=== PATIENT | male | born 1950 | race Caucasian/White ===

== ENCOUNTER 2019-08-02 01:08 | Inpatient (IN) | payer MEDICARE, OTHER ==
[~2019-08-02] VITALS: Ht 177.8 cm; Wt 90.5 kg
[2019-08-02] MEDS ORDERED: LACTATED RINGERS 1,000 ML IV STA (01:26)
[2019-08-02] MEDS ORDERED: ONDANSETRON 4 MG/2 ML (SDV) Z0FRAN IVP ONE (01:30)
--- NOTE | 2019-08-02 01:43 | ED General ---
General Chief Complaint: Respiratory Problems Stated Complaint: SOB Nursing Triage Note: intermittant soa, cough since tuesday, vomitting tonight. Nursing Sepsis Screen: No Definite Risk Source of Information: Patient Exam Limitations: No Limitations History of Present Illness Date Seen by Provider: Aug 02, 2019 Time Seen by Provider: 01:33 Initial Comments Here with 3-4 days of increasing shortness of breath, cough and overall not feeling well. Vomited tonight a few times. Has had intermittent fevers through this time. Did have tooth extraction last week. Does have significant long history with asthma and COPD. Denies specific pain but does report weakness. Timing/Duration: 3-4 Days Severity: Moderate Modifying Factors: improves with Rest Associated Systoms: No Chest Pain; Cough, Fever/Chills, Nausea/Vomiting; No Rash; Shortness of Air, Weakness Allergies and Home Medications Allergies Coded Allergies: Sulfa (Sulfonamide Antibiotics) (Verified Allergy, Unknown, 08/02/19) Patient Home Medication List Home Medication List Reviewed: Yes Review of Systems Review of Systems Constitutional: see HPI EENTM: see HPI Respiratory: cough, short of breath Cardiovascular: No chest pain, No edema Gastrointestinal: No abdominal pain; diarrhea, nausea, vomiting Genitourinary: no symptoms reported Musculoskeletal: see HPI; No back pain Skin: no symptoms reported Psychiatric/Neurological: No Symptoms Reported All Other Systems Reviewed Negative Unless Noted: Yes Past Hixtatn-Teyhbc-Bwlchw Hx Past Med/Social Hx: Reviewed Nursing Past Med/Soc Hx Patient Social History Alcohol Use: Denies Use Recreational Drug Use: No Smoking Status: Current Everyday Smoker Type Used: Cigarettes 2nd Hand Smoke Exposure: Yes Recent Foreign Travel: No Contact w/Someone Who Travel: No Recent Infectious Disease Expo: No Recent Hopitalizations: No Physical Abuse: No Sexual Abuse: No Mistreated: No Fear: No Immunizations Up To Date Tetanus Booster (TDap): Unknown Seasonal Allergies Seasonal Allergies: No Past Medical History Surgeries: Yes Transurethral Resection Respiratory: Yes Asthma, Pneumonia, COPD, Emphysema Cardiac: Yes High Cholesterol, Hypertension Neurological: No Genitourinary: Yes Benign Prostatic Hyperpl Gastrointestinal: No Musculoskeletal: Yes Arthritis Endocrine: No HEENT: No Cancer: No Psychosocial: No Integumentary: No Blood Disorders: No Family Medical History Reviewed Nursing Family Hx No Pertinent Family Hx Physical Exam-Suspected Sepsis Physical Exam Vital Signs Vital Signs - First Documented 08/02/19 01:16 Temp 37.1 Pulse 86 Resp 16 B/P (MAP) 178/104 (128) Pulse Ox 95 O2 Delivery Room Air Capillary Refill : Less Than 3 Seconds Blood Pressure Mean: 128 Height, Weight, BMI Height: '" Weight: lbs. oz. kg; 28.00 BMI Method: General Appearance: No Apparent Distress, WD/WN HEENT: PERRL/EOMI, TMs Normal, Pharynx Normal Neck: Non Tender, Supple Respiratory: No Accessory Muscle Use, Crackles (right lower long), Decreased Breath Sounds, Wheezing (right-sided especially lower) Cardiovascular: Regular Rate, Rhythm, No Murmur Gastrointestinal: Non Tender, Soft Back: Normal Inspection, No CVA Tenderness, No Vertebral Tenderness Extremity: Normal Range of Motion, Non Tender Neurologic/Psychiatric: Alert, Oriented x3 Skin: normal color, warm/dry Focused Exam Lactate Level 08/02/19 01:39: Lactic Acid Level 2.00 Lactic Acid Level Laboratory Tests Test 08/02/19 01:39 Lactic Acid Level 2.00 MMOL/L (0.50-2.00) Progress/Results/Core Measures Suspected Sepsis Recent Fever Within 48 Hours: No Infection Criteria Present: None New/Unexplained Altered Menta: No Sepsis Screen: No Definite Risk SIRS Temperature: Pulse: 86 Respiratory Rate: 16 Laboratory Tests 08/02/19 01:39: White Blood Count 26.0H Blood Pressure 178 /104 Mean: 128 08/02/19 01:39: Lactic Acid Level 2.00 Laboratory Tests 08/02/19 01:35: INR Comment 1.2 08/02/19 01:39: Creatinine 0.87, Platelet Count 271, Total Bilirubin 1.1H Results/Orders Lab Results Laboratory Tests Test 08/02/19 01:35 08/02/19 01:39 Range/Units Prothrombin Time 16.0 H 12.2-14.7 SEC INR Comment 1.2 0.8-1.4 Activated Partial Thromboplast Time 31 24-35 SEC White Blood Count 26.0 H 4.3-11.0 10^3/uL Red Blood Count 4.73 4.35-5.85 10^6/uL Hemoglobin 13.3 13.3-17.7 G/DL Hematocrit 39 L 40-54 % Mean Corpuscular Volume 83 80-99 FL Mean Corpuscular Hemoglobin 28 25-34 PG Mean Corpuscular Hemoglobin Concent 34 32-36 G/DL Red Cell Distribution Width 14.8 H 10.0-14.5 % Platelet Count 271 130-400 10^3/uL Mean Platelet Volume 11.7 H 7.4-10.4 FL Neutrophils (%) (Auto) 91 H 42-75 % Lymphocytes (%) (Auto) 3 L 12-44 % Monocytes (%) (Auto) 6 0-12 % Eosinophils (%) (Auto) 0 0-10 % Basophils (%) (Auto) 0 0-10 % Neutrophils # (Auto) 23.8 H 1.8-7.8 X 10^3 Lymphocytes # (Auto) 0.8 L 1.0-4.0 X 10^3 Monocytes # (Auto) 1.5 H 0.0-1.0 X 10^3 Eosinophils # (Auto) 0.0 0.0-0.3 10^3/uL Basophils # (Auto) 0.1 0.0-0.1 10^3/uL Neutrophils % (Manual) 80 % Lymphocytes % (Manual) 4 % Monocytes % (Manual) 6 % Eosinophils % (Manual) 1 % Basophils % (Manual) 0 % Band Neutrophils 9 % Reactive Lymphocytes 1 % Toxic Granulation 1+ Poikilocytosis SLIGHT Anisocytosis SLIGHT Sodium Level 136 135-145 MMOL/L Potassium Level 3.8 3.6-5.0 MMOL/L Chloride Level 103 98-107 MMOL/L Carbon Dioxide Level 22 21-32 MMOL/L Anion Gap 11 5-14 MMOL/L Blood Urea Nitrogen 21 H 7-18 MG/DL Creatinine 0.87 0.60-1.30 MG/DL Estimat Glomerular Filtration Rate > 60 BUN/Creatinine Ratio 24 Glucose Level 151 H 70-105 MG/DL Lactic Acid Level 2.00 0.50-2.00 MMOL/L Calcium Level 9.6 8.5-10.1 MG/DL Corrected Calcium 10.1 8.5-10.1 MG/DL Total Bilirubin 1.1 H 0.1-1.0 MG/DL Aspartate Amino Transf (AST/SGOT) 24 5-34 U/L Alanine Aminotransferase (ALT/SGPT) 28 0-55 U/L Alkaline Phosphatase 170 H 40-136 U/L C-Reactive Protein High Sensitivity 39.90 H 0.00-0.50 MG/DL Total Protein 7.6 6.4-8.2 GM/DL Albumin 3.4 3.2-4.5 GM/DL Micro Results Microbiology 08/02/19 Influenza Types A,B Antigen (DARIEN) - Final, Complete My Orders Orders - STARR LARKIN MD Cbc With Automated Diff (08/02/19 01:26) Comprehensive Metabolic Panel (08/02/19:26) Hs C Reactive Protein (08/02/19:26) Influenza A And B Antigens (08/02/19:26) Ondansetron Injection (Zofran Injectio (08/02/19 01:30) Lactated Ringers (Lr 1000 Ml Iv Solution (08/02/19:26) Ed Iv/Invasive Line Start (08/02/19:26) Chest 1 View, Ap/Pa Only (08/02/19 01:28) Blood Culture (08/02/19 01:34) Sputum Culture (08/02/19 01:34) Urinalysis (08/02/19 01:34) Urine Culture (08/02/19 01:34) Protime With Inr (08/02/19 01:34) Partial Thromboplastin Time (08/02/19 01:34) Ed Iv/Invasive Line Start (08/02/19 01:34) Vital Signs Adult Sepsis Patie Q15M (08/02/19 01:34) O2 (08/02/19 01:34) Remove Rings In Anticipation O (08/02/19 01:34) Lactic Acid Analyzer (08/02/19 01:34) Albuterol/Ipra Inhalation Soln (Duoneb I (08/02/19 01:45) Svn Small Volume Nebulizer (08/02/19 01:42) Manual Differential (08/02/19 01:39) Ct Chest W (08/02/19 02:35) Piperacillin Sodium/Tazobactam (Zosyn Vi (08/02/19 02:45) Iohexol Injection (Omnipaque 350 Mg/Ml 1 (08/02/19 03:15) Received Contrast (Hold Metformin- Contr (08/02/19 03:15) Vancomycin Injection (Vancomycin Injecti (08/02/19 04:00) Hydralazine Injection (Apresoline Inject (08/02/19 04:00) Medications Given in ED Current Medications Medications Dose Ordered Sig/Emmie Route Start Time Stop Time Status Last Admin Dose Admin Albuterol/ Ipratropium 3 ml ONCE ONCE INH 08/02/19 01:45 08/02/19 01:46 DC 08/02/19 02:01 3 ML Hydralazine HCl 10 mg ONCE ONCE IV 08/02/19 04:00 08/02/19 04:02 DC 08/02/19 04:10 10 MG Iohexol 100 ml ONCE ONCE IV 08/02/19 03:15 08/02/19 03:16 UNV 08/02/19 03:41 74 ML Ondansetron HCl 4 mg ONCE ONCE IVP 08/02/19 01:30 08/02/19 01:31 DC 08/02/19 01:42 4 MG Piperacillin Sod/ Tazobactam Sod 4.5 gm/Sodium Chloride 100 ml @ 200 mls/hr ONCE ONCE IV 08/02/19 02:45 08/02/19 03:14 DC 08/02/19 02:56 200 MLS/HR Vital Signs/I&O 08/02/19 08/02/19 01:16 02:01 Temp 37.1 Pulse 86 Resp 16 B/P (MAP) 178/104 (128) Pulse Ox 95 94 O2 Delivery Room Air Room Air Capillary Refill : Less Than 3 Seconds Blood Pressure Mean: 128 Progress Note : Progress Note Seen and evaluated. Sepsis order set initiated. LR 1 L bolus and Zofran 4 mg IV ordered. Chest x-ray concerning for significant right lower lobe pneumonia/mass. Anticipate CT of the chest. Nicoo roberto ordered. Monitor patient. 0245: Zosyn 4.5 g IV ordered for right lower lobe pneumonia. CT chest ordered with contrast. 0430: CT complete. Vancomycin 1 g IV ordered. Hydralazine 10 mg IV for hypertension ordered. CT complete and shows large consolidated pneumonia in the right lower lobe. Patient will require admission. Patient at [facility]. Patient stable for admission to medical for. Admit, inpatient status to Dr. Lee, on- call for [facility]. Consult Dr. Collado in the morning. Patient agrees to plan. Departure Communication (Admissions) Time/Spoke to Admitting Phy: 04:37 Impression Primary Impression: Right lower lobe pneumonia Qualified Codes: J18.1 - Lobar pneumonia, unspecified organism Disposition: ADMITTED INPATIENT Condition: Stable Admissions Decision to Admit Reason: Admit from ER (General) Decision to Admit/Date: Aug 02, 2019 Time/Decision to Admit Time: 04:34 Departure-Patient Inst. Referrals: NO,LOCAL PHYSICIAN (PCP/Family) Primary Care Physician STARR LARKIN MD Aug 02, 2019 01:43
[2019-08-02] MEDS ORDERED: RT-ALBUTEROL/IPRATROPIUM 3 ML (DUONEB) VIAL INH ONE (01:45)
[2019-08-02 01:57] LABS: BASOPHILS # (AUTO) 0.1 10^3/uL (0.0-0.1); BASOPHILS % (AUTO) 0 % (0-10); EOSINOPHILS % (AUTO) 0 % (0-10); HEMATOCRIT 39 % (40-54); HEMOGLOBIN 13.3 G/DL (13.3-17.7); LYMPHOCYTES # (AUTO) 0.8 X 10^3 (1.0-4.0); LYMPHOCYTES % (AUTO) 3 % (12-44); MEAN CORPUSCULAR HEMOGLOBIN 28 PG (25-34); MEAN CORPUSCULAR HGB CONC 34 G/DL (32-36); MEAN CORPUSCULAR VOLUME 83 FL (80-99); MEAN PLATELET VOLUME 11.7 FL (7.4-10.4); MONOCYTES # (AUTO) 1.5 X 10^3 (0.0-1.0); MONOCYTES % (AUTO) 6 % (0-12); NEUTROPHILS # (AUTO) 23.8 X 10^3 (1.8-7.8); NEUTROPHILS % (AUTO) 91 % (42-75); PLATELET COUNT 271 10^3/uL (130-400); RED CELL DISTRIBUTION WIDTH 14.8 % (10.0-14.5)
[2019-08-02 02:10] LABS: INR 1.2 (0.8-1.4)
[2019-08-02 02:24] LABS: ANISOCYTOSIS SLIGHT; BAND NEUTROPHILS 9 %; BASOPHILS % (MANUAL) 0 %; EOSINOPHILS % (MANUAL) 1 %; LYMPHOCYTES % (MANUAL) 4 %; MONOCYTES % (MANUAL) 6 %; NEUTROPHILS % (MANUAL) 80 %; POIKILOCYTOSIS SLIGHT; REACTIVE LYMPHOCYTES 1 %; TOXIC GRANULATION/VACUOLAZATIO 1+
[2019-08-02 02:32] LABS: BILIRUBIN,TOTAL 1.1 MG/DL (0.1-1.0); BUN/CREATININE RATIO 24; CALCIUM 9.6 MG/DL (8.5-10.1); CARBON DIOXIDE 22 MMOL/L (21-32); CHLORIDE 103 MMOL/L (98-107); CREATININE SERUM 0.87 MG/DL (0.60-1.30); GFR ESTIMATED > 60; GLUCOSE 151 MG/DL (70-105); POTASSIUM 3.8 MMOL/L (3.6-5.0); SODIUM 136 MMOL/L (135-145)
[2019-08-02 02:33] LABS: ALANINE AMINOTRANSFERASE 28 U/L (0-55); ALBUMIN 3.4 GM/DL (3.2-4.5); ALKALINE PHOSPHATASE 170 U/L (40-136); TOTAL PROTEIN 7.6 GM/DL (6.4-8.2)
[2019-08-02] MEDS ORDERED: PIPERACILLIN SODIUM/TAZOBACTAM 4.5 GM in NS (IVPB) 100 ML IV ONE (02:45)
[2019-08-02] MEDS ORDERED: HOLD METFORMIN - RECEIVED CONTRAST 20 ML VIAL IV SCH (03:15)
[2019-08-02] MEDS ORDERED: IOHEXOL 350 MG/ML 100 ML (OMNIPAQUE 350) VIAL IV ONE (03:15)
[2019-08-02] MEDS ORDERED: hydrALAZINE (APESOLINE) 20 MG/ML VIAL IV ONE (04:00)
[2019-08-02] MEDS ORDERED: VANCOMYCIN INJECTION 2,000 MG in NS IV 500 ML 500 ML IV SCH (04:00)
--- NOTE | 2019-08-02 05:12 | NUR ---
NALLELY KELLY admitted to room 407-1, with an admitting diagnosis of RLL PNA, on 08/02/19 from ED via , accompanied by STAFF.NALLELY KELLY introduced to surroundings, call light, bed controls, phone, TV, temperature control, lights, meal times, smoking policy, visitor policy, side rail policy, bathrooms and showers. Patient Rights given to patient in the handbook. NALLELY KELLY verbalizes understanding that [facility] is not responsible for the loss or damage to any personal effects or valuables that are kept in the patients possession during their hospitalization. THE PATIENT'S PLAN OF CARE WAS DISCUSSED WITH THE PT, HE AGREES TO THE PLAN & DENIES ANY QUESTIONS OR CONCERNS AT THIS TIME. NALLELY KELLY verbalizes understanding of Interdisciplinary Patient Education.
[2019-08-02 05:20] VITALS: BP 180/87
[2019-08-02] MEDS ORDERED: LACTATED RINGERS 1,000 ML IV ONE (06:44)
[2019-08-02] MEDS ORDERED: ONDANSETRON 4 MG/2 ML (SDV) Z0FRAN ONE (06:44)
--- NOTE | 2019-08-02 06:59 | Diagnostic Imaging Report ---
INDICATION: Intermittent shortness of air with cough for 3 days, vomiting tonight. COMPARISON STUDY: None FINDINGS: A portable upright view of the chest demonstrates a dense infiltrate in the lower half of the right lung. An underlying mass cannot be excluded. Cardiomegaly is present with normal vascularity. There are no definite pleural effusions. IMPRESSION: There is a dense infiltrate in the right lower lung. Underlying mass cannot be excluded. A CT scan will be obtained. There is mild cardiomegaly. Dictated by: Dictated on workstation # [id number]
[2019-08-02] MEDS ORDERED: FLU QUADRIvalent (5+ YOA) 2019-2020 (AFLURIA) 0.5 ML IM ONE ×2 (07:00→10:02)
[2019-08-02] MEDS ORDERED: PIPERACILLIN/TAZO 4.5 GM/NS 100 ML IV NR ×2 (07:10)
--- NOTE | 2019-08-02 07:21 | NUR ---
VANCOMYCIN DOSING: IBW 73 KG, SCr 1, EST CrCl 71 VANCOMYCIN 2,000 MG GIVEN IN ED @ 04:10 MAIN DOSE: 1,500 MG IV Q 12 HRS VANCOMYCIN TROUGH DUE 08/03/19 @ 16:00 IF TROUGH IS > 20 HOLD 08/03/19 17:00 DOSE
--- NOTE | 2019-08-02 07:28 | Diagnostic Imaging Report ---
PROCEDURE: CT chest with contrast only. TECHNIQUE: Multiple contiguous axial images were obtained through the chest after administration of intravenous contrast. Auto Exposure Controls were utilized during the CT exam to meet ALARA standards for radiation dose reduction. INDICATION: Abnormal chest radiograph. Patient has had worsening shortness of breath for 3 days. FINDINGS: Postcontrast CT scan of the chest demonstrates a dense infiltrate throughout most of the right lower lobe. There is a minimal associated right pleural effusion. No endobronchial lesions are identified. Left lung is clear. A few small mediastinal and right hilar lymph nodes are present which are probably reactive. Centrilobular emphysematous changes present. These are fairly mild. Heart size is normal. No pericardial effusion is present. There are some calcifications of the coronary arteries. Contrast within the pulmonary vessels are suboptimal. No large central pulmonary emboli are present. Takeoff of the great vessels demonstrate minimal arterial sclerosis. Visualized portions of the abdomen demonstrate mildly distended gallbladder. There is some thickening of the left adrenal gland. IMPRESSION: There is a dense consolidation of the right lower lobe. No endobronchial lesions are present. There is a trace of right pleural effusion. Dictated by: Dictated on workstation # [id number]
[2019-08-02] MEDS ORDERED: CATHETER FLUSH 10 ML SYR IV PRN (07:30)
[2019-08-02 08:00] VITALS: BP 178/86
[2019-08-02 08:45] VITALS: BP 178/104
[2019-08-02] MEDS: LACTATED RINGERS 1,000 ML IV SCH ×3 (08:50→20:42)
--- NOTE | 2019-08-02 09:34 | Pulmonary Consultation ---
History of Present Illness History of Present Illness Date Seen by Provider: Aug 02, 2019 Time Seen by Provider: 09:29 Date of Admission History of Present Illness 68yo s/p recent tooth extraction last week and hx of COPD/asthma presented to ED secondary to worsening SOB, cough, fevers, and n/v. While in the ED he was found to have acute RLL pneumonia per CT scan. Allergies and Home Medications Allergies Coded Allergies: Sulfa (Sulfonamide Antibiotics) (Verified Allergy, Unknown, 08/02/19) Home Medications Albuterol Sulfate 2.5 Mg/3 Ml Vial.neb, 2.5 MG NEB Q6H PRN for SHORTNESS OF BREATH, (Reported) Albuterol Sulfate 1 Puff Puff, 2 PUFF INH Q6H PRN for SHORTNESS OF BREATH, (Reported) 1 PUFF = 90 MCG Budesonide/Formoterol Fumarate 10.2 Gm Hfa.aer.ad, 2 PUFF IH BID, (Reported) Bupropion HCl 100 Mg Tablet, 200 MG PO 0800,1400, (Reported) Citalopram Hydrobromide 20 Mg Tablet, 20 MG PO DAILY, (Reported) Diltiazem HCl 120 Mg Cap.er.24h, 240 MG PO DAILY@0900 Prescribed by: BALTAZAR FARR on 08/07/19 1350 Famotidine 20 Mg Tablet, 40 MG PO HS Prescribed by: BALTAZAR FARR on 08/07/19 1350 Furosemide 20 Mg Tablet, 20 MG PO DAILY, (Reported) Lisinopril 10 Mg Tablet, 20 MG PO DAILY@0900 Prescribed by: BALTAZAR FARR on 08/07/19 1350 Metoprolol Tartrate 50 Mg Tablet, 50 MG PO DAILY, (Reported) Pravastatin Sodium 40 Mg Tablet, 20 MG PO HS, (Reported) TAKES 1/2 (40MG) TABLET Prednisone 20 Mg Tab, 20 MG PO DAILY@1600 1 tab daily x 5 days then 1/2 tab daily x 6 days then stop Prescribed by: BALTAZAR FARR on 08/07/19 1350 Tamsulosin HCl 0.4 Mg Cap, 0.4 MG PO HS, (Reported) Tiotropium [place] 4 Gm Mist.inhal, 2 PUFF IH DAILY, (Reported) Past Dmwlxzn-Nfcoih-Woljag Hx Past Med/Social Hx: Reviewed Nursing Past Med/Soc Hx Patient Social History Alcohol Use: Denies Use Recreational Drug Use: No Smoking Status: Current Everyday Smoker Type Used: Cigarettes 2nd Hand Smoke Exposure: Yes Recent Foreign Travel: No Contact w/Someone Who Travel: No Recent Infectious Disease Expo: Yes (Sister had influenza A but tested negative for influenza upon admission) Recent Hopitalizations: No Physical Abuse: No Sexual Abuse: No Mistreated: No Fear: No Immunizations Up To Date Tetanus Booster (TDap): Unknown Date of Pneumonia Vaccine: Jun 21, 2017 Seasonal Allergies Seasonal Allergies: No Past Medical History Surgeries: Yes Transurethral Resection Respiratory: Yes Asthma, Pneumonia, COPD, Emphysema Cardiac: Yes High Cholesterol, Hypertension Neurological: No Genitourinary: Yes Benign Prostatic Hyperpl Gastrointestinal: No Musculoskeletal: Yes Arthritis Endocrine: No HEENT: No Cancer: No Psychosocial: No Integumentary: No Blood Disorders: No Family Medical History Reviewed Nursing Family Hx "oat cell cancer" 19 MOTHER Bleeding disorder 19 MOTHER FH: CAD (coronary artery disease) 19 FATHER FH: breast cancer 19 MOTHER G8 SISTER FHx: lung disease 19 FATHER Hypertension G8 BROTHER Myocardial infarction 19 FATHER No Pertinent Family Hx Review of Systems Time Seen by Provider: 09:32 Constitutional: Fever, Chills, Sweats, Weakness, Malaise, Other Eyes: No: Pain, Vision change, Conjunctivae inflammation, Eyelid inflammation, Other, Redness ENT: No: Ear pain, Ear discharge, Nose pain, Nose discharge, Nose congestion, Mouth pain, Mouth swelling, Throat pain, Throat swelling, Other Respiratory: Cough, Shortness of breath, SOB with excertion, Wheezing, Sputum; No: Hemoptysis Cardiovascular: No: Chest Pain, Palpitations, Orthopnea, Paroxysmal Noc. Dyspnea, Edema, Lt Headedness, Other Gastrointestinal: No: Nausea, Vomiting, Abdominal Pain, Diarrhea, Constipation, Melena, Hematochezia, Other Sepsis Event Evaluation Height, Weight, BMI Height: '" Weight: lbs. oz. kg; 28.62 BMI Method: Exam Exam Vital Signs Date Time Temp Pulse Resp B/P (MAP) Pulse Ox O2 Delivery O2 Flow Rate FiO2 08/02/19 08:45 37.1 86 95 21 08/02/19 08:00 37.2 88 22 178/86 (116) 94 Room Air 08/02/19 05:20 Room Air 08/02/19 05:20 36.6 90 28 180/87 96 Room Air 08/02/19 05:02 37.3 88 24 164/83 97 Room Air 08/02/19 02:01 94 Room Air 08/02/19 01:16 37.1 86 16 178/104 (128) 95 Room Air I & O 08/02/19 07:00 Intake Total 1100 ml Output Total 0 ml Balance 1100 ml Height & Weight Height: '" Weight: lbs. oz. kg; 28.62 BMI Method: General Appearance: No Apparent Distress, WD/WN HEENT: PERRL/EOMI, TMs Normal, Pharynx Normal Neck: Non Tender, Supple Respiratory: No Accessory Muscle Use, Crackles (right lower long), Decreased Breath Sounds, Wheezing (right-sided especially lower) Cardiovascular: Regular Rate, Rhythm, No Murmur Capillary Refill: Less Than 3 Seconds Extremity: Normal Range of Motion, Non Tender Neurologic/Psychiatric: Alert, Oriented x3 Results Lab Laboratory Tests 08/02/19 01:39 Assessment/Plan Assessment/Plan Acute pneumonia s/p recent tooth extraction -Continue Davion Kumar for now -Check meyers cultures and MRSA nasal swab COPD/asthma -Continue Duonebs Q 4 -Start IS -Prednisone ANTOINE TOBAR DO Aug 02, 2019 09:34
[2019-08-02] MEDS ORDERED: DILT-8 PO (10:01)
[2019-08-02] MEDS ORDERED: RANI150T90 PO (10:01)
[2019-08-02] MEDS ORDERED: TIOT4MIS2 IH (10:01)
[2019-08-02] MEDS ORDERED: BUDE10.2 IH (10:01)
[2019-08-02] MEDS ORDERED: RT-ALBUINH INH (10:01)
[2019-08-02] MEDS ORDERED: CITA20TA9 PO (10:01)
[2019-08-02] MEDS ORDERED: METO50TA15 PO (10:01)
[2019-08-02] MEDS ORDERED: ALBU2.5V4 NEB (10:01)
[2019-08-02] MEDS ORDERED: BUPR100T15 PO (10:01)
[2019-08-02] MEDS ORDERED: TMSL.4C PO (10:01)
[2019-08-02] MEDS ORDERED: PRAV40TA2 PO (10:01)
[2019-08-02] MEDS ORDERED: FURO20TA4 PO (10:04)
--- NOTE | 2019-08-02 10:05 | NUR ---
PATIENT LISTED HIS MEDICATIONS TO ME. I CALLED AND HAD A LIST FAXED OVER FROM THE [facility]. [facility] F[place]: 07-19-19 BUPROPION HCL 100MG 2 TABS BID #360 07-19-19 CITALOPRAM 20MG DAILY #90 06-28-19 SPIRIVA RESPIMAT 2.5MCG 2 PUFFS DAILY #3 06-27-19 METOPROLOL TARTRATE 50MG 1/2 BID #90 (HE TAKES 1 WHOLE TABLET) 06-27-19 PRAVASTATIN 40MG 1/2 HS #45 06-27-19 DILTIAZEM 120MG 24HR DAILY #90 06-27-19 SYMBICORT 160 2 PUFFS BID #3 06-27-19 TAMSULOSIN 0.4MG HS #90 06-04-19 RANITIDINE 150MG BID #180 (TAKES 2 HS) 04-07-19 FUROSEMIDE 20MG DAILY #90 03-28-19 ALBUTEROL NEBULIZER 0.083% Q6H PRN #360 HE ALSO REPORTS HE HAS AN ALBUTEROL INHALER NEEDED WELL.
[2019-08-02] MEDS: PIPERACILLIN/TAZO 4.5 GM/NS 100 ML IV SCH ×4 (10:12→18:16)
[2019-08-02] MEDS: guaiFENesin (MUCINEX) 600 MG TAB PO SCH ×2 (10:29→20:43)
[2019-08-02] MEDS: RT-ALBUTEROL/IPRATROPIUM 3 ML (DUONEB) VIAL INH SCH ×4 (10:33→21:51)
--- NOTE | 2019-08-02 11:03 | History & Physical-Hospitalist ---
History of Present Illness HPI/Chief Complaint CC: Cough with fever HPI: This is a 68yoWM clinic pt of [facility] who has a hx of a pneumonia and on a ventilator three years ago who continues to smoke who presented to the ER found to have a right lower lobe pneumonia with leukocytosis. Dr. Collado has been consulted and I did start Mucinex at his request and initiated Lovenox along with IV steroids and breathing treatments. Source: patient Exam Limitations: no limitations Date Seen 08/02/19 Time Seen by a Provider: 09:30 Attending Physician Dolores King DO PCP Mikael Bautista MD Referring Physician Date of Admission Aug 02, 2019 at 04:38 Home Medications & Allergies Home Medications Reviewed patient Home Medication Reconciliation performed by pharmacy medication reconciliations food science technician and/or nursing. Patients Allergies have been reviewed. Allergies Allergies Coded Allergies Sulfa (Sulfonamide Antibiotics) (Verified Allergy, Unknown, 08/02/19) Past Igmrtei-Avgyzt-Hsuahj Hx Past Med/Social Hx: Reviewed Nursing Past Med/Soc Hx, Reviewed and Corrections made Patient Social History Marrital Status: single Employed/Student: retired Alcohol Use: Denies Use Recreational Drug Use: No Smoking Status: Current Everyday Smoker Type Used: Cigarettes 2nd Hand Smoke Exposure: Yes Recent Foreign Travel: No Contact w/other who traveled: No Recent Hopitalizations: No Recent Infectious Disease Expo: Yes (Sister had influenza A but tested negative for influenza upon admission) Immunizations Up To Date Tetanus Booster (TDap): Unknown Date of Pneumonia Vaccine: Jun 21, 2017 Seasonal Allergies Seasonal Allergies: No Past Medical History Surgeries: Transurethral Resection Respiratory: Chronic Bronchitis, COPD, Emphysema, Pneumonia Cardiac: High Cholesterol, Hypertension Genitourinary: Benign Prostatic Hyperpl Musculoskeletal: Arthritis History of Blood Disorders: No Family History Reviewed Nursing Family Hx "oat cell cancer" 19 MOTHER Bleeding disorder 19 MOTHER FH: CAD (coronary artery disease) 19 FATHER FH: breast cancer 19 MOTHER G8 SISTER FHx: lung disease 19 FATHER Hypertension G8 BROTHER Myocardial infarction 19 FATHER No Pertinent Family Hx Review of Systems Constitutional: see HPI, weakness Respiratory: cough, dyspnea on exertion, wheezing Physical Exam Physical Exam Vital Signs Vital Signs - First Documented 08/02/19 08/02/19 08/02/19 01:16 08:45 18:10 Temp 37.1 Pulse 86 Resp 16 B/P (MAP) 178/104 (128) Pulse Ox 95 O2 Delivery Room Air O2 Flow Rate 4.00 FiO2 21 Capillary Refill : Less Than 3 Seconds Height, Weight, BMI Height: '" Weight: lbs. oz. kg; 28.62 BMI Method: General Appearance: No Apparent Distress, WD/WN, Chronically ill, Obese Eyes: Right Eye Normal Inspection, Right Eye PERRL HEENT: PERRL/EOMI, Normal ENT Inspection, Pharynx Normal, Moist Mucous Membranes Neck: Full Range of Motion, Normal Inspection, Non Tender Respiratory: Chest Non Tender, No Accessory Muscle Use, No Respiratory Distress, Crackles, Decreased Breath Sounds, Rales, Wheezing Cardiovascular: Regular Rate, Rhythm, No Edema, No Gallop, No JVD, No Murmur, Normal Peripheral Pulses Gastrointestinal: Normal Bowel Sounds, No Organomegaly, No Pulsatile Mass, Non Tender, Soft Back: Normal Inspection, No CVA Tenderness, No Vertebral Tenderness Extremity: Normal Capillary Refill, Normal Inspection, Normal Range of Motion, Non Tender, No Calf Tenderness, No Pedal Edema Neurologic/Psychiatric: Alert, Oriented x3, No Motor/Sensory Deficits, Normal Mood/Affect, personal lines underwriter II-XII Norm as Tested Skin: Normal Color, Warm/Dry Lymphatic: No Adenopathy Results Results/Procedures Labs Laboratory Tests 08/02/19 01:39 Patient resulted labs reviewed. Assessment/Plan Admission Diagnosis Assessment: RLL PNA COPD severe previous resp failure [facility] in [place] 3 yrs ago Current smoker Recent dental work HTN HLP Plan: ABx Nebs O2 Dr Collado consult Lovenox Home meds Admission Status: Inpatient Order (span 2 midnights) Reason for Inpatient Admission: PNA in severe COPD was on vent for 1 week in [place] 3 yrs ago and cont to smoke Diagnosis/Problems Diagnosis/Problems (1) Right lower lobe pneumonia Status: Acute Qualifiers: Pneumonia type: due to unspecified organism Qualified Codes: J18.1 - Lobar pneumonia, unspecified organism (2) COPD exacerbation (3) Pain, dental (4) Smoker (5) Leukocytosis (6) Hypertension Clinical Quality Measures DVT/VTE Risk/Contraindication: Risk Factor Score Per Nursin RFS Level Per Nursing on Admit: 4+=Very High DOLORES KING DO Aug 02, 2019 11:03
[2019-08-02 12:00] VITALS: BP 137/66
[2019-08-02] MEDS ORDERED: RT-ALBUTEROL/IPRATROPIUM 3 ML (DUONEB) VIAL INH PRN (12:00)
[2019-08-02] MEDS: ENOXAPARIN 40 MG/0.4 ML (LOVENOX) SYR SC SCH (12:36)
[2019-08-02] MEDS: methylPREDNISolone 40 MG/ML (Solu-MEDROL) VIAL IV SCH ×2 (12:36→18:16)
[2019-08-02] MEDS ORDERED: PIPERACILLIN/TAZO 4.5 GM/NS 100 ML IV SCH ×2 (14:00)
--- NOTE | 2019-08-02 15:00 | NUR ---
Pastoral care visit.
[2019-08-02] MEDS: CATHETER FLUSH 10 ML SYR IV SCH ×2 (15:01→20:43)
[2019-08-02 16:00] VITALS: BP 166/79
[2019-08-02] MEDS: VANCOMYCIN 1500 MG/NS 500 ML IVPB IV SCH ×2 (17:14)
[2019-08-02 20:00] VITALS: BP 189/90
--- NOTE | 2019-08-02 20:00 | NUR ---
PATIENT BP AT THIS TIME 189/90 WITH P[address]SE [address] KING OF THIS ELEVATED BP. NEW ORDER FOR CLONIDINE 0.1 MG PO Q4 HOURS FOR SBP >170.
[2019-08-02] MEDS: cloNIDine 0.1 MG (CATAPRES) TAB PO PRN (20:43)
[2019-08-02] MEDS ORDERED: NON-FORMULARY MEDICATION 1 EA EA (Pravastatin Sodium 20 MG) PO SCH (21:00)
[2019-08-02] MEDS ORDERED: raNItidine (ZANTAC) 150 MG TAB NON-FORMULARY PO SCH (21:00)
[2019-08-02] MEDS ORDERED: NON-FORMULARY MEDICATION 1 EA EA (Budesonide/Formoterol Fumarate (Symbicort 160-4.5 Mcg In IH SCH (21:00)
[2019-08-02] MEDS: TAMSULOSIN 0.4 MG (FLOMAX) CAP PO SCH (21:23)
--- NOTE | 2019-08-02 22:29 | NUR ---
2220- PATIENT'S FAMILY UNABLE TO BRING BIPAP MACHINE FROM HOME. RT NOTIFIED AND WILL BRING ONE TO FLOOR. 7- RT ARRIVES TO PATIENT'S ROOM TO SET UP BIPAP.
[2019-08-03] VITALS (9 sets, daily range): BP systolic 135–196; BP diastolic 63–94
[2019-08-03] MEDS: CATHETER FLUSH 10 ML SYR IV SCH ×3 (00:05→20:48)
[2019-08-03] MEDS: methylPREDNISolone 40 MG/ML (Solu-MEDROL) VIAL IV SCH ×5 (00:17→23:47)
[2019-08-03] MEDS: cloNIDine 0.1 MG (CATAPRES) TAB PO PRN ×2 (00:17→08:27)
--- NOTE | 2019-08-03 01:13 | NUR ---
NOTIFIED DR. SALMERON OF PATIENT BP'S REMAINING ELEVATED, EVEN AFTER GIVING PRN BP MEDICATION TWICE. ORDER FOR METOPROLOL 50 MG PO X1 NOW AND DILTIAZEM 120 MG PO X1 NOW.
[2019-08-03] MEDS: RT-ALBUTEROL/IPRATROPIUM 3 ML (DUONEB) VIAL INH SCH ×6 (02:15→22:28)
[2019-08-03] MEDS: PIPERACILLIN/TAZO 4.5 GM/NS 100 ML IV SCH ×6 (02:22→18:24)
[2019-08-03] MEDS: VANCOMYCIN 1500 MG/NS 500 ML IVPB IV SCH ×2 (04:44)
[2019-08-03] MEDS: LACTATED RINGERS 1,000 ML IV SCH ×2 (04:44→15:02)
[2019-08-03] MEDS ORDERED: meTOprolol TARTRATE 50 MG (LOPRESSOR) TAB ONE (04:47)
[2019-08-03] MEDS ORDERED: dilTIAZem120 MG (CARDIZEM CD) CAP PO ONE (04:47)
[2019-08-03] MEDS: dilTIAZem120 MG (CARDIZEM CD) CAP PO SCH ×2 (04:52→08:27)
[2019-08-03] MEDS ORDERED: meTOprolol TARTRATE 50 MG (LOPRESSOR) TAB PO ONE (05:00)
[2019-08-03 06:35] LABS: BASOPHILS % (AUTO) 0 % (0-10); EOSINOPHILS % (AUTO) 0 % (0-10); HEMATOCRIT 36 % (40-54); HEMOGLOBIN 11.9 G/DL (13.3-17.7); LYMPHOCYTES % (AUTO) 10 % (12-44); MEAN CORPUSCULAR HEMOGLOBIN 27 PG (25-34); MEAN CORPUSCULAR HGB CONC 33 G/DL (32-36); MEAN CORPUSCULAR VOLUME 83 FL (80-99); MEAN PLATELET VOLUME 11.1 FL (7.4-10.4); MONOCYTES # (AUTO) 0.5 X 10^3 (0.0-1.0); MONOCYTES % (AUTO) 6 % (0-12); NEUTROPHILS # (AUTO) 7.8 X 10^3 (1.8-7.8); NEUTROPHILS % (AUTO) 84 % (42-75); PLATELET COUNT 301 10^3/uL (130-400); WHITE BLOOD COUNT 9.3 10^3/uL (4.3-11.0)
[2019-08-03 06:55] LABS: ALANINE AMINOTRANSFERASE 48 U/L (0-55); ALBUMIN 2.9 GM/DL (3.2-4.5); ALKALINE PHOSPHATASE 117 U/L (40-136); BILIRUBIN,TOTAL 0.6 MG/DL (0.1-1.0); BUN/CREATININE RATIO 23; CALCIUM 8.7 MG/DL (8.5-10.1); CARBON DIOXIDE 24 MMOL/L (21-32); CHLORIDE 106 MMOL/L (98-107); CREATININE SERUM 0.83 MG/DL (0.60-1.30); GFR ESTIMATED > 60; GLUCOSE 148 MG/DL (70-105); POTASSIUM 3.6 MMOL/L (3.6-5.0); SODIUM 139 MMOL/L (135-145); TOTAL PROTEIN 6.5 GM/DL (6.4-8.2)
[2019-08-03] MEDS: RT-ADVAIR HFA 115/21 MCG PER PUFF IH SCH ×2 (07:05→22:28)
[2019-08-03] MEDS: FUROSEMIDE 20 MG (LASIX) TAB PO SCH (08:27)
[2019-08-03] MEDS: meTOprolol TARTRATE 50 MG (LOPRESSOR) TAB PO SCH (08:27)
[2019-08-03] MEDS: guaiFENesin (MUCINEX) 600 MG TAB PO SCH ×2 (08:27→20:47)
[2019-08-03] MEDS: buPROPion 100 MG (WELLBUTRIN) TAB PO SCH ×2 (08:31→15:02)
[2019-08-03] MEDS ORDERED: DILTIAZEM HCL 120 MG PO SCH (09:00)
[2019-08-03] MEDS ORDERED: NON-FORMULARY MEDICATION 1 EA EA (Tiotropium Bromide (Spiriva Respimat 2.5MCG/ACTUATION) 2 IH SCH (09:00)
--- NOTE | 2019-08-03 09:55 | Pulmonary Progress Note ---
Subjective Time Seen by a Provider: 07:00 Subjective/Events-last exam No complications noted. Sepsis Event Evaluation Height, Weight, BMI Height: '" Weight: lbs. oz. kg; 28.62 BMI Method: Focused Exam Lactate Level 08/02/19 01:39: Lactic Acid Level 2.00 Exam Exam Vital Signs Date Time Temp Pulse Resp B/P (MAP) Pulse Ox O2 Delivery O2 Flow Rate FiO2 08/03/19 07:51 36.0 69 25 196/90 (125) 96 NIV Bilevel 14.00 30.00 08/03/19 07:03 63 29 97 30.00 08/03/19 06:56 68 173/78 (109) 08/03/19 06:18 71 186/82 (116) 08/03/19 04:00 36.0 75 23 193/91 (125) 96 NIV Bilevel 14.00 30.00 08/03/19 02:15 65 99 30.00 08/03/19 00:26 36.5 77 17 189/94 (125) 99 NIV Bilevel 14.00 30.00 08/02/19 22:31 82 97 30.00 08/02/19 21:51 99 High Flow N/C 4.00 08/02/19 20:00 High Flow N/C 4.00 08/02/19 20:00 37.7 88 28 189/90 (123) 97 High Flow N/C 4.00 08/02/19 18:10 98 High Flow N/C 4.00 08/02/19 16:00 37.0 82 28 166/79 (108) 90 Room Air 08/02/19 14:45 91 Room Air 08/02/19 12:00 37.6 95 20 137/66 (89) 90 Room Air 08/02/19 10:33 88 Room Air I & O 08/03/19 07:00 Intake Total 5180 ml Output Total 0 ml Balance 5180 ml Height & Weight Height: '" Weight: lbs. oz. kg; 28.62 BMI Method: General Appearance: No Apparent Distress, WD/WN, Chronically ill, Obese HEENT: PERRL/EOMI, Normal ENT Inspection, Pharynx Normal, Moist Mucous Membranes Neck: Full Range of Motion, Normal Inspection, Non Tender Respiratory: Chest Non Tender, No Accessory Muscle Use, No Respiratory Dis tress, Crackles, Decreased Breath Sounds, Rales, Wheezing Cardiovascular: Regular Rate, Rhythm, No Edema, No Gallop, No JVD, No Murmur, Normal Peripheral Pulses Capillary Refill: Less Than 3 Seconds Extremity: Normal Capillary Refill, Normal Inspection, Normal Range of Motion, Non Tender, No Calf Tenderness, No Pedal Edema Neurologic/Psychiatric: Alert, Oriented x3, No Motor/Sensory Deficits, Normal Mood/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
[2019-08-03] MEDS: ENOXAPARIN 40 MG/0.4 ML (LOVENOX) SYR SC SCH (10:11)
[2019-08-03] MEDS: UMECLIDINIUM BROMIDE (INCRUSE ELLIPTA) 7'S IH SCH (11:10)
--- NOTE | 2019-08-03 13:45 | Progress Note - Hospitalist ---
Subjective HPI/CC On Admission Date Seen by Provider: Aug 03, 2019 Time Seen by Provider: 12:30 CC: Cough with fever HPI: This is a 68yoWM clinic pt of [facility] who has a hx of a pneumonia and on a ventilator three years ago who continues to smoke who presented to the ER found to have a right lower lobe pneumonia with leukocytosis. Dr. Collado has been consulted and I did start Mucinex at his request and initiated Lovenox along with IV steroids and breathing treatments. Subjective/Events-last exam patient says that he's feeling a lot better than he had been. He has no new complaints. Because of his teeth he is on a soft diet. His dentition is poor. Review of Systems Pulmonary: Cough Focused Exam Lactate Level 08/02/19 01:39: Lactic Acid Level 2.00 Objective Exam Vital Signs Vital Signs Date Time Temp Pulse Resp B/P (MAP) Pulse Ox O2 Delivery O2 Flow Rate FiO2 08/03/19 16:00 36.8 63 18 135/63 (87) 98 Nasal Cannula 4.00 08/02/19 08:45 21 Capillary Refill : Less Than 3 Seconds General Appearance: Chronically ill HEENT: Other (poor dentition) Neck: Limited Range of Motion Respiratory: Crackles, Decreased Breath Sounds, Expiration Cardiovascular: Regular Rate, Rhythm, No Gallop, Systolic Murmur Gastrointestinal: Normal Bowel Sounds, Non Tender, Soft, Distended Rectal: Deferred Back: Normal Inspection Extremity: No Calf Tenderness, Pedal Edema Neurologic/Psychiatric: Alert, Oriented x3, No Motor/Sensory Deficits, Normal 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 Imaging: Reviewed Imaging Report Assessment/Plan Assessment and Plan Assess & Plan/Chief Complaint RLL PNA-day number 2-Zosyn,steroids COPD Current smoker-currently curtailed Recent dental work HTN HLP leukocytosis resolved hyperglycemia- possibly related to steroids Clinical Quality Measures DVT/VTE Risk/Contraindication: Risk Factor Score Per Nursin RFS Level Per Nursing on Admit: 4+=Very High MARITO NUNEZ MD Aug 03, 2019 13:45
[2019-08-03] MEDS ORDERED: TROUGH ORDER-PHARMACY XX NR (16:00)
[2019-08-03] MEDS ORDERED: FAMOTIDINE 20 MG (PEPCID) TABLET ONE (20:41)
[2019-08-03] MEDS: SIMvastatin 10 MG (ZOCOR) TAB PO SCH (20:47)
[2019-08-03] MEDS: TAMSULOSIN 0.4 MG (FLOMAX) CAP PO SCH (20:47)
--- NOTE | 2019-08-03 20:51 | NUR ---
UNABLE TO PULL FAMOTIDINE 40 MG TABLET D/T NOT CARRYING MEDICATION ON FLOOR, INSTEAD (2) FAMOTIDINE 20 MG TABLETS PULLED FROM STOCK MED BY THIS RN TO EQUAL CORRECT DOSAGE.
[2019-08-03] MEDS ORDERED: FAMOTIDINE 40 MG (PEPCID) TABLET PO SCH (21:00)
[2019-08-04] MEDS: PIPERACILLIN/TAZO 4.5 GM/NS 100 ML IV SCH ×6 (01:53→17:34)
[2019-08-04] MEDS: LACTATED RINGERS 1,000 ML IV SCH (01:53)
[2019-08-04] MEDS: RT-ALBUTEROL/IPRATROPIUM 3 ML (DUONEB) VIAL INH SCH ×6 (02:32→21:06)
[2019-08-04 03:25] VITALS: BP 163/62
[2019-08-04] MEDS: methylPREDNISolone 40 MG/ML (Solu-MEDROL) VIAL IV SCH (06:28)
[2019-08-04] MEDS: CATHETER FLUSH 10 ML SYR IV SCH ×3 (06:28→22:08)
[2019-08-04] MEDS: RT-ADVAIR HFA 115/21 MCG PER PUFF IH SCH ×2 (06:32→18:09)
[2019-08-04] MEDS: UMECLIDINIUM BROMIDE (INCRUSE ELLIPTA) 7'S IH SCH (06:35)
[2019-08-04] MEDS: guaiFENesin (MUCINEX) 600 MG TAB PO SCH ×2 (07:54→20:01)
[2019-08-04] MEDS: meTOprolol TARTRATE 50 MG (LOPRESSOR) TAB PO SCH (07:54)
[2019-08-04] MEDS: dilTIAZem120 MG (CARDIZEM CD) CAP PO SCH (07:55)
[2019-08-04] MEDS: buPROPion 100 MG (WELLBUTRIN) TAB PO SCH ×2 (07:55→15:08)
[2019-08-04 08:00] VITALS: BP 184/90
[2019-08-04] MEDS: FUROSEMIDE 20 MG (LASIX) TAB PO SCH (08:00)
[2019-08-04] MEDS: cloNIDine 0.1 MG (CATAPRES) TAB PO PRN (09:18)
--- NOTE | 2019-08-04 10:33 | NUR ---
PATIENT HAD ELEVATED SYSTOLIC BLOOD PRESSURE OF 184 THIS AM. HE HAD NOT HAD HIS MORNING HEART MEDICATIONS. AT RECHECK HIS SBP WAS 173. THIS RN GAVE HIM CATAPRES ORDERED. AT RECHECK HIS SBP WAS 190. PATIENT WAS AGAIN RECHECKED 15 MIN LATER AND SBP WAS 196. DR. NUNEZ WAS NOTIFIED, MANUAL WAS TAKEN AND SBP WAS 198. DR. BOURGEOIS REVIEW AND PUT IN ORDERS.
[2019-08-04] MEDS ORDERED: dilTIAZem120 MG (CARDIZEM CD) CAP PO NR (11:15)
--- NOTE | 2019-08-04 11:15 | NUR ---
ORDERED DILTIAZEM 120 MG TO BE GIVEN. WILL RECHECK PT'S BLOOD PRESSURE IN 30 MINUTES
--- NOTE | 2019-08-04 11:20 | NUR ---
REPORT GIVEN BY KAITLIN PENA
[2019-08-04] MEDS: ENOXAPARIN 40 MG/0.4 ML (LOVENOX) SYR SC SCH (11:45)
[2019-08-04 12:00] VITALS: BP 186/80
--- NOTE | 2019-08-04 13:46 | Progress Note - Hospitalist ---
Subjective HPI/CC On Admission Date Seen by Provider: Aug 04, 2019 Time Seen by Provider: 13:00 CC: Cough with fever HPI: This is a 68yoWM clinic pt of [facility] who has a hx of a pneumonia and on a ventilator three years ago who continues to smoke who presented to the ER found to have a right lower lobe pneumonia with leukocytosis. Dr. Collado has been consulted and I did start Mucinex at his request and initiated Lovenox along with IV steroids and breathing treatments. Subjective/Events-last exam Patient is feeling better than when he came in but his blood pressures been very labile and elevated. He is asymptomatic with the elevated blood pressure. We are adjusting his medications accordingly. He has no specific complaint at this time Review of Systems Neurological: Weakness Focused Exam Lactate Level 08/02/19 01:39: Lactic Acid Level 2.00 Objective Exam Vital Signs Vital Signs Date Time Temp Pulse Resp B/P (MAP) Pulse Ox O2 Delivery O2 Flow Rate FiO2 08/04/19 09:48 96 Nasal Cannula 3.00 08/04/19 08:00 37.0 71 18 184/90 (121) 08/02/19 08:45 21 Capillary Refill : Less Than 3 SecondsLess Than 3 Seconds General Appearance: No Apparent Distress, WD/WN HEENT: Normal ENT Inspection Respiratory: Crackles, Rales, Wheezing Cardiovascular: Regular Rate, Rhythm, No Gallop, Normal Peripheral Pulses Gastrointestinal: Normal Bowel Sounds, Non Tender, Soft Rectal: Deferred Back: Normal Inspection, No CVA Tenderness Extremity: No Pedal Edema Neurologic/Psychiatric: Alert, Oriented x3, No Motor/Sensory Deficits, Normal 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 Imaging: Reviewed Imaging Report Assessment/Plan Assessment and Plan Assess & Plan/Chief Complaint RLL PNA-day number 3-Zosyn,steroids COPD Current smoker-currently curtailed Recent dental work HTN-poor control will increase his Cardizem to 240 a day HLP leukocytosis resolved hyperglycemia- possibly related to steroids-improving since changing to prednisone Clinical Quality Measures DVT/VTE Risk/Contraindication: Risk Factor Score Per Nursin RFS Level Per Nursing on Admit: 4+=Very High MARITO NUNEZ MD Aug 04, 2019 13:46
[2019-08-04 16:00] VITALS: BP 167/81
[2019-08-04] MEDS: predniSONE 20 MG TAB PO SCH (16:50)
[2019-08-04 19:43] VITALS: BP 169/82
[2019-08-04] MEDS: SIMvastatin 10 MG (ZOCOR) TAB PO SCH (20:00)
[2019-08-04] MEDS: FAMOTIDINE 20 MG (PEPCID) TABLET PO SCH (20:00)
[2019-08-04] MEDS: TAMSULOSIN 0.4 MG (FLOMAX) CAP PO SCH (20:00)
[2019-08-05] VITALS (8 sets, daily range): BP systolic 133–194; BP diastolic 65–100
[2019-08-05] MEDS: cloNIDine 0.1 MG (CATAPRES) TAB PO PRN (00:33)
[2019-08-05] MEDS: PIPERACILLIN/TAZO 4.5 GM/NS 100 ML IV SCH ×6 (01:15→17:36)
[2019-08-05] MEDS: RT-ALBUTEROL/IPRATROPIUM 3 ML (DUONEB) VIAL INH SCH ×6 (02:14→21:24)
[2019-08-05] MEDS: CATHETER FLUSH 10 ML SYR IV SCH ×3 (06:06→21:58)
[2019-08-05] MEDS: buPROPion 100 MG (WELLBUTRIN) TAB PO SCH ×2 (08:34→14:48)
[2019-08-05] MEDS: guaiFENesin (MUCINEX) 600 MG TAB PO SCH ×2 (08:35→20:39)
[2019-08-05] MEDS: FUROSEMIDE 20 MG (LASIX) TAB PO SCH (08:35)
[2019-08-05] MEDS: meTOprolol TARTRATE 50 MG (LOPRESSOR) TAB PO SCH (08:35)
[2019-08-05] MEDS: dilTIAZem120 MG (CARDIZEM CD) CAP PO SCH (08:35)
[2019-08-05] MEDS: UMECLIDINIUM BROMIDE (INCRUSE ELLIPTA) 7'S IH SCH (10:08)
[2019-08-05] MEDS: RT-ADVAIR HFA 115/21 MCG PER PUFF IH SCH ×2 (10:08→17:55)
[2019-08-05 10:20] LABS: BASOPHILS % (AUTO) 0 % (0-10); EOSINOPHILS % (AUTO) 0 % (0-10); HEMATOCRIT 37 % (40-54); HEMOGLOBIN 12.3 G/DL (13.3-17.7); LYMPHOCYTES # (AUTO) 1.3 X 10^3 (1.0-4.0); LYMPHOCYTES % (AUTO) 9 % (12-44); MEAN CORPUSCULAR HEMOGLOBIN 28 PG (25-34); MEAN CORPUSCULAR HGB CONC 33 G/DL (32-36); MEAN CORPUSCULAR VOLUME 85 FL (80-99); MONOCYTES # (AUTO) 1.2 X 10^3 (0.0-1.0); MONOCYTES % (AUTO) 9 % (0-12); NEUTROPHILS # (AUTO) 11.5 X 10^3 (1.8-7.8); NEUTROPHILS % (AUTO) 82 % (42-75); PLATELET COUNT 311 10^3/uL (130-400)
[2019-08-05 10:40] LABS: ALANINE AMINOTRANSFERASE 353 U/L (0-55); ALKALINE PHOSPHATASE 135 U/L (40-136); BILIRUBIN,TOTAL 0.5 MG/DL (0.1-1.0); BUN/CREATININE RATIO 22; CALCIUM 8.3 MG/DL (8.5-10.1); CARBON DIOXIDE 23 MMOL/L (21-32); CHLORIDE 102 MMOL/L (98-107); CREATININE SERUM 0.86 MG/DL (0.60-1.30); GFR ESTIMATED > 60; GLUCOSE 163 MG/DL (70-105); POTASSIUM 3.9 MMOL/L (3.6-5.0); SODIUM 138 MMOL/L (135-145); TOTAL PROTEIN 6.4 GM/DL (6.4-8.2)
[2019-08-05 10:49] LABS: BAND NEUTROPHILS 0 %; BASOPHILS % (MANUAL) 0 %; EOSINOPHILS % (MANUAL) 0 %; LYMPHOCYTES % (MANUAL) 10 %; METAMYELOCYTES % 3 %; MONOCYTES % (MANUAL) 8 %; NEUTROPHILS % (MANUAL) 79 %; RBC MORPH NORMAL
--- NOTE | 2019-08-05 10:56 | Progress Note - Hospitalist ---
Subjective HPI/CC On Admission Date Seen by Provider: Aug 05, 2019 Time Seen by Provider: 10:00 CC: Cough with fever HPI: This is a 68yoWM clinic pt of [facility] who has a hx of a pneumonia and on a ventilator three years ago who continues to smoke who presented to the ER found to have a right lower lobe pneumonia with leukocytosis. Dr. Collado has been consulted and I did start Mucinex at his request and initiated Lovenox along with IV steroids and breathing treatments. Subjective/Events-last exam Patient continues to have very labile blood pressure. He says he feels better. Blood work reflects increasing liver function tests. Of note there was some thickening around 1 adrenal gland on the CT chest. Objective Exam Vital Signs Vital Signs Date Time Temp Pulse Resp B/P (MAP) Pulse Ox O2 Delivery O2 Flow Rate FiO2 08/06/19 11:56 36.9 58 20 177/83 (114) 95 Nasal Cannula 3.00 08/02/19 08:45 21 Capillary Refill : Less Than 3 SecondsLess Than 3 Seconds General Appearance: Chronically ill HEENT: Normal ENT Inspection, Pale Conjunctivae (L) Neck: Normal Inspection, Non Tender, Supple Respiratory: Crackles, Rales, Rhonci, Wheezing Cardiovascular: Regular Rate, Rhythm, Other Gastrointestinal: Normal Bowel Sounds, No Organomegaly, Non Tender, Soft Extremity: Normal Capillary Refill, Normal Range of Motion, No Pedal Edema Results/Procedures Lab Laboratory Tests 08/06/19 05:52 Patient resulted labs reviewed. Imaging: Reviewed Imaging Report Assessment/Plan Assessment and Plan Assess & Plan/Chief Complaint RLL PNA-day number 4-Zosyn,steroids COPD /emphysema Current smoker-currently curtailed Recent dental work HTN-poor control -on Cardizem 240 a day, Toprol, will add lisinopril, is on Catapres when necessary-will need to be cautious of heart block with Cardizem and Toprol HLP leukocytosis resolved hyperglycemia- possibly related to steroids-improving since changing to prednisone Reactive airway disease Elevated liver function tests of uncertain etiology- Will follow liver functions and blood count and recheck a chest x-ray in a.m. further evaluation of the adrenal gland may be in order if he continues to have labile blood pressures Clinical Quality Measures DVT/VTE Risk/Contraindication: Risk Factor Score Per Nursin RFS Level Per Nursing on Admit: 4+=Very High SANDNESS,MARITO Morrow MD Aug 05, 2019 10:56
[2019-08-05] MEDS: lisINopril 5 MG (PRINIVIL) TABLET PO SCH (11:00)
[2019-08-05] MEDS: ENOXAPARIN 40 MG/0.4 ML (LOVENOX) SYR SC SCH (11:00)
[2019-08-05] MEDS: predniSONE 20 MG TAB PO SCH (17:36)
[2019-08-05] MEDS: FAMOTIDINE 20 MG (PEPCID) TABLET PO SCH (20:39)
[2019-08-05] MEDS: TAMSULOSIN 0.4 MG (FLOMAX) CAP PO SCH (20:39)
[2019-08-05] MEDS: SIMvastatin 10 MG (ZOCOR) TAB PO SCH (20:39)
[2019-08-06 00:28] VITALS: BP 150/80
[2019-08-06] MEDS: RT-ALBUTEROL/IPRATROPIUM 3 ML (DUONEB) VIAL INH SCH ×6 (02:12→20:55)
[2019-08-06] MEDS: PIPERACILLIN/TAZO 4.5 GM/NS 100 ML IV SCH ×6 (02:37→17:56)
[2019-08-06 04:00] VITALS: BP 192/93
[2019-08-06] MEDS: cloNIDine 0.1 MG (CATAPRES) TAB PO PRN ×2 (04:40→16:31)
[2019-08-06] MEDS: CATHETER FLUSH 10 ML SYR IV SCH ×3 (05:42→19:45)
[2019-08-06 06:33] LABS: BASOPHILS # (AUTO) 0.1 10^3/uL (0.0-0.1); BASOPHILS % (AUTO) 1 % (0-10); EOSINOPHILS % (AUTO) 0 % (0-10); HEMATOCRIT 39 % (40-54); HEMOGLOBIN 12.7 G/DL (13.3-17.7); LYMPHOCYTES # (AUTO) 1.1 X 10^3 (1.0-4.0); LYMPHOCYTES % (AUTO) 8 % (12-44); MEAN CORPUSCULAR HEMOGLOBIN 28 PG (25-34); MEAN CORPUSCULAR HGB CONC 33 G/DL (32-36); MEAN CORPUSCULAR VOLUME 85 FL (80-99); MONOCYTES # (AUTO) 1.1 X 10^3 (0.0-1.0); MONOCYTES % (AUTO) 8 % (0-12); NEUTROPHILS # (AUTO) 11.2 X 10^3 (1.8-7.8); NEUTROPHILS % (AUTO) 84 % (42-75); PLATELET COUNT 325 10^3/uL (130-400); WHITE BLOOD COUNT 13.4 10^3/uL (4.3-11.0)
[2019-08-06 06:52] LABS: ALANINE AMINOTRANSFERASE 335 U/L (0-55); ALBUMIN 3.1 GM/DL (3.2-4.5); ALKALINE PHOSPHATASE 133 U/L (40-136); BILIRUBIN,TOTAL 0.6 MG/DL (0.1-1.0); BUN/CREATININE RATIO 22; CALCIUM 8.2 MG/DL (8.5-10.1); CARBON DIOXIDE 27 MMOL/L (21-32); CHLORIDE 102 MMOL/L (98-107); CREATININE SERUM 0.79 MG/DL (0.60-1.30); GFR ESTIMATED > 60; GLUCOSE 124 MG/DL (70-105); SODIUM 139 MMOL/L (135-145); TOTAL PROTEIN 6.4 GM/DL (6.4-8.2)
[2019-08-06] MEDS: buPROPion 100 MG (WELLBUTRIN) TAB PO SCH ×2 (07:50→15:04)
[2019-08-06] MEDS: FUROSEMIDE 20 MG (LASIX) TAB PO SCH (08:00)
[2019-08-06] MEDS: dilTIAZem120 MG (CARDIZEM CD) CAP PO SCH (08:00)
[2019-08-06] MEDS: guaiFENesin (MUCINEX) 600 MG TAB PO SCH ×2 (08:00→19:44)
[2019-08-06] MEDS: meTOprolol TARTRATE 50 MG (LOPRESSOR) TAB PO SCH (08:00)
[2019-08-06] MEDS: lisINopril 5 MG (PRINIVIL) TABLET PO SCH (08:00)
[2019-08-06 08:17] VITALS: BP 186/91
[2019-08-06] MEDS: RT-ADVAIR HFA 115/21 MCG PER PUFF IH SCH ×2 (09:11→18:30)
[2019-08-06] MEDS: UMECLIDINIUM BROMIDE (INCRUSE ELLIPTA) 7'S IH SCH (09:13)
--- NOTE | 2019-08-06 10:26 | Physical Therapy Evaluation ---
PT Evaluation-General Medical Diagnosis Admission Date Aug 02, 2019 at 04:38 Medical Diagnosis: pneumonia Onset Date: Aug 02, 2019 Therapy Diagnosis Therapy Diagnosis: debility/weakness Precautions Precautions/Isolations: Fall Prevention Weight Bear Status Right Lower Extremity: Right Weight Bearing/Tolerated Left Lower Extremity: Left Weight Bearing/Tolerated Referral Physician: Home Reason for Referral: Evaluation/Treatment Medical History Pertinent Medical History: COPD, HTN, Smoking Current History ER with SOA and vomiting Reviewed History: Yes Social History Home: Single Level Current Living Status: Friend Entry Into Home: Ramp Prior Prior Level of Function SCALE: Activities may be completed with or without assistive devices. 6-Ndnfmibdcl-jakvqvj completes the activity by him/herself with no assistance from a helper. 5-Set-up or Clean-up Assistance-helper sets up or cleans up; patient completes activity. Luck assists only prior to or following the activity. 4-Supervision or Touching Assistance-helper provides verbal cues and/or touchi ng/steadying and/or contact guard assistance as patient completes activity. Assistance may be provided throughout the activity or intermittently. 3-Partial/Moderate Assistance-helper does LESS THAN HALF the effort. Luck lifts, holds or supports trunk or limbs, but provides less than half the effort. 2-Substantial/Maximal Assistance-helper does MORE THAN HALF the effort. Luck lifts or holds trunk or limbs and provides more than half the effort. 9-Tsvdwuwxh-ugpwln does ALL the effort. Patient does none of the effort to complete the activity. Or, the assistance of 2 or more helpers is required for the patient to complete the activity. If activity was not attempted, code reason: 7-Patient Refused. 9-Not Applicable-not attempted and the patient did not perform the activity before the current illness, exacerbation or injury. 10-Not Attempted due to Environmental Limitations-(lack of equipment, weather restraints, etc.). 88-Not Attempted due to Medical Conditions or Safety Concerns. Bed Mobility: 6 Transfers (B,C,W/C): 6 Gait: 6 Stairs: 6 Indoor Mobility (Ambulation): Independent Prior Devices Use: Other-see list below cane PT Evaluation-Current Subjective Patient is very agreeable to participate with PT. Objective Patient Orientation: Normal For Age Attachments: Oxygen (3L HF NC) ROM/Strength ROM Lower Extremities bilateral LE WFL Strength Lower Extremities 4+/5 grossly bilateral LE Integumentary/Posture Integumentary refer to nursing notes Bowel Incontinence: No Bladder Incontinence: No Posture WFL Neuromuscular (Tone, Coordination, Reflexes) grossly intact Sensory Vision: Wears Glasses Hearing: Impaired Sensation Right Lower Extremit: Intact Sensation Left Lower Extremity: Intact Transfers Roll Left to Right (QC): 6 Sit to Lying (QC): 6 Lying to Sitting/Side of Bed(Q: 6 Sit to Stand (QC): 6 Chair/Iio-bg-Iljju Xfer(QC): 6 Gait Does the Patient Walk?: Yes Mode of Locomotion: Walk Anticipated Mode of Locomotion: Walk Walk 10 feet (QC): 6 Walk 50 ft with 2 Turns(QC): 6 Walk 150 ft (QC): 6 Distance: 550' Gait Assistive Device: FWW Comments/Gait Description safe and functional with FWW Wheelchair Training Does the Pt Use a Wheelchair?: No Balance Sitting Static: Normal Sitting Dynamic: Normal Standing Static: Normal Standing Dynamic: Normal Assessment/Needs 68 y.o. male, will be seen short term by skilled PT to address functional strength and mobility to ensure safe return to home at maximum LOF. 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 Time Frame: Aug 11, 2019 Roll Left & Right (QC): 6 Sit to Lying (QC): 6 Lying-Sitting on Side/Bed(QC): 6 Sit to Stand (QC): 6 Chair/Dij-sf-Wqdfc Xfer(QC): 6 Toilet Transfer (QC): 6 Car Transfer (QC): 6 Does the Patient Walk: Yes Walk 10 feet (QC): 6 Walk 50ft with 2 Turns (QC): 6 Walk 150 ft (QC): 6 Walking 10ft on Uneven Surface: 6 PT Plan Problem List Problem List: Activity Tolerance Treatment/Plan Treatment Plan: Continue Plan of Care Treatment Plan: Education, Functional Activity Merle, Functional Strength, Gait, Safety, Therapeutic Exercise, Transfers Treatment Duration: Aug 11, 2019 Frequency: 5 times per week Estimated Hrs Per Day: .25 hour per day Patient and/or Family Agrees t: Yes Time/GCodes Time In: 925 Time Out: 941 Total Billed Treatment Time: 16 Total Billed Treatment 1 visit EVMod 16 min PATRICIO LINDQUIST PT Aug 06, 2019 10:26
[2019-08-06 11:56] VITALS: BP 177/83
[2019-08-06] MEDS: ENOXAPARIN 40 MG/0.4 ML (LOVENOX) SYR SC SCH (12:32)
--- NOTE | 2019-08-06 13:41 | Pulmonary Progress Note ---
Subjective Date Seen by a Provider: Aug 06, 2019 Time Seen by a Provider: 13:39 Subjective/Events-last exam PT feels improved. Sepsis Event Evaluation Height, Weight, BMI Height: '" Weight: lbs. oz. kg; 28.62 BMI Method: Exam Exam Vital Signs Date Time Temp Pulse Resp B/P (MAP) Pulse Ox O2 Delivery O2 Flow Rate FiO2 08/06/19 11:56 36.9 58 20 177/83 (114) 95 Nasal Cannula 3.00 08/06/19 10:49 96 Nasal Cannula 3.00 08/06/19 08:17 37.0 71 20 186/91 (122) 95 Nasal Cannula 3.00 08/06/19 08:00 95 NIV Bilevel 30.00 08/06/19 04:00 36.7 64 20 192/93 (126) 91 NIV Bilevel 08/06/19 02:12 97 Room Air 3.00 08/06/19 00:28 36.3 75 22 150/80 (103) NIV Bilevel 08/05/19 21:24 92 Nasal Cannula 3.00 08/05/19 20:00 High Flow N/C 3.00 08/05/19 19:50 37.0 60 18 159/72 (101) 94 High Flow N/C 3.00 08/05/19 17:56 87 Nasal Cannula 3.00 08/05/19 15:59 36.8 60 18 133/65 (87) 94 High Flow N/C 3.00 08/05/19 14:17 87 Nasal Cannula 2.00 I & O 08/06/19 07:00 Intake Total 2050 ml Output Total 300 ml Balance 1750 ml Height & Weight Height: '" Weight: lbs. oz. kg; 28.62 BMI Method: General Appearance: Chronically ill HEENT: Normal ENT Inspection, Pale Conjunctivae (L) Neck: Normal Inspection, Non Tender, Supple Respiratory: Crackles, Rales, Rhonci, Wheezing Cardiovascular: Regular Rate, Rhythm, Other Capillary Refill: Less Than 3 Seconds Extremity: Normal Capillary Refill, Normal Range of Motion, No Pedal Edema Neurologic/Psychiatric: Alert, Oriented x3, No Motor/Sensory Deficits, Normal Mood/Affect, vp cardiovascular II-XII Norm as Tested Skin: Normal Color, Warm/Dry Lymphatic: No Adenopathy Results Lab Laboratory Tests 08/05/19 10:04 08/06/19 05:52 Assessment/Plan Assessment/Plan Acute pneumonia s/p recent tooth extraction -Continue Davion Kumar for now -Check meyers cultures and MRSA nasal swab COPD/asthma -Continue Wilma Q 4 -Start IS ANTOINE TOBAR DO Aug 06, 2019 13:41
--- NOTE | 2019-08-06 15:30 | Progress Note ---
Subjective Subjective/Events-last exam Patient states that he is feeling better. Just got back from walking with PT and did well. Tolerating PO diet. Still having some shortness of breath with ambulation. Review of Systems Pulmonary: Dyspnea, Cough Cardiovascular: No: Chest Pain, Palpitations Neurological: Weakness; No: Numbness, Incoordination Objective Exam Last Set of Vital Signs Vital Signs Date Time Temp Pulse Resp B/P (MAP) Pulse Ox O2 Delivery O2 Flow Rate FiO2 08/06/19 14:25 92 Nasal Cannula 3.00 08/06/19 11:56 36.9 58 20 177/83 (114) 08/02/19 08:45 21 Capillary Refill : Less Than 3 SecondsLess Than 3 Seconds I&O Intake and Output 08/06/19 00:00 Intake Total 1780 ml Balance 1780 ml Intake Oral 1660 ml IV Total 120 ml # Voids 6 # Bowel Movements 3 General: Alert, Oriented X3, Cooperative, No Acute Distress HEENT: Mucous Memb Moist/Happy Neck: Supple Lungs: Clear to Auscultation, Normal Air Movement, Other (Diminished breath sounds at the bases) Heart: Regular Rate, No Murmurs Abdomen: Normal Bowel Sounds, Soft, No Tenderness, No Masses Extremities: No Edema, No Tenderness/Swelling Skin: No Rashes, No Breakdown Neuro: Sensation Intact, Cranial Nerves 3-12 NL Psych/Mental Status: Mental Status NL, Mood NL Results/Procedures Lab Laboratory Tests 08/06/19 05:52: White Blood Count 13.4H, Red Blood Count 4.58, Hemoglobin 12.7L, Hematocrit 39L, Mean Corpuscular Volume 85, Mean Corpuscular Hemoglobin 28, Mean Corpuscular Hemoglobin Concent 33, Red Cell Distribution Width 15.0H, Platelet Count 325, Mean Platelet Volume 11.0H, Neutrophils (%) (Auto) 84H, Lymphocytes (%) (Auto) 8L, Monocytes (%) (Auto) 8, Eosinophils (%) (Auto) 0, Basophils (%) (Auto) 1, Neutrophils # (Auto) 11.2H, Lymphocytes # (Auto) 1.1, Monocytes # (Auto) 1.1H, Eosinophils # (Auto) 0.0, Basophils # (Auto) 0.1, Sodium Level 139, Potassium Level 4.0, Chloride Level 102, Carbon Dioxide Level 27, Anion Gap 10, Blood Urea Nitrogen 17, Creatinine 0.79, Estimat Glomerular Filtration Rate > 60, BUN/Creatinine Ratio 22, Glucose Level 124H, Calcium Level 8.2L, Corrected Calcium 8.9, Total Bilirubin 0.6, Aspartate Amino Transf (AST/SGOT) 71H, Alanine Aminotransferase (ALT/SGPT) 335H, Alkaline Phosphatase 133, B-Type Natriuretic Peptide 429.8H, Total Protein 6.4, Albumin 3.1L Microbiology 08/02/19 MRSA Screen - Final, Complete MRSA not isolated 08/02/19 Blood Culture - Preliminary, Resulted No growth Assessment/Plan Assessment/Plan (1) Right lower lobe pneumonia Status: Acute Assessment & Plan: 08/06: Continue antibiotics, improving, continue to focus on OOB and IS, continue to titrate oxygen as tolerated Qualifiers: Qualified Codes: J18.1 - Lobar pneumonia, unspecified organism (2) COPD exacerbation Status: Chronic (3) Hypertension Status: Chronic Assessment & Plan: 08/06: Labile blood pressures, continue home meds Qualifiers: Qualified Codes: I10 - Essential (primary) hypertension (4) Elevated LFTs Status: Acute Assessment & Plan: 08/06: No sure if acute or chronic, repeat CMP, add acute hepatitis panel (5) Tobacco abuse Status: Chronic Assessment & Plan: - Discussed the importance of cessation Clinical Quality Measures DVT/VTE Risk/Contraindication: Risk Factor Score Per Nursin RFS Level Per Nursing on Admit: 4+=Very High BALTAZAR FARR MD Aug 06, 2019 15:30
[2019-08-06 16:13] VITALS: BP 169/82
[2019-08-06] MEDS: predniSONE 20 MG TAB PO SCH (16:31)
[2019-08-06] MEDS: SIMvastatin 10 MG (ZOCOR) TAB PO SCH (19:44)
[2019-08-06] MEDS: TAMSULOSIN 0.4 MG (FLOMAX) CAP PO SCH (19:44)
[2019-08-06] MEDS: FAMOTIDINE 20 MG (PEPCID) TABLET PO SCH (19:45)
[2019-08-06 20:09] VITALS: BP 145/71
[2019-08-07] VITALS: BP_SYST 130; BP_SYST 178; BP_DIAS 87; BP_DIAS 92
[2019-08-07] MEDS: cloNIDine 0.1 MG (CATAPRES) TAB PO PRN ×2 (01:08→11:36)
[2019-08-07] MEDS: RT-ALBUTEROL/IPRATROPIUM 3 ML (DUONEB) VIAL INH SCH ×4 (01:33→14:54)
[2019-08-07 04:00] VITALS: BP 180/78
[2019-08-07] MEDS: CATHETER FLUSH 10 ML SYR IV SCH ×2 (04:37→13:15)
[2019-08-07 05:32] LABS: BASOPHILS # (AUTO) 0.1 10^3/uL (0.0-0.1); BASOPHILS % (AUTO) 1 % (0-10); EOSINOPHILS # (AUTO) 0.1 10^3/uL (0.0-0.3); EOSINOPHILS % (AUTO) 0 % (0-10); HEMATOCRIT 40 % (40-54); HEMOGLOBIN 12.9 G/DL (13.3-17.7); LYMPHOCYTES # (AUTO) 1.5 X 10^3 (1.0-4.0); LYMPHOCYTES % (AUTO) 11 % (12-44); MEAN CORPUSCULAR HEMOGLOBIN 28 PG (25-34); MEAN CORPUSCULAR HGB CONC 33 G/DL (32-36); MEAN CORPUSCULAR VOLUME 86 FL (80-99); MEAN PLATELET VOLUME 10.9 FL (7.4-10.4); MONOCYTES # (AUTO) 0.9 X 10^3 (0.0-1.0); MONOCYTES % (AUTO) 7 % (0-12); NEUTROPHILS # (AUTO) 11.6 X 10^3 (1.8-7.8); NEUTROPHILS % (AUTO) 82 % (42-75); PLATELET COUNT 304 10^3/uL (130-400); RED CELL DISTRIBUTION WIDTH 15.2 % (10.0-14.5); WHITE BLOOD COUNT 14.2 10^3/uL (4.3-11.0)
[2019-08-07 05:55] LABS: ALANINE AMINOTRANSFERASE 236 U/L (0-55); ALBUMIN 3.1 GM/DL (3.2-4.5); ALKALINE PHOSPHATASE 138 U/L (40-136); BILIRUBIN,TOTAL 0.5 MG/DL (0.1-1.0); BUN/CREATININE RATIO 19; CALCIUM 8.3 MG/DL (8.5-10.1); CARBON DIOXIDE 24 MMOL/L (21-32); CHLORIDE 102 MMOL/L (98-107); CREATININE SERUM 0.81 MG/DL (0.60-1.30); GFR ESTIMATED > 60; GLUCOSE 124 MG/DL (70-105); POTASSIUM 4.2 MMOL/L (3.6-5.0); SODIUM 136 MMOL/L (135-145); TOTAL PROTEIN 6.2 GM/DL (6.4-8.2)
[2019-08-07] MEDS: RT-ADVAIR HFA 115/21 MCG PER PUFF IH SCH (06:26)
[2019-08-07] MEDS: UMECLIDINIUM BROMIDE (INCRUSE ELLIPTA) 7'S IH SCH (06:26)
[2019-08-07 08:00] VITALS: BP 128/59
[2019-08-07] MEDS: lisINopril 5 MG (PRINIVIL) TABLET PO SCH (08:25)
[2019-08-07] MEDS: buPROPion 100 MG (WELLBUTRIN) TAB PO SCH ×2 (08:25→13:15)
[2019-08-07] MEDS: guaiFENesin (MUCINEX) 600 MG TAB PO SCH (08:25)
[2019-08-07] MEDS: meTOprolol TARTRATE 50 MG (LOPRESSOR) TAB PO SCH (08:25)
[2019-08-07] MEDS: dilTIAZem120 MG (CARDIZEM CD) CAP PO SCH (08:25)
[2019-08-07] MEDS: FUROSEMIDE 20 MG (LASIX) TAB PO SCH (08:25)
[2019-08-07 09:47] VITALS: BP 128/59
--- NOTE | 2019-08-07 11:17 | Physical Therapy Daily Note ---
PT Daily Note-Current Subjective Patient agreeable to therapy and reports no pain at this time. Pain Numeric Pain Scale: 0-No Pain Appearance Patient in bed wtih call light and bedside table within reach. Mental Status Patient Orientation: Person, Place, Time, Situation Attachments: Oxygen (3L) Transfers SCALE: Activities may be completed with or without assistive devices. 5-Tlaiuszblb-midpivh completes the activity by him/herself with no assistance from a helper. 5-Set-up or Clean-up Assistance-helper sets up or cleans up; patient completes activity. Bath assists only prior to or following the activity. 4-Supervision or Touching Assistance-helper provides verbal cues and/or touching/steadying and/or contact guard assistance as patient completes activity. Assistance may be provided throughout the activity or intermittently. 3-Partial/Moderate Assistance-helper does LESS THAN HALF the effort. Bath lifts, holds or supports trunk or limbs, but provides less than half the effort. 2-Substantial/Maximal Assistance-helper does MORE THAN HALF the effort. Bath lifts or holds trunk or limbs and provides more than half the effort. 0-Wzffuskpj-wwcrzr does ALL the effort. Patient does none of the effort to complete the activity. Or, the assistance of 2 or more helpers is required for the patient to complete the activity. If activity was not attempted, code reason: 7-Patient Refused. 9-Not Applicable-not attempted and the patient did not perform the activity before the current illness, exacerbation or injury. 10-Not Attempted due to Environmental Limitations-(lack of equipment, weather restraints, etc.). 88-Not Attempted due to Medical Conditions or Safety Concerns. Roll Left & Right (QC): 6 Sit to Lying (QC): 6 Sit to Stand (QC): 6 Chair/Dcz-ew-Dovqh Xfer(QC): 6 Weight Bearing Right Lower Extremity: Right Weight Bearing/Tolerated Left Lower Extremity: Left Weight Bearing/Tolerated Gait Training Does the Patient Walk?: Yes Distance: 500' Walk 10 feet (QC): 4 Walk 50 ft with 2 Turns(QC): 4 Walk 150 ft (QC): 4 Gait Persons Needed: 1 Gait Assistive Device: FWW SBA for safety and transporting oxygen. Wheelchair Training Does the Pt Use a Wheelchair?: No Treatments Ambulation, transfers, bed mobility. Assessment Current Status: Good Progress Patient was steady during ambulation. With turns patient was slightly unsteady. PT Results Engineer Goals Results Engineer Goals PT Results Engineer Goals Time Frame: Aug 11, 2019 Roll Left & Right (QC): 6 Sit to Lying (QC): 6 Lying-Sitting on Side/Bed(QC): 6 Sit to Stand (QC): 6 Chair/Gax-sy-Xkebe Xfer(QC): 6 Toilet Transfer (QC): 6 Car Transfer (QC): 6 Does the Patient Walk: Yes Walk 10 feet (QC): 6 Walk 50ft with 2 Turns (QC): 6 Walk 150 ft (QC): 6 Walking 10ft on Uneven Surface: 6 PT Plan Problem List Problem List: Activity Tolerance, Safety, Balance, Gait, Transfer Treatment/Plan Treatment Plan: Continue Plan of Care Treatment Plan: Education, Functional Activity Merle, Functional Strength, Gait, Safety, Therapeutic Exercise, Transfers Treatment Duration: Aug 11, 2019 Frequency: 5 times per week Estimated Hrs Per Day: .25 hour per day Patient and/or Family Agrees t: Yes Safety Risks/Education Patient Education: Gait Training, Transfer Techniques Teaching Recipient: Patient Teaching Methods: Discussion Response to Teaching: Reinforcement Needed Time/GCodes Time In: 1045 Time Out: 1100 Total Billed Treatment Time: 15 Total Billed Treatment 1 visit FA 15 PATRICIO LINDQUIST PT Aug 07, 2019 11:17
[2019-08-07] MEDS: ENOXAPARIN 40 MG/0.4 ML (LOVENOX) SYR SC SCH (11:31)
[2019-08-07 12:04] VITALS: BP 184/88
--- NOTE | 2019-08-07 13:44 | Discharge Summary ---
Diagnosis/Chief Complaint Date of Admission Aug 02, 2019 at 04:38 Date of Discharge 08/07/2019 Admission Diagnosis Admission Diagnosis See problem list Discharge Diagnosis See below Problems/Diagnosis: (1) Right lower lobe pneumonia Assessment & Plan: 08/06: Continue antibiotics, improving, continue to focus on OOB and IS, continue to titrate oxygen as tolerated 08/07: Patient was transitioned to PO antibiotics, d/c on home oxygen requirement Qualifiers: Qualified Codes: J18.1 - Lobar pneumonia, unspecified organism Status: Acute (2) COPD exacerbation Status: Chronic (3) Hypertension Assessment & Plan: 08/06: Labile blood pressures, continue home meds Qualifiers: Qualified Codes: I10 - Essential (primary) hypertension Status: Chronic (4) Elevated LFTs Assessment & Plan: 08/06: No sure if acute or chronic, repeat CMP, add acute hepatitis panel Status: Acute (5) Tobacco abuse Assessment & Plan: - Discussed the importance of cessation Status: Chronic Discharge Summary-Simple/Stand Consultations Dr Collado: Pulmonary and Critical Care Discharge Physical Examination Allergies: Coded Allergies: Sulfa (Sulfonamide Antibiotics) (Verified Allergy, Unknown, 08/02/19) Vitals & I&Os Vital Sign - Last 12Hours Date Time Temp Pulse Resp B/P (MAP) Pulse Ox O2 Delivery O2 Flow Rate FiO2 08/07/19 12:04 37.1 58 18 184/88 (120) 97 High Flow N/C 3.00 08/07/19 09:47 32 Intake and Output 08/07/19 00:00 Intake Total 1170 ml Balance 1170 ml General Appearance: Alert, Oriented X3, Cooperative, No Acute Distress HEENT: Mucous Memb Moist/[place] Respiratory: Normal Air Movement, Other (diminished breath sounds with basilar wheezing, normal work of breathing) Cardiovascular: Regular Rate, No Murmurs Abdominal: Normal Bowel Sounds, Soft, No Tenderness, No Masses Extremities: No Edema, No Tenderness/Swelling Skin: No Rashes, No Breakdown Neuro: Normal Speech, Strength at 5/5 X4 Ext, Sensation Intact, Cranial Nerves 3-12 NL Psych/Mental Status: Mental Status NL, Mood NL Hospital Course Was the Problem List Reviewed?: Yes See final discharge diagnosis. Other pending tests ACUTE HEPATITIS PANEL NR, results were not shared with patient as they came after patient was D/c Discussion & Recommendations 68 yo M that was admitted with increased oxygen requirement and treated for CAP. Patient was able to be titrated down to his baseline oxygen requirement. He was continued on PO antibiotics to complete course. He was found to have elevated LFTs and acute hepatitis panel was negative. Discharge Condition at discharge stable Instructions to patient/family Please see electronic discharge instructions given to patient. Discharge Medications Reviewed and agree with Discharge Medication list on patient's Discharge Instruction sheet Clinical Quality Measures DVT/VTE Risk/Contraindication: Risk Factor Score Per Nursin RFS Level Per Nursing on Admit: 4+=Very High Copy Copies To 1: ANDERS GRAYSON MD, HOLLY R MD Aug 07, 2019 13:44
[2019-08-07] MEDS ORDERED: LISI10TA2 PO (13:50)
[2019-08-07] MEDS ORDERED: DILT-27 PO (13:50)
[2019-08-07] MEDS ORDERED: FAMO20TA5 PO (13:50)
[2019-08-07] MEDS ORDERED: PRD20T PO (13:50)
--- NOTE | 2019-08-07 13:50 | Discharge Summary ---
Discharge [facility] Reconcile Patient Problems Problems Reviewed?: Yes Discharge Medications New, Converted or Re-Newed RX: Transmitted to Pharmacy New Medications: Diltiazem HCl (Diltiazem 24Hr ER) 120 Mg Cap.er.24h 240 MG PO DAILY@0900, #30 CAP Famotidine (Famotidine) 20 Mg Tablet 40 MG PO HS, #30 TAB Lisinopril (Lisinopril) 10 Mg Tablet 20 MG PO DAILY@0900, #30 TAB Prednisone (Prednisone) 20 Mg Tab 20 MG PO DAILY@1600, #8 TAB 1 tab daily x 5 days then 1/2 tab daily x 6 days then stop Continued Medications: Albuterol Sulfate (Albuterol Sulfate) 2.5 Mg/3 Ml Vial.neb 2.5 MG NEB Q6H PRN for SHORTNESS OF BREATH, EA Albuterol Sulfate (Ventolin Hfa) 1 Puff Puff 2 PUFF INH Q6H PRN for SHORTNESS OF BREATH, INHALER 1 PUFF = 90 MCG Budesonide/Formoterol Fumarate (Symbicort 160-4.5 Mcg Inhaler) 10.2 Gm Hfa.aer.ad 2 PUFF IH BID, INHALER Bupropion HCl (Bupropion HCl) 100 Mg Tablet 200 MG PO 0800,1400, TAB Citalopram Hydrobromide (Citalopram HBr) 20 Mg Tablet 20 MG PO DAILY, TAB Furosemide (Furosemide) 20 Mg Tablet 20 MG PO DAILY, TAB Metoprolol Tartrate (Metoprolol Tartrate) 50 Mg Tablet 50 MG PO DAILY, TAB Pravastatin Sodium (Pravastatin Sodium) 40 Mg Tablet 20 MG PO HS, TAB TAKES 1/2 (40MG) TABLET Tamsulosin HCl (Flomax) 0.4 Mg Cap 0.4 MG PO HS, CAP Tiotropium [place] (Spiriva Respimat 2.5MCG/ACTUATION) 4 Gm Mist.inhal 2 PUFF IH DAILY, INHALER Discontinued Medications: Diltiazem HCl (Tiazac) 120 Mg Capsule.er 120 MG PO DAILY, CAP Ranitidine HCl (Acid Bi Analyst (RANITIDINE)) 150 Mg Tablet 300 MG PO HS, TAB TAKES 2 (150MG) TABLETS Patient Instructions Goal/Follow Up Appt: You have a f.u with Dr Bass on Tuesday at 1140 Activity & Diet Discharge Diet: Cardiac Diet Activity as Tolerated: Yes Copy Copies To 1: ANDERS GRAYSON MD, HOLLY R MD Aug 07, 2019 13:50
--- NOTE | 2019-08-07 14:15 | Pulmonary Progress Note ---
Subjective Time Seen by a Provider: 14:07 Subjective/Events-last exam PT feels improved. Sepsis Event Evaluation Height, Weight, BMI Height: '" Weight: lbs. oz. kg; 28.62 BMI Method: Exam Exam Vital Signs Date Time Temp Pulse Resp B/P (MAP) Pulse Ox O2 Delivery O2 Flow Rate FiO2 08/07/19 12:04 37.1 58 18 184/88 (120) 97 High Flow N/C 3.00 08/07/19 09:47 36.2 55 93 32 08/07/19 09:22 93 Nasal Cannula 3.00 08/07/19 09:00 95 Nasal Cannula 3.00 08/07/19 08:00 36.2 68 18 128/59 (82) 95 High Flow N/C 3.00 08/07/19 06:35 95 Nasal Cannula 3.00 08/07/19 06:32 95 Nasal Cannula 3.00 08/07/19 06:27 95 Nasal Cannula 3.00 08/07/19 04:00 36.7 56 20 180/78 (112) 97 NIV CPAP 4.00 08/07/19 01:33 97 Nasal Cannula 4.00 08/07/19 00:00 36.9 61 20 178/92 (120) 96 NIV CPAP 08/06/19 20:56 91 Nasal Cannula 3.00 08/06/19 20:09 36.6 62 18 145/71 (95) 91 High Flow N/C 3.00 08/06/19 20:00 High Flow N/C 3.00 08/06/19 18:34 92 Nasal Cannula 3.00 08/06/19 18:30 90 Nasal Cannula 3.00 08/06/19 16:13 36.6 52 18 169/82 (111) 94 Nasal Cannula 3.00 08/06/19 14:25 92 Nasal Cannula 3.00 I & O 08/07/19 07:00 Intake Total 1470 ml Balance 1470 ml Height & Weight Height: '" Weight: lbs. oz. kg; 28.62 BMI Method: General Appearance: No Apparent Distress, WD/WN, Chronically ill, Obese HEENT: PERRL/EOMI, Normal ENT Inspection, Pharynx Normal, Moist Mucous Membranes Neck: Full Range of Motion, Normal Inspection, Non Tender Respiratory: Chest Non Tender, No Accessory Muscle Use, No Respiratory Distress, Crackles, Decreased Breath Sounds, Rales, Wheezing Cardiovascular: Regular Rate, Rhythm, No Edema, No Gallop, No JVD, No Murmur, Normal Peripheral Pulses Capillary Refill: Less Than 3 Seconds Extremity: Normal Capillary Refill, Normal Inspection, Normal Range of Motion, Non Tender, No Calf Tenderness, No Pedal Edema Neurologic/Psychiatric: Alert, Oriented x3, No Motor/Sensory Deficits, Normal Mood/Affect, planner II-XII Norm as Tested Skin: Normal Color, Warm/Dry Lymphatic: No Adenopathy Results Lab Laboratory Tests 08/06/19 05:52 08/07/19 05:04 Assessment/Plan Assessment/Plan Acute pneumonia s/p recent tooth extraction - Zosyn Auto D/C'd after 5days of tx. CXR is improving however pt needs at least 7-10 days of abx therapy. I am going to start Augmentin. -Close f/u will be needed to ensure pt's pneumonia does not transition into empyema. -Check meyers cultures and MRSA nasal swab COPD/asthma -Continue Duonebs Q 4 -Start IS ANTONIE TOBAR DO Aug 07, 2019 14:15
--- NOTE | 2019-08-07 15:00 | NUR ---
PT WAS PLACED ON ROOM AIR AND WHEN CHECKED 35 MINUTES LATER PT SAT WAS 83% PT REQUIRES 3L AT ALL TIMES
--- NOTE | 2019-08-07 15:53 | NUR ---
New orders from Dr. Collado put in after discharge was finalized. Prescription for Augmentin 875mg PO BID with meals, 5 day supply called in to [facility].
[2019-08-07 16:00] VITALS: BP 144/70
[2019-08-07] MEDS: predniSONE 20 MG TAB PO SCH (16:00)
[2019-08-07] MEDS ORDERED: AUGMENTIN 875 MG TAB (AMOXICILLIN/CLAVULANATE) PO SCH (17:00)
--- NOTE | 2019-08-07 17:44 | Diagnostic Imaging Report ---
EXAMINATION: PA and lateral chest at 8:37 a.m. on 08/06/2019. INDICATION: Pneumonia. FINDINGS: The appearance of the chest has improved since the prior exam of 08/02/2019 as the right lung base does seem better aerated. However, there is still considerable residual pneumonia/atelectasis present as well as a small right pleural effusion. The right upper lung and left lung remain generally clear. The heart is stable. The mediastinum is not widened. The osseous structures are intact. The long-standing fracture of the left clavicle seen previously is again evident. IMPRESSION: The appearance of the chest has improved as the right lung base does seem better aerated. However, there is still considerable residual pneumonia/atelectasis present. A follow-up study would be recommended for continued evaluation. Dictated by: Dictated on workstation # [id number]
--- NOTE | 2019-08-07 18:46 | NUR ---
Medical equipment company here with portable oxygen, will follow patient home to set up home 02.
[2019-08-07 22:00] LABS: HEPATITIS C ANTIBODY C Non-Reactive (Non-Reactive)
[2019-08-08] MEDS ORDERED: lisINopril 10 MG (PRINIVIL) TABLET PO SCH (09:00)
[2019-08-08] MEDS ORDERED: lisINopril 20 MG (PRINIVIL) TABLET PO SCH (09:00)
== END 2019-08-07 18:52 | disposition home or self-care (01) | DRG 195 ==
LOC: EDUNIT# 01:08 → ER 01:10 → 4TH 04:38
PROVIDERS: ADMIT Internal Medicine; ATTEND Internal Medicine
DX: J18.9 Pneumonia, unspecified organism (principal); J43.9 Emphysema, unspecified; I10 Essential (primary) hypertension; F17.210 Nicotine dependence, cigarettes, uncomplicated; E78.5 Hyperlipidemia, unspecified; N40.0 Benign prostatic hyperplasia without lower urinary tract symptoms; M19.91 Primary osteoarthritis, unspecified site; R73.9 Hyperglycemia, unspecified; T38.0X5A Adverse effect of glucocorticoids and synthetic analogues, initial encounter; R74.8 Abnormal levels of other serum enzymes; Z23 Encounter for immunization
CPT/HCPCS: 36415; 71045; 71046; 71260; 80053; 80074; 83605; 83735; 83880; 84443; 85007; 85025; 85027; 85610; 85730; 86141; 87040; 87070; 87081; 87205; 87804; 94640; 94660; 94664; 94760; 96361; 96365; 96375

== ENCOUNTER 2020-04-28 05:45 | Outpatient (RCR) | payer MEDICARE ==
[~2020-04-28] VITALS: Ht 177 cm; Wt 166.8 kg
[~2020-04-28 05:45] MED LIST: ALBU2.5V4 NEB; ASPI-808 PO; BUDE10.2 IH; BUPR100T15 PO; CITA20TA9 PO; DILT-27 PO; DILT-8 PO; FAMO20TA5 PO; FURO20TA4 PO; LISI10TA2 PO; METO50TA15 PO; PRAV40TA2 PO; PRD20T PO; RANI150T90 PO; RT-ALBUINH INH; TIOT4MIS2 IH; TMSL.4C PO; UMEC62.5 IH
== END 2020-04-29 10:57 | disposition home or self-care (01) ==
LOC: PREOP 05:45
PROVIDERS: ATTEND Surgery
DX: Z01.812 Encounter for preprocedural laboratory examination (principal); Z86.010 Personal history of colon polyps; U07.1 COVID-19
CPT/HCPCS: 87635

== ENCOUNTER 2020-08-08 05:41 | Outpatient (RCR) | payer MEDICARE ==
[~2020-08-08] VITALS: Ht 177.8 cm; Wt 95.3 kg
[~2020-08-08 05:41] MED LIST changes: -LISI10TA2 PO; +LISI10TA25 PO
== END 2020-11-03 | disposition home or self-care (01) ==
LOC: PREOP 05:41
PROVIDERS: ATTEND Surgery
DX: Z01.818 Encounter for other preprocedural examination (principal)

== ENCOUNTER → 2020-09-04 | Outpatient (CLI) | payer MEDICARE ==
--- NOTE | 2020-09-04 14:23 | Diagnostic Imaging Report ---
CT Lung Screening INDICATION: Current smoker with a 30 pack year history. 2 days post fall with right rib pain. TECHNIQUE: Noncontrast, low-dose CT imaging performed according to lung cancer screening protocol. Auto Exposure Controls were utilized during the CT exam to meet ALARA standards for radiation dose reduction. COMPARISON: CT chest 08/02/2019 FINDINGS: HEART/MEDIASTINUM: Heart size is enlarged with scattered moderate coronary calcification. No pericardial effusion. Thoracic aortic contour unremarkable. 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 A few small shotty subcentimeter central retroperitoneal lymph nodes. Visualized portion of thyroid gland and gastroesophageal junction generally unremarkable. LUNGS/MEASURED PULMONARY NODULES: Advanced emphysematous change about the lung parenchyma. There is presence of small bilateral pleural effusions. Slight pleural thickening along the right lateral chest wall likely associated with the rib fractures. Some crowding at the lower lung base with atelectasis. Prominent peribronchial thickening present centrally both lung da silva. No consolidating infiltrate. There are a few micronodules of the lung apices. No concerning measurable pulmonary mass. Pleural-based density posterior left lung appears unchanged from previous. May be scarring. OTHER: There is presence of right lateral 5th, 6th, 7th and 8th rib fracture deformities. The 6th rib fracture deformity slightly displaced half the width of the bone. IMPRESSION: 1. A few small micronodules lung apices. No concerning pulmonary mass at baseline screening assessment. 2. Multiple right lateral rib fracture deformities. Likely associated small hemothorax. 3. Scattered peribronchial thickening may reflect nonspecific, bronchitis. No lobar consolidating infiltrate. LUNG-RADS CATEGORY: 2 LUNG SCREENING MANAGEMENT/RECOMMENDATIONS: Continued annual screening with low dose CT in 12 months. Dictated by: Dictated on workstation # [id number]
== END ==
LOC: RAD 11:42
PROVIDERS: ATTEND Family Medicine
DX: Z12.2 Encounter for screening for malignant neoplasm of respiratory organs (principal); R91.8 Other nonspecific abnormal finding of lung field; S22.41XA Multiple fractures of ribs, right side, initial encounter for closed fracture; F17.210 Nicotine dependence, cigarettes, uncomplicated
CPT/HCPCS: 71271

== ENCOUNTER → 2021-01-19 | Outpatient (CLI) | payer MEDICARE | END | disposition home or self-care (01) | LOC: PREOP 06:33 | PROVIDERS: ATTEND Specialist | DX: Z01.818 Encounter for other preprocedural examination (principal) ==

== ENCOUNTER 2021-01-23 09:28 | Day surgery (SDC) | payer MEDICARE ==
[~2021-01-23] VITALS: Ht 177.8 cm; Wt 95.5 kg
[2021-01-23] MEDS ORDERED: LIDOCAINE PF 1% 2 ML VIAL IR PRN (09:45)
[2021-01-23] MEDS ORDERED: MOXIFLOXACIN OPHTH SOLN 5 MG/ML 0.3 ML SYRINGE OP ONE (09:45)
[2021-01-23] MEDS ORDERED: POVIDONE (BETADINE) OPHTH SOLN 5% 30 ML OP ONE (09:45)
[2021-01-23] MEDS ORDERED: TIMOLOL MALEATE 0.5% 5 ML (TIMOPTIC) BTL OU PRN (09:45)
[2021-01-23] MEDS: TETRACAINE 0.5% OPHTH SOLN 4 ML BTL (SINGLE DOSE ONLY) OU PRN ×4 (09:58→10:19)
[2021-01-23] MEDS: TROPICAMIDE 1% OPH SOLN (MYDRIACYL) 15 ML BTL OP SCH ×3 (10:07→10:19)
[2021-01-23] MEDS: PHENYLEPHRINE 10% OPHTH (NEO-SYN) 5 ML BTL OU SCH ×3 (10:07→10:19)
[2021-01-23 10:16] VITALS: BP 148/77
--- NOTE | 2021-01-23 11:40 | Ophthalmologist Pre-Op Note ---
Pre-Operative Progress Note H&P Reviewed The H&P was reviewed, patient examined and no changes noted. Date H&P Reviewed: Jan 23, 2021 Time H&P Reviewed: 11:40 Pre-Op Dx Cataract, Right Eye GABBY ANDREWS MD Jan 23, 2021 11:40
[2021-01-23] MEDS ORDERED: MIDAZOLAM 2 MG/2 ML (VERSED) VIAL ONE (11:42)
--- NOTE | 2021-01-23 12:03 | Ophthalmology Operative Report ---
Cataract removal/placement IOL PREOPERATIVE DIAGNOSIS: Cataract Right Eye POSTOPERATIVE DIAGNOSIS: Cataract Right Eye PROCEDURE: Cataract removal and placement of posterior chamber implant, right eye SURGEON: Juan Andrews ANESTHESIA: Topical with sedation COMPLICATIONS: None ESTIMATED BLOOD LOSS: Minimal DESCRIPTION OF PROCEDURE: After proper informed consent was obtained, the patient, a 70 male, was taken to the Operating Room and the right eye was anesthetized with tetracaine. The right eye was then prepped and draped in the usual manner. A wire lid speculum was placed. A paracentesis was made at the left hand position. Preservative free lidocaine was injected into the anterior chamber followed by viscoelastic. A clear corneal incision was made in the temporal position. A capsulorrhexis was preformed and the central nuclear and cortical material were removed. The posterior capsule was polished and Lavell 17.5 AU00T0 IOL was placed into the capsular bag. The residual viscoelastic was aspirated and balanced saline solution was injected into the anterior chamber. Moxifloxacin was injected into the anterior chamber. The wound was checked and found to be water tight. The patient tolerated the procedure well without complications. JUAN ANDREWS MD Jan 23, 2021 12:03
[2021-01-23 12:10] VITALS: BP 170/94
--- NOTE | 2021-01-23 12:48 | Anesthesia-General Post-Op ---
MAC Patient Condition Mental Status/LOC: Same as Preop Cardiovascular: Satisfactory Nausea/Vomiting: Absent Respiratory: Satisfactory Pain: Controlled Complications: Absent Post Op Complications Complications None Follow Up Care/Instructions Patient Instructions None needed. Anesthesiology Discharge Order Discharge Order Patient is doing well, no complaints, stable vital signs, no apparent adverse anesthesia problems. No complications reported per nursing. BASIA RAHMAN CRNA Jan 23, 2021 12:48
== END 2021-01-23 12:10 ==
LOC: SDC 09:28
PROVIDERS: ATTEND Specialist
DX: H25.11 Age-related nuclear cataract, right eye (principal); I10 Essential (primary) hypertension; G47.33 Obstructive sleep apnea (adult) (pediatric); J44.9 Chronic obstructive pulmonary disease, unspecified; F32.9 Major depressive disorder, single episode, unspecified; F17.200 Nicotine dependence, unspecified, uncomplicated; E78.00 Pure hypercholesterolemia, unspecified; Z79.899 Other long term (current) drug therapy; Z99.81 Dependence on supplemental oxygen
CPT/HCPCS: 66984; V2632

== ENCOUNTER 2021-01-30 07:13 | Outpatient (CLI) | payer MEDICARE | END 2021-01-30 14:44 | disposition home or self-care (01) | LOC: PREOP 07:13 | PROVIDERS: ATTEND Specialist | DX: Z01.818 Encounter for other preprocedural examination (principal) ==

== ENCOUNTER 2021-02-06 10:00 | Day surgery (SDC) | payer MEDICARE ==
[~2021-02-06] VITALS: Ht 177.8 cm; Wt 95.5 kg
[2021-02-06] MEDS ORDERED: TIMOLOL MALEATE 0.5% 5 ML (TIMOPTIC) BTL OU PRN (10:15)
[2021-02-06] MEDS ORDERED: MOXIFLOXACIN OPHTH SOLN 5 MG/ML 0.3 ML SYRINGE OP ONE (10:15)
[2021-02-06] MEDS ORDERED: LIDOCAINE PF 1% 2 ML VIAL IR PRN (10:15)
[2021-02-06] MEDS ORDERED: POVIDONE (BETADINE) OPHTH SOLN 5% 30 ML OP ONE (10:15)
[2021-02-06] MEDS: TETRACAINE 0.5% OPHTH SOLN 4 ML BTL (SINGLE DOSE ONLY) OU PRN ×4 (10:16→10:35)
[2021-02-06] MEDS ORDERED: MIDAZOLAM 2 MG/2 ML (VERSED) VIAL ONE (10:18)
[2021-02-06 10:22] VITALS: BP 140/98
[2021-02-06] MEDS: TROPICAMIDE 1% OPH SOLN (MYDRIACYL) 15 ML BTL OP SCH ×3 (10:24→10:35)
[2021-02-06] MEDS: PHENYLEPHRINE 10% OPHTH (NEO-SYN) 5 ML BTL OU SCH ×3 (10:24→10:35)
--- NOTE | 2021-02-06 10:58 | Ophthalmologist Pre-Op Note ---
Pre-Operative Progress Note H&P Reviewed The H&P was reviewed, patient examined and no changes noted. Date H&P Reviewed: Feb 06, 2021 Time H&P Reviewed: 10:58 Pre-Op Dx Cataract, Left Eye GABBY ANDREWS MD Feb 06, 2021 10:58
--- NOTE | 2021-02-06 11:23 | Ophthalmology Operative Report ---
Cataract removal/placement IOL PREOPERATIVE DIAGNOSIS: Cataract Left Eye POSTOPERATIVE DIAGNOSIS: Cataract Left Eye PROCEDURE: Cataract removal and placement of posterior chamber implant, left eye SURGEON: Juan Andrews ANESTHESIA: Topical with sedation COMPLICATIONS: None ESTIMATED BLOOD LOSS: Minimal DESCRIPTION OF PROCEDURE: After proper informed consent was obtained, the patient, a 70 male, was taken to the Operating Room and the left eye was anesthetized with tetracaine. The left eye was then prepped and draped in the usual manner. A wire lid speculum was placed. A paracentesis was made at the left hand position. Preservative free lidocaine was injected into the anterior chamber followed by viscoelastic. A clear corneal incision was made in the temporal position. A capsulorrhexis was preformed and the central nuclear and cortical material were removed. The posterior capsule was polished and an Lavell 16.0 AU00T0 was placed into the capsular bag. The residual viscoelastic was aspirated and balanced saline solution was injected into the anterior chamber. Moxifloxacin was injected into the anterior chamber. The wound was checked and found to be water tight. The patient tolerated the procedure well without complications. JUAN ANDREWS MD Feb 06, 2021 11:23
[2021-02-06 11:40] VITALS: BP 148/80
--- NOTE | 2021-02-06 13:31 | Anesthesia-General Post-Op ---
MAC Patient Condition Mental Status/LOC: Same as Preop Cardiovascular: Satisfactory Nausea/Vomiting: Absent Respiratory: Satisfactory Pain: Controlled Complications: Absent Post Op Complications Complications None Follow Up Care/Instructions Patient Instructions None needed. Anesthesiology Discharge Order Discharge Order Patient is doing well, no complaints, stable vital signs, no apparent adverse anesthesia problems. No complications reported per nursing. YUDY ALCARAZ CRNA Feb 06, 2021 13:31
== END 2021-02-06 11:40 | disposition home or self-care (01) ==
LOC: SDC 10:00
PROVIDERS: ATTEND Specialist
DX: H25.12 Age-related nuclear cataract, left eye (principal); I10 Essential (primary) hypertension; J44.9 Chronic obstructive pulmonary disease, unspecified; G47.33 Obstructive sleep apnea (adult) (pediatric); F32.9 Major depressive disorder, single episode, unspecified; F17.210 Nicotine dependence, cigarettes, uncomplicated; E78.00 Pure hypercholesterolemia, unspecified; N52.9 Male erectile dysfunction, unspecified; Z79.899 Other long term (current) drug therapy
CPT/HCPCS: 66984; V2632

== ENCOUNTER 2022-11-13 20:13 | Observation (INO) | payer MEDICARE, OTHER ==
[~2022-11-13] VITALS: Ht 177.8 cm; Wt 76.4 kg
[2022-11-13] MEDS ORDERED: NITROGLYCERIN 0.4 MG SL TABS BTL 25'S SL PRN (20:30)
[2022-11-13] MEDS ORDERED: ASPIRIN 81 MG CHEW (CHILDREN'S ASA) PO ONE (20:30)
[2022-11-13] MEDS ORDERED: CEFEPIME INJECTION 1,000 MG in NS (IVPB) 50 ML IV ONE (20:30)
--- NOTE | 2022-11-13 20:33 | ED General ---
General Chief Complaint: Respiratory Problems Stated Complaint: SOA/CHEST PAIN Source of Information: Patient History of Present Illness Date Seen by Provider: November 13, 2022 Time Seen by Provider: 18:20 Initial Comments PT ARRIVES VIA POV FROM HOME STATES HE HAS BEEN HAVING SHORTNESS OF BREATH SINCE TUESDAY HE BEGAN HAVING INTERMITTENT CHEST PAIN LAST NIGHT. HE IS NOT HAVING ANY CHEST PAIN NOW. HE HAS HAD A PRODUCTIVE COUGH WITH CLEAR SPUTUM HE HAS HAD A TEMPERATURE OF 101 SINCE TUESDAY. NO DIZZINESS OR SYNCOPE OR PALPITATIONS NO GI SYMPTOMS HE HAS HISTORY OF COPD, AND HAD BEEN ON HOME OXYGEN, BUT STATES HE HAS NOT HAD ANY FOR AT LEAST A YEAR HE TAKES INCRUSE AND SYMBICORT--HAD BOTH THIS MORNING. HE HAD AN IPRATROPRIUM NEB TREATMENT AT 1500 TODAY. NO OTHER NEBULIZER TREATMENTS TODAY. HE CONTINUES TO SMOKE AT LEAST 2 PACKS OF CIGARETTES A DAY, PLUS SMOKES A PIPE DAILY, PLUS CHEWS TOBACCO DAILY HE ALSO HAS A HISTORY OF HTN AND CHF, WITH CHRONIC LEG EDEMA--SWELLING IS NOT ANY WORSE TODAY HE DENIES HISTORY OF IRREGULAR HEART BEAT OR CORONARY ARTERY DISEASE, AND HAS NOT HAD A CARDIAC CATH HE IS NOT ON ASPIRIN OR BLOOD THINNERS. HE TAKES METOPROLOL, LISINOPRIL, DILTIAZEM, PRAVASTATIN, WELL CITALOPRAM, TAMSULOSIN AND FAMOTIDINE. HE DOES NOT SEE A HEAD SAMPLER OR GASOLINE TESTER. HE ONLY SEES DR. FARR AT [facility] PCP: DR. FARR AT [facility] Allergies and Home Medications Allergies Coded Allergies: nicotine (Verified Allergy, Mild, RASH, 04/24/20) Sulfa (Sulfonamide Antibiotics) (Verified Allergy, Unknown, 08/02/19) Patient Home Medication List Home Medication List Reviewed: Yes Albuterol Sulfate (Albuterol Sulfate) 2.5 Mg/3 Ml Vial.neb, 2.5 MG NEB Q6H PRN for SHORTNESS OF BREATH, (Reported) Entered as Reported by: BRUCE WU on 08/02/19 1001 Albuterol Sulfate (Ventolin Hfa) 1 Puff Puff, 2 PUFF INH Q6H PRN for SHORTNESS OF BREATH, (Reported) Entered as Reported by: BRUCE WU on 08/02/19 1001 Budesonide/Formoterol Fumarate (Symbicort 160-4.5 Mcg Inhaler) 10.2 Gm Hfa.aer.ad, 2 PUFF IH BID, (Reported) Entered as Reported by: BRUCE WU on 08/02/19 100 Bupropion HCl (Bupropion HCl) 100 Mg Tablet, 200 MG PO 0800,1400, (Reported) Entered as Reported by: BRUCE WU on 08/02/19 100 Citalopram Hydrobromide (Citalopram HBr) 20 Mg Tablet, 20 MG PO DAILY, (Reported) Entered as Reported by: BRUCE WU on 08/02/19 100 Diltiazem HCl (Diltiazem 24Hr ER) 120 Mg Cap.er.24h, 240 MG PO DAILY@0900 Prescribed by: BALTAZAR FARR on 08/07/19 1350 Lisinopril (Lisinopril) 10 Mg Tablet, 20 MG PO DAILY@0900 Prescribed by: BALTAZAR FARR on 08/07/19 1350 Metoprolol Tartrate (Metoprolol Tartrate) 50 Mg Tablet, 25 MG PO BID, (Reported) Entered as Reported by: BRUCE WU on 08/02/19 100 Pravastatin Sodium (Pravastatin Sodium) 40 Mg Tablet, 20 MG PO HS, (Reported) Entered as Reported by: BRUCE WU on 08/02/19 100 Tamsulosin HCl (Flomax) 0.4 Mg Cap, 0.4 MG PO HS, (Reported) Entered as Reported by: BRUCE WU on 08/02/19 100 Umeclidinium [place] (Incruse Ellipta) 62.5 Mcg Blst.w.dev, 62.5 MCG IH DAILY, (Reported) Entered as Reported by: MEG WARNER on 04/24/20 1451 Review of Systems Review of Systems Constitutional: see HPI, fever EENTM: see HPI, nose congestion Respiratory: see HPI, cough, short of breath, wheezing Cardiovascular: see HPI, chest pain; No edema, No palpitations, No syncope, No vascular heart diseas Gastrointestinal: no symptoms reported Genitourinary: no symptoms reported Musculoskeletal: no symptoms reported Skin: no symptoms reported Psychiatric/Neurological: No Symptoms Reported Hematologic/Lymphatic: No Symptoms Reported Immunological/Allergic: no symptoms reported Past Wjhluam-Mijyeo-Pmxawo Hx Patient Social History Tobacco Use?: Yes Tobacco type used: Cigarettes, Pipe Smoking Status: Current Everyday Smoker Smokeless Tobacco Frequency: Current Everyday User Substance use?: No Alcohol Use?: No Immunizations Up To Date Tetanus Booster (TDap): Unknown Seasonal Allergies Seasonal Allergies: Yes (MILD) Past Medical History Surgeries: Yes (TURP, ULNAR NERVE) Eye Surgery, Orthopedic, Transurethral Resection Respiratory: Yes Asthma, Pneumonia, Sleep Apnea, COPD, Emphysema Currently Using CPAP: Yes (NOT USING RIGHT NOW ) Cardiac: Yes Chronic Edema/Swelling, High Cholesterol, Hypertension Neurological: No Sexually Transmitted Disease: No HIV/AIDS: No Genitourinary: Yes Benign Prostatic Hyperpl Gastrointestinal: Yes Polyps Musculoskeletal: Yes Arthritis Endocrine: No HEENT: Yes (GLASSES) Loss of Vision: Denies Hearing Impairment: Hard of Hearing Cancer: No Psychosocial: Yes Anxiety, Depression Integumentary: No Blood Disorders: No Adverse Reaction/Blood Tranf: No (N/A) Family Medical History "oat cell cancer" 19 MOTHER Bleeding disorder 19 MOTHER FH: CAD (coronary artery disease) 19 FATHER FH: breast cancer 19 MOTHER G8 SISTER FHx: lung disease 19 FATHER Hypertension G8 BROTHER Myocardial infarction 19 FATHER No Pertinent Family Hx SOCIAL HISTORY: -SMOKES AT LEAST 2 PPD, PLUS SMOKES A PIPE DAILY, PLUS CHEWS TOBACCO DAILY -ETOH--DENIES USE -DRUGS--DENIES USE PAST SURGICAL HISTORY: -BILATERAL CATARACTS 01/2021 -COLONOSCOPY / POLYPECTOMY -TURP -ULNAR NERVE SURGERY Physical Exam Vital Signs Vital Signs - First Documented Capillary Refill : Height, Weight, BMI Height: '" Weight: lbs. oz. kg; 30.14 BMI Method: General Appearance: WD/WN, Other (MILDLY DYSPNEIC ON ARRIVAL. UNKEMPT. REEKS OF CIGARETTES) HEENT: PERRL/EOMI, Other (EDENTULOUS) Neck: Full Range of Motion, Normal Inspection, Non Tender, Supple Respiratory: Accessory Muscle Use, Respiratory Distress, Wheezing, Other (MODERATE DYSPNEA, BUT IS ABLE TO TALK IN FULL SENTENCES, EXPIRATORY WHEEZING BILATERALLY AND DECREASED AERATION IN ALL LUNG MCCOLLUM. ) Cardiovascular: Regular Rate, Rhythm, No JVD, No Murmur, Normal Peripheral Pulses, Other (FREQUENT ECTOPY) Gastrointestinal: No Pulsatile Mass, Non Tender, Soft Back: No CVA Tenderness Extremity: Normal Capillary Refill, Normal Range of Motion, Non Tender, No Calf Tenderness, Pedal Edema (TRACE TO 1+ EDEMA BILATERALLY) Neurologic/Psychiatric: Alert, Oriented x3, No Motor/Sensory Deficits, Normal Mood/Affect, mountain or glacier guide II-XII Norm as Tested Skin: Normal Color, Warm/Dry Focused Exam Sepsis Stage: Sepsis Possible Source: Pulmonary Lactate Level 11/13/22 20:24: Lactic Acid Level 1.32 Time of Focused Exam: 21:00 Respiratory: No Accessory Muscle Use, No Respiratory Distress, Other (INCREASED AERATION, MILD RESIDUAL EXPIRATORY WHEEZING BILATERALLY. NO RALES) Cardiovascular: Regular Rate, Rhythm, No JVD, No Murmur Capillary Refill: Less Than 3 Seconds Skin: normal color, warm/dry Lactic Acid Level Laboratory Tests Test 11/13/22 20:24 Lactic Acid Level 1.32 MMOL/L (0.50-2.00) Within 3hrs of presentation: Admin fluids, Admin ABX, Blood cultures prior to ABX's, Focus exam, Lactate level Progress/Results/Core Measures Suspected Sepsis SIRS Temperature: Pulse: Respiratory Rate: Laboratory Tests 11/13/22 20:24: White Blood Count 13.7H Blood Pressure / Mean: 11/13/22 20:24: Lactic Acid Level 1.32 Laboratory Tests 11/13/22 20:24: Creatinine 1.76H, INR Comment 1.1, Platelet Count 234, Total Bilirubin 0.8 Results/Orders Lab Results Laboratory Tests Test 11/13/22 20:24 11/13/22 20:39 11/13/22 20:56 Range/Units White Blood Count 13.7 H 4.3-11.0 10^3/uL Red Blood Count 4.60 4.30-5.52 10^6/uL Hemoglobin 13.0 L 13.3-17.7 g/dL Hematocrit 39 L 40-54 % Mean Corpuscular Volume 84 80-99 fL Mean Corpuscular Hemoglobin 28 25-34 pg Mean Corpuscular Hemoglobin Concent 34 32-36 g/dL Red Cell Distribution Width 14.9 H 10.0-14.5 % Platelet Count 234 130-400 10^3/uL Mean Platelet Volume 11.3 9.0-12.2 fL Immature Granulocyte % (Auto) 1 % Neutrophils (%) (Auto) 80 H 42-75 % Lymphocytes (%) (Auto) 7 L 12-44 % Monocytes (%) (Auto) 10 0-12 % Eosinophils (%) (Auto) 1 0-10 % Basophils (%) (Auto) 1 0-10 % Neutrophils # (Auto) 11.0 H 1.8-7.8 10^3/uL Lymphocytes # (Auto) 1.0 1.0-4.0 10^3/uL Monocytes # (Auto) 1.4 H 0.0-1.0 10^3/uL Eosinophils # (Auto) 0.1 0.0-0.3 10^3/uL Basophils # (Auto) 0.1 0.0-0.1 10^3/uL Immature Granulocyte # (Auto) 0.1 0.0-0.1 10^3/uL Neutrophils % (Manual) 70 % Lymphocytes % (Manual) 6 % Monocytes % (Manual) 13 % Eosinophils % (Manual) 2 % Band Neutrophils 9 % Platelet Estimate NORMAL Blood Morphology Comment NORMAL Prothrombin Time 14.3 12.2-14.7 SEC INR Comment 1.1 0.8-1.4 Activated Partial Thromboplast Time 31 24-35 SEC D-Dimer 1.97 H 0.00-0.49 UG/ML Sodium Level 137 135-145 MMOL/L Potassium Level 3.9 3.6-5.0 MMOL/L Chloride Level 104 98-107 MMOL/L Carbon Dioxide Level 20 L 21-32 MMOL/L Anion Gap 13 5-14 MMOL/L Blood Urea Nitrogen 23 H 7-18 MG/DL Creatinine 1.76 H 0.60-1.30 MG/DL Estimat Glomerular Filtration Rate 40 BUN/Creatinine Ratio 13 Glucose Level 134 H 70-105 MG/DL Lactic Acid Level 1.32 0.50-2.00 MMOL/L Calcium Level 9.4 8.5-10.1 MG/DL Corrected Calcium 9.5 8.5-10.1 MG/DL Magnesium Level 1.7 1.6-2.4 MG/DL Total Bilirubin 0.8 0.1-1.0 MG/DL Aspartate Amino Transf (AST/SGOT) 21 5-34 U/L Alanine Aminotransferase (ALT/SGPT) 25 0-55 U/L Alkaline Phosphatase 129 40-136 U/L Total Creatine Kinase 104 30-200 U/L Creatine Kinase MB 1.6 <6.6 NG/ML Myoglobin 86.2 10.0-92.0 NG/ML Troponin I < 0.028 <0.028 NG/ML C-Reactive Protein High Sensitivity 15.62 H 0.00-0.50 MG/DL B-Type Natriuretic Peptide 127.6 H <100.0 PG/ML Total Protein 7.5 6.4-8.2 GM/DL Albumin 3.9 3.2-4.5 GM/DL Amylase Level 43 25-125 U/L Lipase 26 8-78 U/L Serum Alcohol < 10 <10 MG/DL Influenza Type A (RT-PCR) Not Detected Not Detecte Influenza Type B (RT-PCR) Not Detected Not Detecte SARS-CoV-2 RNA (RT-PCR) Not Detected Not Detecte Blood Gas Puncture Site R RAD Blood Gas Patient Temperature 36.7 Arterial Blood pH 7.43 7.37-7.43 Arterial Blood Partial Pressure CO2 35 35-45 MMHG Arterial Blood Partial Pressure O2 67 L 79-93 MMHG Arterial Blood HCO3 22 L 23-27 MMOL/L Arterial Blood Total CO2 23.5 21.0-31.0 MMOL/L Arterial Blood Oxygen Saturation 95 94-100 % Arterial Blood Base Excess -1.4 -2.5-2.5 MMOL/L Sony Test YES-POS Blood Gas Ventilator Setting NO Blood Gas Inspired Oxygen 3L My Orders Orders - WEST MURGUIA DO Ed Iv/Invasive Line Start (11/13/22 20:19) Ekg Tracing (11/13/22 20:19) O2 (11/13/22 20:19) Monitor-Rhythm Ecg Trace Only (11/13/22 20:19) Amylase (11/13/22 20:19) Bnp Cuming (11/13/22 20:19) Cbc With Automated Diff (11/13/22 20:19) Comprehensive Metabolic Panel (11/13/22 20:19) Creatine Kinase (11/13/22 20:19) Creatine Kinase Mb (11/13/22 20:19) Fibrin Degradation Products (11/13/22 20:19) Lipase (11/13/22 20:19) Magnesium (11/13/22 20:19) Protime With Inr (11/13/22 20:19) Partial Thromboplastin Time (11/13/22 20:19) Myoglobin Serum (11/13/22 20:19) Troponin I Wu (11/13/22 20:19) Chest 1 View, Ap/Pa Only (11/13/22 20:19) Nitroglycerin 0.4 Mg Btl 25's (Nitrostat (11/13/22 20:30) Aspirin Chewable Tablet (Baby Aspirin Ch (11/13/22 20:30) Covid 19 Inhouse Test (11/13/22 20:28) Blood Culture (11/13/22 20:28) Sputum Culture (11/13/22 20:28) Urinalysis (11/13/22 20:28) Ed Iv/Invasive Line Start (11/13/22 20:28) Vital Signs Adult Sepsis Patie Q15M (11/13/22 20:28) Remove Rings In Anticipation O (11/13/22 20:28) Lactic Acid Analyzer (11/13/22 20:28) Cefepime Injection (Maxipime Injection) (11/13/22 20:30) Influenza A And B By Pcr (11/13/22 20:28) Isolation Central Supply Req (11/13/22 20:28) Albuterol/Ipra Inhalation Soln (Duoneb I (11/13/22 20:45) Dexamethasone Injection (Decadron Injec (11/13/22 20:45) Rt Request For Service (11/13/22 20:31) Svn Small Volume Nebulizer (11/13/22 20:31) Drug Screen Stat (Urine) (11/13/22 20:36) Budesonide Inhalation Solution (Pulmicor (11/13/22 20:45) Dexamethasone Injection (Decadron Inje (11/13/22 20:45) Ed Iv/Invasive Line Start (11/13/22 20:36) Svn Small Volume Nebulizer (11/13/22 20:36) Manual Differential (11/13/22 20:24) Alcohol (11/13/22 20:24) Hs C Reactive Protein (11/13/22 20:24) Arterial Blood Gas (11/13/22 20:56) Albuterol Pre-Mix Nebs (Rt) (Proventil (11/13/22 20:59) Svn Small Volume Nebulizer (11/13/22 20:59) Ed Admission (Communication) (11/13/22 21:20) Medications Given in ED Current Medications Medications Dose Ordered Sig/Emmie Route Start Time Stop Time Status Last Admin Dose Admin Albuterol/ Ipratropium 3 ml ONCE ONCE INH 11/13/22 20:45 11/13/22 20:46 DC 11/13/22 20:47 3 ML Aspirin 324 mg ONCE ONCE PO 11/13/22 20:30 11/13/22 20:31 DC 11/13/22 20:29 324 MG Budesonide 0.5 mg ONCE ONCE INH 11/13/22 20:45 11/13/22 20:46 DC 11/13/22 20:47 0.5 MG Cefepime HCl 1000 mg/Sodium Chloride 50 ml @ 100 mls/hr ONCE ONCE IV 11/13/22 20:30 11/13/22 20:59 DC 11/13/22 20:39 100 MLS/HR Dexamethasone Sodium Phosphate 10 mg ONCE ONCE IV 11/13/22 20:45 11/13/22 20:46 DC 11/13/22 20:42 10 MG Vital Signs/I&O 11/13/22 11/13/22 11/13/22 11/13/22 20:19 20:19 20:19 20:48 Temp 37.2 Pulse 74 Resp 20 B/P (MAP) 126/59 (81) Pulse Ox 91 94 95 O2 Delivery Nasal Cannula Nasal Cannula Nasal Cannula Nasal Cannula O2 Flow Rate 3.00 3.00 3.00 3.00 11/13/22 11/13/22 21:06 21:30 Temp 36.0 Pulse 64 Resp 17 B/P (MAP) 129/64 Pulse Ox 94 95 O2 Delivery Nasal Cannula Nasal Cannula O2 Flow Rate 3.00 3.00 11/14/22 00:00 Intake Total 50 ml Balance 50 ml Capillary Refill : Progress Note : Progress Note PPE WORN COVID AND FLU TESTING DONE SEPSIS PROTOCOL, WELL CHEST PAIN PROTOCOL INITIATED INITIAL O2 WAS 80-81% ON ROOM AIR ON ARRIVAL PLACED ON O2 AT 3 L/NC AND O2 SATS UP TO 90'S. HR IN 70'S, RR 20'S, BP 120'S/60'S, TEMP 37.2 = 99.0 ON ARRIVAL. LABS INCLUDING CBC, CMP, TROPONIN, BNP, PT/PTT/INR, LACTIC ACID, CRP, ABG'S, BLOOD CULTURES, UA ORDERED, IN ADDITION TO EKG AND CXR. PERTINENT LABS INCLUDE: -CBC WITH WBC 13.7 -BUN /CR / GFR 23 / 1.76 / 40 -CRP 15.62 -D-DIMER 1.97 -UA--TNTC WBC'S, LARGE BACTERIA TROPONIN AND BNP ARE NEGATIVE/NORMAL ABG'S WITH NORMAL PH, NORMAL PCO2, LOW PO2 CXR WITH INFILTRATES. NO OVERT CHF EKG IS UNREMARKABLE. NO STEMI GIVEN: -IV FLUIDS -ASPIRIN -CEFEPIME -DECADRON IV -HOUR LONG NEB TREATMENT NO DETERIORATION IN PT'S CONDITION DURING ER STAY PT STATES HE FEELS MUCH BETTER. LUNG SOUNDS IMPROVED, AND O2 SATS REMAIN 95-96% ON 3L/NC NO CHEST PAIN AT ANY TIME DURING ER STAY VITALS STABLE. DISCUSSED TEST RESULTS, NEED FOR ADMIT AND PT IS AGREEABLE TO PLAN. REVIEWED PRIOR RECORDS, ONE PRIOR ADMIT, AND A FEW OUTPATIENT PROCEDURES ECG Initial ECG Impression Date: November 13, 2022 Initial ECG Impression Time: 20:27 Initial ECG Rate: 68 Initial ECG Rhythm: Normal Sinus Initial ECG Intervals W[place] 157 QRS 96 QT/QTC 316/332 Initial ECG Impression: Nonspecific Changes Initial ECG Comparisson: Unchanged Comment INTERPRETED BY ME Diagnostic Imaging Comments CXR--PER RADIOLOGIST REPORT AT 2057 FINDINGS: Since 08/02/2019, there is improvement in aeration of the lungs however coarse mixed interstitial and alveolar infiltrates are again seen within the right perihilar and left basilar regions. There is mild cardiomegaly. Background air trapping is also noted. There is no evidence of pneumothorax. Old left clavicle fracture deformity with old left rib fractures are again noted. IMPRESSION: Coarse infiltrates in right perihilar and left basilar regions may represent chronic inflammation or pneumonia with background emphysema. Clinical correlation would be useful. Reviewed: Reviewed by Me Departure Communication (Admissions) 2114--SPOKE WITH DR. KING, ACCEPTS PT FOR ADMIT. SHE WILL DO ADMIT ORDERS. Impression Primary Impression: Sepsis Additional Impressions: Pneumonia Acute on chronic respiratory failure with hypoxia Very heavy cigarette smoker (40 or more per day) UTI (urinary tract infection) COPD exacerbation HTN (hypertension) Disposition: ADMITTED INPATIENT Condition: Improved Admissions Decision to Admit Reason: Admit from ER (General) Decision to Admit/Date: November 13, 2022 Time/Decision to Admit Time: 21:15 Departure-Patient Inst. Referrals: BALTAZAR FARR MD (PCP/Family) Primary Care Physician WEST MURGUIA DO November 13, 2022 20:33
[2022-11-13 20:39] LABS: BASOPHILS # (AUTO) 0.1 10^3/uL (0.0-0.1); BASOPHILS % (AUTO) 1 % (0-10); EOSINOPHILS # (AUTO) 0.1 10^3/uL (0.0-0.3); EOSINOPHILS % (AUTO) 1 % (0-10); HEMATOCRIT 39 % (40-54); LYMPHOCYTES % (AUTO) 7 % (12-44); MEAN CORPUSCULAR HEMOGLOBIN 28 pg (25-34); MEAN CORPUSCULAR HGB CONC 34 g/dL (32-36); MEAN CORPUSCULAR VOLUME 84 fL (80-99); MEAN PLATELET VOLUME 11.3 fL (9.0-12.2); MONOCYTES # (AUTO) 1.4 10^3/uL (0.0-1.0); MONOCYTES % (AUTO) 10 % (0-12); NEUTROPHILS % (AUTO) 80 % (42-75); PLATELET COUNT 234 10^3/uL (130-400); WHITE BLOOD COUNT 13.7 10^3/uL (4.3-11.0)
[2022-11-13] MEDS ORDERED: RT-BUDESONIDE NEBS 0.5 MG/2ML (PULMICORT) AMP INH ONE (20:45)
[2022-11-13] MEDS ORDERED: RT-ALBUTEROL/IPRATROPIUM 3 ML (DUONEB) VIAL INH ONE (20:45)
--- NOTE | 2022-11-13 20:46 | Diagnostic Imaging Report ---
INDICATION: Chest pain. EXAMINATION: Portable AP upright view of the chest was obtained. FINDINGS: Since 08/02/2019, there is improvement in aeration of the lungs however coarse mixed interstitial and alveolar infiltrates are again seen within the right perihilar and left basilar regions. There is mild cardiomegaly. Background air trapping is also noted. There is no evidence of pneumothorax. Old left clavicle fracture deformity with old left rib fractures are again noted. IMPRESSION: Coarse infiltrates in right perihilar and left basilar regions may represent chronic inflammation or pneumonia with background emphysema. Clinical correlation would be useful. Dictated by: Dictated on workstation # [id number]
[2022-11-13 20:50] LABS: INR 1.1 (0.8-1.4); PROTHROMBIN TIME PATIENT 14.3 SEC (12.2-14.7)
[2022-11-13 20:53] LABS: FIBRIN DEGRADATION PRODUCTS 1.97 UG/ML (0.00-0.49)
[2022-11-13] MEDS ORDERED: RT-ALBUTEROL SULF 2.5 MG/3 ML PRE-MIX VIAL INH STA (20:59)
[2022-11-13 21:01] LABS: ALANINE AMINOTRANSFERASE 25 U/L (0-55); ALBUMIN 3.9 GM/DL (3.2-4.5); ALKALINE PHOSPHATASE 129 U/L (40-136); AMYLASE 43 U/L (25-125); BILIRUBIN,TOTAL 0.8 MG/DL (0.1-1.0); BUN/CREATININE RATIO 13; CALCIUM 9.4 MG/DL (8.5-10.1); CARBON DIOXIDE 20 MMOL/L (21-32); CHLORIDE 104 MMOL/L (98-107); CREATINE KINASE 104 U/L (30-200); CREATININE SERUM 1.76 MG/DL (0.60-1.30); GFR ESTIMATED 40; GLUCOSE 134 MG/DL (70-105); LIPASE 26 U/L (8-78); MAGNESIUM 1.7 MG/DL (1.6-2.4); POTASSIUM 3.9 MMOL/L (3.6-5.0); SODIUM 137 MMOL/L (135-145); TOTAL PROTEIN 7.5 GM/DL (6.4-8.2)
[2022-11-13 21:02] LABS: ABG BASE EXCESS -1.4 MMOL/L (-2.5-2.5); ABG OXYGEN SATURATION 95 % (94-100); ABG PCO2 35 MMHG (35-45); ABG PH 7.43 (7.37-7.43); ABG PO2 67 MMHG (79-93); ABG TCO2 23.5 MMOL/L (21.0-31.0)
[2022-11-13 21:03] LABS: BAND NEUTROPHILS 9 %; EOSINOPHILS % (MANUAL) 2 %; LYMPHOCYTES % (MANUAL) 6 %; MONOCYTES % (MANUAL) 13 %; NEUTROPHILS % (MANUAL) 70 %; PLATELET ESTIMATE NORMAL; RBC MORPH NORMAL
[2022-11-13 21:04] LABS: ALLENS TEST YES-POS; INSPIRED O2 3L; PATIENT TEMP 36.7; VENTILATOR NO
[2022-11-13 21:08] LABS: CREATINE KINASE MB 1.6 NG/ML (<6.6)
[2022-11-13 21:45] VITALS: BP 147/66
[2022-11-13] MEDS ORDERED: ONDANSETRON 4 MG (ZOFRAN) ORAL DISSOLVE TAB PO PRN (21:45)
[2022-11-13] MEDS ORDERED: ANTACID SUSP 30 ML UDC (MYLANTA) PO PRN (21:45)
[2022-11-13] MEDS ORDERED: MILK OF MAGNESIA 400 MG/5 ML 30 ML UDC PO PRN (21:45)
[2022-11-13] MEDS ORDERED: CALCIUM CARBONATE 500 MG (TUMS) TAB.CHEW PO PRN (21:45)
[2022-11-13] MEDS ORDERED: polyethylene glycoL POWDER 17 GM (MIRALAX) PACK PO PRN (21:45)
[2022-11-13] MEDS ORDERED: ALPRAZolam 1 MG (XANAX) TAB PO PRN (21:45)
[2022-11-13] MEDS ORDERED: LACTULOSE SYRUP 10GM/15ML (ENULOSE) 30ML UDC PO PRN (21:45)
[2022-11-13] MEDS ORDERED: MELATONIN 3 MG TABLET PO PRN (21:45)
[2022-11-13] MEDS ORDERED: BISACODYL 10 MG SUPP (DULCOLAX) PR PRN (21:45)
[2022-11-13] MEDS ORDERED: ACETAMINOPHEN 325 MG TABLET PO PRN (21:45)
[2022-11-13] MEDS ORDERED: ONDANSETRON 4 MG/2 ML (SDV) Z0FRAN IV PRN (21:45)
[2022-11-13] MEDS ORDERED: diphenhydrAMINE 50 MG/ML INJ (BENADRYL) IVP PRN (21:45)
[2022-11-13] MEDS ORDERED: diphenhydrAMINE 25 MG TAB (BENADRYL) PO PRN (21:45)
[2022-11-13] MEDS ORDERED: HYDROmorphone 2 MG/ML VIAL (DILAUDID) IV PRN (21:45)
[2022-11-13 22:00] VITALS: BP 147/66
[2022-11-13] MEDS ORDERED: NS IV 1000 ML 1,000 ML ONE (22:01)
[2022-11-13] MEDS: NS IV 1000 ML 1,000 ML IV SCH (22:05)
[2022-11-13 22:09] VITALS: BP 129/64
[2022-11-13 22:30] VITALS: BP 148/61
[2022-11-13] MEDS ORDERED: RT-ALBUTEROL SULF 2.5 MG/3 ML PRE-MIX VIAL INH PRN (22:30)
[2022-11-13 23:00] VITALS: BP 142/62
[2022-11-13] MEDS: ENOXAPARIN 80 MG/0.8 ML (LOVENOX) SYR SC SCH (23:01)
[2022-11-13] MEDS: AZITHROMYCIN INJECTION 500 MG in NS (IVPB) 250 ML IV SCH (23:08)
[2022-11-13 23:41] VITALS: BP 155/71
[2022-11-14] LABS: BILIRUBIN,URINE NEGATIVE (NEGATIVE); CLARITY,URINE CLOUDY; COLOR,URINE YELLOW; GLUCOSE, URINE (UA) NEGATIVE (NEGATIVE); KETONES,URINE NEGATIVE (NEGATIVE); LEUKOCYTE ESTERASE ,URINE 3+ (NEGATIVE); NITRITE,URINE NEGATIVE (NEGATIVE); PROTEIN,URINE 1+ (NEGATIVE)
[2022-11-14 00:15] LABS: AMPHETAMINE SCREEN, URINE NEGATIVE (NEGATIVE); BACTERIA,URINE LARGE /HPF; BARBITURATE SCREEN URINE NEGATIVE (NEGATIVE); BENZODIAZEPINES SCREEN URINE NEGATIVE (NEGATIVE); CANNABINOID SCREEN, URINE NEGATIVE (NEGATIVE); COCAINE SCREEN URINE NEGATIVE (NEGATIVE); METHADONE STAT NEGATIVE (NEGATIVE); OPIATE SCREEN URINE NEGATIVE (NEGATIVE); OXYCODONE STAT NEGATIVE (NEGATIVE); PROPOXYPHENE STAT NEGATIVE (NEGATIVE); TRICYCLIC ANTIDEPRESSANTS SCRE NEGATIVE (NEGATIVE); WBC,URINE TNTC /HPF
[2022-11-14] MEDS: RT-ALBUTEROL SULF 2.5 MG/3 ML PRE-MIX VIAL INH SCH ×6 (01:38→21:13)
[2022-11-14 03:17] VITALS: BP 130/64
[2022-11-14] MEDS: CEFEPIME 1,000 MG/NS 50 ML IVPB IV SCH ×6 (05:15→20:41)
[2022-11-14 05:35] LABS: BASOPHILS % (AUTO) 0 % (0-10); EOSINOPHILS # (AUTO) 0.2 10^3/uL (0.0-0.3); EOSINOPHILS % (AUTO) 2 % (0-10); HEMATOCRIT 38 % (40-54); HEMOGLOBIN 12.8 g/dL (13.3-17.7); LYMPHOCYTES # (AUTO) 0.6 10^3/uL (1.0-4.0); LYMPHOCYTES % (AUTO) 5 % (12-44); MEAN CORPUSCULAR HEMOGLOBIN 29 pg (25-34); MEAN CORPUSCULAR HGB CONC 34 g/dL (32-36); MEAN CORPUSCULAR VOLUME 85 fL (80-99); MEAN PLATELET VOLUME 11.5 fL (9.0-12.2); MONOCYTES # (AUTO) 0.3 10^3/uL (0.0-1.0); MONOCYTES % (AUTO) 2 % (0-12); NEUTROPHILS # (AUTO) 12.3 10^3/uL (1.8-7.8); NEUTROPHILS % (AUTO) 90 % (42-75); PLATELET COUNT 233 10^3/uL (130-400); WHITE BLOOD COUNT 13.6 10^3/uL (4.3-11.0)
[2022-11-14 06:00] LABS: ALBUMIN 3.6 GM/DL (3.2-4.5); BILIRUBIN,TOTAL 0.5 MG/DL (0.1-1.0); CALCIUM 9.2 MG/DL (8.5-10.1); CREATININE SERUM 1.38 MG/DL (0.60-1.30); POTASSIUM 4.1 MMOL/L (3.6-5.0); TOTAL PROTEIN 7.2 GM/DL (6.4-8.2)
[2022-11-14] MEDS: inSUlin ASPART (NovoLOG) 1 UNIT/0.01 ML (CHARGE PER UNIT) SC SCH ×4 (06:26→20:48)
[2022-11-14] MEDS: RT-BUDESONIDE NEBS 0.5 MG/2ML (PULMICORT) AMP INH SCH ×2 (06:40→21:13)
--- NOTE | 2022-11-14 07:12 | History & Physical-Hospitalist ---
History of Present Illness HPI/Chief Complaint Chief complaint: Acute hypoxic respiratory failure HPI: This is a 72-year-old male current smoker with history of COPD recently discontinued oxygen supplementation who presented to the ER with shortness of breath found to have hypoxia of 81% on room air placed on oxygen and nebulizer treatments and the decision was made to admit for IV antibiotics for pneumonia and UTI and close monitoring. Currently he feels much better does not require any Vapotherm or BiPAP and he will be moved down to fourth floor. Antibiotics will be maintained. Source: patient, RN/MD, old records Exam Limitations: no limitations Date Seen 11/14/22 Time Seen by a Provider: 11:00 Attending Physician Anahy Reyes MD PCP Admitting Physician: Dolores Lee DO Attending Physician: Dolores Lee DO Referring Physician Date of Admission November 13, 2022 at 21:30 Home Medications & Allergies Home Medications Reviewed patient Home Medication Reconciliation performed by pharmacy medication reconciliations qc lab technician and/or nursing. Patients Allergies have been reviewed. Allergies Allergies Coded Allergies nicotine (Verified Allergy, Mild, RASH, 04/24/20) Sulfa (Sulfonamide Antibiotics) (Verified Allergy, Unknown, 08/02/19) Past Wryllva-Judjnn-Fqfqph Hx Patient Social History Marrital Status: single Employed/Student: retired Tobacco Use?: Yes Tobacco type used: Cigarettes, Pipe Smoking Status: Current Everyday Smoker Smokeless type used: Chew Smokeless Tobacco Frequency: Current Everyday User Substance use?: No Alcohol Use?: No Pt feels they are or have been: No Immunizations Up To Date Date of Influenza Vaccine: Mar 24, 2020 First/Initial COVID19 Vaccinat: x2 Tetanus Booster (TDap): Unknown Date of Pneumonia Vaccine: Mar 24, 2020 Seasonal Allergies Seasonal Allergies: Yes (MILD) Current Status Advance Directives: No Communicates: Verbally Primary Language: [place]ill[place] Preferred Spoken Language: [place]ill[place] Is interpretation needed?: No Implanted or Applied Medical D: None Past Medical History Surgeries: Eye Surgery, Orthopedic, Transurethral Resection Asthma, Pneumonia, Sleep Apnea, COPD, Emphysema Currently Using CPAP: Yes (NOT USING RIGHT NOW ) Chronic Edema/Swelling, High Cholesterol, Hypertension Sexually Transmitted Disease: No HIV/AIDS: No Benign Prostatic Hyperpl Polyps Arthritis Loss of Vision: Denies Hearing Impairment: Hard of Hearing Anxiety, Depression Blood Disorders: No Adverse Reaction/Blood Tranf: No (N/A) Family Medical History "oat cell cancer" 19 MOTHER Bleeding disorder 19 MOTHER FH: CAD (coronary artery disease) 19 FATHER FH: breast cancer 19 MOTHER G8 SISTER FHx: lung disease 19 FATHER Hypertension G8 BROTHER Myocardial infarction 19 FATHER No Pertinent Family Hx SOCIAL HISTORY: -SMOKES AT LEAST 2 PPD, PLUS SMOKES A PIPE DAILY, PLUS CHEWS TOBACCO DAILY -ETOH--DENIES USE -DRUGS--DENIES USE PAST SURGICAL HISTORY: -BILATERAL CATARACTS 01/2021 -COLONOSCOPY / POLYPECTOMY -TURP -ULNAR NERVE SURGERY Review of Systems Constitutional: see HPI, dizziness, malaise, weakness EENTM: no symptoms reported Respiratory: dyspnea on exertion, short of breath, wheezing Cardiovascular: no symptoms reported Gastrointestinal: no symptoms reported Genitourinary: no symptoms reported Musculoskeletal: back pain Psychiatric/Neurological: Anxiety, Depressed All Other Systems Reviewed Negative Unless Noted: Yes Physical Exam Physical Exam Vital Signs Vital Signs - First Documented Capillary Refill : Less Than 3 Seconds Height, Weight, BMI Height: '" Weight: lbs. oz. kg; 24.26 BMI Method: General Appearance: No Apparent Distress, Chronically ill Eyes: Right Eye Normal Inspection, Right Eye PERRL HEENT: PERRL/EOMI, Normal ENT Inspection, Pharynx Normal, Moist Mucous Membranes Neck: Full Range of Motion, Normal Inspection, Non Tender Respiratory: Chest Non Tender, No Respiratory Distress, Accessory Muscle Use, Crackles, Decreased Breath Sounds, Rales, Wheezing Cardiovascular: Regular Rate, Rhythm, No Edema, No Gallop, No JVD, No Murmur, Normal Peripheral Pulses Gastrointestinal: Normal Bowel Sounds, No Organomegaly, No Pulsatile Mass, Non Tender, Soft Back: Normal Inspection, No CVA Tenderness, No Vertebral Tenderness Extremity: Normal Capillary Refill, Normal Inspection, Normal Range of Motion, Non Tender, No Calf Tenderness, No Pedal Edema Neurologic/Psychiatric: Alert, Oriented x3, No Motor/Sensory Deficits, Normal Mood/Affect Skin: Normal Color, Warm/Dry Lymphatic: No Adenopathy Results Results/Procedures Labs Laboratory Tests 11/13/22 20:24 11/14/22 05:10 Patient resulted labs reviewed. Assessment/Plan Admission Diagnosis Assessment: Acute hypoxic respiratory failure Sepsis Pneumonia Exacerbation of COPD Acute UTI Hypertension Hyperlipidemia Current smoker DVT prophylaxis with Lovenox Anxiety Depression Plan: IV antibiotics and IV steroids O2 Nebulizers Move to fourth floor Admission Status: Observation Diagnosis/Problems Diagnosis/Problems (1) Acute on chronic respiratory failure with hypoxia (2) COPD exacerbation (3) Pneumonia (4) Very heavy cigarette smoker (40 or more per day) Status: Acute (5) HTN (hypertension) Status: Acute (6) UTI (urinary tract infection) Status: Acute (7) Sepsis Status: Acute DOLORES LEE DO November 14, 2022 07:12
[2022-11-14 07:32] VITALS: BP 156/76
[2022-11-14] MEDS: ENOXAPARIN 80 MG/0.8 ML (LOVENOX) SYR SC SCH ×2 (08:57→20:42)
[2022-11-14] MEDS: DOCUSATE SODIUM 100 MG (COLACE) CAP PO SCH ×2 (08:57→20:48)
[2022-11-14] MEDS: SENNOSIDES 8.6 MG (SENOKOT) TAB PO SCH ×2 (08:57→20:48)
[2022-11-14] MEDS ORDERED: RT-BUDESONIDE NEBS 0.5 MG/2ML (PULMICORT) AMP INH SCH (09:00)
[2022-11-14] MEDS ORDERED: CEFEPIME INJECTION 2,000 MG in NS (IVPB) 50 ML IV SCH (09:00)
[2022-11-14 11:57] VITALS: BP 150/61
[2022-11-14] MEDS: NS IV 1000 ML 1,000 ML IV SCH (12:10)
[2022-11-14 16:00] VITALS: BP 163/71
[2022-11-14] MEDS: cloNIDine 0.1 MG (CATAPRES) TAB PO PRN ×2 (16:09→23:10)
[2022-11-14 19:53] VITALS: BP 174/89
[2022-11-14] MEDS: AZITHROMYCIN INJECTION 500 MG in NS (IVPB) 250 ML IV SCH (21:16)
[2022-11-14 23:00] VITALS: BP 179/91
[2022-11-15] VITALS (11 sets, daily range): BP systolic 151–183; BP diastolic 77–98
[2022-11-15] MEDS: RT-ALBUTEROL SULF 2.5 MG/3 ML PRE-MIX VIAL INH SCH ×6 (02:05→22:46)
[2022-11-15] MEDS: cloNIDine 0.1 MG (CATAPRES) TAB PO PRN ×2 (03:29→14:35)
[2022-11-15 05:15] LABS: BASOPHILS % (AUTO) 0 % (0-10); EOSINOPHILS # (AUTO) 0.2 10^3/uL (0.0-0.3); EOSINOPHILS % (AUTO) 1 % (0-10); HEMATOCRIT 37 % (40-54); HEMOGLOBIN 12.2 g/dL (13.3-17.7); LYMPHOCYTES # (AUTO) 1.2 10^3/uL (1.0-4.0); LYMPHOCYTES % (AUTO) 8 % (12-44); MEAN CORPUSCULAR HEMOGLOBIN 28 pg (25-34); MEAN CORPUSCULAR HGB CONC 33 g/dL (32-36); MEAN CORPUSCULAR VOLUME 85 fL (80-99); MEAN PLATELET VOLUME 11.8 fL (9.0-12.2); MONOCYTES # (AUTO) 0.5 10^3/uL (0.0-1.0); MONOCYTES % (AUTO) 4 % (0-12); NEUTROPHILS # (AUTO) 13.1 10^3/uL (1.8-7.8); NEUTROPHILS % (AUTO) 86 % (42-75); PLATELET COUNT 241 10^3/uL (130-400); WHITE BLOOD COUNT 15.1 10^3/uL (4.3-11.0)
[2022-11-15 05:25] LABS: ALBUMIN 3.2 GM/DL (3.2-4.5); POTASSIUM 4.3 MMOL/L (3.6-5.0)
[2022-11-15 05:27] LABS: CALCIUM 8.9 MG/DL (8.5-10.1)
[2022-11-15 05:28] LABS: TOTAL PROTEIN 6.5 GM/DL (6.4-8.2)
[2022-11-15 05:29] LABS: BILIRUBIN,TOTAL 0.3 MG/DL (0.1-1.0)
[2022-11-15 05:31] LABS: CREATININE SERUM 1.14 MG/DL (0.60-1.30)
--- NOTE | 2022-11-15 05:47 | Progress Note ---
Subjective Date Seen by a Provider: November 15, 2022 Time Seen by a Provider: 11:00 Subjective/Events-last exam Patient doing a lot better Cough is improved Reviewed labs Blood pressure still very elevated so we will adjust meds We will ambulate Home meds will be restarted Review of Systems General: Fatigue, Malaise Pulmonary: Dyspnea, Cough Focused Exam Lactate Level 11/13/22 20:24: Lactic Acid Level 1.32 Time of Focused Exam: 21:00 Objective Exam Last Set of Vital Signs Vital Signs Date Time Temp Pulse Resp B/P (MAP) Pulse Ox O2 Delivery O2 Flow Rate FiO2 11/15/22 05:00 56 25 176/88 (125) 99 Nasal Cannula 2.00 11/14/22 19:53 36.8 Capillary Refill : Less Than 3 Seconds I&O Intake and Output 11/15/22 00:00 Intake Total 2268 ml Output Total 975 ml Balance 1293 ml Intake Oral 2268 ml Output Urine Total 975 ml # Voids 2 # Bowel Movements 3 General: Alert, Oriented X3, Cooperative, No Acute Distress Lungs: Other (Coarse breath sounds) Heart: Regular Rate Psych/Mental Status: Mental Status NL Results Lab Laboratory Tests 11/14/22 10:57: Glucometer 219H 11/14/22 15:41: Glucometer 141H 11/14/22 20:38: Glucometer 142H 11/15/22 04:16: White Blood Count 15.1H, Red Blood Count 4.38, Hemoglobin 12.2L, Hematocrit 37L, Mean Corpuscular Volume 85, Mean Corpuscular Hemoglobin 28, Mean Corpuscular Hemoglobin Concent 33, Red Cell Distribution Width 14.8H, Platelet Count 241, Mean Platelet Volume 11.8, Immature Granulocyte % (Auto) 1, Neutrophils (%) (Auto) 86H, Lymphocytes (%) (Auto) 8L, Monocytes (%) (Auto) 4, Eosinophils (%) (Auto) 1, Basophils (%) (Auto) 0, Neutrophils # (Auto) 13.1H, Lymphocytes # (Auto) 1.2, Monocytes # (Auto) 0.5, Eosinophils # (Auto) 0.2, Basophils # (Auto) 0.0, Immature Granulocyte # (Auto) 0.2H, Sodium Level 139, Potassium Level 4.3, Chloride Level 107, Carbon Dioxide Level 19L, Anion Gap 13, Blood Urea Nitrogen 21H, Creatinine 1.14, Estimat Glomerular Filtration Rate 67, BUN/Creatinine Ratio 18, Glucose Level 146H, Calcium Level 8.9, Corrected Calcium 9.5, Total Bilirubin 0.3, Aspartate Amino Transf (AST/SGOT) 35H, Alanine Aminotransferase (ALT/SGPT) 43, Alkaline Phosphatase 129, Total Protein 6.5, Albumin 3.2 Microbiology 11/13/22 Blood Culture - Preliminary, Resulted No growth Assessment/Plan Assessment/Plan Assess & Plan/Chief Complaint Assessment: Acute hypoxic respiratory failure Sepsis Pneumonia Exacerbation of COPD Acute UTI Hypertension Hyperlipidemia Current smoker DVT prophylaxis with Lovenox Anxiety Depression Elevated D-dimer Plan: IV antibiotics and IV steroids O2 Nebulizers CT angiogram since creatinine is 1.1 Diagnosis/Problems Diagnosis/Problems (1) Acute on chronic respiratory failure with hypoxia (2) COPD exacerbation (3) Pneumonia (4) Very heavy cigarette smoker (40 or more per day) Status: Acute (5) HTN (hypertension) Status: Acute (6) UTI (urinary tract infection) Status: Acute (7) Sepsis Status: Acute YONATHAN KING DO November 15, 2022 05:47
[2022-11-15] MEDS: CEFEPIME 1,000 MG/NS 50 ML IVPB IV SCH ×6 (05:53→20:29)
[2022-11-15] MEDS: inSUlin ASPART (NovoLOG) 1 UNIT/0.01 ML (CHARGE PER UNIT) SC SCH ×4 (06:00→20:14)
[2022-11-15] MEDS: RT-BUDESONIDE NEBS 0.5 MG/2ML (PULMICORT) AMP INH SCH ×2 (06:48→18:34)
[2022-11-15] MEDS ORDERED: amLODIPine 5 MG (NORVASC) TAB PO ONE (07:15)
[2022-11-15] MEDS ORDERED: hydrALAZINE (APESOLINE) 20 MG/ML VIAL IV PRN (07:15)
[2022-11-15] MEDS: ENOXAPARIN 80 MG/0.8 ML (LOVENOX) SYR SC SCH ×2 (08:16→20:29)
[2022-11-15] MEDS: DOCUSATE SODIUM 100 MG (COLACE) CAP PO SCH ×2 (08:20→20:29)
[2022-11-15] MEDS: SENNOSIDES 8.6 MG (SENOKOT) TAB PO SCH ×2 (08:20→20:29)
[2022-11-15] MEDS ORDERED: IOHEXOL 350 MG/ML 100 ML (OMNIPAQUE 350) VIAL IV ONE (16:45)
[2022-11-15] MEDS ORDERED: NS 100 ML (IVPB) BAG IV ONE (16:45)
[2022-11-15] MEDS ORDERED: HOLD METFORMIN - RECEIVED CONTRAST 20 ML VIAL IV SCH (16:45)
--- NOTE | 2022-11-15 17:11 | Diagnostic Imaging Report ---
INDICATION: Chronic respiratory distress with elevated D-dimer. CTA of the thorax is performed after bolus intravenous administration of iodinated contrast. Three-D reformatted images are produced. Automatic exposure controls were utilized to keep dose as low as reasonably achievable. COMPARISON: 08/02/2019 There is good opacification of pulmonary arteries without intraluminal filling defect identified. Thoracic aorta is within normal limits for caliber with mild atherosclerotic disease. There is a small amount of bilateral pleural fluid and/or thickening with dependent atelectasis and/or pneumonitis in both lungs. Area of consolidation in the right lung which was previously seen, is no longer identified. 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 There is also mild diffuse mural thickening of the esophagus. IMPRESSION: No acute pulmonary embolism is identified. There is background COPD with dependent atelectasis and/or pneumonitis and a small amount of bilateral pleural fluid or thickening. In addition, there is diffuse esophageal mural thickening which may reflect esophagitis and clinical correlation would be of use. Dictated by: Dictated on workstation # [id number]
[2022-11-15] MEDS: AZITHROMYCIN INJECTION 500 MG in NS (IVPB) 250 ML IV SCH (20:29)
[2022-11-15] MEDS: amLODIPine 5 MG (NORVASC) TAB PO SCH (20:29)
[2022-11-16] MEDS: RT-ALBUTEROL SULF 2.5 MG/3 ML PRE-MIX VIAL INH SCH ×2 (02:42→07:19)
[2022-11-16 03:17] VITALS: BP 184/87
[2022-11-16] MEDS: inSUlin ASPART (NovoLOG) 1 UNIT/0.01 ML (CHARGE PER UNIT) SC SCH ×3 (05:20→17:08)
[2022-11-16] MEDS: CEFEPIME 1,000 MG/NS 50 ML IVPB IV SCH ×4 (05:35→14:00)
[2022-11-16] MEDS: cloNIDine 0.1 MG (CATAPRES) TAB PO PRN (05:35)
[2022-11-16 05:45] LABS: BASOPHILS # (AUTO) 0.1 10^3/uL (0.0-0.1); BASOPHILS % (AUTO) 0 % (0-10); HEMATOCRIT 40 % (40-54); MEAN PLATELET VOLUME 11.2 fL (9.0-12.2)
[2022-11-16 05:47] LABS: EOSINOPHILS % (AUTO) 0 % (0-10); HEMOGLOBIN 13.2 g/dL (13.3-17.7); LYMPHOCYTES # (AUTO) 1.4 10^3/uL (1.0-4.0); LYMPHOCYTES % (AUTO) 9 % (12-44); MEAN CORPUSCULAR HEMOGLOBIN 28 pg (25-34); MEAN CORPUSCULAR HGB CONC 33 g/dL (32-36); MEAN CORPUSCULAR VOLUME 85 fL (80-99); MONOCYTES # (AUTO) 0.6 10^3/uL (0.0-1.0); MONOCYTES % (AUTO) 4 % (0-12); NEUTROPHILS # (AUTO) 12.7 10^3/uL (1.8-7.8); NEUTROPHILS % (AUTO) 84 % (42-75); PLATELET COUNT 249 10^3/uL (130-400); WHITE BLOOD COUNT 15.2 10^3/uL (4.3-11.0)
--- NOTE | 2022-11-16 06:12 | Progress Note - Hospitalist ---
Subjective HPI/CC On Admission Date Seen by Provider: November 16, 2022 Time Seen by Provider: 09:00 Chief complaint: Acute hypoxic respiratory failure HPI: This is a 72-year-old male current smoker with history of COPD recently discontinued oxygen supplementation who presented to the ER with shortness of breath found to have hypoxia of 81% on room air placed on oxygen and nebulizer treatments and the decision was made to admit for IV antibiotics for pneumonia and UTI and close monitoring. Currently he feels much better does not require any Vapotherm or BiPAP and he will be moved down to fourth floor. Antibiotics will be maintained. Focused Exam Lactate Level Time of Focused Exam: 21:00 Objective Exam Vital Signs Vital Signs Date Time Temp Pulse Resp B/P (MAP) Pulse Ox O2 Delivery O2 Flow Rate FiO2 11/16/22 16:55 37.3 80 19 178/88 (118) 94 Simple Mask 11/16/22 08:00 2.00 Capillary Refill : Less Than 3 Seconds Results/Procedures Lab Laboratory Tests 11/16/22 05:10 Patient resulted labs reviewed. Diagnosis/Problems Diagnosis/Problems (1) Acute on chronic respiratory failure with hypoxia (2) COPD exacerbation (3) Pneumonia (4) Very heavy cigarette smoker (40 or more per day) Status: Acute (5) HTN (hypertension) Status: Acute (6) UTI (urinary tract infection) Status: Acute (7) Sepsis Status: Acute YONATHAN KING DO November 16, 2022 06:12
[2022-11-16 06:17] LABS: ALBUMIN 3.5 GM/DL (3.2-4.5); BILIRUBIN,TOTAL 0.3 MG/DL (0.1-1.0); CALCIUM 9.2 MG/DL (8.5-10.1); CREATININE SERUM 0.96 MG/DL (0.60-1.30); POTASSIUM 4.1 MMOL/L (3.6-5.0); TOTAL PROTEIN 6.9 GM/DL (6.4-8.2)
[2022-11-16] MEDS: RT-BUDESONIDE NEBS 0.5 MG/2ML (PULMICORT) AMP INH SCH (07:19)
[2022-11-16 07:24] VITALS: BP 184/87
[2022-11-16 07:41] VITALS: BP 166/80
[2022-11-16] MEDS: DOCUSATE SODIUM 100 MG (COLACE) CAP PO SCH (08:27)
[2022-11-16] MEDS: amLODIPine 5 MG (NORVASC) TAB PO SCH (08:27)
[2022-11-16] MEDS: SENNOSIDES 8.6 MG (SENOKOT) TAB PO SCH (08:28)
[2022-11-16] MEDS: ENOXAPARIN 80 MG/0.8 ML (LOVENOX) SYR SC SCH (08:31)
[2022-11-16 12:00] VITALS: BP 152/78
[2022-11-16] MEDS ORDERED: LISI20TA26 PO (13:24)
[2022-11-16] MEDS ORDERED: DILT120C85 PO (13:24)
[2022-11-16] MEDS ORDERED: MULT-1136 PO (13:24)
[2022-11-16] MEDS ORDERED: CITA40TA13 PO (13:24)
[2022-11-16] MEDS ORDERED: FAMO20TA5 PO (13:24)
--- NOTE | 2022-11-16 13:39 | Physical Therapy Evaluation ---
PT Evaluation-General Medical Diagnosis Admission Date November 13, 2022 at 21:30 Medical Diagnosis: respiratory failure with hypoxia Onset Date: November 13, 2022 Therapy Diagnosis Therapy Diagnosis: debility Precautions Precautions/Isolations: Fall Prevention, Standard Precautions Referral Physician: Rosa Reason for Referral: Evaluation/Treatment Medical History Pertinent Medical History: COPD, Heart Failure, HTN, Smoking Current History ER secondary to SOA Reviewed History: Yes Social History Home: Single Level Current Living Status: Significant Other Prior Prior Level of Function SCALE: Activities may be completed with or without assistive devices. 9-Bkatdnuprr-dnifjri completes the activity by him/herself with no assistance from a helper. 5-Set-up or Clean-up Assistance-helper sets up or cleans up; patient completes activity. [place] assists only prior to or following the activity. 4-Supervision or Touching Assistance-helper provides verbal cues and/or touching/steadying and/or contact guard assistance as patient completes activity. Assistance may be provided throughout the activity or intermittently. 3-Partial/Moderate Assistance-helper does LESS THAN HALF the effort. [place] lifts, holds or supports trunk or limbs, but provides less than half the effort. 2-Substantial/Maximal Assistance-helper does MORE THAN HALF the effort. [place] lifts or holds trunk or limbs and provides more than half the effort. 4-Gaqdeqcxa-nacjdr does ALL the effort. Patient does none of the effort to complete the activity. Or, the assistance of 2 or more helpers is required for the patient to complete the activity. If activity was not attempted, code reason: 7-Patient Refused. 9-Not Applicable-not attempted and the patient did not perform the activity before the current illness, exacerbation or injury. 10-Not Attempted due to Environmental Limitations-(lack of equipment, weather restraints, etc.). 88-Not Attempted due to Medical Conditions or Safety Concerns. Bed Mobility: 6 Transfers (B,C,W/C): 6 Gait: 6 Stairs: 6 Indoor Mobility (Ambulation): Independent Stairs: Independent Prior Devices Use: Other-see list below Prior Device Use: cane PT Evaluation-Current Subjective Patient agrees to therapy. 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 Objective Patient Orientation: Normal For Age ROM/Strength ROM Lower Extremities bilateral LE WFL Strength Lower Extremities 4/5 grossly bilateral LE all planes Sensory Vision: Wears Glasses Hearing: Functional Transfers Lying to Sitting/Side of Bed(Q: 6 Sit to Stand (QC): 6 Chair/Tcs-ur-Sfvjp Xfer(QC): 6 Gait Mode of Locomotion: Walk Anticipated Mode of Locomotion: Walk Walk 10 feet (QC): 6 Walk 50 ft with 2 Turns(QC): 6 Walk 150 ft (QC): 6 Distance: >500' Gait Assistive Device: FWW Comments/Gait Description safe and functional with no deviation Balance Sitting Static: Normal Sitting Dynamic: Normal Standing Static: Normal Standing Dynamic: Normal Assessment/Needs Patient is currently at [facility] with all gross motor skills safely and does not require skilled PT intervention at this time. Rehab Potential: Fair PT Plan Treatment/Plan Treatment Plan: Discontinue PT Treatment Duration: November 16, 2022 Frequency: 1 time per week Estimated Hrs Per Day: .25 hour per day Patient and/or Family Agrees t: Yes Time Time In: 1305 Time Out: 1321 DATE: November 16, 2022 Total Billed Treatment Time: 16 Total Billed Treatment 1 visit [facility] 16 min PATRICIO LINDQUIST PT November 16, 2022 13:39
--- NOTE | 2022-11-16 14:10 | Occupational Ther Daily Note ---
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 8-Nsuvhoqmzw-jaqnbnw completes the activity by him/herself with no assistance from a helper. 5-Set-up or Clean-up Assistance-helper sets up or cleans up; patient completes activity. [place] assists only prior to or following the activity. 4-Supervision or Touching Assistance-helper provides verbal cues and/or touching/steadying and/or contact guard assistance as patient completes activity. Assistance may be provided throughout the activity or intermittently. 3-Partial/Moderate Assistance-helper does LESS THAN HALF the effort. [place] lifts, holds or supports trunk or limbs, but provides less than half the effort. 2-Substantial/Maximal Assistance-helper does MORE THAN HALF the effort. [place] lifts or holds trunk or limbs and provides more than half the effort. 8-Ostwacvsv-jhkcvo does ALL the effort. Patient does none of the effort to complete the activity. Or, the assistance of 2 or more helpers is required for the patient to complete the activity. If activity was not attempted, code reason: 7-Patient Refused. 9-Not Applicable-not attempted and the patient did not perform the activity before the current illness, exacerbation or injury. 10-Not Attempted due to Environmental Limitations-(lack of equipment, weather restraints, etc.). 88-Not Attempted due to Medical Conditions or Safety Concerns. Eating (QC): 6 Oral Hygiene (QC): 6 Shower/Bathe Self (QC): 7 (sponge) Upper Body Dressing (QC): 6 Lower Body Dressing (QC): 6 On/Off Footwear: 6 Toileting Hygiene (QC): 6 Toilet Transfer (QC): 6 NO ADs needed for ADLS Education OT Patient Education: Correct positioning, Exercise program, Modified ADL mundo hniques, Progress toward Goal/Update tx plan, Purpose of tx/functional activities, Reviewed precautions, Rehab process, Safety issues, Transfer techniques Teaching Recipient: Patient Teaching Methods: Demonstration, Discussion Response to Teaching: Return Demonstration OT Mcc Goals Patient Transporter Goals 1=Demonstrate adherence to instructed precautions during ADL tasks. 2=Patient will verbalize/demonstrate understanding of assistive devices/modifications for ADL. 3=Patient will improve strength/tolerance for activity to enable patient to perform ADL's. OT Education/Plan Problem List/Assessment Assessment: No Skilled OT Needs ID'd Discharge Recommendations Plan/Recommendations: Discontinue OT Treatment Plan/Plan of Care Patient would benefit from OT for education, treatment and training to promote independence in ADL's, mobility, safety and/or upper extremity function for ADL's. Plan of Care: OTHER (EVAL ONLY) Treatment Duration: November 16, 2022 Frequency: 1 time per week Estimated Hrs Per Day: .25 hour per day Rehab Potential: Good EVAL ONLY Time Start Time: 13:00 Stop Time: 13:15 DATE: November 16, 2022 Total Time Billed (hr/min): 15 Billed Treatment Time EVL 15 min MIRYAM CHAVIRA OT November 16, 2022 14:10
[2022-11-16] MEDS ORDERED: RT-ALBUTEROL SULF 2.5 MG/3 ML PRE-MIX VIAL INH SCH (15:00)
[2022-11-16] MEDS ORDERED: CEFD300C3 PO (15:11)
[2022-11-16] MEDS ORDERED: AZIT250T12 PO (15:11)
[2022-11-16] MEDS ORDERED: AMLO-250 PO (15:11)
[2022-11-16] MEDS ORDERED: DEXA6TAB PO (15:11)
--- NOTE | 2022-11-16 15:12 | Discharge Summary ---
Diagnosis/Chief Complaint Date of Admission November 13, 2022 at 21:30 Date of Discharge Discharge Date: November 16, 2022 Discharge Diagnosis Assessment: Acute hypoxic respiratory failure Sepsis Pneumonia Exacerbation of COPD Acute UTI Hypertension Hyperlipidemia Current smoker DVT prophylaxis with Lovenox Anxiety Depression Elevated D-dimer Plan: IV antibiotics and IV steroids O2 Nebulizers CT angiogram since creatinine is 1.1 Discharge Summary Discharge Physical Examination Allergies: Coded Allergies: nicotine (Verified Allergy, Mild, RASH, 04/24/20) Sulfa (Sulfonamide Antibiotics) (Verified Allergy, Unknown, 08/02/19) Vitals & I&Os Vital Signs Date Time Temp Pulse Resp B/P (MAP) Pulse Ox O2 Delivery O2 Flow Rate FiO2 11/16/22 16:55 37.3 80 19 178/88 (118) 94 Simple Mask 11/16/22 08:00 2.00 General Appearance: Alert, Oriented X3, Cooperative Respiratory: Clear to Auscultation Cardiovascular: Regular Rate Psych/Mental Status: Mental Status NL Hospital Course Was the Problem List Reviewed?: Yes Hospital course: Patient had an uneventful hospital course after he was admitted to cardiac stepdown unit due to acute hypoxic respiratory failure. Antibiotics were initiated for pneumonia. IV steroids for exacerbation of COPD. UTI diagnosed. Patient improved rapidly did not require home oxygen at time of discharge and he was sent home in improved condition. Labs (last 24 hrs) Laboratory Tests 11/13/22 20:24: White Blood Count 13.7H, Red Blood Count 4.60, Hemoglobin 13.0L, Hematocrit 39L, Mean Corpuscular Volume 84, Mean Corpuscular Hemoglobin 28, Mean Corpuscular Hemoglobin Concent 34, Red Cell Distribution Width 14.9H, Platelet Count 234, Mean Platelet Volume 11.3, Immature Granulocyte % (Auto) 1, Neutrophils (%) (Auto) 80H, Lymphocytes (%) (Auto) 7L, Monocytes (%) (Auto) 10, Eosinophils (%) (Auto) 1, Basophils (%) (Auto) 1, Neutrophils # (Auto) 11.0H, Lymphocytes # (Auto) 1.0, Monocytes # (Auto) 1.4H, Eosinophils # (Auto) 0.1, Basophils # (Auto) 0.1, Immature Granulocyte # (Auto) 0.1, Neutrophils % (Manual) 70, Lymphocytes % (Manual) 6, Monocytes % (Manual) 13, Eosinophils % (Manual) 2, Band Neutrophils 9, Platelet Estimate NORMAL, Blood Morphology Comment NORMAL, Prothrombin Time 14.3, INR Comment 1.1, Activated Partial Thromboplast Time 31, D-Dimer 1.97H, Sodium Level 137, Potassium Level 3.9, Chloride Level 104, Carbon Dioxide Level 20L, Anion Gap 13, Blood Urea Nitrogen 23H, Creatinine 1.76H, Estimat Glomerular Filtration Rate 40, BUN/Creatinine Ratio 13, Glucose Level 134H, Lactic Acid Level 1.32, Calcium Level 9.4, Corrected Calcium 9.5, Magnesium Level 1.7, Total Bilirubin 0.8, Aspartate Amino Transf (AST/SGOT) 21, Alanine Aminotransferase (ALT/SGPT) 25, Alkaline Phosphatase 129, Total Creatine Kinase 104, Creatine Kinase MB 1.6, Myoglobin 86.2, Troponin I < 0.028, C- Reactive Protein High Sensitivity 15.62H, B-Type Natriuretic Peptide 127.6H, Total Protein 7.5, Albumin 3.9, Amylase Level 43, Lipase 26, Serum Alcohol < 10 11/13/22 20:39: Influenza Type A (RT-PCR) Not Detected, Influenza Type B (RT-PCR) Not Detected, SARS-CoV-2 RNA (RT-PCR) Not Detected 11/13/22 20:56: Blood Gas Puncture Site R RAD, Blood Gas Patient Temperature 36.7, Arterial Blood pH 7.43, Arterial Blood Partial Pressure CO2 35, Arterial Blood Partial Pressure O2 67L, Arterial Blood HCO3 22L, Arterial Blood Total CO2 23.5, Arterial Blood Oxygen Saturation 95, Arterial Blood Base Excess -1.4, [employer] Test YES-POS, Blood Gas Ventilator Setting NO, Blood Gas Inspired Oxygen 3L 11/13/22 23:52: Urine Color YELLOW, Urine Clarity CLOUDY, Urine pH 6.0, Urine Specific [place] >=1.030, Urine Protein 1+H, Urine Glucose (UA) NEGATIVE, Urine Ketones NEGATIVE, Urine Nitrite NEGATIVE, Urine Bilirubin NEGATIVE, Urine Urobilinogen 1.0, Urine Leukocyte Esterase 3+H, Urine RBC (Auto) TRACE-IH, Urine RBC NONE, Urine WBC TNTCH, Urine Crystals NONE, Urine Bacteria LARGEH, Urine Casts NONE, Urine Mucus NEGATIVE, Urine Culture Indicated YES, Urine Opiates Screen NEGATIVE, Urine Oxycodone Screen NEGATIVE, Urine Methadone Screen NEGATIVE, Urine Propoxyphene Screen NEGATIVE, Urine Barbiturates Screen NEGATIVE, Ur Tricyclic Anti depressants Screen NEGATIVE, Urine Phencyclidine Screen NEGATIVE, Urine Amphetamines Screen NEGATIVE, Urine Methamphetamines Screen NEGATIVE, Urine Benzodiazepines Screen NEGATIVE, Urine Cocaine Screen NEGATIVE, Urine Cannabinoids Screen NEGATIVE 11/14/22 05:10: White Blood Count 13.6H, Red Blood Count 4.49, Hemoglobin 12.8L, Hematocrit 38L, Mean Corpuscular Volume 85, Mean Corpuscular Hemoglobin 29, Mean Corpuscular Hemoglobin Concent 34, Red Cell Distribution Width 14.8H, Platelet Count 233, Mean Platelet Volume 11.5, Immature Granulocyte % (Auto) 1, Neutrophils (%) (Auto) 90H, Lymphocytes (%) (Auto) 5L, Monocytes (%) (Auto) 2, Eosinophils (%) (Auto) 2, Basophils (%) (Auto) 0, Neutrophils # (Auto) 12.3H, Lymphocytes # (Auto) 0.6L, Monocytes # (Auto) 0.3, Eosinophils # (Auto) 0.2, Basophils # (Auto) 0.0, Immature Granulocyte # (Auto) 0.1, Sodium Level 139, Potassium Level 4.1, Chloride Level 108H, Carbon Dioxide Level 21, Anion Gap 10, Blood Urea Nitrogen 21H, Creatinine 1.38H, Estimat Glomerular Filtration Rate 54, BUN/Creatinine Ratio 15, Glucose Level 175H, Calcium Level 9.2, Corrected Calcium 9.5, Total Bilirubin 0.5, Aspartate Amino Transf (AST/SGOT) 27, Alanine Aminotransferase (ALT/SGPT) 33, Alkaline Phosphatase 136, Total Protein 7.2, Albumin 3.6 11/14/22 10:57: Glucometer 219H 11/14/22 15:41: Glucometer 141H 11/14/22 20:38: Glucometer 142H 11/15/22 04:16: White Blood Count 15.1H, Red Blood Count 4.38, Hemoglobin 12.2L, Hematocrit 37L, Mean Corpuscular Volume 85, Mean Corpuscular Hemoglobin 28, Mean Corpuscular Hemoglobin Concent 33, Red Cell Distribution Width 14.8H, Platelet Count 241, Mean Platelet Volume 11.8, Immature Granulocyte % (Auto) 1, Neutrophils (%) (Aut o) 86H, Lymphocytes (%) (Auto) 8L, Monocytes (%) (Auto) 4, Eosinophils (%) (Auto) 1, Basophils (%) (Auto) 0, Neutrophils # (Auto) 13.1H, Lymphocytes # (Auto) 1.2, Monocytes # (Auto) 0.5, Eosinophils # (Auto) 0.2, Basophils # (Auto) 0.0, Immature Granulocyte # (Auto) 0.2H, Sodium Level 139, Potassium Level 4.3, Chloride Level 107, Carbon Dioxide Level 19L, Anion Gap 13, Blood Urea Nitrogen 21H, Creatinine 1.14, Estimat Glomerular Filtration Rate 67, BUN/Creatinine Ratio 18, Glucose Level 146H, Calcium Level 8.9, Corrected Calcium 9.5, Total Bilirubin 0.3, Aspartate Amino Transf (AST/SGOT) 35H, Alanine Aminotransferase (ALT/SGPT) 43, Alkaline Phosphatase 129, Total Protein 6.5, Albumin 3.2 11/15/22 10:25: Glucometer 165H 11/15/22 16:15: Glucometer 129H 11/15/22 20:06: Glucometer 138H 11/16/22 05:10: White Blood Count 15.2H, Red Blood Count 4.69, Hemoglobin 13.2L, Hematocrit 40, Mean Corpuscular Volume 85, Mean Corpuscular Hemoglobin 28, Mean Corpuscular Hemoglobin Concent 33, Red Cell Distribution Width 14.7H, Platelet Count 249, Mean Platelet Volume 11.2, Immature Granulocyte % (Auto) 3, Neutrophils (%) (Auto) 84H, Lymphocytes (%) (Auto) 9L, Monocytes (%) (Auto) 4, Eosinophils (%) (Auto) 0, Basophils (%) (Auto) 0, Neutrophils # (Auto) 12.7H, Lymphocytes # (Auto) 1.4, Monocytes # (Auto) 0.6, Eosinophils # (Auto) 0.0, Basophils # (Auto) 0.1, Immature Granulocyte # (Auto) 0.4H, Sodium Level 137, Potassium Level 4.1, Chloride Level 104, Carbon Dioxide Level 24, Anion Gap 9, Blood Urea Nitrogen 23H, Creatinine 0.96, Estimat Glomerular Filtration Rate 83, BUN/Creatinine Ratio 24, Glucose Level 122H, Calcium Level 9.2, Corrected Calcium 9.6, Total Bilirubin 0.3, Aspartate Amino Transf (AST/SGOT) 63H, Alanine Aminotransferase (ALT/SGPT) 96H, Alkaline Phosphatase 148H, Total Protein 6.9, Albumin 3.5 11/16/22 05:17: Glucometer 129H 11/16/22 10:55: Glucometer 165H 11/16/22 17:01: Glucometer 102 Microbiology 11/13/22 Urine Culture - Final, Complete Mixed Bacterial Gavi 11/13/22 Blood Culture - Preliminary, Resulted No growth Pending Labs Microbiology Date/Time Source Procedure Growth Status 11/13/22 23:52 Urine Clean Catch Urine Culture - Final Mixed Bacterial Gavi Complete 11/13/22 20:39 Peripheral Lt Ac Blood Culture - Preliminary No growth Resulted 11/13/22 20:24 Peripheral Not Otherwise Specified Blood Culture - Preliminary No growth Resulted Laboratory Tests 11/13/22 20:24: White Blood Count 13.7, Red Blood Count 4.60, Hemoglobin 13.0, Hematocrit 39, Mean Corpuscular Volume 84, Mean Corpuscular Hemoglobin 28, Mean Corpuscular Hemoglobin Concent 34, Red Cell Distribution Width 14.9, Platelet Count 234, Mean Platelet Volume 11.3, Immature Granulocyte % (Auto) 1, Neutrophils (%) (Auto) 80, Lymphocytes (%) (Auto) 7, Monocytes (%) (Auto) 10, Eosinophils (%) (Auto) 1, Basophils (%) (Auto) 1, Neutrophils # (Auto) 11.0, Lymphocytes # (Auto) 1.0, Monocytes # (Auto) 1.4, Eosinophils # (Auto) 0.1, Basophils # (Auto) 0.1, Immature Granulocyte # (Auto) 0.1, Neutrophils % (Manual) 70, Lymphocytes % (Manual) 6, Monocytes % (Manual) 13, Eosinophils % (Manual) 2, Band Neutrophils 9, Platelet Estimate NORMAL, Blood Morphology Comment NORMAL, Prothrombin Time 14.3, INR Comment 1.1, Activated Partial Thromboplast Time 31, D-Dimer 1.97, Sodium Level 137, Potassium Level 3.9, Chloride Level 104, Carbon Dioxide Level 20, Anion Gap 13, Blood Urea Nitrogen 23, Creatinine 1.76, Estimat Glomerular Filtration Rate 40, BUN/Creatinine Ratio 13, Glucose Level 134, Lactic Acid Level 1.32, Calcium Level 9.4, Corrected Calcium 9.5, Magnesium Level 1.7, Total Bilirubin 0.8, Aspartate Amino Transf (AST/SGOT) 21, Alanine Aminotransferase (ALT/SGPT) 25, Alkaline Phosphatase 129, Total Creatine Kinase 104, Creatine Kinase MB 1.6, Myoglobin 86.2, Troponin I < 0.028, C-Reactive Protein High Sensitivity 15.62, B-Type Natriuretic Peptide 127.6, Total Protein 7.5, Albumin 3.9, Amylase Level 43, Lipase 26, Serum Alcohol < 10 11/13/22 20:39: Influenza Type A (RT-PCR) Not Detected, Influenza Type B (RT-PCR) Not Detected, SARS-CoV-2 RNA (RT-PCR) Not Detected 11/13/22 20:56: Blood Gas Puncture Site R RAD, Blood Gas Patient Temperature 36.7, Arterial Blood pH 7.43, Arterial Blood Partial Pressure CO2 35, Arterial Blood Partial Pressure O2 67, Arterial Blood HCO3 22, Arterial Blood Total CO2 23.5, Arterial Blood Oxygen Saturation 95, Arterial Blood Base Excess -1.4, [employer] Test YES-POS, Blood Gas Ventilator Setting NO, Blood Gas Inspired Oxygen 3L 11/13/22 23:52: Urine Color YELLOW, Urine Clarity CLOUDY, Urine pH 6.0, Urine Specific [place] >=1.030, Urine Protein 1+, Urine Glucose (UA) NEGATIVE, Urine Ketones NEGATIVE, Urine Nitrite NEGATIVE, Urine Bilirubin NEGATIVE, Urine Urobilinogen 1.0, Urine Leukocyte Esterase 3+, Urine RBC (Auto) TRACE-I, Urine RBC NONE, Urine WBC TNTC, Urine Crystals NONE, Urine Bacteria LARGE, Urine Casts NONE, Urine Mucus NEGATIVE, Urine Culture Indicated YES, Urine Opiates Screen NEGATIVE, Urine Oxycodone Screen NEGATIVE, Urine Methadone Screen NEGATIVE, Urine Propoxyphene Screen NEGATIVE, Urine Barbiturates Screen NEGATIVE, Ur Tricyclic Antidepressants Screen NEGATIVE, Urine Phencyclidine Screen NEGATIVE, Urine Amphetamines Screen NEGATIVE, Urine Methamphetamines Screen NEGATIVE, Urine Benzodiazepines Screen NEGATIVE, Urine Cocaine Screen NEGATIVE, Urine Cannabinoids Screen NEGATIVE 11/14/22 05:10: White Blood Count 13.6, Red Blood Count 4.49, Hemoglobin 12.8, Hematocrit 38, Mean Corpuscular Volume 85, Mean Corpuscular Hemoglobin 29, Mean Corpuscular Hemoglobin Concent 34, Red Cell Distribution Width 14.8, Platelet Count 233, Mean Platelet Volume 11.5, Immature Granulocyte % (Auto) 1, Neutrophils (%) (Auto) 90, Lymphocytes (%) (Auto) 5, Monocytes (%) (Auto) 2, Eosinophils (%) (Auto) 2, Basophils (%) (Auto) 0, Neutrophils # (Auto) 12.3, Lymphocytes # (Auto) 0.6, Monocytes # (Auto) 0.3, Eosinophils # (Auto) 0.2, Basophils # (Auto) 0.0, Immature Granulocyte # (Auto) 0.1, Sodium Level 139, Potassium Level 4.1, Chloride Level 108, Carbon Dioxide Level 21, Anion Gap 10, Blood Urea Nitrogen 21, Creatinine 1.38, Estimat Glomerular Filtration Rate 54, BUN/Creatinine Ratio 15, Glucose Level 175, Calcium Level 9.2, Corrected Calcium 9.5, Total Bilirubin 0.5, Aspartate Amino Transf (AST/SGOT) 27, Alanine Aminotransferase (ALT/SGPT) 33, Alkaline Phosphatase 136, Total Protein 7.2, Albumin 3.6 11/14/22 10:57: Glucometer 219 11/14/22 15:41: Glucometer 141 11/14/22 20:38: Glucometer 142 11/15/22 04:16: White Blood Count 15.1, Red Blood Count 4.38, Hemoglobin 12.2, Hematocrit 37, Mean Corpuscular Volume 85, Mean Corpuscular Hemoglobin 28, Mean Corpuscular Hemoglobin Concent 33, Red Cell Distribution Width 14.8, Platelet Count 241, Mean Platelet Volume 11.8, Immature Granulocyte % (Auto) 1, Neutrophils (%) (Auto) 86, Lymphocytes (%) (Auto) 8, Monocytes (%) (Auto) 4, Eosinophils (%) (Auto) 1, Basophils (%) (Auto) 0, Neutrophils # (Auto) 13.1, Lymphocytes # (Auto) 1.2, Monocytes # (Auto) 0.5, Eosinophils # (Auto) 0.2, Basophils # (Auto) 0.0, Immature Granulocyte # (Auto) 0.2, Sodium Level 139, Potassium Level 4.3, Chloride Level 107, Carbon Dioxide Level 19, Anion Gap 13, Blood Urea Nitrogen 21, Creatinine 1.14, Estimat Glomerular Filtration Rate 67, BUN/Creatinine Ratio 18, Glucose Level 146, Calcium Level 8.9, Corrected Calcium 9.5, Total Bilirubin 0.3, Aspartate Amino Transf (AST/SGOT) 35, Alanine Aminotransferase (ALT/SGPT) 43, Alkaline Phosphatase 129, Total Protein 6.5, Albumin 3.2 11/15/22 10:25: Glucometer 165 11/15/22 16:15: Glucometer 129 11/15/22 20:06: Glucometer 138 11/16/22 05:10: White Blood Count 15.2, Red Blood Count 4.69, Hemoglobin 13.2, Hematocrit 40, Mean Corpuscular Volume 85, Mean Corpuscular Hemoglobin 28, Mean Corpuscular Hemoglobin Concent 33, Red Cell Distribution Width 14.7, Platelet Count 249, Mean Platelet Volume 11.2, Immature Granulocyte % (Auto) 3, Neutrophils (%) (Auto) 84, Lymphocytes (%) (Auto) 9, Monocytes (%) (Auto) 4, Eosinophils (%) (Auto) 0, Basophils (%) (Auto) 0, Neutrophils # (Auto) 12.7, Lymphocytes # (Auto) 1.4, Monocytes # (Auto) 0.6, Eosinophils # (Auto) 0.0, Basophils # (Auto) 0.1, Immature Granulocyte # (Auto) 0.4, Sodium Level 137, Potassium Level 4.1, Chloride Level 104, Carbon Dioxide Level 24, Anion Gap 9, Blood Urea Nitrogen 23, Creatinine 0.96, Estimat Glomerular Filtration Rate 83, BUN/Creatinine Ratio 24, Glucose Level 122, Calcium Level 9.2, Corrected Calcium 9.6, Total Bilirubin 0.3, Aspartate Amino Transf (AST/SGOT) 63, Alanine Aminotransferase (ALT/SGPT) 96, Alkaline Phosphatase 148, Total Protein 6.9, Albumin 3.5 11/16/22 05:17: Glucometer 129 11/16/22 10:55: Glucometer 165 11/16/22 17:01: Glucometer 102 Discharge Home Medications: Active Scripts Active Cefdinir 300 Mg Capsule 300 Mg PO BID Dexamethasone 6 Mg Tablet 6 Mg PO DAILY@0700 Amlodipine Besylate 5 Mg Tablet 5 Mg PO BID Azithromycin 250 Mg Tablet 250 Mg PO HS Reported Lisinopril 20 Mg Tablet 20 Mg PO DAILY Multivitamin 1 Each Tablet 1 Each PO DAILY Citalopram HBr (Citalopram Hydrobromide) 40 Mg Tablet 20 Mg PO DAILY TAKES OF A 40MG TAB Diltiazem ER (Diltiazem HCl) 120 Mg Capsule.er 240 Mg PO DAILY TAKES 2 (120MG) CAPS Famotidine 20 Mg Tablet 20 Mg PO BID Incruse Ellipta (Umeclidinium [place]) 62.5 Mcg/Actuation Blst.w.dev 1 Puff IH DAILY Ventolin Hfa (Albuterol Sulfate) 1 Puff Puff 2 Puff INH Q6H PRN Flomax (Tamsulosin HCl) 0.4 Mg Cap 0.4 Mg PO HS Pravastatin Sodium 40 Mg Tablet 20 Mg PO HS TAKES 1/2 (40MG) TABLET LAST FILLED 05-27-2022 #45/90 DAY SUPPLY Metoprolol Tartrate 50 Mg Tablet 25 Mg PO BID TAKES OF A 50MG TAB Bupropion HCl 100 Mg Tablet 200 Mg PO BID TAKES 2 (100MG) TABS Symbicort 160-4.5 Mcg Inhaler (Budesonide/Formoterol Fumarate) 10.2 Gm Hfa.aer.ad 2 Puff IH BID Instructions to patient/family Please see electronic discharge instructions given to patient. Diagnosis/Problems Diagnosis/Problems (1) Acute on chronic respiratory failure with hypoxia (2) COPD exacerbation (3) Pneumonia (4) Very heavy cigarette smoker (40 or more per day) Status: Acute (5) HTN (hypertension) Status: Acute (6) UTI (urinary tract infection) Status: Acute (7) Sepsis Status: Acute YONATHAN KING DO November 16, 2022 15:12
[2022-11-16 16:30] VITALS: BP 152/78
[2022-11-16 16:55] VITALS: BP 178/88
[2022-11-16] MEDS ORDERED: AZITHROMYCIN 250 MG TAB (ZITHROMAX) PO SCH (21:00)
[2022-11-17] MEDS ORDERED: dexAMETHasone 6 MG TAB (DECADRON) PO SCH (07:00)
[2022-11-17] MEDS ORDERED: ENOXAPARIN 40 MG/0.4 ML (LOVENOX) SYR SC SCH (09:00)
== END 2022-11-16 17:37 | disposition home or self-care (01) ==
LOC: EDUNIT# 20:13 → ER 20:17 → UNDOADMOB 21:30 → CSD 21:30 → 4TH 11-15 13:34 → CSD 11-15 13:34 → UNDODISOB 11-16 17:37
PROVIDERS: ADMIT Internal Medicine; ATTEND Internal Medicine
DX: J96.01 Acute respiratory failure with hypoxia (principal); A41.9 Sepsis, unspecified organism; J18.9 Pneumonia, unspecified organism; J44.1 Chronic obstructive pulmonary disease with (acute) exacerbation; N39.0 Urinary tract infection, site not specified; I10 Essential (primary) hypertension; E78.5 Hyperlipidemia, unspecified; R79.1 Abnormal coagulation profile; F17.210 Nicotine dependence, cigarettes, uncomplicated; F41.9 Anxiety disorder, unspecified; F32.A Depression, unspecified
CPT/HCPCS: 36600; 71045; 71275; 80053 ×4; 80306; 81000; 82150; 82550; 82553; 82805; 82947 ×3; 83605; 83690; 83735; 83874; 83880; 84484; 85007; 85025 ×3; 85027; 85379; 85610; 85730; 86141; 87040; 87088; 87636; 93041; 94640 ×7; 94760; 94761; 97162; 99284; C8929; G0480; 36415; 80320; 93306; 96366; 96372; 96374; 96375; 96376; G0378

== ENCOUNTER 2023-04-07 02:08 | Emergency (ER) | payer MEDICARE ==
[~2023-04-07] VITALS: Ht 177.8 cm; Wt 73.5 kg
[~2023-04-07 02:08] MED LIST changes: +AMLO-250 PO; +AZIT250T12 PO; +CEFD300C3 PO; +CITA40TA13 PO; +DEXA6TAB PO; +DILT120C71 PO; +LISI20TA26 PO; +MULT-1136 PO
--- NOTE | 2023-04-07 02:25 | ED Respiratory ---
General Chief Complaint: Respiratory Problems Stated Complaint: SOA Nursing Triage Note: PT TO RM 7 VIA [facility] W C/O SOA SX YESTERDAY. PT REPORTS HE'S OUT OF SOLUTION FOR HIS NEBULIZER. PT A&OX4. EMS ADMIN DUONEB EN ROUTE. Source: patient, EMS Exam Limitations: no limitations History of Present Illness Date Seen by Provider: Apr 07, 2023 Time Seen by Provider: 02:09 Initial Comments This is 72-year-old gentleman presents to the emergency room via [facility] for reasons of shortness of breath for the past 2 days. He has been out of his nebulizer solution for about a week. He reports he is supposed to take his nebulizer treatments at least twice a day. He also has some lower extremity edema that is worse than usual. EMS noted oxygen saturation of 90% on room air prior to DuoNeb treatment. DuoNeb treatment in route promptly resuscitated his oxygen saturations into the mid 90s. He reports feeling a little chilled r ecently. He coughed up or regurgitated a small amount of material twice in the past couple of days. He generally does not feel sick at this time. He believes this is more of a condition triggered by running out of his nebulizer solution and then by acute illness. He reports feeling significantly improved on arrival after receiving the DuoNeb treatment. His primary care provider is Dr. Farr. His preferred pharmacy is [facility] in [place]. Allergies and Home Medications Allergies Coded Allergies: Sulfa (Sulfonamide Antibiotics) (Verified Allergy, Unknown, 08/02/19) Patient Home Medication List Home Medication List Reviewed: Yes Albuterol Sulfate (Ventolin Hfa) 1 Puff Puff, 2 PUFF INH Q6H PRN for SHORTNESS OF BREATH, (Reported) Entered as Reported by: BRUCE WU on 08/02/19 1001 Albuterol Sulfate (Albuterol Sulfate) 2.5 Mg/3 Ml (0.083 %) Vial.neb, 2.5 MG INH Q4H PRN for WHEEZING Prescribed by: JULIA GUZMAN on 04/07/23 0326 Amlodipine Besylate (Amlodipine Besylate) 5 Mg Tablet, 5 MG PO BID Prescribed by: YONATHAN KING on 11/16/22 1511 Azithromycin (Azithromycin) 250 Mg Tablet, 250 MG PO HS Prescribed by: YONATHAN KING on 11/16/22 151 Budesonide/Formoterol Fumarate (Symbicort 160-4.5 Mcg Inhaler) 10.2 Gm Hfa.aer.ad, 2 PUFF IH BID, (Reported) Entered as Reported by: BRUCE WU on 08/02/19 100 Bupropion HCl (Bupropion HCl) 100 Mg Tablet, 200 MG PO BID, (Reported) Entered as Reported by: BRUCE WU on 08/02/19 100 Cefdinir (Cefdinir) 300 Mg Capsule, 300 MG PO BID Prescribed by: YONATHAN KING on 11/16/22 151 Citalopram Hydrobromide (Citalopram HBr) 40 Mg Tablet, 20 MG PO DAILY, (Reported) Entered as Reported by: ANDREIA NINO on 11/16/22 132 Dexamethasone (Dexamethasone) 6 Mg Tablet, 6 MG PO DAILY@0700 Prescribed by: YONATHAN KING on 11/16/22 151 Diltiazem HCl (Diltiazem ER) 120 Mg Capsule.er, 240 MG PO DAILY, (Reported) Entered as Reported by: ANDREIA NINO on 11/16/22 132 Famotidine (Famotidine) 20 Mg Tablet, 20 MG PO BID, (Reported) Entered as Reported by: ANDREIA NINO on 11/16/22 132 Lisinopril (Lisinopril) 20 Mg Tablet, 20 MG PO DAILY, (Reported) Entered as Reported by: ANDREIA NINO on 11/16/22 132 Metoprolol Tartrate (Metoprolol Tartrate) 50 Mg Tablet, 25 MG PO BID, (Reported) Entered as Reported by: BRUCE WU on 08/02/19 100 Multivitamin (Multivitamin) 1 Each Tablet, 1 EACH PO DAILY, (Reported) Entered as Reported by: ANDREIA NINO on 11/16/22 132 Pravastatin Sodium (Pravastatin Sodium) 40 Mg Tablet, 20 MG PO HS, (Reported) Entered as Reported by: BRUCE WU on 08/02/19 100 Tamsulosin HCl (Flomax) 0.4 Mg Cap, 0.4 MG PO HS, (Reported) Entered as Reported by: BRUCE WU on 08/02/19 1001 Umeclidinium Sharon (Incruse Ellipta) 62.5 Mcg/Actuation Blst.w.dev, 1 PUFF IH DAILY, (Reported) Entered as Reported by: MEG WARNER on 04/24/20 1451 Review of Systems Review of Systems Constitutional: no symptoms reported EENTM: no symptoms reported Respiratory: see HPI Cardiovascular: no symptoms reported Gastrointestinal: see HPI Genitourinary: no symptoms reported Musculoskeletal: no symptoms reported Skin: no symptoms reported Psychiatric/Neurological: No Symptoms Reported Hematologic/Lymphatic: No Symptoms Reported Immunological/Allergic: no symptoms reported Past Zgbtsqs-Gaaztg-Flglro Hx Patient Social History Tobacco Use?: Yes Tobacco type used: Cigarettes Smoking Status: Current Everyday Smoker Use of E-Cig and/or Vaping dev: No Substance use?: No Alcohol Use?: No Immunizations Up To Date Tetanus Booster (TDap): Unknown First/Initial COVID19 Vaccinat: x2 Seasonal Allergies Seasonal Allergies: Yes (MILD) Past Medical History Surgery/Hospitalization HX: copd, chf, bilateral cataracts, htn, gerd, hld, afib, Surgeries: Yes (TURP, ULNAR NERVE) Eye Surgery, Orthopedic, Transurethral Resection Respiratory: Yes Asthma, Pneumonia, Sleep Apnea, COPD, Emphysema Currently Using CPAP: Yes (NOT USING RIGHT NOW ) Cardiac: Yes Chronic Edema/Swelling, High Cholesterol, Hypertension Neurological: No Sexually Transmitted Disease: No HIV/AIDS: No Genitourinary: Yes Benign Prostatic Hyperpl Gastrointestinal: Yes Polyps Musculoskeletal: Yes Arthritis Endocrine: No HEENT: Yes (GLASSES) Loss of Vision: Denies Hearing Impairment: Hard of Hearing Cancer: No Psychosocial: Yes Anxiety, Depression Integumentary: No Blood Disorders: No Adverse Reaction/Blood Tranf: No (N/A) Family Medical History "oat cell cancer" 19 MOTHER Bleeding disorder 19 MOTHER FH: CAD (coronary artery disease) 19 FATHER FH: breast cancer 19 MOTHER G8 SISTER FHx: lung disease 19 FATHER Hypertension G8 BROTHER Myocardial infarction 19 FATHER No Pertinent Family Hx SOCIAL HISTORY: -SMOKES AT LEAST 2 PPD, PLUS SMOKES A PIPE DAILY, PLUS CHEWS TOBACCO DAILY -ETOH--DENIES USE -DRUGS--DENIES USE PAST SURGICAL HISTORY: -BILATERAL CATARACTS 01/2021 -COLONOSCOPY / POLYPECTOMY -TURP -ULNAR NERVE SURGERY Physical Exam Vital Signs - First Documented Capillary Refill : Less Than 3 Seconds Height: '" Weight: lbs. oz. kg; 23.00 BMI Method: General Appearance: WD/WN, no apparent distress HEENT: PERRL/EOMI, normal ENT inspection Neck: normal inspection Respiratory: lungs clear, normal breath sounds, no respiratory distress Cardiovascular: regular rate, rhythm, no murmur, other (Mild to moderate LE edema) Gastrointestinal: non tender, soft Extremities: non-tender, swelling Neurologic/Psychiatric: no motor/sensory deficits, alert, normal mood/affect, oriented x 3 Skin: normal color, warm/dry Progress/Results/Core Measures Suspected Sepsis SIRS Temperature: Pulse: 63 Respiratory Rate: 18 Laboratory Tests 04/07/23 02:13: White Blood Count 6.2 Blood Pressure 118 /69 Mean: 85 Laboratory Tests 04/07/23 02:13: Creatinine 1.48H, Platelet Count 209 Results/Orders Lab Results Laboratory Tests Test 04/07/23 02:13 Range/Units White Blood Count 6.2 4.3-11.0 10^3/uL Red Blood Count 4.12 L 4.30-5.52 10^6/uL Hemoglobin 11.9 L 13.3-17.7 g/dL Hematocrit 36 L 40-54 % Mean Corpuscular Volume 86 80-99 fL Mean Corpuscular Hemoglobin 29 25-34 pg Mean Corpuscular Hemoglobin Concent 33 32-36 g/dL Red Cell Distribution Width 13.3 10.0-14.5 % Platelet Count 209 130-400 10^3/uL Mean Platelet Volume 11.9 9.0-12.2 fL Immature Granulocyte % (Auto) 1 % Neutrophils (%) (Auto) 55 42-75 % Lymphocytes (%) (Auto) 32 12-44 % Monocytes (%) (Auto) 8 0-12 % Eosinophils (%) (Auto) 3 0-10 % Basophils (%) (Auto) 1 0-10 % Neutrophils # (Auto) 3.4 1.8-7.8 10^3/uL Lymphocytes # (Auto) 2.0 1.0-4.0 10^3/uL Monocytes # (Auto) 0.5 0.0-1.0 10^3/uL Eosinophils # (Auto) 0.2 0.0-0.3 10^3/uL Basophils # (Auto) 0.1 0.0-0.1 10^3/uL Immature Granulocyte # (Auto) 0.0 0.0-0.1 10^3/uL Sodium Level 137 135-145 MMOL/L Potassium Level 3.8 3.6-5.0 MMOL/L Chloride Level 106 98-107 MMOL/L Carbon Dioxide Level 20 L 21-32 MMOL/L Anion Gap 11 5-14 MMOL/L Blood Urea Nitrogen 24 H 7-18 MG/DL Creatinine 1.48 H 0.60-1.30 MG/DL Estimat Glomerular Filtration Rate 49 BUN/Creatinine Ratio 16 Glucose Level 129 H 70-105 MG/DL Calcium Level 9.4 8.5-10.1 MG/DL C-Reactive Protein High Sensitivity 2.37 H 0.00-0.50 MG/DL B-Type Natriuretic Peptide 228.6 H <100.0 PG/ML Influenza Type A (RT-PCR) Not Detected Not Detecte Influenza Type B (RT-PCR) Not Detected Not Detecte SARS-CoV-2 RNA (RT-PCR) Not Detected Not Detecte My Orders Orders - JULIA VALDIVIA MD Basic Metabolic Panel (04/07/23 02:23) Bnp Wu (04/07/23 02:23) Cbc And Automated Diff (04/07/23 02:23) Hs C Reactive Protein (04/07/23 02:23) Ed Iv/Invasive Line Start (04/07/23 02:23) Chest 1 View, Ap/Pa Only (04/07/23 02:23) Covid 19 Inhouse Test (04/07/23 02:23) Influenza A And B By Pcr (04/07/23 02:23) Vital Signs/I&O 04/07/23 04/07/23 04/07/23 02:09 02:09 03:42 Temp 37.1 Pulse 63 71 Resp 18 18 B/P (MAP) 118/69 (85) 113/59 Pulse Ox 95 95 O2 Delivery Room Air Room Air Room Air Capillary Refill : Less Than 3 Seconds Blood Pressure Mean: 85 Progress Note : Progress Note Patient was interviewed and examined upon arrival. Report was received from EMS. Labs were obtained, reviewed, and interpreted by me. CBC was relatively unremarkable. There was minimal anemia with hemoglobin of 11.9. Chemistry was notable for elevated BUN at 24 and creatinine of 1.48. Patient does have chronic kidney disease and these values are near the lower end of his historical renal function. Glucose was slightly elevated at 128. CRP was minimally elevated at 2.37. BNP was minimally elevated at 228.6. Chest x-ray was viewed by me. Radiologist report was not available at the time of the ER visit. There was an area of density in the right lower lung that could be a nodular structure versus prominent vasculature. There was definite improvement in right lower lung infiltrate from prior x-ray. Radiologist report was later reviewed as noted below. Patient was not felt to have acute pneumonia or other acute pathology requiring immediate treatment based on his work-up. Patient feels like he would be fine if he just had a refill on his albuterol nebulizer solution. Prescription was provided and he was discharged home. Swabs for influenza and COVID-19 were negative. Diagnostic Imaging Diagonstic Imaging: Xray Plain Films/CT/US/NM/MRI: chest Comments NAME: NALLELY KELLY [facility] REC#: [id number] PT STATUS: DEP ER : [id number] PHYSICIAN: JULIA VALDIVIA MD ADMIT DATE: 04/07/23/ER Signed Date of Exam:04/07/23 CHEST 1 VIEW, AP/PA ONLY Indication: Shortness of breath Portable chest 2:55 AM Heart size and pulmonary vascularity are within normal limits. Lungs are clear. There are no effusions or pneumothoraces. IMPRESSION: No acute abnormalities in the chest Dictated by: Dictated on workstation # [id number] Dict: 04/07/23450 Trans: 04/07/23451 TC [id number] Interpreted by: STARR FARRAR MD Electronically signed by: STARR FARRAR MD 04/07/23451 Departure Impression Primary Impression: COPD exacerbation Additional Impression: Has run out of medications Disposition: HOME, SELF-CARE Condition: Improved Departure-Patient Inst. Decision time for Depature: 03:25 Referrals: BALTAZAR FARR MD (PCP/Family) Primary Care Physician Patient Instructions: Chronic obstructive pulmonary disease (COPD) Add. Discharge Instructions: Continue your medications as previously directed. You may use the albuterol in your nebulizer machine up to every 4 hours as needed for wheezing and shortness of breath. There is a fullness in your right lower lung on chest x-ray that should be followed by your primary care provider. Please discuss the most appropriate way to follow your imaging with your primary care provider. Please call for a follow-up appointment. It does not appear that you have any new pneumonia that requires treatment today. Work toward quitting smoking. Seek assistance from your primary care provider if needed. You have continued evidence of chronic kidney disease with renal function slightly worse than previous. Drink plenty of clear liquids to stay well- hydrated and support your kidney health. Return to care if you have worsening symptoms despite following these instructions. All discharge instructions reviewed with patient and/or family. Voiced understanding. Scripts Albuterol Sulfate (Albuterol Sulfate) 2.5 Mg/3 Ml (0.083 %) Vial.neb 2.5 MG INH Q4H PRN for WHEEZING, #50 EA 1 Refill Prov: JULIA VALDIVIA MD 04/07/23 Copy Copies To 1: BALTAZAR FARR MD, JOSHUA T MD Apr 07, 2023 02:25
[2023-04-07 02:29] LABS: BASOPHILS # (AUTO) 0.1 10^3/uL (0.0-0.1); BASOPHILS % (AUTO) 1 % (0-10); EOSINOPHILS # (AUTO) 0.2 10^3/uL (0.0-0.3); EOSINOPHILS % (AUTO) 3 % (0-10); HEMATOCRIT 36 % (40-54); HEMOGLOBIN 11.9 g/dL (13.3-17.7); LYMPHOCYTES % (AUTO) 32 % (12-44); MEAN CORPUSCULAR HEMOGLOBIN 29 pg (25-34); MEAN CORPUSCULAR HGB CONC 33 g/dL (32-36); MEAN CORPUSCULAR VOLUME 86 fL (80-99); MEAN PLATELET VOLUME 11.9 fL (9.0-12.2); MONOCYTES # (AUTO) 0.5 10^3/uL (0.0-1.0); MONOCYTES % (AUTO) 8 % (0-12); NEUTROPHILS # (AUTO) 3.4 10^3/uL (1.8-7.8); NEUTROPHILS % (AUTO) 55 % (42-75); PLATELET COUNT 209 10^3/uL (130-400); WHITE BLOOD COUNT 6.2 10^3/uL (4.3-11.0)
[2023-04-07 02:34] LABS: POTASSIUM 3.8 MMOL/L (3.6-5.0)
[2023-04-07 02:35] LABS: CALCIUM 9.4 MG/DL (8.5-10.1)
[2023-04-07 02:40] LABS: CREATININE SERUM 1.48 MG/DL (0.60-1.30)
[2023-04-07] MEDS ORDERED: ALBU2.5V4 INH (03:26)
[2023-04-07 03:42] VITALS: BP 113/59
--- NOTE | 2023-04-07 04:53 | Diagnostic Imaging Report ---
Indication: Shortness of breath Portable chest 2:55 AM Heart size and pulmonary vascularity are within normal limits. Lungs are clear. There are no effusions or pneumothoraces. IMPRESSION: No acute abnormalities in the chest Dictated by: Dictated on workstation # [id number]
== END 2023-04-07 03:42 | disposition home or self-care (01) ==
LOC: EDUNIT# 02:08 → ER 02:09
DX: J44.1 Chronic obstructive pulmonary disease with (acute) exacerbation (principal); D64.9 Anemia, unspecified; R79.89 Other specified abnormal findings of blood chemistry; F17.210 Nicotine dependence, cigarettes, uncomplicated; F17.220 Nicotine dependence, chewing tobacco, uncomplicated; Z91.148 Patient's other noncompliance with medication regimen for other reason
CPT/HCPCS: 36415; 71045; 80048; 83880; 85025; 86141; 87636

== ENCOUNTER 2023-04-17 13:54 | Observation (INO) | payer MEDICARE ==
[~2023-04-17] VITALS: Ht 178 cm; Wt 72.3 kg
[~2023-04-17 13:54] MED LIST changes: +ALBU2.5V4 INH
--- NOTE | 2023-04-17 14:49 | ED General ---
General Chief Complaint: Lower Extremity Stated Complaint: POSSIBLE BLOOD CLOT Nursing Triage Note: PT AMB TO RM 6 PT CO OF L L SWELLING STARTED APPROX 2 WEEKS AGO, PT HAS SCABBED AREA ON OUTER ANKLE AREA. LEG SWOLLEN, REDDEND SL PAINFUL 3/10 Source of Information: Patient (SUNI NEWMAN) History of Present Illness Date Seen by Provider: Apr 17, 2023 Time Seen by Provider: 14:20 Initial Comments This is a 72 yo male with pmh of COPD, 40+ pack years, HTN that presents with concern of "blood clot" in his left LE. Pt had a previous DVT of the left leg 3 years ago. Pt has had left knee pain x2 weeks and left ankle pain x1 week with a circumferential ulcer of the left lateral ankle region. Pt states pain of the knee is 3/10 while resting, but worsens when walking, with movement, and applied pressure. Pt has tried tylenol which has helped. Pt has tried to keep pressure off knee, but it was feeling better so he started walking again which brought back the pain. No radiation of the pain. Pt denies recent trauma of the knee and/or long car trips, flight, or prolonged immobilization other than resting more due to knee pain. Denies SOA, chest pain, fever, sore throat, nausea, vomiting, diarrhea. Severity: Mild (SUNI NEWMAN) Allergies and Home Medications Allergies Coded Allergies: Sulfa (Sulfonamide Antibiotics) (Verified Allergy, Unknown, 08/02/19) Patient Home Medication List Home Medication List Reviewed: Yes (KIRK PEREZ MD) Albuterol Sulfate (Ventolin Hfa) 1 Puff Puff, 2 PUFF INH Q6H PRN for SHORTNESS OF BREATH, (Reported) Entered as Reported by: BRUCE WU on 08/02/19 1001 Albuterol Sulfate (Albuterol Sulfate) 2.5 Mg/3 Ml (0.083 %) Vial.neb, 2.5 MG INH Q4H PRN for WHEEZING Prescribed by: JULIA GUZMAN on 04/07/23 0326 Amlodipine Besylate (Amlodipine Besylate) 5 Mg Tablet, 5 MG PO BID Prescribed by: YONATHAN KING on 11/16/22 1511 Azithromycin (Azithromycin) 250 Mg Tablet, 250 MG PO HS Prescribed by: YONATHAN KING on 11/16/221510 Budesonide/Formoterol Fumarate (Symbicort 160-4.5 Mcg Inhaler) 10.2 Gm Hfa.aer.ad, 2 PUFF IH BID, (Reported) Entered as Reported by: BRUCE WU on 08/02/19 100 Bupropion HCl (Bupropion HCl) 100 Mg Tablet, 200 MG PO BID, (Reported) Entered as Reported by: BRUCE WU on 08/02/191000 Cefdinir (Cefdinir) 300 Mg Capsule, 300 MG PO BID Prescribed by: YOANTHAN KING on 11/16/221510 Citalopram Hydrobromide (Citalopram HBr) 40 Mg Tablet, 20 MG PO DAILY, (Reported) Entered as Reported by: ANDREIA NINO on 11/16/22 132 Dexamethasone (Dexamethasone) 6 Mg Tablet, 6 MG PO DAILY@0700 Prescribed by: YONATHAN KING on 11/16/221510 Diltiazem HCl (Diltiazem ER) 120 Mg Capsule.er, 240 MG PO DAILY, (Reported) Entered as Reported by: ANDREIA NINO on 11/16/22 132 Famotidine (Famotidine) 20 Mg Tablet, 20 MG PO BID, (Reported) Entered as Reported by: ANDREIA NINO on 11/16/22 132 Lisinopril (Lisinopril) 20 Mg Tablet, 20 MG PO DAILY, (Reported) Entered as Reported by: ANDREIA NINO on 11/16/22 132 Metoprolol Tartrate (Metoprolol Tartrate) 50 Mg Tablet, 25 MG PO BID, (Reported) Entered as Reported by: BRUCE WU on 08/02/191000 Multivitamin (Multivitamin) 1 Each Tablet, 1 EACH PO DAILY, (Reported) Entered as Reported by: ANDREIA NINO on 11/16/22 132 Pravastatin Sodium (Pravastatin Sodium) 40 Mg Tablet, 20 MG PO HS, (Reported) Entered as Reported by: BRUCE WU on 08/02/19 100 Tamsulosin HCl (Flomax) 0.4 Mg Cap, 0.4 MG PO HS, (Reported) Entered as Reported by: BRUCE WU on 08/02/191000 Umeclidinium [place] (Incruse Ellipta) 62.5 Mcg/Actuation Blst.w.dev, 1 PUFF IH DAILY, (Reported) Entered as Reported by: MEG WARNER on 04/24/20 5402 Review of Systems Review of Systems Constitutional: see HPI EENTM: see HPI Respiratory: see HPI Cardiovascular: see HPI Gastrointestinal: see HPI Genitourinary: no symptoms reported Musculoskeletal: joint pain (left knee), joint swelling (left knee) Skin: lesions (left lateral ankle region) Psychiatric/Neurological: No Symptoms Reported (SUNI NEWMAN) Past Ocibace-Qtrfvj-Dfbwts Hx Patient Social History Tobacco Use?: Yes Tobacco type used: Cigarettes Smoking Status: Current Everyday Smoker Substance use?: No Alcohol Use?: No Pt feels they are or have been: No (SUNI NEWMAN) Immunizations Up To Date Tetanus Booster (TDap): Unknown First/Initial COVID19 Vaccinat: x2 Second COVID19 Vaccination Rm: x2 Third COVID19 Vaccination Date: x2 (SUNI NEWMAN) Seasonal Allergies Seasonal Allergies: Yes (MILD) (SUNI NEWMAN) Past Medical History Surgery/Hospitalization HX: copd, chf, bilateral cataracts, htn, gerd, hld, afib, HX BLOOD CLOT LOWER EXT Surgeries: Yes (TURP, ULNAR NERVE) Eye Surgery, Orthopedic, Transurethral Resection Respiratory: Yes Asthma, Pneumonia, Sleep Apnea, COPD, Emphysema Currently Using CPAP: Yes (NOT USING RIGHT NOW ) Cardiac: Yes Chronic Edema/Swelling, High Cholesterol, Hypertension Neurological: No Sexually Transmitted Disease: No HIV/AIDS: No Genitourinary: Yes Benign Prostatic Hyperpl Gastrointestinal: Yes Polyps Musculoskeletal: Yes Arthritis Endocrine: No HEENT: Yes (GLASSES) Loss of Vision: Denies Hearing Impairment: Hard of Hearing Cancer: No Psychosocial: Yes Anxiety, Depression Integumentary: No Blood Disorders: No Adverse Reaction/Blood Tranf: No (N/A) (SUNI NEWMAN) Family Medical History "oat cell cancer" 19 MOTHER Bleeding disorder 19 MOTHER FH: CAD (coronary artery disease) 19 FATHER FH: breast cancer 19 MOTHER G8 SISTER FHx: lung disease 19 FATHER Hypertension G8 BROTHER Myocardial infarction 19 FATHER No Pertinent Family Hx SOCIAL HISTORY: -SMOKES AT LEAST 2 PPD, PLUS SMOKES A PIPE DAILY, PLUS CHEWS TOBACCO DAILY -ETOH--DENIES USE -DRUGS--DENIES USE PAST SURGICAL HISTORY: -BILATERAL CATARACTS 01/2021 -COLONOSCOPY / POLYPECTOMY -TURP -ULNAR NERVE SURGERY (SUNI NEWMAN) Physical Exam Vital Signs Capillary Refill : (SUNI NEWMAN) Height, Weight, BMI Height: '" Weight: lbs. oz. kg; 23.00 BMI Method: General Appearance: No Apparent Distress, WD/WN Neck: Full Range of Motion, Normal Inspection, Non Tender, Supple Respiratory: Chest Non Tender, No Accessory Muscle Use, No Respiratory Distress, Wheezing (mild end expiratory wheezing) Cardiovascular: Regular Rate, Rhythm, No Murmur, Normal Peripheral Pulses Gastrointestinal: No Organomegaly, No Pulsatile Mass, Non Tender, Soft Extremity: Normal Range of Motion, No Calf Tenderness, Pedal Edema (1+ b/l), Other (Tenderness, swelling, erythema, and warmth of the left anterior knee. Warmth and Erythema of the anterion sanz from knee distally to ankle. Tenderness of left posterior knee. AROM intact b/l. Pain with flexion of left knee. Radi sonia, Dorsalis pedis, Posterior tibialis, and popliteal pulses 2+ b/l. Light sensation intact L4-S1 b/l) Neurologic/Psychiatric: Alert, Oriented x3, No Motor/Sensory Deficits, Normal Mood/Affect Skin: Other (2-3cm ulcer of the left lateral ankle. Skin findings of knee documented elsewhere.) (SUNI NEWMAN) Extremity: Other (Tenderness, swelling, erythema, and warmth of the left anterior knee. Warmth and Erythema of the anterion sanz from knee distally to ankle. Tenderness of left posterior knee. AROM intact b/l. Pain with flexion of left knee. Radialis, Dorsalis pedis, Posterior tibialis, and popliteal pulses 2+ b/l. Light sensation intact L4-S1 b/l) Skin: Other (LLE with mild diffuse swelling, increased warmth and erythema from knee to foot. normal ROM left knee. No significant effusion) (KIRK PEREZ MD) Focused Exam Lactate Level 04/17/23 15:25: Lactic Acid Level 1.81 (KIRK PEREZ MD) Lactic Acid Level Laboratory Tests Test 04/17/23 15:25 Lactic Acid Level 1.81 MMOL/L (0.50-2.00) (KIRK PEREZ MD) Progress/Results/Core Measures Suspected Sepsis SIRS Temperature: Pulse: Respiratory Rate: Blood Pressure / Mean: (SUNI NEWMAN) Results/Orders Lab Results Laboratory Tests Test 04/17/23 15:25 Range/Units White Blood Count 12.0 H 4.3-11.0 10^3/uL Red Blood Count 4.25 L 4.30-5.52 10^6/uL Hemoglobin 12.2 L 13.3-17.7 g/dL Hematocrit 37 L 40-54 % Mean Corpuscular Volume 86 80-99 fL Mean Corpuscular Hemoglobin 29 25-34 pg Mean Corpuscular Hemoglobin Concent 33 32-36 g/dL Red Cell Distribution Width 13.3 10.0-14.5 % Platelet Count 279 130-400 10^3/uL Mean Platelet Volume 11.0 9.0-12.2 fL Immature Granulocyte % (Auto) 3 % Neutrophils (%) (Auto) 62 42-75 % Lymphocytes (%) (Auto) 19 12-44 % Monocytes (%) (Auto) 13 H 0-12 % Eosinophils (%) (Auto) 2 0-10 % Basophils (%) (Auto) 1 0-10 % Neutrophils # (Auto) 7.5 1.8-7.8 10^3/uL Lymphocytes # (Auto) 2.3 1.0-4.0 10^3/uL Monocytes # (Auto) 1.5 H 0.0-1.0 10^3/uL Eosinophils # (Auto) 0.3 0.0-0.3 10^3/uL Basophils # (Auto) 0.1 0.0-0.1 10^3/uL Immature Granulocyte # (Auto) 0.3 H 0.0-0.1 10^3/uL Sodium Level 136 135-145 MMOL/L Potassium Level 4.5 3.6-5.0 MMOL/L Chloride Level 102 98-107 MMOL/L Carbon Dioxide Level 22 21-32 MMOL/L Anion Gap 12 5-14 MMOL/L Blood Urea Nitrogen 47 H 7-18 MG/DL Creatinine 2.24 H 0.60-1.30 MG/DL Estimat Glomerular Filtration Rate 30 BUN/Creatinine Ratio 21 Glucose Level 113 H 70-105 MG/DL Lactic Acid Level 1.81 0.50-2.00 MMOL/L Calcium Level 8.9 8.5-10.1 MG/DL (KIRK PEREZ MD) My Orders Orders - KIRK PEREZ MD Knee, Left, 3 Views (04/17/23 14:37) Cbc And Automated Diff (04/17/23 15:12) Basic Metabolic Panel (04/17/23 15:12) Blood Culture (04/17/23 15:12) Lactic Acid Analyzer (04/17/23 15:12) Cefazolin Injection (Cefazolin Injecti (04/17/23 15:15) Blood Culture (04/17/23 15:39) Ns Iv 1000 Ml (Ns Iv 1000 Ml) (04/17/23 16:53) Ua Culture If Indicated (04/17/23 17:06) (KIRK PEREZ MD) Medications Given in ED Current Medications Medications Dose Ordered Sig/Emmie Route Start Time Stop Time Status Last Admin Dose Admin Cefazolin Sodium 2000 mg/Sodium Chloride 50 ml @ 100 mls/hr ONCE ONCE IV 04/17/23 15:15 04/17/23 15:44 DC 04/17/23 16:57 100 MLS/HR (KIRK PEREZ MD) Vital Signs/I&O Capillary Refill : (SUNI NEWMAN) Progress Note : Time: 16:59 Progress Note Patient seen and evaluated by me. I have reviewed the medical student's documentation. My findings and plan of care as follows. Evaluation includes CBC, basic metabolic panel, blood culture with lactic acid, left knee xrays. Pertinent physical exam findings elderly appearing male, no acute distress, dry oral mucosa. Not tachycardic, normal blood pressure, afebrile. Heart is regular, diminished breath sounds throughout. Abdomen is soft. His left lower extremity is mildly edematous with diffuse erythema from the anterior knee through to the ankle. He has a 2 to 3 cm coin shaped ulcer, overlying eschar. No drainage, no fluctuance, just proximal to the lateral malleolus of the left ankle. Negative Homans, soft supple calf. Distal pulses are 2+ in the dorsalis pedis of the left foot, intact sensation. Differential diagnosis includes cellulitis left lower extremity, DVT, gout, septic knee. Labs independently interpreted by me. His CBC shows a mildly elevated white blood cell count at 12.0 with hemoglobin of 12.2, hematocrit of 37, normal platelets. Basic metabolic panel shows significantly elevated BUN of 47 and creatinine of 2.24 which is well above his normal baseline. His GFR is significantly low at 30. Serum glucose of 113. Lactic acid within normal range at 1.30. Left knee fims - per radiologist - no fracture or acute abnormality. Low clinical suspicion of acute DVT as calf is soft and supple with pain, cord, neg Ila's. He has good ROM to the left knee joint - I do not suspect septic joint at all - no real effusion - the edema is really all pre-patellar. With the accompanying leg erythema and the lesion at the ankle - cellilitis would be my primary thought - I do not suspect acute gout. He does have this increase in creatinine - which is concerning and I think all pre-renal - needs hydration to attempt correction. Patient is treated in the emergency department with a liter of IV fluids and 2 g of Ancef IV. I discussed the case with Dr. King on for hospitalist [facility]. She is agreeable to admission observation to the medical floor. She will place que'd orders. Patient is made aware of the plan of care and is agreeable. Patient states that he is quite certain his tetanus is up-to-date within the last 5 years (KIRK PEREZ MD) Diagnostic Imaging Diagonstic Imaging: Xray Comments [facility]. [place], [place] NAME: NALLELY KELLY [facility] REC#: [id number] PT STATUS: REG ER : 1950 PHYSICIAN: KIRK PEREZ MD ADMIT DATE: 04/17/23/ER Signed Date of Exam:04/17/23 KNEE, LEFT, 3 VIEWS CLINICAL HISTORY: Left knee pain and swelling. COMPARISON: None. TECHNIQUE: 3 views of the left knee. FINDINGS: There is no acute fracture or dislocation of the left knee. Alignment is anatomic. The imaged joint spaces are preserved. No joint effusion is seen in the left knee. No focal osseous lesions. IMPRESSION: 1. No acute fracture or dislocation in the left knee. Dictated by: Dictated on workstation # [id number] Dict: 04/17/23 1515 Trans: 04/17/23 1536 [facility] [id number] Interpreted by: GEE AVENDAÑO DO Electronically signed by: GEE AVENDAÑO DO 04/17/23 1536 (KIRK PEREZ MD) Departure Communication (Admissions) Time/Spoke to Admitting Phy: 17:[address] King - [facility] hospitalist; admit obs to medical (KIRK PEREZ MD) Impression Primary Impression: Cellulitis of leg, left Additional Impression: Acute kidney injury Disposition: ADMITTED INPATIENT Condition: Stable Admissions Decision to Admit Reason: Admit from ER (General) Decision to Admit/Date: Apr 17, 2023 Time/Decision to Admit Time: 17:10 (KIRK PEREZ MD) Departure-Patient Inst. Referrals: BALTAZAR FARR MD (PCP/Family) Primary Care Physician Verification and Attestation of Medical Student E/M Service A medical student performed and documented this service in my presence. I reviewed and verified all information documented by the medical student and made modifications to such information, when appropriate. I personally performed the physical exam and medical decision making. Kirk Perez, Apr 17, 2023,17:17 (KIRK PEREZ MD) Copy Copies To 1: BALTAZAR FARR MD, ETHAN Apr 17, 2023 14:49 KIRK PEREZ MD Apr 17, 2023 16:51
[2023-04-17] MEDS ORDERED: ceFAZolin INJECTION 2,000 MG in NS (IVPB) 50 ML 50 ML IV ONE (15:15)
--- NOTE | 2023-04-17 15:18 | Diagnostic Imaging Report ---
CLINICAL HISTORY: Left knee pain and swelling. COMPARISON: None. TECHNIQUE: 3 views of the left knee. FINDINGS: There is no acute fracture or dislocation of the left knee. Alignment is anatomic. The imaged joint spaces are preserved. No joint effusion is seen in the left knee. No focal osseous lesions. IMPRESSION: 1. No acute fracture or dislocation in the left knee. Dictated by: Dictated on workstation # [id number]
[2023-04-17 15:36] LABS: BASOPHILS # (AUTO) 0.1 10^3/uL (0.0-0.1); BASOPHILS % (AUTO) 1 % (0-10); EOSINOPHILS # (AUTO) 0.3 10^3/uL (0.0-0.3); EOSINOPHILS % (AUTO) 2 % (0-10); HEMATOCRIT 37 % (40-54); HEMOGLOBIN 12.2 g/dL (13.3-17.7); LYMPHOCYTES # (AUTO) 2.3 10^3/uL (1.0-4.0); LYMPHOCYTES % (AUTO) 19 % (12-44); MEAN CORPUSCULAR HEMOGLOBIN 29 pg (25-34); MEAN CORPUSCULAR HGB CONC 33 g/dL (32-36); MEAN CORPUSCULAR VOLUME 86 fL (80-99); MONOCYTES # (AUTO) 1.5 10^3/uL (0.0-1.0); MONOCYTES % (AUTO) 13 % (0-12); NEUTROPHILS # (AUTO) 7.5 10^3/uL (1.8-7.8); NEUTROPHILS % (AUTO) 62 % (42-75); PLATELET COUNT 279 10^3/uL (130-400)
[2023-04-17 15:57] LABS: POTASSIUM 4.5 MMOL/L (3.6-5.0)
[2023-04-17 15:58] LABS: CALCIUM 8.9 MG/DL (8.5-10.1)
[2023-04-17 16:02] LABS: CREATININE SERUM 2.24 MG/DL (0.60-1.30)
[2023-04-17] MEDS ORDERED: NS IV 1000 ML 1,000 ML IV STA (16:53)
[2023-04-17] MEDS: ceFAZolin INJECTION 2,000 MG in NS (IVPB) 50 ML 50 ML IV SCH (17:26)
[2023-04-17] MEDS ORDERED: diphenhydrAMINE 25 MG TABLET PO PRN (17:30)
[2023-04-17] MEDS ORDERED: MILK OF MAGNESIA 400 MG/5 ML 30 ML UDC PO PRN (17:30)
[2023-04-17] MEDS ORDERED: oxyCODONE IMMEDIATE RELEASE 5 MG TABLET PO PRN (17:30)
[2023-04-17] MEDS ORDERED: MELATONIN 3 MG TABLET PO PRN (17:30)
[2023-04-17] MEDS ORDERED: diphenhydrAMINE INJ 50 MG/ML VIAL IVP PRN (17:30)
[2023-04-17] MEDS ORDERED: ONDANSETRON 4 MG ORAL DISSOLVE TABLET PO PRN (17:30)
[2023-04-17] MEDS ORDERED: LACTULOSE SYRUP 10GM/15ML 30ML UDC PO PRN (17:30)
[2023-04-17] MEDS ORDERED: VANCOMYCIN INJECTION 0.1 MG in NS (IVPB) 250 ML 250 ML IV SCH (17:30)
[2023-04-17] MEDS ORDERED: CALCIUM CARBONATE 500 MG CHEW TABLET PO PRN (17:30)
[2023-04-17] MEDS ORDERED: cloNIDine 0.1 MG TABLET PO PRN (17:30)
[2023-04-17] MEDS ORDERED: HYDROmorphone INJECTION 2 MG/ML VIAL IV PRN (17:30)
[2023-04-17] MEDS ORDERED: ACETAMINOPHEN 325 MG TABLET PO PRN (17:30)
[2023-04-17] MEDS ORDERED: BISACODYL 10 MG SUPPOSITORY PR PRN (17:30)
[2023-04-17] MEDS ORDERED: ALPRAZolam 0.25 MG TABLET PO PRN (17:30)
[2023-04-17] MEDS ORDERED: NS IV 1000 ML 1,000 ML IV SCH (17:30)
[2023-04-17] MEDS ORDERED: ANTACID SUSPENSION 30 ML UDC PO PRN (17:30)
[2023-04-17] MEDS ORDERED: ONDANSETRON INJECTION 4 MG/2 ML (SDV) IV PRN (17:30)
[2023-04-17 17:48] VITALS: BP 156/70
[2023-04-17] MEDS ORDERED: VANCOMYCIN 1250MG/250ML PREMIX 250 ML IV SCH (18:45)
[2023-04-17 18:59] VITALS: BP 156/70
[2023-04-17] MEDS ORDERED: VANCOMYCIN 1500MG/300ML PREMIX IV SCH (19:00)
[2023-04-17 19:13] VITALS: BP 138/67
[2023-04-17] MEDS ORDERED: RT-ALBUTEROL SULF 2.5 MG/3 ML PRE-MIX VIAL INH PRN (19:15)
[2023-04-17] MEDS: DOCUSATE SODIUM 100 MG CAPSULE PO SCH (19:23)
[2023-04-17] MEDS: SENNOSIDES 8.6 MG TABLET PO SCH (19:23)
[2023-04-17] MEDS ORDERED: ENOXAPARIN 40 MG/0.4 ML SYRINGE SC SCH (21:00)
[2023-04-17 23:05] VITALS: BP 150/77
[2023-04-18] VITALS (7 sets, daily range): BP systolic 153–165; BP diastolic 70–77
[2023-04-18] MEDS ORDERED: TAMSULOSIN 0.4 MG (FLOMAX) CAP PO ONE (00:28)
[2023-04-18] MEDS ORDERED: LIDOCAINE UROJET 2% GEL 10 ML PKG TOP ONE (00:30)
[2023-04-18] MEDS: TAMSULOSIN 0.4 MG (FLOMAX) CAP PO SCH ×2 (00:30→17:27)
[2023-04-18 01:43] LABS: CLARITY,URINE SLIGHTLY CLOUDY; COLOR,URINE YELLOW
[2023-04-18 01:44] LABS: BACTERIA,URINE TRACE /HPF; BILIRUBIN,URINE NEGATIVE (NEGATIVE); GLUCOSE, URINE (UA) NEGATIVE (NEGATIVE); KETONES,URINE NEGATIVE (NEGATIVE); LEUKOCYTE ESTERASE ,URINE 1+ (NEGATIVE); NITRITE,URINE NEGATIVE (NEGATIVE); PROTEIN,URINE 2+ (NEGATIVE); RBC,URINE >100 /HPF; WBC,URINE 25-50 /HPF
[2023-04-18] MEDS: ceFAZolin INJECTION 2,000 MG in NS (IVPB) 50 ML 50 ML IV SCH ×3 (02:27→17:28)
[2023-04-18 05:48] LABS: BASOPHILS # (AUTO) 0.1 10^3/uL (0.0-0.1); BASOPHILS % (AUTO) 1 % (0-10); EOSINOPHILS # (AUTO) 0.2 10^3/uL (0.0-0.3); EOSINOPHILS % (AUTO) 2 % (0-10); HEMATOCRIT 34 % (40-54); HEMOGLOBIN 11.4 g/dL (13.3-17.7); LYMPHOCYTES # (AUTO) 2.2 10^3/uL (1.0-4.0); LYMPHOCYTES % (AUTO) 18 % (12-44); MEAN CORPUSCULAR HEMOGLOBIN 29 pg (25-34); MEAN CORPUSCULAR HGB CONC 33 g/dL (32-36); MEAN CORPUSCULAR VOLUME 86 fL (80-99); MEAN PLATELET VOLUME 11.3 fL (9.0-12.2); MONOCYTES # (AUTO) 1.5 10^3/uL (0.0-1.0); MONOCYTES % (AUTO) 12 % (0-12); NEUTROPHILS # (AUTO) 8.1 10^3/uL (1.8-7.8); NEUTROPHILS % (AUTO) 66 % (42-75); PLATELET COUNT 255 10^3/uL (130-400); WHITE BLOOD COUNT 12.3 10^3/uL (4.3-11.0)
[2023-04-18 06:01] LABS: ALBUMIN 2.9 GM/DL (3.2-4.5); BILIRUBIN,TOTAL 0.4 MG/DL (0.1-1.0); CALCIUM 8.4 MG/DL (8.5-10.1); CREATININE SERUM 1.82 MG/DL (0.60-1.30); POTASSIUM 4.4 MMOL/L (3.6-5.0); TOTAL PROTEIN 6.1 GM/DL (6.4-8.2)
[2023-04-18] MEDS ORDERED: RT-ALBUTEROL SULF 2.5 MG/3 ML PRE-MIX VIAL INH SCH ×2 (07:00→14:00)
[2023-04-18] MEDS ORDERED: FLU HIGH DOSE (65+ YOA) 240 MCG/0.7 ML 2023-24 (FLUZONE) IM ONE (07:30)
--- NOTE | 2023-04-18 07:32 | History & Physical-Hospitalist ---
MARIANO FRY MD, RESIDENT 04/18/23 0732: History of Present Illness HPI/Chief Complaint CC: Blood clot concerns Patient is a 72-year-old male with past medical history of COPD and hypertension who presents with concern for blood clots in the left lower extremity. He does have a history of DVT in his left leg 3 years ago. He also was noting knee pain on presentation. It was noted that he had a circumferential ulcer in the left lateral region of his ankle that has been ongoing for 2 weeks. He states that the ankle started with swelling and then it broke open resulting in this wound. Denies any fevers during this time. He also denies any drainage of the wound. He states it was painful initially but does appear to be improving. In the ED t here was concern for cellulitis and patient was also noted to have an UTI, thus was admitted for further management. This a.m., patient is doing well, states that the redness and pain in his left lower extremity has gone down significantly. He is still having some dysuria likely secondary to the UTI. He otherwise denies any fevers, nausea, vomiting, diarrhea, constipation, chest pain, shortness of breath. Source: patient Exam Limitations: no limitations Date Seen 04/18/23 Time Seen by a Provider: 07:15 Attending Physician Anahy Reyes MD PCP Admitting Physician: Dolores King DO Attending Physician: Dolores King DO Referring Physician Date of Admission Apr 17, 2023 at 17:26 Home Medications & Allergies Home Medications Reviewed patient Home Medication Reconciliation performed by pharmacy medication reconciliations voice intercept technician and/or nursing. Patients Allergies have been reviewed. Allergies Allergies Coded Allergies Sulfa (Sulfonamide Antibiotics) (Verified Allergy, Unknown, 08/02/19) Past Scbgkew-Wptgbj-Ebgkzs Hx Patient Social History Tobacco Use?: Yes Tobacco type used: Cigarettes Smoking Status: Current Everyday Smoker Use of E-Cig and/or Vaping dev: No Substance use?: No Alcohol Use?: No Pt feels they are or have been: No Immunizations Up To Date Date of Influenza Vaccine: Mar 24, 2020 First/Initial COVID19 Vaccinat: x2 Second COVID19 Vaccination Rm: x2 Tetanus Booster (TDap): Unknown Hepatitis A: No Hepatitis B: No Date of Pneumonia Vaccine: Mar 24, 2020 Seasonal Allergies Seasonal Allergies: Yes (MILD) Current Status Advance Directives: No Advance Directive Location: Home Communicates: Verbally Primary Language: [place]alander Preferred Spoken Language: [place]alander Is interpretation needed?: No Sensory deficits: Vision impairment, Hearing impairment Implanted or Applied Medical D: CPAP Past Medical History Surgeries: Eye Surgery, Orthopedic, Transurethral Resection Asthma, Pneumonia, Sleep Apnea, COPD, Emphysema Currently Using CPAP: Yes (NOT USING RIGHT NOW ) Chronic Edema/Swelling, High Cholesterol, Hypertension Sexually Transmitted Disease: No HIV/AIDS: No Benign Prostatic Hyperpl Polyps Arthritis Loss of Vision: Denies Hearing Impairment: Hard of Hearing Anxiety, Depression Blood Disorders: No Adverse Reaction/Blood Tranf: No (N/A) Family Medical History "oat cell cancer" 19 MOTHER Bleeding disorder 19 MOTHER FH: CAD (coronary artery disease) 19 FATHER FH: breast cancer 19 MOTHER G8 SISTER FHx: lung disease 19 FATHER Hypertension G8 BROTHER Myocardial infarction 19 FATHER No Pertinent Family Hx SOCIAL HISTORY: -SMOKES AT LEAST 2 PPD, PLUS SMOKES A PIPE DAILY, PLUS CHEWS TOBACCO DAILY -ETOH--DENIES USE -DRUGS--DENIES USE PAST SURGICAL HISTORY: -BILATERAL CATARACTS 01/2021 -COLONOSCOPY / POLYPECTOMY -TURP -ULNAR NERVE SURGERY Review of Systems Constitutional: No fever EENTM: No no symptoms reported Respiratory: No cough, No dyspnea on exertion, No short of breath Cardiovascular: No chest pain; edema (Left lower extremity); No palpitations Gastrointestinal: No abdominal pain, No constipation, No diarrhea, No nausea, No vomiting Genitourinary: dysuria Skin: other (Scabbed lesion on left lower extremity by the lateral malleolus) Physical Exam Physical Exam Vital Signs Vital Signs - First Documented 04/17/23 04/17/23 04/17/23 14:05 17:48 18:59 Temp 37.6 Pulse 72 Resp 18 B/P (MAP) 144/73 (96) Pulse Ox 97 O2 Delivery Room Air FiO2 21 Capillary Refill : Less Than 3 Seconds Height, Weight, BMI Height: '" Weight: lbs. oz. kg; 22.81 BMI Method: General Appearance: No Apparent Distress HEENT: PERRL/EOMI Neck: Normal Inspection Respiratory: Chest Non Tender, No Accessory Muscle Use, No Respiratory Distress, Wheezing Cardiovascular: Regular Rate, Rhythm, No Edema, No Murmur Gastrointestinal: Normal Bowel Sounds, Non Tender, Soft Back: Normal Inspection Neurologic/Psychiatric: Alert, Oriented x3 Skin: Other (Black eschar next to left lateral malleolus with slight surrounding erythema, left lower extremity appears slightly swollen) Results Results/Procedures Labs Laboratory Tests 04/17/23 15:25 04/18/23 05:34 Patient resulted labs reviewed. Imaging: Reviewed Imaging Films, Reviewed Imaging Report Imaging Knee x-ray (04/17/2023): IMPRESSION: 1. No acute fracture or dislocation in the left knee. Assessment/Plan Admission Diagnosis UTI, left lower extremity cellulitis Admission Status: Observation Diagnosis/Problems Diagnosis/Problems (1) Cellulitis of leg, left Status: Acute Assessment & Plan: Black eschar type wound on left lower extremity. Does a ppear to be secondary to venous stasis. Plan: Continue antibiotics vancomycin and cefazolin Consulting wound care for further management (2) UTI (urinary tract infection) Status: Acute Assessment & Plan: Urine analysis on admission was positive for UTI. In addition patient is having symptoms of dysuria. Leukocytosis does not appear to have resolved at this time. Plan: Continue antibiotics vancomycin and cefazolin Follow-up urine culture (3) Urinary retention Status: Acute Assessment & Plan: Patient having issues with urinary retention. Nurses were unsuccessful in placing Garcia catheter yesterday and patient has not been able to urinate spontaneously on his own. This is likely what has resulted in his UTI. Plan: We will consult general surgery for catheter placement (4) HTN (hypertension) Status: Chronic Assessment & Plan: Patient has a history of hypertension. Blood pressures are mildly elevated. Will restart BUS AIDE meds once med rec has been completed. (5) COPD (chronic obstructive pulmonary disease) Status: Chronic Assessment & Plan: Patient a bit wheezy on exam today. We will start BUS AIDE meds once med rec has been completed. Clinical Quality Measures DVT/VTE Risk/Contraindication: Contraindications-Mechi: Other *list below* Other: cellulitis of the legs DOLORES KING DO 04/19/23 0434: History of Present Illness HPI/Chief Complaint Chief complaint: Left leg cellulitis HPI: This is a 72-year-old male clinic patient of [facility] with a past medical history of COPD and HTN who presents with cellulitis in need of IV antibiotics. Urinary retention occurred overnight prompting general surgery consult. Source: patient Exam Limitations: no limitations Past Oontxwx-Kzyhjl-Plflky Hx Patient Social History Marrital Status: single Employed/Student: retired Smoking Status: Former Smoker Past Medical History COPD Benign Prostatic Hyperpl Depression Family Medical History "oat cell cancer" 19 MOTHER Bleeding disorder 19 MOTHER FH: CAD (coronary artery disease) 19 FATHER FH: breast cancer 19 MOTHER G8 SISTER FHx: lung disease 19 FATHER Hypertension G8 BROTHER Myocardial infarction 19 FATHER Review of Systems Constitutional: see HPI Physical Exam Physical Exam General Appearance: No Apparent Distress Respiratory: Lungs Clear, Normal Breath Sounds Cardiovascular: Regular Rate, Rhythm Neurologic/Psychiatric: Alert, Oriented x3 Skin: Other (Black eschar next to left lateral malleolus with slight surrounding erythema, left lower extremity appears slightly swollen) Assessment/Plan Admission Diagnosis Assessment: Left lower extremity cellulitis Venous stasis ulceration prompting wound care Urinary retention UTI COPD Plan: Catheter management appreciated IV antibiotics I personally performed the babb portions of the visit, discussed case with resident and concur with resident documentation of history, physical exam, assessment and treatment plan unless otherwise noted. Admission Status: Observation MARIANO FRY MD, RESIDENT Apr 18, 2023 07:32 DOLORES KING DO Apr 19, 2023 04:34
[2023-04-18] MEDS: DOCUSATE SODIUM 100 MG CAPSULE PO SCH ×2 (08:55→20:22)
[2023-04-18] MEDS: SENNOSIDES 8.6 MG TABLET PO SCH ×2 (08:55→20:22)
--- NOTE | 2023-04-18 12:11 | Consultation - Surgery ---
VISHNU SEWELL 04/18/23 1210: History of Present Illness History of Present Illness Patient Consulted On(keisha/time) 04/18/23 12:03 Date Seen by Provider: Apr 18, 2023 Time Seen by Provider: 11:45 History of Present Illness Fabio Rojas was seen today lying in his hospital bed. He has complaints of urinary retention and left lateral lower extremity wound. Urinary retention is an ongoing problem for him, he says it has been years, he usually voids about twice a day with some strain. He has not voided spontaneously since noon yesterday 04/17. He was catheterized and urine was passed but the balloon on the catheter could not be inflated so it was not left in. This is the first time he has had to be catheterized due to urinary retention. He underwent a TURP in 2014 that did not help his urinary retention problem. Four years ago when he was straining he developed a right inguinal hernia that has progressively enlarged. The hernia reduces sometimes when he is lying supine. The hernia does not cause pain and he has not associated it being out with his urinary symptoms in the past. The left lateral lower extremity wound began as swelling two weeks ago. The skin split on the lateral side just above the ankle due to the swelling. His daughter noticed some fluid draining from it at home. He noted that it was red, swollen and tender before he presented to the ED. He says the swelling, redness and tenderness have all decreased today. Allergies and Home Medications Allergies Coded Allergies: Sulfa (Sulfonamide Antibiotics) (Verified Allergy, Unknown, 08/02/19) Patient Home Medication List Albuterol Sulfate (Albuterol Sulfate) 2.5 Mg/3 Ml (0.083 %) Vial.neb, 2.5 MG INH Q4H PRN for SHORTNESS OF BREATH, (Reported) Entered as Reported by: ONELIA TEMPLE on 04/18/23 1311 Last Action: Reviewed Amlodipine Besylate (Amlodipine Besylate) 5 Mg Tablet, 5 MG PO BID, (Reported) Entered as Reported by: ONELIA TEMPLE on 04/18/23 1311 Last Action: Continued Bupropion HCl (Bupropion HCl) 100 Mg Tablet, 200 MG PO BID, (Reported) Entered as Reported by: BRUCE WU on 08/02/19 1001 Last Action: Continued Citalopram Hydrobromide (Citalopram HBr) 40 Mg Tablet, 20 MG PO DAILY, (Reported) Entered as Reported by: ANDREIA NINO on 11/16/221323 Last Action: Converted Cyanocobalamin (Vitamin B-12) (Vitamin B-12) 2,000 Mcg Tablet, 2,000 MCG PO DAILY, (Reported) Entered as Reported by: ONELIA TEMPLE on 04/18/231310 Last Action: Reviewed Diltiazem HCl (Diltiazem ER) 120 Mg Capsule.er, 240 MG PO DAILY, (Reported) Entered as Reported by: ANDREIA NNIO on 11/16/221323 Last Action: Converted Famotidine (Famotidine) 20 Mg Tablet, 20 MG PO BID, (Reported) Entered as Reported by: ANDREIA NINO on 11/16/221323 Last Action: Continued Fluticasone/Umeclidin/Vilanter (Trelegy Ellipta 100-62.5-25) 100-62.5 Blst.w.dev, 1 PUFF INH DAILY, (Reported) Entered as Reported by: ONELIA TEMPLE on 04/18/231310 Last Action: Converted Lisinopril (Lisinopril) 20 Mg Tablet, 20 MG PO DAILY, (Reported) Entered as Reported by: ANDREIA NINO on 11/16/221323 Last Action: Reviewed Metoprolol Tartrate (Metoprolol Tartrate) 50 Mg Tablet, 25 MG PO BID, (Reported) Entered as Reported by: BRUCE WU on 08/02/191000 Last Action: Continued Multivitamin (Multivitamin) 1 Each Tablet, 1 EACH PO DAILY, (Reported) Entered as Reported by: ANDREIA NINO on 11/16/221323 Last Action: Reviewed Tamsulosin HCl (Flomax) 0.4 Mg Cap, 0.4 MG PO HS, (Reported) Entered as Reported by: BRUCE WU on 08/02/191000 Last Action: Reviewed Discontinued Medications Albuterol Sulfate (Ventolin Hfa) 1 Puff Puff, 2 PUFF INH Q6H PRN for SHORTNESS OF BREATH, (Reported) Discontinued Reason: No Longer Taking Entered as Reported by: BRUCE WU on 08/02/191000 Last Action: Discontinued Albuterol Sulfate (Albuterol Sulfate) 2.5 Mg/3 Ml (0.083 %) Vial.neb, 2.5 MG INH Q4H PRN for WHEEZING Discontinued Reason: No Longer Taking Prescribed by: JULIA GUZMAN on 04/07/23 0326 Last Action: Discontinued Amlodipine Besylate (Amlodipine Besylate) 5 Mg Tablet, 5 MG PO BID Discontinued Reason: No Longer Taking Prescribed by: YONATHAN KING on 11/16/221510 Last Action: Discontinued Azithromycin (Azithromycin) 250 Mg Tablet, 250 MG PO HS Discontinued Reason: No Longer Taking Prescribed by: YONATHAN KING on 11/16/221510 Last Action: Discontinued Budesonide/Formoterol Fumarate (Symbicort 160-4.5 Mcg Inhaler) 10.2 Gm Hfa.ae r.ad, 2 PUFF IH BID, (Reported) Discontinued Reason: No Longer Taking Entered as Reported by: BRUCE WU on 08/02/191000 Last Action: Discontinued Cefdinir (Cefdinir) 300 Mg Capsule, 300 MG PO BID Discontinued Reason: No Longer Taking Prescribed by: YONATHAN KING on 11/16/221510 Last Action: Discontinued Dexamethasone (Dexamethasone) 6 Mg Tablet, 6 MG PO DAILY@0700 Discontinued Reason: No Longer Taking Prescribed by: YONATHAN KING on 11/16/221510 Last Action: Discontinued Pravastatin Sodium (Pravastatin Sodium) 40 Mg Tablet, 20 MG PO HS, (Reported) Discontinued Reason: No Longer Taking Entered as Reported by: BRUCE WU on 08/02/191000 Last Action: Discontinued Umeclidinium [place] (Incruse Ellipta) 62.5 Mcg/Actuation Blst.w.dev, 1 PUFF IH DAILY, (Reported) Discontinued Reason: No Longer Taking Entered as Reported by: MEG WARNER on 04/24/201450 Last Action: Discontinued Past Dfxzanj-Pketmn-[id number] Hx Patient Social History Smoking Status: Current Everyday Smoker Type Used: Cigarettes 2nd Hand Smoke Exposure: Yes Recent Hopitalizations: Yes Alcohol Use?: No Substance type: Nicotine Immunizations Up To Date Tetanus Booster (TDap): Unknown Date of Pneumonia Vaccine: Mar 24, 2020 Date of Influenza Vaccine: Mar 24, 2020 Seasonal Allergies Seasonal Allergies: Yes (MILD) Surgeries History of Surgeries: Yes (TURP, ULNAR NERVE) Surgeries: Eye Surgery, Orthopedic, Transurethral Resection Respiratory History of Respiratory Disorde: Yes Respiratory Disorders: Asthma, Pneumonia, Sleep Apnea, COPD, Emphysema Cardiovascular History of Cardiac Disorders: Yes Cardiac Disorders: Chronic Edema/Swelling, High Cholesterol, Hypertension Neurological History of Neurological Disord: No Reproductive System Sexually Transmitted Disease: No HIV/AIDS: No Genitourinary History of Genitourinary Disor: Yes Genitourinary Disorders: Benign Prostatic Hyperpl Gastrointestinal History of Gastrointestinal Di: Yes Gastrointestinal Disorders: Polyps Musculoskeletal History of Musculoskeletal Dis: Yes Musculoskeletal Disorders: Arthritis Endocrine History of Endocrine Disorders: No HEENT History of HEENT Disorders: Yes (GLASSES) Loss of Vision: Denies Hearing Impairment: Hard of Hearing Cancer History of Cancer: No Psychosocial History of Psychiatric Problem: Yes Behavioral Health Disorders: Anxiety, Depression Integumentary History of Skin or Integumenta: No Blood Transfusions History of Blood Disorders: No Adverse Reaction to a Blood Tr: No (N/A) Family Medical History Significant Family History: CAD Under 55 Years Old (father), Diabetes (mother- T2D), Hypertension (brother), Lung Disease (father- emphysema) Family Medial History: "oat cell cancer" 19 MOTHER Bleeding disorder 19 MOTHER FH: CAD (coronary artery disease) 19 FATHER FH: breast cancer 19 MOTHER G8 SISTER FHx: lung disease 19 FATHER Hypertension G8 BROTHER Myocardial infarction 19 FATHER Review of Systems-General Constitutional: No chills, No diaphoresis, No dizziness, No fever Respiratory: No cough, No hemoptysis; short of breath (baseline SOB d/t COPD); No stridor, No wheezing Cardiovascular: No chest pain, No edema, No palpitations Gastrointestinal: No abdominal pain, No constipation, No diarrhea, No heartburn, No nausea, No vomiting Genitourinary: decreased output (has not voided spontaneously in 24 hours), dysuria, hesitancy Physical Exam-General Problems Physical Exam Vital Signs Vital Signs - First Documented 04/17/23 04/17/23 04/17/23 14:05 17:48 18:59 Temp 37.6 Pulse 72 Resp 18 B/P (MAP) 144/73 (96) Pulse Ox 97 O2 Delivery Room Air FiO2 21 Capillary Refill : Less Than 3 Seconds General Appearance: WD/WN, no apparent distress HEENT: PERRL/EOMI Neck: non-tender, supple Respiratory: chest non-tender, no respiratory distress, no accessory muscle use, wheezing Cardiovascular: regular rate, rhythm, no edema Gastrointestinal: non tender, soft, no organomegaly Extremities: other (L lateral LE wound just proximal to the ankle with surrounding erythema, approximately 10cm x 7cm, tender to palpation; the center has a circular area that looks like a healing scab) Neurologic/Psychiatric: alert, oriented x 3 Data Review Labs Laboratory Tests 04/17/23 15:25: White Blood Count 12.0H, Red Blood Count 4.25L, Hemoglobin 12.2L, Hematocrit 37L , Mean Corpuscular Volume 86, Mean Corpuscular Hemoglobin 29, Mean Corpuscular Hemoglobin Concent 33, Red Cell Distribution Width 13.3, Platelet Count 279, Mean Platelet Volume 11.0, Immature Granulocyte % (Auto) 3, Neutrophils (%) (Auto) 62, Lymphocytes (%) (Auto) 19, Monocytes (%) (Auto) 13H, Eosinophils (%) (Auto) 2, Basophils (%) (Auto) 1, Neutrophils # (Auto) 7.5, Lymphocytes # (Auto) 2.3, Monocytes # (Auto) 1.5H, Eosinophils # (Auto) 0.3, Basophils # (Auto) 0.1, Immature Granulocyte # (Auto) 0.3H, Sodium Level 136, Potassium Level 4.5, Chloride Level 102, Carbon Dioxide Level 22, Anion Gap 12, Blood Urea Nitrogen 47H, Creatinine 2.24H, Estimat Glomerular Filtration Rate 30, BUN/Creatinine Ratio 21, Glucose Level 113H, Lactic Acid Level 1.81, Calcium Level 8.9 04/18/23 01:35: Urine Color YELLOW, Urine Clarity SLIGHTLY CLOUDY, Urine pH 6.0, Urine Specific [place] >=1.030, Urine Protein 2+H, Urine Glucose (UA) NEGATIVE, Urine Ketones NEGATIVE, Urine Nitrite NEGATIVE, Urine Bilirubin NEGATIVE, Urine Urobilinogen 0.2, Urine Leukocyte Esterase 1+H, Urine RBC (Auto) 3+H, Urine RBC >100H, Urine WBC 25-50H, Urine Crystals NONE, Urine Bacteria TRACE, Urine Casts NONE, Urine Mucus NEGATIVE, Urine Culture Indicated YES 04/18/23 05:34: White Blood Count 12.3H, Red Blood Count 3.95L, Hemoglobin 11.4L, Hematocrit 34L , Mean Corpuscular Volume 86, Mean Corpuscular Hemoglobin 29, Mean Corpuscular Hemoglobin Concent 33, Red Cell Distribution Width 13.3, Platelet Count 255, Mean Platelet Volume 11.3, Immature Granulocyte % (Auto) 2, Neutrophils (%) (Auto) 66, Lymphocytes (%) (Auto) 18, Monocytes (%) (Auto) 12, Eosinophils (%) (Auto) 2, Basophils (%) (Auto) 1, Neutrophils # (Auto) 8.1H, Lymphocytes # (Auto) 2.2, Monocytes # (Auto) 1.5H, Eosinophils # (Auto) 0.2, Basophils # (Auto) 0.1, Immature Granulocyte # (Auto) 0.2H, Sodium Level 137, Potassium Level 4.4, Chloride Level 109H, Carbon Dioxide Level 20L, Anion Gap 8, Blood Urea Nitrogen 41H, Creatinine 1.82H, Estimat Glomerular Filtration Rate 38, BUN/Creatinine Ratio 23, Glucose Level 95, Calcium Level 8.4L, Corrected Calcium 9.3, Total Bilirubin 0.4, Aspartate Amino Transf (AST/SGOT) 22, Alanine Am inotransferase (ALT/SGPT) 27, Alkaline Phosphatase 150H, Total Protein 6.1L, Albumin 2.9L Assessment/Plan Assessment/Plan Assessment/Plan urinary retention right inguinal hernia L lateral LE wound Mr. Rojas's urinary retention could be due to BPH or his right inguinal hernia. He is taking Flomax for BPH. Continue to straight cath, he says he could do this on his own at home if necessary. Schedule an appointment with urology, he has not seen a urologist since his TURP in 2014. Consider right inguinal hernia repair, it may or may not change the urinary retention problem. Options to send him home where he can straight cath until he gets into a urologist and an option to go forward with an inguinal hernia repair during this hospital stay were presented to the patient and he is going to think about it today. The left lateral lower extremity wound does not require surgical intervention at this time. Clinical Quality Measures DVT/VTE Risk/Contraindication: Contraindications-Mechi: Other *list below* Other: cellulitis of the legs PK LIM DO 04/18/23 1530: History of Present Illness History of Present Illness Time Seen by Provider: 11:50 History of Present Illness Surgery asked to consult regarding urinary retention. HPI per ED: This is a 72 yo male with pmh of COPD, 40+ pack years, HTN that presents with concern of "blood clot" in his left LE. Pt had a previous DVT of the left leg 3 years ago. Pt has had left knee pain x2 weeks and left ankle pain x1 week with a circumferential ulcer of the left lateral ankle region. Pt states pain of the knee is 3/10 while resting, but worsens when walking, with movement, and applied pressure. Pt has tried tylenol which has helped. Pt has tried to keep pressure off knee, but it was feeling better so he started walking again which brought back the pain. No radiation of the pain. Pt denies recent trauma of the knee and/or long car trips, flight, or prolonged immobilization other than resting more due to knee pain. Denies SOA, chest pain, fever, sore throat, nausea, vomiting, diarrhea. When I saw pt, he states his urinary retention has never been this bad. He has had problems "for years". He states he came in because of the infection on his left leg. Allergies and Home Medications Allergies Coded Allergies: Sulfa (Sulfonamide Antibiotics) (Verified Allergy, Unknown, 08/02/19) Patient Home Medication List Home Medication List Reviewed: Yes Albuterol Sulfate (Albuterol Sulfate) 2.5 Mg/3 Ml (0.083 %) Vial.neb, 2.5 MG INH Q4H PRN for SHORTNESS OF BREATH, (Reported) Entered as Reported by: ONELIA TEMPLE on 04/18/23 1311 Last Action: Reviewed Amlodipine Besylate (Amlodipine Besylate) 5 Mg Tablet, 5 MG PO BID, (Reported) Entered as Reported by: ONELIA TEMPLE on 04/18/23 1311 Last Action: Continued Bupropion HCl (Bupropion HCl) 100 Mg Tablet, 200 MG PO BID, (Reported) Entered as Reported by: BRUCE WU on 08/02/19 1001 Last Action: Continued Citalopram Hydrobromide (Citalopram HBr) 40 Mg Tablet, 20 MG PO DAILY, (Reported) Entered as Reported by: ANDREIA NINO on 11/16/22 1324 Last Action: Converted Cyanocobalamin (Vitamin B-12) (Vitamin B-12) 2,000 Mcg Tablet, 2,000 MCG PO DAILY, (Reported) Entered as Reported by: ONELIA TEMPLE on 04/18/231310 Last Action: Reviewed Diltiazem HCl (Diltiazem ER) 120 Mg Capsule.er, 240 MG PO DAILY, (Reported) Entered as Reported by: ANDREIA NINO on 11/16/221323 Last Action: Converted Famotidine (Famotidine) 20 Mg Tablet, 20 MG PO BID, (Reported) Entered as Reported by: ANDREIA NINO on 11/16/221323 Last Action: Continued Fluticasone/Umeclidin/Vilanter (Trelegy Ellipta 100-62.5-25) 100-62.5 Blst.w.dev, 1 PUFF INH DAILY, (Reported) Entered as Reported by: ONELIA TEMPLE on 04/18/231310 Last Action: Converted Lisinopril (Lisinopril) 20 Mg Tablet, 20 MG PO DAILY, (Reported) Entered as Reported by: ANDREIA NINO on 11/16/221323 Last Action: Reviewed Metoprolol Tartrate (Metoprolol Tartrate) 50 Mg Tablet, 25 MG PO BID, (Reported) Entered as Reported by: BRUCE WU on 08/02/191000 Last Action: Continued Multivitamin (Multivitamin) 1 Each Tablet, 1 EACH PO DAILY, (Reported) Entered as Reported by: ANDREIA NINO on 11/16/221323 Last Action: Reviewed Tamsulosin HCl (Flomax) 0.4 Mg Cap, 0.4 MG PO HS, (Reported) Entered as Reported by: BRUCE WU on 08/02/191000 Last Action: Reviewed Discontinued Medications Albuterol Sulfate (Ventolin Hfa) 1 Puff Puff, 2 PUFF INH Q6H PRN for SHORTNESS OF BREATH, (Reported) Discontinued Reason: No Longer Taking Entered as Reported by: BRUCE WU on 08/02/191000 Last Action: Discontinued Albuterol Sulfate (Albuterol Sulfate) 2.5 Mg/3 Ml (0.083 %) Vial.neb, 2.5 MG INH Q4H PRN for WHEEZING Discontinued Reason: No Longer Taking Prescribed by: JULIA GUZMAN on 04/07/23 0326 Last Action: Discontinued Amlodipine Besylate (Amlodipine Besylate) 5 Mg Tablet, 5 MG PO BID Discontinued Reason: No Longer Taking Prescribed by: YONATHAN KING on 11/16/221510 Last Action: Discontinued Azithromycin (Azithromycin) 250 Mg Tablet, 250 MG PO HS Discontinued Reason: No Longer Taking Prescribed by: YONATHAN KING on 11/16/221510 Last Action: Discontinued Budesonide/Formoterol Fumarate (Symbicort 160-4.5 Mcg Inhaler) 10.2 Gm Hfa.aer.ad, 2 PUFF IH BID, (Reported) Discontinued Reason: No Longer Taking Entered as Reported by: BRUCE WU on 08/02/19 100 Last Action: Discontinued Cefdinir (Cefdinir) 300 Mg Capsule, 300 MG PO BID Discontinued Reason: No Longer Taking Prescribed by: YONATHAN KING on 11/16/221510 Last Action: Discontinued Dexamethasone (Dexamethasone) 6 Mg Tablet, 6 MG PO DAILY@0700 Discontinued Reason: No Longer Taking Prescribed by: YONATHAN KING on 11/16/221510 Last Action: Discontinued Pravastatin Sodium (Pravastatin Sodium) 40 Mg Tablet, 20 MG PO HS, (Reported) Discontinued Reason: No Longer Taking Entered as Reported by: BRUCE WU on 08/02/191000 Last Action: Discontinued Umeclidinium [place] (Incruse Ellipta) 62.5 Mcg/Actuation Blst.w.dev, 1 PUFF IH DAILY, (Reported) Discontinued Reason: No Longer Taking Entered as Reported by: MEG WARNER on 04/24/20 1451 Last Action: Discontinued Past Obcxdyw-Dyhiuu-Djdbif Hx Patient Social History Smoking Status: Current Everyday Smoker Recent Hopitalizations: Yes Seasonal Allergies Seasonal Allergies: Yes Surgeries History of Surgeries: Yes Surgeries: Eye Surgery, Orthopedic, Transurethral Resection Respiratory History of Respiratory Disorde: Yes Respiratory Disorders: Asthma, Pneumonia, Sleep Apnea Cardiovascular History of Cardiac Disorders: Yes Cardiac Disorders: Chronic Edema/Swelling, High Cholesterol, Hypertension Neurological History of Neurological Disord: No Genitourinary History of Genitourinary Disor: Yes Genitourinary Disorders: Benign Prostatic Hyperpl Gastrointestinal History of Gastrointestinal Di: Yes Gastrointestinal Disorders: Polyps Musculoskeletal History of Musculoskeletal Dis: Yes Musculoskeletal Disorders: Arthritis Endocrine History of Endocrine Disorders: No HEENT History of HEENT Disorders: Yes Loss of Vision: Bilateral (wears glasses) Hearing Impairment: Hard of Hearing Cancer History of Cancer: No Psychosocial History of Psychiatric Problem: Yes Behavioral Health Disorders: Anxiety, Depression Integumentary History of Skin or Integumenta: Yes (cellulitis) Blood Transfusions History of Blood Disorders: No Family Medical History Significant Family History: CAD Under 55 Years Old (father), Diabetes (mother- T2D), Hypertension (brother), Lung Disease (father- emphysema) Family Medial History: "oat cell cancer" 19 MOTHER Bleeding disorder 19 MOTHER FH: CAD (coronary artery disease) 19 FATHER FH: breast cancer 19 MOTHER G8 SISTER FHx: lung disease 19 FATHER Hypertension G8 BROTHER Myocardial infarction 19 FATHER Review of Systems-General Constitutional: No chills, No diaphoresis, No dizziness, No fever; weakness EENTM: No blurred vision, No double vision, No epistaxis Respiratory: No cough, No hemoptysis; short of breath (baseline SOB d/t COPD); No stridor, No wheezing Cardiovascular: No chest pain, No edema, No palpitations Gastrointestinal: No abdominal pain, No constipation, No diarrhea, No heartburn, No nausea, No vomiting Genitourinary: decreased output (has not voided spontaneously in 24 hours), dysuria, hesitancy Musculoskeletal: joint pain, joint swelling, muscle stiffness Skin: change in color; No change in hair/nails; lesions Psychiatric/Neurological: Anxiety, Depressed; Denies Seizure, Denies Tremors Physical Exam-General Problems Physical Exam General Appearance: WD/WN, no apparent distress Eyes: Bilateral Eye PERRL, Bilateral Eye EOMI HEENT: pharynx normal; No scleral icterus (R), No scleral icterus (L) Neck: non-tender, supple Respiratory: chest non-tender, no respiratory distress, no accessory muscle use, wheezing Cardiovascular: regular rate, rhythm, no murmur Gastrointestinal: non tender, soft, no organomegaly, hernia (large right inguinal hernia, incarcerated) Rectal: deferred Genital/Rectal: other (scrotum is huge, in fact it completely covers his penis and can barely see tip of urethra) Extremities: no pedal edema, other (L lateral LE wound just proximal to the ankle with surrounding erythema, approximately 10cm x 7cm, tender to palpation; the center has a circular area that looks like a healing scab) Neurologic/Psychiatric: alert, oriented x 3 Skin: normal color, warm/dry Lymphatic: no adenopathy (neck, axilla or groin) Assessment/Plan Assessment/Plan Assessment/Plan Urinary retention Right inguinal hernia - incarcerated L lateral LE wound I am not sure if the urinary retention is due to BPH or his right inguinal hernia. He is taking Flomax for BPH; can trying increasing this to 0.8mg per day. Continue to straight cath, he says he could do this on his own at home if necessary. Schedule an appointment with urology, he has not seen a urologist since his TURP in 2014. Consider right inguinal hernia repair, it may or may not change the urinary retention problem. Options to send him home where he can straight cath until he gets into a urologist and an option to go forward with an inguinal hernia repair during this hospital stay were presented to the patient and he is going to think about it today. The left lateral lower extremity wound does not require surgical intervention at this time. Wound practice good wound care and switch to oral ABX when he goes h ome. Supervisory-Addendum Brief Verification & Attestation Participated in pt care: history, MDM, physical Personally performed: exam, history, MDM, supervision of care Care discussed with: Medical Student Procedures: n/a Verification and Attestation of Medical Student E/M Service A medical student performed and documented this service. I then reviewed and verified all information documented by the medical student and made modifications to such information, when appropriate. I personally performed a physical exam, medical decision making and then discussed any differences between the notes and made revisions as necessary to create one note. Pk Lim , 04/18/23 , 15:40 VISHNU SEWELL Apr 18, 2023 12:10 PK LIM DO Apr 18, 2023 15:30
[2023-04-18] MEDS ORDERED: CYAN200014 PO (13:11)
[2023-04-18] MEDS ORDERED: FLUT1BLS3 INH (13:11)
[2023-04-18] MEDS ORDERED: AMLO-250 PO (13:11)
[2023-04-18] MEDS ORDERED: ALBU2.5V4 INH (13:11)
[2023-04-18] MEDS ORDERED: RT-ALBUTEROL HFA 8.5 GM INHALER IH SCH (14:00)
[2023-04-18] MEDS: RT-Ipratropium/Albuterol NEB 3 ML VIAL INH SCH ×3 (15:02→21:43)
--- NOTE | 2023-04-18 15:28 | Wound Care Assessment ---
Wound Care Assessment Date Seen by Provider: Apr 18, 2023 Time Seen by Provider: 15:21 Chief Complaint Left ankle ulcer HPI This 72 year old gentleman presents with cellulitis to left lower leg with associated ulceration present for 2 weeks time. Fabio is a heavy smoker (smokes 2ppd and also uses pipe and chewing tobacco). He consequently has COPD and protein energy malnutrition (see albumin). Ensure has been ordered. On exam he has a nickel sized stable eschar with associated cellulitis. He has very poor hygiene which likely has contributed to his poor healing as well. Arterial evaluation would be reasonable as an outpatient as well should he not heal as expected with conventional wound care. Smoking Status: Heavy Tobacco Smoker (2ppd with pipe and chewing tobacco) Recreational Drug Use: No Alcohol Use: Denies Use Review of Systems General: Other (poor personal hygiene) Exam Vital Signs Date Time Temp Pulse Resp B/P (MAP) Pulse Ox O2 Delivery O2 Flow Rate FiO2 04/18/23 15:03 96 Room Air 04/18/23 11:00 37.0 79 20 158/76 (103) 04/17/23 18:59 21 Capillary Refill : Less Than 3 Seconds General Appearance: WD/WN, no apparent distress HEENT: other (normal hearing) Neck: full range of motion Cardiovascular: no edema Respiratory: no respiratory distress, no accessory muscle use Neurologic/Psychiatric: alert, normal mood/affect, oriented x 3 Wound assessment: 1x1.5x0.1cm. The epithelialization is none. There is no tunneling or undermining. Drainage is none. Granulation is none. Necrotic is large and eschar. Margins flat Results Laboratory Tests 04/17/23 15:25: White Blood Count 12.0H, Red Blood Count 4.25L, Hemoglobin 12.2L, Hematocrit 37L , Mean Corpuscular Volume 86, Mean Corpuscular Hemoglobin 29, Mean Corpuscular Hemoglobin Concent 33, Red Cell Distribution Width 13.3, Platelet Count 279, Mean Platelet Volume 11.0, Immature Granulocyte % (Auto) 3, Neutrophils (%) (Auto) 62, Lymphocytes (%) (Auto) 19, Monocytes (%) (Auto) 13H, Eosinophils (%) (Auto) 2, Basophils (%) (Auto) 1, Neutrophils # (Auto) 7.5, Lymphocytes # (Auto) 2.3, Monocytes # (Auto) 1.5H, Eosinophils # (Auto) 0.3, Basophils # (Auto) 0.1, Immature Granulocyte # (Auto) 0.3H, Sodium Level 136, Potassium Level 4.5, Chloride Level 102, Carbon Dioxide Level 22, Anion Gap 12, Blood Urea Nitrogen 47H, Creatinine 2.24H, Estimat Glomerular Filtration Rate 30, BUN/Creatinine Ratio 21, Glucose Level 113H, Lactic Acid Level 1.81, Calcium Level 8.9 04/18/23 01:35: Urine Color YELLOW, Urine Clarity SLIGHTLY CLOUDY, Urine pH 6.0, Urine Specific Enc[place] >=1.030, Urine Protein 2+H, Urine Glucose (UA) NEGATIVE, Urine Ketones NEGATIVE, Urine Nitrite NEGATIVE, Urine Bilirubin NEGATIVE, Urine Urobilinogen 0.2, Urine Leukocyte Esterase 1+H, Urine RBC (Auto) 3+H, Urine RBC >100H, Urine WBC 25-50H, Urine Crystals NONE, Urine Bacteria TRACE, Urine Casts NONE, Urine Mucus NEGATIVE, Urine Culture Indicated YES 04/18/23 05:34: White Blood Count 12.3H, Red Blood Count 3.95L, Hemoglobin 11.4L, Hematocrit 34L , Mean Corpuscular Volume 86, Mean Corpuscular Hemoglobin 29, Mean Corpuscular Hemoglobin Concent 33, Red Cell Distribution Width 13.3, Platelet Count 255, Mean Platelet Volume 11.3, Immature Granulocyte % (Auto) 2, Neutrophils (%) (Auto) 66, Lymphocytes (%) (Auto) 18, Monocytes (%) (Auto) 12, Eosinophils (%) (Auto) 2, Basophils (%) (Auto) 1, Neutrophils # (Auto) 8.1H, Lymphocytes # (A uto) 2.2, Monocytes # (Auto) 1.5H, Eosinophils # (Auto) 0.2, Basophils # (Auto) 0.1, Immature Granulocyte # (Auto) 0.2H, Sodium Level 137, Potassium Level 4.4, Chloride Level 109H, Carbon Dioxide Level 20L, Anion Gap 8, Blood Urea Nitrogen 41H, Creatinine 1.82H, Estimat Glomerular Filtration Rate 38, BUN/Creatinine Ratio 23, Glucose Level 95, Calcium Level 8.4L, Corrected Calcium 9.3, Total Bilirubin 0.4, Aspartate Amino Transf (AST/SGOT) 22, Alanine Aminotransferase (ALT/SGPT) 27, Alkaline Phosphatase 150H, Total Protein 6.1L, Albumin 2.9L Microbiology 04/17/23 Blood Culture - Preliminary, Resulted Microbiology 04/17/23 Blood Culture - Preliminary, Resulted 04/17/23 Blood Culture - Preliminary, Resulted Assessment/Plan/Dx Assessment: 1. Non-pressure ulcer left lateral ankle 2. Cellulitis left lateral ankle 3. Heavy tobaccoism 4. Moderate PEM 5. COPD 5. Chronic anemia Plan: 1. Wash legs thoroughly. [place] eschar with betadine bid and air dry. 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 Agree with current antibiotics 3. Smoking cessation advisable. If he fails to heal as outpatient, vascular assessment with segmental studies or arterial ultrasound would be reasonable 4. Agree with protein supplementation 5. Smoking cessation advised 6. Defer to primary team. GIOVANNI KELLEY MD Apr 18, 2023 15:28
[2023-04-18] MEDS: TIOTROPIUM INH 4 GM (SPIRIVA Respimat) IH SCH (15:30)
[2023-04-18] MEDS: FLUTICASONE/VILANTEROL 100/25 MCG (7 DOSES) IH SCH (15:31)
[2023-04-18] MEDS ORDERED: RT-ALBUTEROL HFA 8.5 GM INHALER IH PRN (15:45)
[2023-04-18] MEDS ORDERED: NS (IVPB) 50 ML 50 ML ONE (17:24)
[2023-04-18] MEDS ORDERED: VANCOMYCIN 1 GM/NS 250 ML IVPB IV SCH ×2 (19:00)
[2023-04-18] MEDS: buPROPion 100 MG TABLET PO SCH (20:21)
[2023-04-18] MEDS: meTOprolol TARTRATE (IR) 25 MG TABLET PO SCH (20:22)
[2023-04-18] MEDS: amLODIPine 5 MG TABLET PO SCH (20:22)
[2023-04-18] MEDS: POVIDONE IODINE 10% TOP SCH (20:23)
[2023-04-18] MEDS ORDERED: RT-ALBUTEROL SULF 2.5 MG/3 ML PRE-MIX VIAL INH PRN (20:30)
[2023-04-18] MEDS ORDERED: TAMSULOSIN 0.4 MG (FLOMAX) CAP PO SCH (21:00)
[2023-04-18] MEDS ORDERED: ENOXAPARIN 40 MG/0.4 ML SYRINGE SC SCH (21:00)
[2023-04-19] MEDS: ceFAZolin INJECTION 2,000 MG in NS (IVPB) 50 ML 50 ML IV SCH ×2 (00:57→08:55)
[2023-04-19 03:46] VITALS: BP 165/82
[2023-04-19] MEDS ORDERED: THERAPEUTIC MULTIVITAMIN W/MINERALS TABLET PO SCH (07:00)
[2023-04-19 07:39] VITALS: BP 162/72
[2023-04-19 07:51] LABS: BASOPHILS # (AUTO) 0.1 10^3/uL (0.0-0.1); BASOPHILS % (AUTO) 1 % (0-10); EOSINOPHILS # (AUTO) 0.2 10^3/uL (0.0-0.3); EOSINOPHILS % (AUTO) 2 % (0-10); HEMATOCRIT 33 % (40-54); HEMOGLOBIN 10.9 g/dL (13.3-17.7); LYMPHOCYTES # (AUTO) 1.8 10^3/uL (1.0-4.0); LYMPHOCYTES % (AUTO) 20 % (12-44); MEAN CORPUSCULAR HEMOGLOBIN 28 pg (25-34); MEAN CORPUSCULAR HGB CONC 33 g/dL (32-36); MEAN CORPUSCULAR VOLUME 86 fL (80-99); MONOCYTES # (AUTO) 1.2 10^3/uL (0.0-1.0); MONOCYTES % (AUTO) 14 % (0-12); NEUTROPHILS # (AUTO) 5.5 10^3/uL (1.8-7.8); NEUTROPHILS % (AUTO) 61 % (42-75); PLATELET COUNT 254 10^3/uL (130-400); WHITE BLOOD COUNT 9.1 10^3/uL (4.3-11.0)
[2023-04-19 08:12] LABS: ALBUMIN 2.8 GM/DL (3.2-4.5); BILIRUBIN,TOTAL 0.3 MG/DL (0.1-1.0); CALCIUM 8.4 MG/DL (8.5-10.1); CREATININE SERUM 1.42 MG/DL (0.60-1.30); POTASSIUM 4.6 MMOL/L (3.6-5.0)
--- NOTE | 2023-04-19 08:30 | Progress Note - Surgery ---
VISHNU SEWELL 04/19/23 0829: Subjective Date Seen by a Provider: Apr 19, 2023 Time Seen by a Provider: 08:10 Subjective/Events-last exam Mr. Rojas was seen this morning lying in his hospital bed. He was able to void this morning on his own without catheterization. He has been eating and ambulating to the bathroom. He feels generally well and reports that the wound on his left lateral lower extremity is getting better. He would like to go home and if given supplies could use a catheter if needed. He would also like to schedule an appointment with a urologist. At this time he does not want to undergo an inguinal hernia repair. Review of Systems General: No Chills, No Night Sweats HEENT: No Head Aches Pulmonary: No Dyspnea, No Cough Cardiovascular: No: Chest Pain, Palpitations Gastrointestinal: No: Nausea, Vomiting, Abdominal Pain, Diarrhea, Constipation Genitourinary: Other (was able to urinate spontaneously this morning) Integumentary: L lateral LE wound with central area of scabbing, tender to palpation Focused Exam Lactate Level 04/17/23 15:25: Lactic Acid Level 1.81 Objective Exam Vital Signs Date Time Temp Pulse Resp B/P (MAP) Pulse Ox O2 Delivery O2 Flow Rate FiO2 04/19/23 07:39 36.7 65 16 162/72 (102) 95 Room Air 04/19/23 03:46 37.0 69 18 165/82 (109) 96 Room Air 04/19/23 00:26 37.6 04/19/23 00:16 37.6 04/18/23 23:38 38.0 04/18/23 23:11 38.0 75 18 153/70 (97) 95 Room Air 04/18/23 21:43 96 Room Air 04/18/23 20:00 Room Air 04/18/23 19:56 37.7 96 18 165/77 (106) 93 Room Air 04/18/23 16:25 37.7 85 16 158/74 (102) 97 Room Air 04/18/23 15:03 96 Room Air 04/18/23 11:00 37.0 79 20 158/76 (103) 96 Room Air I & O 04/19/23 07:00 Intake Total 2134 ml Output Total 600 ml Balance 1534 ml Capillary Refill : Less Than 3 Seconds General Appearance: No Apparent Distress, WD/WN HEENT: PERRL/EOMI, Moist Mucous Membranes Respiratory: Chest Non Tender, No Accessory Muscle Use, No Respiratory Distress, Wheezing Cardiovascular: Regular Rate, Rhythm, No Murmur Gastrointestinal: non tender, soft, no organomegaly, hernia (large right inguinal hernia, incarcerated) Extremity: Other (L lateral LE wound just proximal to the ankle with surrounding erythema, slightly improved from yesterday, approximately 9cm x 7cm, tender to palpation. The center has a circular area that looks like a healing scab. Today there is more of a yellow coloration on the perimeter of the wound that looks like bruising. There is also scant purulent fluid draining from the medial aspect of the wound. ) Neurologic/Psychiatric: Alert, Oriented x3 Results Lab Laboratory Tests 04/19/23 05:29: White Blood Count 9.1, Red Blood Count 3.85L, Hemoglobin 10.9L, Hematocrit 33L, Mean Corpuscular Volume 86, Mean Corpuscular Hemoglobin 28, Mean Corpuscular Hemoglobin Concent 33, Red Cell Distribution Width 13.6, Platelet Count 254, Mean Platelet Volume 12.0, Immature Granulocyte % (Auto) 2, Neutrophils (%) (Auto) 61, Lymphocytes (%) (Auto) 20, Monocytes (%) (Auto) 14H, Eosinophils (%) (Auto) 2, Basophils (%) (Auto) 1, Neutrophils # (Auto) 5.5, Lymphocytes # (Auto) 1.8, Monocytes # (Auto) 1.2H, Eosinophils # (Auto) 0.2, Basophils # (Auto) 0.1, Immature Granulocyte # (Auto) 0.2H, Sodium Level 138, Potassium Level 4.6, Chloride Level 109H, Carbon Dioxide Level 20L, Anion Gap 9, Blood Urea Nitrogen 38H, Creatinine 1.42H, Estimat Glomerular Filtration Rate 52, BUN/Creatinine Ratio 27, Glucose Level 85, Calcium Level 8.4L, Corrected Calcium 9.4, Total Bilirubin 0.3, Aspartate Amino Transf (AST/SGOT) 23, Alanine Aminotransferase (ALT/SGPT) 19, Alkaline Phosphatase 157H, Total Protein 6.0L, Albumin 2.8L Microbiology 04/17/23 Blood Culture - Preliminary, Resulted Assessment/Plan Assessment/Plan Assessment/Plan Urinary retention, improved from yesterday, has voided once spontaneously Right inguinal hernia - incarcerated L lateral LE wound Continue Flomax, consider increasing the dose to 0.8mg per day. He urinated spontaneously once this morning, we can send him home with supplies to straight cath if necessary. He would like to schedule an appointment with urology. He does not want to schedule a surgery to fix his inguinal hernia at this time. On discharge he can switch to oral antibiotics for his L LE wound. No wound dressing suggested at this time, just practice good wound care keeping it clean and dry as possible. Clinical Quality Measures DVT/VTE Risk/Contraindication: Contraindications-Mechi: Other *list below* Other: cellulitis of the legs BOB SANDOVAL DO 04/19/23 1100: Subjective Time Seen by a Provider: 10:21 Subjective/Events-last exam Pt seen and examined, states he is doing better today. Still no pain from incarcerated hernia and he was able to void today on his own. He states he does not want surgery at this time. Review of Systems General: No Chills, No Night Sweats Pulmonary: No Dyspnea, No Cough Cardiovascular: No: Chest Pain, Palpitations Gastrointestinal: No: Nausea, Vomiting, Abdominal Pain, Diarrhea, Constipation Genitourinary: No Hematuria; Retention Objective Exam General Appearance: No Apparent Distress, Thin HEENT: PERRL/EOMI, Moist Mucous Membranes Respiratory: No Accessory Muscle Use, No Respiratory Distress, Wheezing Cardiovascular: Regular Rate, Rhythm, No Murmur Gastrointestinal: non tender, soft, no organomegaly, hernia (large right inguinal hernia, incarcerated) Extremity: Other (L lateral LE wound just proximal to the ankle with surrounding erythema, slightly improved from yesterday, approximately 9cm x 7cm, tender to palpation. The center has a circular area that looks like a healing scab. Today there is more of a yellow coloration on the perimeter of the wound that looks like bruising. There is also scant fluid draining from the medial aspect of the wound. ) Assessment/Plan Assessment/Plan Assessment/Plan Urinary retention, improved from yesterday, has voided once spontaneously Right inguinal hernia - incarcerated L lateral LE wound Continue Flomax, consider increasing the dose to 0.8mg per day. He urinated spontaneously once this morning, we can send him home with supplies to straight cath if necessary. He would like to schedule an appointment with urology. He does not want to schedule a surgery to fix his inguinal hernia at this time. I told him to come in if anything changes (pain, size, etc) or he has questions. On discharge he can switch to oral antibiotics for his L LE wound. Keep wound as clean and dry as possible; does not need any special dressing. Supervisory-Addendum Brief Verification & Attestation Participated in pt care: history, MDM, physical Personally performed: exam, history, MDM, supervision of care Care discussed with: Medical Student Procedures: n/a Verification and Attestation of Medical Student E/M Service A medical student performed and documented this service. I then reviewed and verified all information documented by the medical student and made modifications to such information, when appropriate. I personally performed a physical exam, medical decision making and then discussed any differences between the notes and made revisions as necessary to create one note. Bob Sandoval , 04/19/23 , 11:00 VISHNU SEWELL Apr 19, 2023 08:29 BOB SANDOVAL DO Apr 19, 2023 11:00
--- NOTE | 2023-04-19 08:46 | Discharge Summary ---
MARIANO FRY MD, RESIDENT 04/19/23 0845: Discharge Summary Hospital Course Was the Problem List Reviewed?: Yes Problems/Dx: (1) Cellulitis of leg, left Status: Acute Assessment & Plan: Black eschar type wound on left lower extremity. Does appear to be secondary to venous stasis. Patient receiving vancomycin and cefazolin while inpatient. Plan: Plan to switch to cefpodoxime in the outpatient. Wound care recommendations include washing legs thoroughly, apply Betadine twi ce daily and air dry on to eschar, continue antibiotics. Smoking cessation. (2) UTI (urinary tract infection) Status: Acute Assessment & Plan: Urine analysis on admission was positive for UTI. Leukocytosis and symptoms resolved. Plan: We will discharge on cefpodoxime Follow-up urine culture (3) Urinary retention Status: Acute Assessment & Plan: Patient having issues with urinary retention. Plan: Patient may have underlying BPH or urinary retention secondary to right inguinal hernia Per surgery, can increase Flomax to 0.8 mg daily Straight cath as needed We will refer to urology for further management (4) HTN (hypertension) Status: Chronic Assessment & Plan: Continue home meds. (5) COPD (chronic obstructive pulmonary disease) Status: Chronic Assessment & Plan: Continue home meds. Hospital Course Date of Admission: Apr 17, 2023 at 17:26 Admission Diagnosis : Family Physician/Provider: Baltazar Farr MD Date of Discharge: 04/19/23 Discharge Diagnosis: [Left lower extremity cellulitis, UTI] Hospital Course: [Patient is a 72-year-old male with a past medical history of COPD and hypertension who presented with left lower extremity cellulitis concerns. It was noted that he had a circumferential ulcer in the left lateral region of his ankle that is been ongoing for about 2 weeks with an overlying eschar. He denies any drainage of the wound. Patient was also noted to have a UTI on evaluation in the ED. Labs were notable for leukocytosis. He was ultimately admitted for further management. While inpatient, he was managed with vancomycin and cefazolin. We consulted wound care who is plan recommendations are above. No surgical intervention was necessary on patient's wound. We also consulted general surgery as patient was having urinary retention issues which likely led to his UTI. We will send patient home on an increased dose of tamsulosin to 0.8 mg daily. We will also send patient home with straight cath supplies. We will send patient with cefpodoxime to complete cellulitis and UTI treatment. Send referral to urology.] Labs and Pending Lab Test: Laboratory Tests 04/19/23 05:29: White Blood Count 9.1, Red Blood Count 3.85L, Hemoglobin 10.9L, Hematocrit 33L, Mean Corpuscular Volume 86, Mean Corpuscular Hemoglobin 28, Mean Corpuscular Hemoglobin Concent 33, Red Cell Distribution Width 13.6, Platelet Count 254, Mean Platelet Volume 12.0, Immature Granulocyte % (Auto) 2, Neutrophils (%) (Auto) 61, Lymphocytes (%) (Auto) 20, Monocytes (%) (Auto) 14H, Eosinophils (%) (Auto) 2, Basophils (%) (Auto) 1, Neutrophils # (Auto) 5.5, Lymphocytes # (Auto) 1.8, Monocytes # (Auto) 1.2H, Eosinophils # (Auto) 0.2, Basophils # (Auto) 0.1, Immature Granulocyte # (Auto) 0.2H, Sodium Level 138, Potassium Level 4.6, Chloride Level 109H, Carbon Dioxide Level 20L, Anion Gap 9, Blood Urea Nitrogen 38H, Creatinine 1.42H, Estimat Glomerular Filtration Rate 52, BUN/Creatinine Ratio 27, Glucose Level 85, Calcium Level 8.4L, Corrected Calcium 9.4, Total Bilirubin 0.3, Aspartate Amino Transf (AST/SGOT) 23, Alanine Aminotransferase (ALT/SGPT) 19, Alkaline Phosphatase 157H, Total Protein 6.0L, Albumin 2.8L Microbiology 04/17/23 Blood Culture - Preliminary, Resulted Home Meds Active Reported Vitamin B-12 (Cyanocobalamin (Vitamin B-12)) 2,000 Mcg Tablet 2,000 Mcg PO DAILY Amlodipine Besylate 5 Mg Tablet 5 Mg PO BID Trelegy Ellipta 100-62.5-25 (Fluticasone/Umeclidin/Vilanter) 100-62.5 Blst.w.dev 1 Puff INH DAILY Albuterol Sulfate 2.5 Mg/3 Ml (0.083 %) Vial.neb 2.5 Mg INH Q4H PRN Lisinopril 20 Mg Tablet 20 Mg PO DAILY Multivitamin 1 Each Tablet 1 Each PO DAILY Citalopram HBr (Citalopram Hydrobromide) 40 Mg Tablet 20 Mg PO DAILY TAKES OF A 40MG TAB Diltiazem ER (Diltiazem HCl) 120 Mg Capsule.er 240 Mg PO DAILY TAKES 2 (120MG) CAPS Famotidine 20 Mg Tablet 20 Mg PO BID Flomax (Tamsulosin HCl) 0.4 Mg Cap 0.4 Mg PO HS Metoprolol Tartrate 50 Mg Tablet 25 Mg PO BID TAKES OF A 50MG TAB Bupropion HCl 100 Mg Tablet 200 Mg PO BID TAKES 2 (100MG) TABS Assessment/Pt Instructions Please see electronic discharge instructions given to patient. Discharge Instructions Discharge Diet: No Restrictions Activity as Tolerated: Yes Discharge Physical Examination Vital Signs Vital Signs Date Time Temp Pulse Resp B/P (MAP) Pulse Ox O2 Delivery O2 Flow Rate FiO2 04/19/23 07:39 36.7 65 16 162/72 (102) 95 Room Air 04/17/23 18:59 21 General Appearance: No Apparent Distress HEENT: Normal ENT Inspection Respiratory: Chest Non Tender, Lungs Clear, Normal Breath Sounds, No Accessory Muscle Use, No Respiratory Distress Cardiovascular: Regular Rate, Rhythm, No Edema, No Murmur Gastrointestinal: Normal Bowel Sounds, Non Tender, Soft Extremity: Normal Inspection Skin: Normal Color, Warm/Dry, Other (Eschar on left lateral ankle with Betadine on it, no drainage noted, erythema appears to have improved, nontender to palpation) Neurologic/Psychiatric: Alert, Oriented x3 Allergies: Coded Allergies: Sulfa (Sulfonamide Antibiotics) (Verified Allergy, Unknown, 08/02/19) Copy Copies To 1: BALTAZAR FARR MD Discharge Summary Date of Admission Apr 17, 2023 at 17:26 Date of Discharge Admission Diagnosis Assessment: Left lower extremity cellulitis Venous stasis ulceration prompting wound care Urinary retention UTI COPD Plan: Catheter management appreciated IV antibiotics I personally performed the babb portions of the visit, discussed case with resident and concur with resident documentation of history, physical exam, assessment and treatment plan unless otherwise noted. Discharge Diagnosis (1) Cellulitis of leg, left Status: Acute Assessment & Plan: Black eschar type wound on left lower extremity. Does appear to be secondary to venous stasis. Plan: Continue antibiotics vancomycin and cefazolin Consulting wound care for further management (2) UTI (urinary tract infection) Status: Acute Assessment & Plan: Urine analysis on admission was positive for UTI. In addition patient is having symptoms of dysuria. Leukocytosis does not appear to have resolved at this time. Plan: Continue antibiotics vancomycin and cefazolin Follow-up urine culture (3) Urinary retention Status: Acute Assessment & Plan: Patient having issues with urinary retention. Nurses were unsuccessful in placing Garcia catheter yesterday and patient has not been able to urinate spontaneously on his own. This is likely what has resulted in his UTI. Plan: We will consult general surgery for catheter placement (4) HTN (hypertension) Status: Chronic Assessment & Plan: Patient has a history of hypertension. Blood pressures are mildly elevated. Will restart PROTOCOL MANAGER meds once med rec has been completed. (5) COPD (chronic obstructive pulmonary disease) Status: Chronic Assessment & Plan: Patient a bit wheezy on exam today. We will start PROTOCOL MANAGER meds once med rec has been completed. Clinical Quality Measures DVT/VTE Risk/Contraindication: Contraindications-Mechi: Other *list below* Other: cellulitis of the legs YONATHAN KING DO 04/19/23 6805: Discharge Summary Hospital Course Was the Problem List Reviewed?: Yes Hospital Course I personally performed the babb portions of the visit, discussed case with resident and concur with resident documentation of history, physical exam, assessment and treatment plan unless otherwise noted. Assessment/Pt Instructions PCP 1 week Discharge Planning: <30 minutes discharge planning Discharge Physical Examination General Appearance: No Apparent Distress, WD/WN Allergies: Coded Allergies: Sulfa (Sulfonamide Antibiotics) (Verified Allergy, Unknown, 08/02/19) Copy Copies To 1: BALTAZAR FARR MD, ISHA MD, RESIDENT Apr 19, 2023 08:45 YONATHAN KING DO Apr 19, 2023 18:55
[2023-04-19] MEDS: meTOprolol TARTRATE (IR) 25 MG TABLET PO SCH (08:52)
[2023-04-19] MEDS: amLODIPine 5 MG TABLET PO SCH (08:53)
[2023-04-19] MEDS: DOCUSATE SODIUM 100 MG CAPSULE PO SCH (08:53)
[2023-04-19] MEDS: buPROPion 100 MG TABLET PO SCH (08:53)
[2023-04-19] MEDS: TIOTROPIUM INH 4 GM (SPIRIVA Respimat) IH SCH ×2 (08:54→10:27)
[2023-04-19] MEDS: FLUTICASONE/VILANTEROL 100/25 MCG (7 DOSES) IH SCH ×2 (08:54→10:26)
[2023-04-19] MEDS: SENNOSIDES 8.6 MG TABLET PO SCH (08:54)
[2023-04-19] MEDS: POVIDONE IODINE 10% TOP SCH (08:55)
[2023-04-19] MEDS ORDERED: dilTIAZem ER 240 MG CAPSULE PO SCH (09:00)
[2023-04-19] MEDS ORDERED: CYANOCOBALAMIN 1,000 MCG TABLET PO SCH (09:00)
[2023-04-19] MEDS ORDERED: NON-FORMULARY MEDICATION 1 EA EA (Fluticasone/Umeclidin/Vilanter (Trelegy Ellipta 100-62.5 INH SCH (09:00)
[2023-04-19] MEDS ORDERED: FAMOTIDINE 20 MG TABLET PO SCH (09:00)
[2023-04-19] MEDS ORDERED: CITALOPRAM 20 MG TABLET PO SCH (09:00)
[2023-04-19] MEDS: RT-Ipratropium/Albuterol NEB 3 ML VIAL INH SCH (10:23)
[2023-04-19] MEDS ORDERED: CEFP100T2 PO (10:24)
[2023-04-19] MEDS ORDERED: POVI3780 TOP (10:24)
[2023-04-19] MEDS ORDERED: TMSL.4C PO (10:24)
[2023-04-19] MEDS ORDERED: AMLO-250 PO (10:24)
[2023-04-19] MEDS ORDERED: TROUGH ORDER-PHARMACY XX ONE (18:00)
== END 2023-04-19 11:31 | disposition home or self-care (01) ==
LOC: EDUNIT# 13:54 → ER 13:56 → 4TH 17:26 → UNDOADMOB 17:26 → 4TH 19:35 → UNDODISOB 04-19 11:30
PROVIDERS: ADMIT Internal Medicine; ATTEND Internal Medicine
DX: L03.116 Cellulitis of left lower limb (principal); N39.0 Urinary tract infection, site not specified; R33.9 Retention of urine, unspecified; I10 Essential (primary) hypertension; J44.9 Chronic obstructive pulmonary disease, unspecified; I83.009 Varicose veins of unspecified lower extremity with ulcer of unspecified site; N40.0 Benign prostatic hyperplasia without lower urinary tract symptoms; K40.30 Unilateral inguinal hernia, with obstruction, without gangrene, not specified as recurrent; S81.802A Unspecified open wound, left lower leg, initial encounter; D53.9 Nutritional anemia, unspecified; L89.529 Pressure ulcer of left ankle, unspecified stage; F17.210 Nicotine dependence, cigarettes, uncomplicated; F17.290 Nicotine dependence, other tobacco product, uncomplicated; Z79.899 Other long term (current) drug therapy
CPT/HCPCS: 73562; 80048; 80053 ×2; 81000; 83605; 85025 ×3; 87040; 87088; 94640 ×3; 94760; 96366 ×3; 96372 ×2; 96374; 96376 ×2; 99284; G0378; 36415

== ENCOUNTER 2023-05-15 17:16 | Inpatient (IN) | payer MEDICARE ==
[~2023-05-15] VITALS: Ht 177.8 cm; Wt 83.6 kg
[2023-05-15 11:00] VITALS: BP 166/145
[~2023-05-15 17:16] MED LIST changes: +CEFP100T2 PO; +CYAN200014 PO; +FLUT1BLS3 INH; +POVI3780 TOP
[2023-05-15 17:27] VITALS: BP 153/83
--- NOTE | 2023-05-15 17:29 | ED Respiratory ---
General Chief Complaint: Respiratory Problems Stated Complaint: SOA Source: patient Exam Limitations: no limitations History of Present Illness Date Seen by Provider: May 15, 2023 Time Seen by Provider: 17:27 Initial Comments Patient is a 72-year-old male who presents to the ED for shortness of breath. This occurred this evening. States he started walking to the bathroom started feeling short of breath. Uses inhaler at home and contacted EMS. EMS state patient was 86% on room air. Did give a breathing treatment in route improvement to 97%. On arrival patient oxygen was in the mid 70s. Patient does report a mild cough. He reports daily chest pain. States he has been having bilateral leg swelling for the past 3 to 4 weeks worse on the left. Not currently on anticoagulant. Denies history of cardiac stents. 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 States he started having chills feeling fevers today. Denies any nausea, vomiting, diarrhea. Associated shortness of breath. Denies of any recent travels, surgeries, abdominal pain, pain with urination, frequent urination, headache or dizziness. Patient does not wear oxygen at home. Difficulty talking in complete sentences. Allergies and Home Medications Allergies Coded Allergies: Sulfa (Sulfonamide Antibiotics) (Verified Allergy, Unknown, 08/02/19) Patient Home Medication List Home Medication List Reviewed: Yes Albuterol Sulfate (Albuterol Sulfate) 2.5 Mg/3 Ml (0.083 %) Vial.neb, 2.5 MG INH Q4H PRN for SHORTNESS OF BREATH, (Reported) Entered as Reported by: ONELIA TEMPLE on 04/18/23 1311 Last Action: Held Albuterol Sulfate (Ventolin Hfa) 1 Puff Puff, 2 PUFF INH Q4H PRN for SHORTNESS OF BREATH, (Reported) Entered as Reported by: ANDREIA NINO on 05/16/23 1142 Last Action: Held Amlodipine Besylate (Amlodipine Besylate) 5 Mg Tablet, 10 MG PO BID, (Reported) Entered as Reported by: ANDREIA NINO on 05/16/23 1142 Last Action: Continued Bupropion HCl (Bupropion HCl) 100 Mg Tablet, 200 MG PO BID, (Reported) Entered as Reported by: BRUCE WU on 08/02/19 1001 Last Action: Continued Citalopram Hydrobromide (Citalopram HBr) 40 Mg Tablet, 20 MG PO DAILY, (Reported) Entered as Reported by: ANDREIA NINO on 11/16/221323 Last Action: Converted Cyanocobalamin (Vitamin B-12) (Vitamin B-12) 2,000 Mcg Tablet, 2,000 MCG PO DAILY, (Reported) Entered as Reported by: ONELIA TEMPLE on 04/18/231310 Last Action: Converted Diltiazem HCl (Diltiazem ER) 120 Mg Capsule.er, 240 MG PO DAILY, (Reported) Entered as Reported by: ANDREIA NINO on 11/16/221323 Last Action: Converted Famotidine (Famotidine) 20 Mg Tablet, 20 MG PO BID, (Reported) Entered as Reported by: ANDREIA NINO on 11/16/221323 Last Action: Continued Fluticasone/Umeclidin/Vilanter (Trelegy Ellipta 100-62.5-25) 100-62.5 Blst.w.dev, 1 PUFF INH DAILY, (Reported) Entered as Reported by: ONELIA TEMPLE on 04/18/231310 Last Action: Converted Lisinopril (Lisinopril) 20 Mg Tablet, 20 MG PO DAILY, (Reported) Entered as Reported by: ANDREIA NINO on 11/16/221323 Last Action: Continued Metoprolol Tartrate (Metoprolol Tartrate) 50 Mg Tablet, 25 MG PO BID, (Reported) Entered as Reported by: BRUCE WU on 08/02/19 100 Last Action: Continued Multivitamin (Multivitamin) 1 Each Tablet, 1 EACH PO DAILY, (Reported) Entered as Reported by: ANDREIA NINO on 11/16/221323 Last Action: Converted Pravastatin Sodium (Pravastatin Sodium) 40 Mg Tablet, 20 MG PO HS, (Reported) Entered as Reported by: ANDREIA NINO on 05/16/23 114 Last Action: Converted Tamsulosin HCl (Flomax) 0.4 Mg Cap, 0.8 MG PO HS, (Reported) Entered as Reported by: ANDREIA NINO on 05/16/23 114 Last Action: Continued Discontinued Medications Amlodipine Besylate (Amlodipine Besylate) 5 Mg Tablet, 10 MG PO BID Discontinued Reason: No Longer Taking Prescribed by: Veronika Healy on 04/19/23 1024 Last Action: Discontinued Cefpodoxime Proxetil (Cefpodoxime Proxetil) 100 Mg Tablet, 100 MG PO BID Discontinued Reason: Referral/FU Appt-Addtl Prescribed by: Veronika Healy on 04/19/23 1024 Last Action: Discontinued Povidone-Iodine (Betadine) 10 % Solution, 0 ML TOP BID Discontinued Reason: No Longer Taking Prescribed by: Veronika Healy on 04/19/23 1024 Last Action: Discontinued Review of Systems Review of Systems Constitutional: chills; No diaphoresis; malaise, weakness EENTM: No ear pain, No blurred vision, No double vision Respiratory: cough, dyspnea on exertion, short of breath Cardiovascular: chest pain Gastrointestinal: No abdominal pain, No diarrhea, No nausea, No vomiting Genitourinary: No decreased output, No discharge Musculoskeletal: No back pain, No joint pain Skin: No change in color Psychiatric/Neurological: Denies Anxiety, Denies Depressed All Other Systems Reviewed Negative Unless Noted: Yes Past Gn[place]k-Kyjovx-Lkxtxh Hx Immunizations Up To Date Tetanus Booster (TDap): Unknown First/Initial COVID19 Vaccinat: x2 Second COVID19 Vaccination Rm: x2 Third COVID19 Vaccination Date: x2 Seasonal Allergies Seasonal Allergies: Yes Past Medical History Surgery/Hospitalization HX: copd, chf, bilateral cataracts, htn, gerd, hld, afib, HX BLOOD CLOT LOWER EXT Surgeries: Yes Eye Surgery, Orthopedic, Transurethral Resection Respiratory: Yes COPD Currently Using CPAP: Yes (NOT USING RIGHT NOW ) Cardiac: Yes Chronic Edema/Swelling, High Cholesterol, Hypertension Neurological: No Sexually Transmitted Disease: No HIV/AIDS: No Genitourinary: Yes Benign Prostatic Hyperpl Gastrointestinal: Yes Polyps Musculoskeletal: Yes Arthritis Endocrine: No HEENT: Yes Loss of Vision: Bilateral Hearing Impairment: Hard of Hearing Cancer: No Psychosocial: Yes Depression Integumentary: Yes (cellulitis) Blood Disorders: No Adverse Reaction/Blood Tranf: No (N/A) Family Medical History "oat cell cancer" 19 MOTHER Bleeding disorder 19 MOTHER FH: CAD (coronary artery disease) 19 FATHER FH: breast cancer 19 MOTHER G8 SISTER FHx: lung disease 19 FATHER Hypertension G8 BROTHER Myocardial infarction 19 FATHER CAD Under 55 Years Old, Diabetes, Hypertension, Lung Disease SOCIAL HISTORY: -SMOKES AT LEAST 2 PPD, PLUS SMOKES A PIPE DAILY, PLUS CHEWS TOBACCO DAILY -ETOH--DENIES USE -DRUGS--DENIES USE PAST SURGICAL HISTORY: -BILATERAL CATARACTS 01/2021 -COLONOSCOPY / POLYPECTOMY -TURP -ULNAR NERVE SURGERY Physical Exam Vital Signs - First Documented 05/15/23 05/15/23 05/15/23 11:00 17:17 17:27 Temp 37.1 Pulse 86 Resp 14 B/P (MAP) 166/145 (152) Pulse Ox 89 O2 Delivery NIV Bilevel O2 Flow Rate 100.00 Capillary Refill : Height: '" Weight: lbs. oz. kg; 22.81 BMI Method: General Appearance: WD/WN, no apparent distress Eyes: Bilateral Eye Normal Inspection, Bilateral Eye PERRL, Bilateral Eye Abnormal EOM HEENT: PERRL/EOMI, normal ENT inspection, TMs normal, pharynx normal Neck: non-tender, full range of motion, supple Respiratory: chest non-tender, normal breath sounds, no respiratory distress, crackles (Right lungs), other (Mouth breathing) Cardiovascular: regular rate, rhythm, no edema, no gallop, no JVD Extremities: normal range of motion, non-tender, other (Bilateral lower extremity pitting edema worse on the left.) Neurologic/Psychiatric: insole filler II-XII nml as tested, no motor/sensory deficits, alert, normal mood/affect, oriented x 3 Skin: normal color, warm/dry Focused Exam Lactate Level 05/15/23 17:25: Lactic Acid Level 1.15 Lactic Acid Level Laboratory Tests Test 05/15/23 17:25 Lactic Acid Level 1.15 MMOL/L (0.50-2.00) Progress/Results/Core Measures Suspected Sepsis SIRS Temperature: Pulse: Respiratory Rate: Laboratory Tests 05/15/23 17:25: White Blood Count 11.0 Blood Pressure / Mean: 05/15/23 17:25: Lactic Acid Level 1.15 Laboratory Tests 05/15/23 17:25: Creatinine 1.30, INR Comment 1.1, Platelet Count 286, Total Bilirubin 0.9 Results/Orders Lab Results Laboratory Tests Test 05/15/23 17:25 05/15/23 17:30 05/15/23 17:32 05/15/23 20:12 Range/Units White Blood Count 11.0 4.3-11.0 10^3/uL Red Blood Count 3.59 L 4.30-5.52 10^6/uL Hemoglobin 10.3 L 13.3-17.7 g/dL Hematocrit 32 L 40-54 % Mean Corpuscular Volume 88 80-99 fL Mean Corpuscular Hemoglobin 29 25-34 pg Mean Corpuscular Hemoglobin Concent 33 32-36 g/dL Red Cell Distribution Width 15.5 H 10.0-14.5 % Platelet Count 286 130-400 10^3/uL Mean Platelet Volume 11.3 9.0-12.2 fL Immature Granulocyte % (Auto) 1 % Neutrophils (%) (Auto) 60 42-75 % Lymphocytes (%) (Auto) 21 12-44 % Monocytes (%) (Auto) 13 H 0-12 % Eosinophils (%) (Auto) 5 0-10 % Basophils (%) (Auto) 1 0-10 % Neutrophils # (Auto) 6.6 1.8-7.8 10^3/uL Lymphocytes # (Auto) 2.4 1.0-4.0 10^3/uL Monocytes # (Auto) 1.4 H 0.0-1.0 10^3/uL Eosinophils # (Auto) 0.5 H 0.0-0.3 10^3/uL Basophils # (Auto) 0.1 0.0-0.1 10^3/uL Immature Granulocyte # (Auto) 0.1 0.0-0.1 10^3/uL Prothrombin Time 14.9 H 12.2-14.7 SEC INR Comment 1.1 0.8-1.4 Activated Partial Thromboplast Time 33 24-35 SEC D-Dimer 3.74 H 0.00-0.49 UG/ML Sodium Level 137 135-145 MMOL/L Potassium Level 3.9 3.6-5.0 MMOL/L Chloride Level 109 H 98-107 MMOL/L Carbon Dioxide Level 19 L 21-32 MMOL/L Anion Gap 9 5-14 MMOL/L Blood Urea Nitrogen 22 H 7-18 MG/DL Creatinine 1.30 0.60-1.30 MG/DL Estimat Glomerular Filtration Rate 58 BUN/Creatinine Ratio 17 Glucose Level 99 70-105 MG/DL Lactic Acid Level 1.15 0.50-2.00 MMOL/L Calcium Level 8.4 L 8.5-10.1 MG/DL Corrected Calcium 9.0 8.5-10.1 MG/DL Total Bilirubin 0.9 0.1-1.0 MG/DL Aspartate Amino Transf (AST/SGOT) 18 5-34 U/L Alanine Aminotransferase (ALT/SGPT) 20 0-55 U/L Alkaline Phosphatase 183 H 40-136 U/L Troponin I < 0.028 <0.028 NG/ML B-Type Natriuretic Peptide 898.7 H <100.0 PG/ML Total Protein 6.9 6.4-8.2 GM/DL Albumin 3.3 3.2-4.5 GM/DL Arterial Blood pH 7.45 H 7.37-7.43 Arterial Blood Partial Pressure CO2 31 L 35-45 MMHG Arterial Blood Partial Pressure O2 385 H 79-93 MMHG Arterial Blood HCO3 22 L 23-27 MMOL/L Arterial Blood Total CO2 22.5 21.0-31.0 MMOL/L Arterial Blood Oxygen Saturation 100 94-100 % Arterial Blood Base Excess -1.6 -2.5-2.5 MMOL/L Blood Gas Ventilator Setting Blood Gas Inspired Oxygen Influenza Type A (RT-PCR) Not Detected Not Detecte Influenza Type B (RT-PCR) Not Detected Not Detecte SARS-CoV-2 RNA (RT-PCR) Not Detected Not Detecte Urine Color YELLOW Urine Clarity CLOUDY Urine pH 5.5 5-9 Urine Specific [place] 1.020 1.016-1.022 Urine Protein 2+ H NEGATIVE Urine Glucose (UA) NEGATIVE NEGATIVE Urine Ketones NEGATIVE NEGATIVE Urine Nitrite POSITIVE H NEGATIVE Urine Bilirubin NEGATIVE NEGATIVE Urine Urobilinogen 0.2 < = 1.0 MG/DL Urine Leukocyte Esterase 2+ H NEGATIVE Urine RBC (Auto) 2+ H NEGATIVE Urine RBC 25-50 H /HPF Urine WBC >100 H /HPF Urine Squamous Epithelial Cells NONE /HPF Urine Crystals NONE /LPF Urine Bacteria LARGE H /HPF Urine Casts NONE /LPF Urine Mucus NEGATIVE /LPF Urine Culture Indicated YES Micro Results Microbiology 05/15/23 Urine Culture - Preliminary, Resulted Gram Negative Jay Mixed Bacterial Gavi 05/15/23 Blood Culture - Preliminary, Resulted 05/15/23 Blood Culture - Preliminary, Resulted My Orders Orders - SOTO JESSICA Covid 19 Inhouse Test (05/15/23 17:17) Influenza A And B By Pcr (05/15/23 17:17) Cbc And Automated Diff (05/15/23 17:24) Comprehensive Metabolic Panel (05/15/23 17:24) Blood Culture (05/15/23 17:24) Urinalysis (05/15/23 17:24) Urine Culture (05/15/23 17:24) Protime With Inr (05/15/23 17:24) Partial Thromboplastin Time (05/15/23 17:24) Chest 1 View, Ap/Pa Only (05/15/23 17:24) Ed Iv/Invasive Line Start (05/15/23 17:24) Troponin I [place] (05/15/23 17:24) Vital Signs Adult Sepsis Patie Q15M (05/15/23 17:24) O2 (05/15/23:24) Lactic Acid Analyzer (05/15/23:24) Cefepime Injection (Cefepime Injection) (05/15/23 17:30) Bnp Wu (05/15/23 17:24) Bipap (Bilevel) Set Up (05/15/23 17:24) Arterial Blood Gas (05/15/23 17:24) Arterial Blood Draw - Obtain (05/15/23 ) Fibrin Degradation Products (05/15/23 18:03) Ct Angio Chest W (R/O Pe) (05/15/23 18:27) Ed Admission (Communication) (05/15/23 20:04) Iohexol Injection (Omnipaque 350 Mg/Ml 1 (05/15/23 20:45) Received Contrast (Hold Metformin- Contr (05/15/23 20:45) Ns (Ivpb) 100 Ml (Sodium Chloride 0.9% 1 (05/15/23 20:45) Medications Given in ED Vital Signs/I&O 05/15/23 05/15/23 05/15/23 05/15/23 11:00 17:17 17:27 17:32 Temp 37.1 Pulse 86 76 76 Resp 14 24 31 B/P (MAP) 166/145 (152) 153/85 (107) Pulse Ox 89 100 100 O2 Delivery NIV Bilevel NIV Bilevel O2 Flow Rate 100.00 05/15/23 18:30 Pulse 78 Resp 26 Pulse Ox 100 O2 Flow Rate 50.00 Capillary Refill : ECG Comment Supraventricular rhythm, 75 bpm, QRS duration 85 MS, QTc 402 MS. Departure Communication (PCP) Patient is a 72-year-old male with a history of COPD, hypertension, smoking presents ED for shortness of breath. Fairly acute onset of symptoms at home. No improvement with inhaler at home. EMS states patient oxygen 86 to 80% on room air. On arrival 76% with good waveform. Wheezing noted to the right lower lobe. Denies history of CHF. Bilateral lower leg swelling worse on the left. Recently admitted for cellulitis of the left leg. Does report a mild cough with daily chest pain. Patient just finished a DuoNeb breathing treatment. Septic workup was initiated with cardiac. Patient received Solu-Medrol. Was started on BiPAP with improvement. ABG showed pH 7.45, pCO2 31. I do appreciate bilateral lower extremity edema worse on the left. Does appear to be retaining fluid. No known history of CHF. 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 COVID influenza was ordered. CBC was grossly unremarkable besides hemoglobin at 10. Chemistry showed normal kidney function liver function and lactic acid. Normal troponin. BNP 900 which has slightly increased from his last visit. Chest x-ray concerning for pulmonary edema versus bilateral perihilar infiltrate. Patient did receive cefepime. Blood cultures pending. COVID influenza negative. Did have an elevated D-dimer. CT angio of the chest shows bilateral pleural effusion without evidence of PE. EKG without evidence of ST elevation or depression. Patient was consulted with cardiology Dr. Mcmahon who recommends st arting IV 60 mg one dose of Lasix and he will continue following. Symptoms could be multifactorial such as CHF versus COPD. Patient was discussed with Dr. Lee who agreed to accept patient. Impression Primary Impression: Respiratory failure Disposition: ADMITTED INPATIENT Condition: Stable Admissions Decision to Admit Reason: Admit from ER (General) Decision to Admit/Date: May 15, 2023 Time/Decision to Admit Time: 19:35 Departure-Patient Inst. Referrals: BALTAZAR FARR MD (PCP/Family) Primary Care Physician SOTO JESSICA May 15, 2023 17:29
[2023-05-15] MEDS ORDERED: CEFEPIME INJECTION 1,000 MG in NS (IVPB) 50 ML 50 ML IV ONE (17:30)
[2023-05-15 17:36] LABS: BASOPHILS # (AUTO) 0.1 10^3/uL (0.0-0.1); BASOPHILS % (AUTO) 1 % (0-10); EOSINOPHILS # (AUTO) 0.5 10^3/uL (0.0-0.3); EOSINOPHILS % (AUTO) 5 % (0-10); HEMATOCRIT 32 % (40-54); HEMOGLOBIN 10.3 g/dL (13.3-17.7); LYMPHOCYTES # (AUTO) 2.4 10^3/uL (1.0-4.0); LYMPHOCYTES % (AUTO) 21 % (12-44); MEAN CORPUSCULAR HEMOGLOBIN 29 pg (25-34); MEAN CORPUSCULAR HGB CONC 33 g/dL (32-36); MEAN CORPUSCULAR VOLUME 88 fL (80-99); MEAN PLATELET VOLUME 11.3 fL (9.0-12.2); MONOCYTES # (AUTO) 1.4 10^3/uL (0.0-1.0); MONOCYTES % (AUTO) 13 % (0-12); NEUTROPHILS # (AUTO) 6.6 10^3/uL (1.8-7.8); NEUTROPHILS % (AUTO) 60 % (42-75); PLATELET COUNT 286 10^3/uL (130-400)
[2023-05-15 17:42] LABS: ABG BASE EXCESS -1.6 MMOL/L (-2.5-2.5); ABG OXYGEN SATURATION 100 % (94-100); ABG PCO2 31 MMHG (35-45); ABG PH 7.45 (7.37-7.43); ABG PO2 385 MMHG (79-93); ABG TCO2 22.5 MMOL/L (21.0-31.0)
[2023-05-15 17:48] LABS: ALBUMIN 3.3 GM/DL (3.2-4.5); CHLORIDE 109 MMOL/L (98-107); POTASSIUM 3.9 MMOL/L (3.6-5.0); SODIUM 137 MMOL/L (135-145)
[2023-05-15 17:49] LABS: CALCIUM 8.4 MG/DL (8.5-10.1)
[2023-05-15 17:50] LABS: GLUCOSE 99 MG/DL (70-105)
[2023-05-15 17:51] LABS: INR 1.1 (0.8-1.4); PROTHROMBIN TIME PATIENT 14.9 SEC (12.2-14.7); TOTAL PROTEIN 6.9 GM/DL (6.4-8.2)
[2023-05-15 17:52] LABS: BILIRUBIN,TOTAL 0.9 MG/DL (0.1-1.0); CARBON DIOXIDE 19 MMOL/L (21-32)
[2023-05-15 17:54] LABS: ALKALINE PHOSPHATASE 183 U/L (40-136); GFR ESTIMATED 58
[2023-05-15 17:55] LABS: BUN/CREATININE RATIO 17
[2023-05-15 17:57] LABS: ALANINE AMINOTRANSFERASE 20 U/L (0-55)
--- NOTE | 2023-05-15 18:24 | Diagnostic Imaging Report ---
INDICATION: Shortness of breath. EXAMINATION: Frontal chest was obtained at 6:01 p.m. COMPARISON: 04/07/2023. FINDINGS: There is cardiomegaly. There is extensive worsening of vascular congestion with interstitial edema and perihilar infiltrates, right greater than left. There is no pneumothorax. There is a trace of pleural fluid on both sides. There is an old left clavicle fracture. IMPRESSION: Cardiomegaly. Worsening central vascular congestion with diffuse interstitial edema and developing bilateral perihilar infiltrates. The findings may represent alveolar edema or pneumonia. There is a trace of pleural fluid on both sides. Dictated by: Dictated on workstation # [id number]
[2023-05-15 18:30] VITALS: BP 157/73
[2023-05-15] MEDS ORDERED: HOLD METFORMIN - RECEIVED CONTRAST 20 ML VIAL IV SCH (20:45)
[2023-05-15] MEDS ORDERED: NS 100 ML (IVPB) BAG IV ONE (20:45)
[2023-05-15] MEDS ORDERED: IOHEXOL 350 MG/ML 100 ML (OMNIPAQUE 350) VIAL IV ONE (20:45)
--- NOTE | 2023-05-15 20:58 | Diagnostic Imaging Report ---
INDICATION: Hypoxemia. FINDINGS: CTA CHEST: Thin axial sections through the chest were obtained following intravenous contrast bolus. Multiplanar MIP images were reconstructed and reviewed. There are some calcified pleural plaques in the left posterior chest. There are bilateral pleural effusions layering out to depths of 1 cm. There is also some fluid in the fissures of the right lung. There is atelectasis at both lung bases. There is no consolidating alveolar infiltrate. There is no pneumothorax. There are emphysematous changes in the lungs. There is calcific atherosclerosis of the aorta and coronary arteries. There is no aneurysm or dissection. There is no pulmonary embolism. IMPRESSION: COPD. Bilateral pleural effusions. Bibasilar atelectasis. No evidence for a pulmonary embolism. Dictated by: Dictated on workstation # [id number]
[2023-05-15 21:12] LABS: BILIRUBIN,URINE NEGATIVE (NEGATIVE); CLARITY,URINE CLOUDY; COLOR,URINE YELLOW; GLUCOSE, URINE (UA) NEGATIVE (NEGATIVE); KETONES,URINE NEGATIVE (NEGATIVE); LEUKOCYTE ESTERASE ,URINE 2+ (NEGATIVE); NITRITE,URINE POSITIVE (NEGATIVE); PH,URINE 5.5 (5-9); PROTEIN,URINE 2+ (NEGATIVE)
[2023-05-15 21:13] LABS: BACTERIA,URINE LARGE /HPF; RBC,URINE 25-50 /HPF; WBC,URINE >100 /HPF
[2023-05-15 22:33] VITALS: BP 181/94
[2023-05-15] MEDS ORDERED: DexMEDEtomidine 1,000mcg/250ml 250 ML IV SCH (23:15)
[2023-05-15] MEDS ORDERED: BISACODYL 10 MG SUPPOSITORY PR PRN (23:15)
[2023-05-15] MEDS ORDERED: HYDROmorphone INJECTION 2 MG/ML VIAL IV PRN (23:15)
[2023-05-15] MEDS ORDERED: MILK OF MAGNESIA 400 MG/5 ML 30 ML UDC PO PRN (23:15)
[2023-05-15] MEDS ORDERED: diphenhydrAMINE INJ 50 MG/ML VIAL IVP PRN (23:15)
[2023-05-15] MEDS ORDERED: ACETAMINOPHEN 325 MG TABLET PO PRN (23:15)
[2023-05-15] MEDS ORDERED: diphenhydrAMINE 25 MG TABLET PO PRN (23:15)
[2023-05-15] MEDS ORDERED: CALCIUM CARBONATE 500 MG CHEW TABLET PO PRN (23:15)
[2023-05-15] MEDS ORDERED: LACTULOSE SYRUP 10GM/15ML 30ML UDC PO PRN (23:15)
[2023-05-15] MEDS ORDERED: ANTACID SUSPENSION 30 ML UDC PO PRN (23:15)
[2023-05-15] MEDS ORDERED: ONDANSETRON 4 MG ORAL DISSOLVE TABLET PO PRN (23:15)
[2023-05-15] MEDS ORDERED: oxyCODONE IMMEDIATE RELEASE 5 MG TABLET PO PRN (23:15)
[2023-05-15] MEDS ORDERED: LORazepam 0.5 MG TABLET PO PRN (23:15)
[2023-05-15] MEDS ORDERED: ONDANSETRON INJECTION 4 MG/2 ML (SDV) IV PRN (23:15)
[2023-05-15] MEDS ORDERED: MELATONIN 3 MG TABLET PO PRN (23:15)
[2023-05-15] MEDS ORDERED: NS IV 500 ML 500 ML IV PRN (23:15)
[2023-05-15] MEDS ORDERED: hydrALAZINE INJECTION 20 MG/ML VIAL IV PRN (23:15)
[2023-05-16] MEDS: CEFEPIME INJECTION 1,000 MG in NS (IVPB) 50 ML 50 ML IV SCH ×4 (00:34→18:45)
[2023-05-16] MEDS: ENOXAPARIN 80 MG/0.8 ML SYRINGE SC SCH ×3 (00:35→20:27)
[2023-05-16] MEDS: RT-Ipratropium/Albuterol NEB 3 ML VIAL INH SCH ×6 (02:40→22:27)
[2023-05-16 03:28] LABS: ABG OXYGEN SATURATION 100 % (94-100); ABG PCO2 32 MMHG (35-45); ABG PH 7.42 (7.37-7.43); ABG PO2 141 MMHG (79-93); ABG TCO2 21.8 MMOL/L (21.0-31.0)
[2023-05-16 03:29] LABS: INSPIRED O2 40%; VENTILATOR NO
[2023-05-16 04:59] LABS: BASOPHILS # (AUTO) 0.1 10^3/uL (0.0-0.1); BASOPHILS % (AUTO) 1 % (0-10); EOSINOPHILS # (AUTO) 0.3 10^3/uL (0.0-0.3); EOSINOPHILS % (AUTO) 2 % (0-10); HEMATOCRIT 31 % (40-54); HEMOGLOBIN 9.8 g/dL (13.3-17.7); LYMPHOCYTES # (AUTO) 1.2 10^3/uL (1.0-4.0); LYMPHOCYTES % (AUTO) 11 % (12-44); MEAN CORPUSCULAR HEMOGLOBIN 28 pg (25-34); MEAN CORPUSCULAR HGB CONC 32 g/dL (32-36); MEAN CORPUSCULAR VOLUME 88 fL (80-99); MEAN PLATELET VOLUME 12.3 fL (9.0-12.2); MONOCYTES # (AUTO) 1.5 10^3/uL (0.0-1.0); MONOCYTES % (AUTO) 13 % (0-12); NEUTROPHILS # (AUTO) 8.3 10^3/uL (1.8-7.8); NEUTROPHILS % (AUTO) 72 % (42-75); PLATELET COUNT 220 10^3/uL (130-400); WHITE BLOOD COUNT 11.4 10^3/uL (4.3-11.0)
[2023-05-16 05:28] LABS: ALBUMIN 3.1 GM/DL (3.2-4.5); BILIRUBIN,TOTAL 1.2 MG/DL (0.1-1.0); CALCIUM 8.4 MG/DL (8.5-10.1); CREATININE SERUM 1.24 MG/DL (0.60-1.30); MAGNESIUM 1.6 MG/DL (1.6-2.4); PHOSPHORUS 2.8 MG/DL (2.3-4.7); TOTAL PROTEIN 6.2 GM/DL (6.4-8.2)
[2023-05-16] MEDS ORDERED: MAGNESIUM 1 GM/100 ML IVPB 400 ML IV ONE (05:51)
[2023-05-16] MEDS: MAGNESIUM 1 GM/100 ML IVPB 100 ML IV SCH ×4 (06:13→08:55)
[2023-05-16] MEDS: POTASSIUM CL 10MEQ/50ML IVPB 50 ML IV SCH (06:21)
[2023-05-16] MEDS: POTASSIUM CHLORIDE 20 MEQ TABLET PO SCH (06:22)
[2023-05-16] MEDS ORDERED: FLU HIGH DOSE (65+ YOA) 240 MCG/0.7 ML 2023-24 (FLUZONE) IM ONE (07:00)
--- NOTE | 2023-05-16 07:04 | Diagnostic Imaging Report ---
INDICATION: Shortness of breath. COMPARISON is made with prior examination of 05/15/2023. FINDINGS: There is diffuse bilateral airspace disease, somewhat more consolidated in a right perihilar region. There is no pleural effusion or pneumothorax. The mediastinum is unremarkable. There is cardiomegaly. IMPRESSION: Persistent diffuse bilateral airspace disease more consolidated in a right perihilar distribution. This likely reflects a combination of alveolar infiltrates and venous congestion. Recommend clinical correlation. Cardiomegaly. Dictated by: Dictated on workstation # [id number]
[2023-05-16] MEDS: DOCUSATE SODIUM 100 MG CAPSULE PO SCH ×2 (08:14→20:27)
[2023-05-16] MEDS: dexAMETHasone INJ 4 MG/ML SDV IV SCH ×2 (08:14→20:27)
[2023-05-16] MEDS: SENNOSIDES 8.6 MG TABLET PO SCH ×2 (08:14→20:27)
[2023-05-16] MEDS ORDERED: FUROSEMIDE INJECTION 40 MG/4 ML VIAL IVP NR (09:30)
--- NOTE | 2023-05-16 10:24 | Consultation-Cardiology ---
HPI-Cardiology Cardiology Consultation Date of Consultation 05/16/23 Date of Admission Time Seen by Provider: 10:18 Indication: Shortness of breath HPI 72-year-old gentleman with history of hypertension, was having increasing dyspnea, came into the emergency room by EMT. He received bronchodilator, had oxygen saturation in the mid 70s. He has been having peripheral edema worsening in the past few weeks. Denied any chest pain. No previous cardiac issues. Home Medications & Allergies Allergies: Coded Allergies: Sulfa (Sulfonamide Antibiotics) (Verified Allergy, Unknown, 08/02/19) Home Medication List Reviewed: Yes ZDZ-Xeaswg-Tnncav Hx Patient Social History Employed/Student: retired Smoking Status: Former Smoker Type Used: Cigarettes 2nd Hand Smoke Exposure: Yes Recent Hopitalizations: Yes Alcohol Use?: No Immunizations Up To Date Tetanus Booster (TDap): Unknown Date of Pneumonia Vaccine: Mar 24, 2020 Date of Influenza Vaccine: Mar 24, 2020 Past Medical History Discussed below Family Medical History Significant Family History: CAD Under 55 Years Old, Diabetes, Hypertension, Lung Disease Family History: "oat cell cancer" 19 MOTHER Bleeding disorder 19 MOTHER FH: CAD (coronary artery disease) 19 FATHER FH: breast cancer 19 MOTHER G8 SISTER FHx: lung disease 19 FATHER Hypertension G8 BROTHER Myocardial infarction 19 FATHER Review of Systems-General Review of Systems Constitutional: chills; No diaphoresis; malaise, weakness EENTM: No ear pain, No blurred vision, No double vision Respiratory: cough, dyspnea on exertion, short of breath Cardiovascular: No no symptoms reported; see HPI, chest pain, edema; No Hx of Intervention, No palpitations, No syncope, No vascular heart diseas, No other Gastrointestinal: No abdominal pain, No diarrhea, No nausea, No vomiting Genitourinary: No decreased output, No discharge Musculoskeletal: No back pain, No joint pain Skin: No change in color Psychiatric/Neurological: Denies Anxiety, Denies Depressed All Other Systems Reviewed Negative Unless Noted: Yes Reviewed Test Results Reviewed Test Results Lab Laboratory Tests Test 05/15/23 17:25 05/15/23 17:30 05/15/23 17:32 05/15/23 20:12 Range/Units White Blood Count 11.0 4.3-11.0 10^3/uL Red Blood Count 3.59 L 4.30-5.52 10^6/uL Hemoglobin 10.3 L 13.3-17.7 g/dL Hematocrit 32 L 40-54 % Mean Corpuscular Volume 88 80-99 fL Mean Corpuscular Hemoglobin 29 25-34 pg Mean Corpuscular Hemoglobin Concent 33 32-36 g/dL Red Cell Distribution Width 15.5 H 10.0-14.5 % Platelet Count 286 130-400 10^3/uL Mean Platelet Volume 11.3 9.0-12.2 fL Immature Granulocyte % (Auto) 1 % Neutrophils (%) (Auto) 60 42-75 % Lymphocytes (%) (Auto) 21 12-44 % Monocytes (%) (Auto) 13 H 0-12 % Eosinophils (%) (Auto) 5 0-10 % Basophils (%) (Auto) 1 0-10 % Neutrophils # (Auto) 6.6 1.8-7.8 10^3/uL Lymphocytes # (Auto) 2.4 1.0-4.0 10^3/uL Monocytes # (Auto) 1.4 H 0.0-1.0 10^3/uL Eosinophils # (Auto) 0.5 H 0.0-0.3 10^3/uL Basophils # (Auto) 0.1 0.0-0.1 10^3/uL Immature Granulocyte # (Auto) 0.1 0.0-0.1 10^3/uL Prothrombin Time 14.9 H 12.2-14.7 SEC INR Comment 1.1 0.8-1.4 Activated Partial Thromboplast Time 33 24-35 SEC D-Dimer 3.74 H 0.00-0.49 UG/ML Sodium Level 137 135-145 MMOL/L Potassium Level 3.9 3.6-5.0 MMOL/L Chloride Level 109 H 98-107 MMOL/L Carbon Dioxide Level 19 L 21-32 MMOL/L Anion Gap 9 5-14 MMOL/L Blood Urea Nitrogen 22 H 7-18 MG/DL Creatinine 1.30 0.60-1.30 MG/DL Estimat Glomerular Filtration Rate 58 BUN/Creatinine Ratio 17 Glucose Level 99 70-105 MG/DL Lactic Acid Level 1.15 0.50-2.00 MMOL/L Calcium Level 8.4 L 8.5-10.1 MG/DL Corrected Calcium 9.0 8.5-10.1 MG/DL Total Bilirubin 0.9 0.1-1.0 MG/DL Aspartate Amino Transf (AST/SGOT) 18 5-34 U/L Alanine Aminotransferase (ALT/SGPT) 20 0-55 U/L Alkaline Phosphatase 183 H 40-136 U/L Troponin I < 0.028 <0.028 NG/ML B-Type Natriuretic Peptide 898.7 H <100.0 PG/ML Total Protein 6.9 6.4-8.2 GM/DL Albumin 3.3 3.2-4.5 GM/DL Arterial Blood pH 7.45 H 7.37-7.43 Arterial Blood Partial Pressure CO2 31 L 35-45 MMHG Arterial Blood Partial Pressure O2 385 H 79-93 MMHG Arterial Blood HCO3 22 L 23-27 MMOL/L Arterial Blood Total CO2 22.5 21.0-31.0 MMOL/L Arterial Blood Oxygen Saturation 100 94-100 % Arterial Blood Base Excess -1.6 -2.5-2.5 MMOL/L Blood Gas Ventilator Setting Blood Gas Inspired Oxygen Influenza Type A (RT-PCR) Not Detected Not Detecte Influenza Type B (RT-PCR) Not Detected Not Detecte SARS-CoV-2 RNA (RT-PCR) Not Detected Not Detecte Urine Color YELLOW Urine Clarity CLOUDY Urine pH 5.5 5-9 Urine Specific [place] 1.020 1.016-1.022 Urine Protein 2+ H NEGATIVE Urine Glucose (UA) NEGATIVE NEGATIVE Urine Ketones NEGATIVE NEGATIVE Urine Nitrite POSITIVE H NEGATIVE Urine Bilirubin NEGATIVE NEGATIVE Urine Urobilinogen 0.2 < = 1.0 MG/DL Urine Leukocyte Esterase 2+ H NEGATIVE Urine RBC (Auto) 2+ H NEGATIVE Urine RBC 25-50 H /HPF Urine WBC >100 H /HPF Urine Squamous Epithelial Cells NONE /HPF Urine Crystals NONE /LPF Urine Bacteria LARGE H /HPF Urine Casts NONE /LPF Urine Mucus NEGATIVE /LPF Urine Culture Indicated YES Test 05/16/23 03:20 05/16/23 03:52 Range/Units Arterial Blood pH 7.42 7.37-7.43 Arterial Blood Partial Pressure CO2 32 L 35-45 MMHG Arterial Blood Partial Pressure O2 141 H 79-93 MMHG Arterial Blood HCO3 21 L 23-27 MMOL/L Arterial Blood Total CO2 21.8 21.0-31.0 MMOL/L Arterial Blood Oxygen Saturation 100 94-100 % Arterial Blood Base Excess -3.0 L -2.5-2.5 MMOL/L Blood Gas Ventilator Setting NO Blood Gas Inspired Oxygen 40% White Blood Count 11.4 H 4.3-11.0 10^3/uL Red Blood Count 3.48 L 4.30-5.52 10^6/uL Hemoglobin 9.8 L 13.3-17.7 g/dL Hematocrit 31 L 40-54 % Mean Corpuscular Volume 88 80-99 fL Mean Corpuscular Hemoglobin 28 25-34 pg Mean Corpuscular Hemoglobin Concent 32 32-36 g/dL Red Cell Distribution Width 15.3 H 10.0-14.5 % Platelet Count 220 130-400 10^3/uL Mean Platelet Volume 12.3 H 9.0-12.2 fL Immature Granulocyte % (Auto) 0 % Neutrophils (%) (Auto) 72 42-75 % Lymphocytes (%) (Auto) 11 L 12-44 % Monocytes (%) (Auto) 13 H 0-12 % Eosinophils (%) (Auto) 2 0-10 % Basophils (%) (Auto) 1 0-10 % Neutrophils # (Auto) 8.3 H 1.8-7.8 10^3/uL Lymphocytes # (Auto) 1.2 1.0-4.0 10^3/uL Monocytes # (Auto) 1.5 H 0.0-1.0 10^3/uL Eosinophils # (Auto) 0.3 0.0-0.3 10^3/uL Basophils # (Auto) 0.1 0.0-0.1 10^3/uL Immature Granulocyte # (Auto) 0.0 0.0-0.1 10^3/uL Sodium Level 139 135-145 MMOL/L Potassium Level 4.0 3.6-5.0 MMOL/L Chloride Level 111 H 98-107 MMOL/L Carbon Dioxide Level 18 L 21-32 MMOL/L Anion Gap 10 5-14 MMOL/L Blood Urea Nitrogen 20 H 7-18 MG/DL Creatinine 1.24 0.60-1.30 MG/DL Estimat Glomerular Filtration Rate 61 BUN/Creatinine Ratio 16 Glucose Level 99 70-105 MG/DL Calcium Level 8.4 L 8.5-10.1 MG/DL Corrected Calcium 9.1 8.5-10.1 MG/DL Phosphorus Level 2.8 2.3-4.7 MG/DL Magnesium Level 1.6 1.6-2.4 MG/DL Total Bilirubin 1.2 H 0.1-1.0 MG/DL Aspartate Amino Transf (AST/SGOT) 18 5-34 U/L Alanine Aminotransferase (ALT/SGPT) 18 0-55 U/L Alkaline Phosphatase 154 H 40-136 U/L Total Protein 6.2 L 6.4-8.2 GM/DL Albumin 3.1 L 3.2-4.5 GM/DL Physical Exam Physical Exam Vital Signs Vital Signs - First Documented 05/15/23 05/15/23 05/15/23 11:00 17:17 17:27 Temp 37.1 Pulse 86 Resp 14 B/P (MAP) 166/145 (152) Pulse Ox 89 O2 Delivery NIV Bilevel O2 Flow Rate 100.00 Capillary Refill : Less Than 3 Seconds Height, Weight, BMI Height: '" Weight: lbs. oz. kg; 26.50 BMI Method: General Appearance: No Apparent Distress, WD/WN Eyes: Bilateral Eye Normal Inspection, Bilateral Eye PERRL, Bilateral Eye Abnormal EOM HEENT: PERRL/EOMI, TMs Normal, Normal ENT Inspection, Pharynx Normal, Moist Mucous Membranes Neck: Full Range of Motion, Normal Inspection, Non Tender, Supple, Carotid Bruit Respiratory: Chest Non Tender, Normal Breath Sounds, No Accessory Muscle Use, No Respiratory Distress Cardiovascular: Regular Rate, Rhythm, No Edema, No Gallop, No JVD, No Murmur, Normal Peripheral Pulses Gastrointestinal: Normal Bowel Sounds, No Organomegaly, No Pulsatile Mass, Non Tender, Soft Back: Normal Inspection, No CVA Tenderness, No Vertebral Tenderness Extremity: Normal Capillary Refill, Normal Inspection, Normal Range of Motion, Non Tender, No Calf Tenderness, Pedal Edema Neurologic/Psychiatric: Alert, Oriented x3, No Motor/Sensory Deficits, Normal Mood/Affect Skin: Normal Color, Warm/Dry Lymphatic: No Adenopathy A/P-Cardiology Admission Diagnosis Shortness of breath Acute exacerbation of COPD Congestive heart failure Tobaccoism Assessment/Plan Shortness of breath, acute exacerbation of COPD Mild pleural effusion, elevation in BNP Responding to diuretics Started empirically on antibiotic and managed by primary care physician Congestive heart failure, acute on chronic left ventricular diastolic dysfunction, echocardiogram in October 2022 reported ejection fraction 60% with pulmonary hypertension PA pressure 50 mmHg Hypertension, monitor blood pressure Resume home medication Peripheral edema Responding to diuretics Increased risk for coronary artery disease with multiple risk factors, will consider stress test as an outpatient when clinically more stable Heavy tobaccoism, educated on smoking cessation BPH. Clinical Quality Measures DVT/VTE Risk/Contraindication: Contraindications-Mechi: Other *list below* Other: poss dvt GEORGE MARCELINO MD May 16, 2023 10:24
--- NOTE | 2023-05-16 10:52 | History & Physical-Hospitalist ---
SOTO ROGERS 05/16/23 1052: History of Present Illness HPI/Chief Complaint 72 year old male with a history of COPD who is a current 2 ppd smoker presented to the ED on 05/15 at 1700H for SOB. Pt was admitted. Today the pt complained of having SOB that is still present, but is improving. Pt complains of having a HARTLEY, b/l calf tenderness, chest tenderness due to his PMI, and increased breathing rate. Pt denied having any confusion. Source: patient Exam Limitations: no limitations Date Seen 05/16/23 Time Seen by a Provider: 08:15 Attending Physician Anahy Reyes MD PCP Admitting Physician: Dolores King DO Attending Physician: Dolores King DO Referring Physician Date of Admission May 15, 2023 at 22:19 Home Medications & Allergies Home Medications Reviewed patient Home Medication Reconciliation performed by pharmacy medication reconciliations licensed chemical spray technician and/or nursing. Patients Allergies have been reviewed. Allergies Allergies Coded Allergies Sulfa (Sulfonamide Antibiotics) (Verified Allergy, Unknown, 08/02/19) Past Pvuwefe-Xcldor-Txmkyc Hx Patient Social History Employed/Student: retired Tobacco Use?: No Smoking Status: Former Smoker Use of E-Cig and/or Vaping dev: No Substance use?: No Alcohol Use?: No Pt feels they are or have been: No Immunizations Up To Date Date of Influenza Vaccine: Mar 24, 2020 First/Initial COVID19 Vaccinat: x2 Second COVID19 Vaccination Rm: x2 Tetanus Booster (TDap): Unknown Hepatitis A: No Hepatitis B: No Date of Pneumonia Vaccine: Mar 24, 2020 Seasonal Allergies Seasonal Allergies: Yes Current Status Advance Directives: No Communicates: Verbally Primary Language: Irish Preferred Spoken Language: Irish Is interpretation needed?: No Sensory deficits: Vision impairment Implanted or Applied Medical D: None Past Medical History Surgeries: Eye Surgery, Orthopedic, Transurethral Resection COPD Currently Using CPAP: Yes (NOT USING RIGHT NOW ) Chronic Edema/Swelling, High Cholesterol, Hypertension Sexually Transmitted Disease: No HIV/AIDS: No Benign Prostatic Hyperpl Polyps Arthritis Loss of Vision: Bilateral Hearing Impairment: Hard of Hearing Depression Blood Disorders: No Adverse Reaction/Blood Tranf: No (N/A) Family Medical History "oat cell cancer" 19 MOTHER Bleeding disorder 19 MOTHER FH: CAD (coronary artery disease) 19 FATHER FH: breast cancer 19 MOTHER G8 SISTER FHx: lung disease 19 FATHER Hypertension G8 BROTHER Myocardial infarction 19 FATHER CAD Under 55 Years Old, Diabetes, Hypertension, Lung Disease SOCIAL HISTORY: -SMOKES AT LEAST 2 PPD, PLUS SMOKES A PIPE DAILY, PLUS CHEWS TOBACCO DAILY -ETOH--DENIES USE -DRUGS--DENIES USE PAST SURGICAL HISTORY: -BILATERAL CATARACTS 01/2021 -COLONOSCOPY / POLYPECTOMY -TURP -ULNAR NERVE SURGERY Review of Systems Constitutional: No chills, No dizziness, No fever, No weakness EENTM: No ear pain, No eye pain Respiratory: short of breath Cardiovascular: No palpitations Gastrointestinal: No abdominal pain, No jaundice, No nausea, No vomiting Musculoskeletal: other (left chest wall tenderness due to PMI) Psychiatric/Neurological: Headache; Denies Numbness, Denies Tingling, Denies Tremors Physical Exam Physical Exam Vital Signs Vital Signs - First Documented 05/15/23 05/15/23 05/15/23 11:00 17:17 17:27 Temp 37.1 Pulse 86 Resp 14 B/P (MAP) 166/145 (152) Pulse Ox 89 O2 Delivery NIV Bilevel O2 Flow Rate 100.00 Capillary Refill : Less Than 3 Seconds Height, Weight, BMI Height: '" Weight: lbs. oz. kg; 26.50 BMI Method: Eyes: Bilateral Eye PERRL, Bilateral Eye EOMI HEENT: No Photophobia, No Scleral Icterus (L), No Scleral Icterus (R) Neck: Normal Inspection, Non Tender Respiratory: No Accessory Muscle Use, Decreased Breath Sounds (post b/l) Cardiovascular: Regular Rate, Rhythm, No Murmur Gastrointestinal: Normal Bowel Sounds, Non Tender, Soft; No Distended, No Guarding Extremity: Normal Capillary Refill, Calf Tenderness (b/l. left greater than right.) Neurologic/Psychiatric: Alert, Oriented x3, No Motor/Sensory Deficits, Normal Mood/Affect, manager zone II-XII Norm as Tested Results Results/Procedures Labs Laboratory Tests 05/15/23 17:25 05/16/23 03:52 Patient resulted labs reviewed. Assessment/Plan Assessment and Plan Assessment: Respiratory Failure COPD HTN H/o DVT Tobacco User Plan: Respiratory Failure -continue nasal O2 -monitor O2 levels COPD -continue nasal oxygen and monitoring status HTN -continue current tx H/o DVT -US of b/l LEs ordered Tobacco User Clinical Quality Measures DVT/VTE Risk/Contraindication: Contraindications-Mechi: Other *list below* Other: poss dvt DOLORES KING DO 05/17/23 0441: History of Present Illness HPI/Chief Complaint Chief complaint: Shortness of breath HPI: This is a 72-year-old male who is a current smoker and known history of COPD who presented to the ER with shortness of breath. Patient required BiPAP. Echocardiogram performed. Cardiology consulted. Source: patient Exam Limitations: no limitations Past Lgsvecd-Lweebu-Dgdyir Hx Patient Social History Marrital Status: Employed/Student: retired Tobacco Use?: Yes Smoking Status: Current Everyday Smoker Past Medical History COPD High Cholesterol, Hypertension Benign Prostatic Hyperpl Gastroesophageal Reflux Anxiety, Depression Family Medical History "oat cell cancer" 19 MOTHER Bleeding disorder 19 MOTHER FH: CAD (coronary artery disease) 19 FATHER FH: breast cancer 19 MOTHER G8 SISTER FHx: lung disease 19 FATHER Hypertension G8 BROTHER Myocardial infarction 19 FATHER Review of Systems Constitutional: see HPI Respiratory: dyspnea on exertion, short of breath, wheezing Physical Exam Physical Exam General Appearance: Anxious, Chronically ill Eyes: Right Eye Normal Inspection, Right Eye PERRL HEENT: PERRL/EOMI, Normal ENT Inspection, Pharynx Normal, Moist Mucous Membranes Neck: Full Range of Motion, Normal Inspection, Non Tender Respiratory: Chest Non Tender, No Accessory Muscle Use, No Respiratory Distress, Decreased Breath Sounds (post b/l), Wheezing Cardiovascular: Regular Rate, Rhythm, No Edema, No Gallop, No JVD, No Murmur, Normal Peripheral Pulses Gastrointestinal: Normal Bowel Sounds, No Organomegaly, No Pulsatile Mass, Non Tender, Soft Back: Normal Inspection, No CVA Tenderness, No Vertebral Tenderness Extremity: Normal Capillary Refill, Normal Inspection, Normal Range of Motion, Non Tender, No Calf Tenderness, No Pedal Edema Neurologic/Psychiatric: Alert, Oriented x3, No Motor/Sensory Deficits, Normal Mood/Affect Skin: Normal Color, Warm/Dry Lymphatic: No Adenopathy Assessment/Plan Admission Diagnosis Assessment: Acute on chronic respiratory failure Exacerbation of COPD Elevated D-dimer but no PE on CT no DVT on ultrasound so decrease dosing of Lovenox hypertension Hyperlipidemia BPH Depression Plan: ICU BiPAP IV steroids ICS Echo Cardiology consult Home meds Admission Status: Inpatient Order (span 2 midnights) Reason for Inpatient Admission: Acute respiratory failure Supervisory-Addendum Brief Verification & Attestation Participated in pt care: history, MDM, physical Personally performed: exam, history, MDM, supervision of care Care discussed with: Medical Student Procedures: n/a Results interpretation: Verified all documentation Verification and Attestation of Medical Student E/M Service A medical student performed and documented this service in my presence. I reviewed and verified all information documented by the medical student and made modifications to such information, when appropriate. I personally performed the physical exam and medical decision making. Dolores King, May 17, 2023,04:41 OSTO ROGERS May 16, 2023 10:52 DOLORES KING DO May 17, 2023 04:41
[2023-05-16] MEDS ORDERED: AMLO-250 PO (11:42)
[2023-05-16] MEDS ORDERED: PRAV40TA2 PO (11:42)
[2023-05-16] MEDS ORDERED: RT-ALBUINH INH (11:42)
[2023-05-16] MEDS ORDERED: TMSL.4C PO (11:42)
--- NOTE | 2023-05-16 12:29 | Tele-ICU Consult ---
History of Present Illness History of Present Illness Date Seen by Provider: May 16, 2023 Time Seen by Provider: 12:28 Reason for Visit: Shortness of breath History of Present Illness Tele-ICU Physician , consultation as per request of PCP Service provided via interactive audio and video [email or web address] E-CARE system to a patient admitted to ICU bed in [facility]. Available chart/ vitals / labs / Images reviewed H&P is from ER notes Patient's information available about PMH, Shx, Fhx allergy reviewed inEMR. ROS as per chart and RN report HPI: 72 y/o M with hx of asthma, afib, HTN, HLD and CHF, who presented to ED with c/o SOB and calf swelling. noted to be hypoxic at home. . CT PE performed neg however with bilateral effusions. Was initiated on BiPAP and admitted to MICU. Upon arrival to MICU has been weaned to NC. ABG this morning was normal and no increased work of breathing. Of note BNP on admission elevated to 800s. A/P: Acute on chronic HF exacerbation -HFpEF with TTE 2022 showing EF 60% and PAP of 50mmhg -Will cont IV diuresis with Lasix -Cardiology consulted. WIll need optimization of GDMT HTN: Stable Restart home meds COPD: Stable, no audible wheezes, restart home inhalers -Cont to wean O2 Lines : periph , (Central Line Necessity Reviewed) Garcia: Nutrition: HH diet VTE Prophylaxis: etsiven Stress Ulcer Prophylaxis:na Plans in collaboration with bedside consultants and IM MDs. Discussed with RN to reach out if any questions or concerns A total of 25 minutes of CC time was devoted to this patient today, required to treat and/or prevent further deterioration of critical care condition (as above ) Allergies and Home Medications Allergies Coded Allergies: Sulfa (Sulfonamide Antibiotics) (Verified Allergy, Unknown, 08/02/19) Home Medications Albuterol Sulfate 2.5 Mg/3 Ml (0.083 %) Vial.neb, 2.5 MG INH Q4H PRN for SHORTNESS OF BREATH, (Reported) Albuterol Sulfate 1 Puff Puff, 2 PUFF INH Q4H PRN for SHORTNESS OF BREATH, (Reported) Amlodipine Besylate 5 Mg Tablet, 10 MG PO BID, (Reported) TAKES 2 (5MG) TABS Bupropion HCl 100 Mg Tablet, 200 MG PO BID, (Reported) TAKES 2 (100MG) TABS Citalopram Hydrobromide 40 Mg Tablet, 20 MG PO DAILY, (Reported) TAKES OF A 40MG TAB Cyanocobalamin (Vitamin B-12) 2,000 Mcg Tablet, 2,000 MCG PO DAILY, (Reported) Diltiazem HCl 120 Mg Capsule.er, 240 MG PO DAILY, (Reported) TAKES 2 (120MG) CAPS Famotidine 20 Mg Tablet, 20 MG PO BID, (Reported) Fluticasone/Umeclidin/Vilanter 100-62.5 Blst.w.dev, 1 PUFF INH DAILY, (Reported) Lisinopril 20 Mg Tablet, 20 MG PO DAILY, (Reported) Metoprolol Tartrate 50 Mg Tablet, 25 MG PO BID, (Reported) TAKES OF A 50MG TAB Multivitamin 1 Each Tablet, 1 EACH PO DAILY, (Reported) Pravastatin Sodium 40 Mg Tablet, 20 MG PO HS, (Reported) Tamsulosin HCl 0.4 Mg Cap, 0.8 MG PO HS, (Reported) TAKES 2 (0.4MG) CAPS Past Medical/Social/Family Hx Patient Social History Employed/Student: retired Tobacco Use?: No Smoking Status: Former Smoker Use of E-Cig and/or Vaping dev: No Substance use?: No Alcohol Use?: No Pt stated abuse/neglect: No Immunizations Up To Date Influenza Vaccine Up-to-Date: No; Not Current First/Initial COVID19 Vaccinat: x2 Second COVID19 Vaccination Rm: x2 Tetanus Booster (TDap): Unknown Hepatitis A: No Hepatitis B: No TB Skin Test: None Date of Pneumonia Vaccine: Mar 24, 2020 Current Status Advance Directives: No Communicates: Verbally Primary Language: Urdu Preferred Spoken Language: Urdu Is interpretation needed?: No Sensory deficits: Vision impairment Implanted or Applied Medical D: None Family Medical History Family Hx: SOCIAL HISTORY: -SMOKES AT LEAST 2 PPD, PLUS SMOKES A PIPE DAILY, PLUS CHEWS TOBACCO DAILY -ETOH--DENIES USE -DRUGS--DENIES USE PAST SURGICAL HISTORY: -BILATERAL CATARACTS 01/2021 -COLONOSCOPY / POLYPECTOMY -TURP -ULNAR NERVE SURGERY Review of Systems Constitutional: see HPI Focused Exam Lactate Level 05/15/23 17:25: Lactic Acid Level 1.15 Height, Weight, BMI Height: '" Weight: lbs. oz. kg; 26.50 BMI Method: Exam Exam Patient acknowledged, consented, and participated in this virtual visit which was conducted using real time audio/video Vital Signs Date Time Temp Pulse Resp B/P (MAP) Pulse Ox O2 Delivery O2 Flow Rate FiO2 05/16/23 12:04 110 05/16/23 12:00 100 21 169/85 (113) 95 High Flow N/C 8.00 05/16/23 12:00 Nasal Cannula 8.00 05/16/23 11:00 92 28 138/71 (93) 95 High Flow N/C 8.00 05/16/23 10:22 93 Nasal Cannula 8.00 05/16/23 10:00 92 21 199/80 (119) 94 High Flow N/C 8.00 05/16/23 09:00 87 30 148/74 (98) 95 High Flow N/C 8.00 05/16/23 08:15 High Flow N/C 8.00 05/16/23 08:12 37.7 05/16/23 08:00 98 18 170/83 (112) 98 NIV Bilevel 40.00 05/16/23 08:00 Nasal Cannula 8.00 05/16/23 07:13 95 05/16/23 07:00 92 24 157/80 (105) 97 NIV Bilevel 40.00 05/16/23 06:35 40.00 05/16/23 06:03 100 33 162/84 (110) 98 NIV Bilevel 40.00 05/16/23 05:00 102 35 164/88 (113) 97 NIV Bilevel 40.00 05/16/23 04:00 83 29 155/75 (101) 98 NIV Bilevel 40.00 05/16/23 03:39 NIV Bilevel 05/16/23 03:38 37.9 05/16/23 03:00 88 25 155/89 (111) 98 NIV Bilevel 40.00 05/16/23 02:40 40.00 05/16/23 02:00 81 27 151/76 (101) 95 NIV Bilevel 40.00 05/16/23 01:00 84 23 144/79 (100) 98 NIV Bilevel 40.00 05/16/23 01:00 80 05/16/23 00:00 80 14 162/83 (109) 99 NIV Bilevel 40.00 05/15/23 23:59 37.0 05/15/23 23:00 NIV Bilevel 05/15/23 22:56 37.1 05/15/23 22:56 86 14 157/90 (112) 89 NIV Bilevel 40.00 05/15/23 22:41 84 05/15/23 22:37 84 05/15/23 22:33 99 38 97 40.00 05/15/23 18:30 78 26 100 50.00 05/15/23 17:32 NIV Bilevel 05/15/23 17:27 76 31 100 100.00 05/15/23 17:17 37.1 76 24 153/85 (107) 100 NIV Bilevel I & O 05/16/23 06:59 Intake Total 550 ml Output Total 1050 ml Balance -500 ml Height & Weight Height: '" Weight: lbs. oz. kg; 26.50 BMI Method: General Appearance: No Apparent Distress, WD/WN HEENT: No Photophobia, No Scleral Icterus (L), No Scleral Icterus (R) Neck: Normal Inspection, Non Tender Respiratory: No Accessory Muscle Use, Decreased Breath Sounds (post b/l) Cardiovascular: Regular Rate, Rhythm, No Murmur Capillary Refill: Less Than 3 Seconds Extremity: Normal Capillary Refill, Calf Tenderness (b/l. left greater than right.) Neurologic/Psychiatric: Alert, Oriented x3, No Motor/Sensory Deficits, Normal Mood/Affect, traffic reporter II-XII Norm as Tested Skin: Normal Color, Warm/Dry Lymphatic: No Adenopathy Results Lab Laboratory Tests 05/15/23 17:25 05/16/23 03:52 Assessment/Plan Assessment/Plan . ANTONIO MARISCAL MD May 16, 2023 12:29
--- NOTE | 2023-05-16 14:47 | Diagnostic Imaging Report ---
INDICATION: Respiratory failure. COMPARISON: None. TECHNIQUE: Duplex, ware-scale and color-flow imaging of the bilateral lower extremity venous system was performed. FINDINGS: The common femoral vein, superficial femoral vein, profunda femoris, and popliteal veins are normal. These vessels show normal compressibility, color flow, and Doppler augmentation. The deep calf veins, although not very well seen, demonstrate no distinct intraluminal thrombus. 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 IMPRESSION: 1. No evidence of DVT in either lower extremity. 2. Left-sided Fierro's cyst. Dictated by: Dictated on workstation # [id number]
[2023-05-16 22:27] VITALS: BP 154/75
[2023-05-17] MEDS: CEFEPIME INJECTION 1,000 MG in NS (IVPB) 50 ML 50 ML IV SCH ×5 (00:04→23:33)
[2023-05-17 02:18] VITALS: BP 144/79
[2023-05-17] MEDS: RT-Ipratropium/Albuterol NEB 3 ML VIAL INH SCH ×6 (02:18→21:53)
[2023-05-17 04:49] LABS: BASOPHILS % (AUTO) 0 % (0-10); EOSINOPHILS % (AUTO) 0 % (0-10); HEMATOCRIT 30 % (40-54); HEMOGLOBIN 9.9 g/dL (13.3-17.7); LYMPHOCYTES # (AUTO) 0.6 10^3/uL (1.0-4.0); LYMPHOCYTES % (AUTO) 8 % (12-44); MEAN CORPUSCULAR HEMOGLOBIN 29 pg (25-34); MEAN CORPUSCULAR HGB CONC 33 g/dL (32-36); MEAN CORPUSCULAR VOLUME 88 fL (80-99); MEAN PLATELET VOLUME 12.1 fL (9.0-12.2); MONOCYTES # (AUTO) 0.3 10^3/uL (0.0-1.0); MONOCYTES % (AUTO) 3 % (0-12); NEUTROPHILS % (AUTO) 88 % (42-75); PLATELET COUNT 268 10^3/uL (130-400); WHITE BLOOD COUNT 7.9 10^3/uL (4.3-11.0)
[2023-05-17 05:09] LABS: ABG BASE EXCESS -0.2 MMOL/L (-2.5-2.5); ABG OXYGEN SATURATION 99 % (94-100); ABG PCO2 36 MMHG (35-45); ABG PH 7.43 (7.37-7.43); ABG PO2 135 MMHG (79-93); INSPIRED O2 30%; VENTILATOR NO
[2023-05-17 05:12] LABS: BILIRUBIN,TOTAL 0.6 MG/DL (0.1-1.0); CALCIUM 8.5 MG/DL (8.5-10.1); CREATININE SERUM 1.2 MG/DL (0.60-1.30); MAGNESIUM 2.3 MG/DL (1.6-2.4); PHOSPHORUS 3.6 MG/DL (2.3-4.7); POTASSIUM 4.3 MMOL/L (3.6-5.0); TOTAL PROTEIN 6.3 GM/DL (6.4-8.2)
[2023-05-17 05:34] LABS: ELLIPT/OVALOCYTES SLIGHT; LYMPHOCYTES % (MANUAL) 9 %; MONOCYTES % (MANUAL) 4 %; NEUTROPHILS % (MANUAL) 87 %; POIKILOCYTOSIS SLIGHT
[2023-05-17] MEDS: POTASSIUM CHLORIDE 20 MEQ TABLET PO SCH (05:34)
[2023-05-17] MEDS: MAGNESIUM 1 GM/100 ML IVPB 100 ML IV SCH (05:34)
[2023-05-17] MEDS: POTASSIUM CL 10MEQ/50ML IVPB 50 ML IV SCH (05:34)
[2023-05-17] MEDS: CYANOCOBALAMIN 1,000 MCG TABLET PO SCH (05:49)
[2023-05-17] MEDS: THERAPEUTIC MULTIVITAMIN W/MINERALS TABLET PO SCH (05:49)
--- NOTE | 2023-05-17 08:14 | Cardiology Progress Note ---
Subjective Date Seen by Provider: May 17, 2023 Time Seen by Provider: 08:12 Subjective/Events-last exam Patient was seen at bedside, laying down comfortably Feeling better, reporting improvement Focused Exam Lactate Level 05/15/23 17:25: Lactic Acid Level 1.15 Objective-Cardiology Exam Last Set of Vital Signs Vital Signs 05/17/23 05/17/23 05/17/23 05/17/23 04:23 06:30 07:11 07:55 Temp 36.7 Pulse 82 Resp 20 B/P (MAP) 137/70 (92) Pulse Ox 95 O2 Delivery High Flow N/C O2 Flow Rate 3.00 FiO2 40 I&O Intake and Output 05/16/23 23:59 Intake Total 2200 ml Output Total 2950 ml Balance -750 ml Intake Oral 2050 ml IV Total 150 ml Output Urine Total 2950 ml General: Alert, Oriented X3, Cooperative HEENT: Atraumatic, PERRLA Neck: Supple, No JVD, No Thyromegaly Lungs: Clear to Auscultation, Normal Air Movement Heart: Regular Rate, Normal S1, Normal S2, Other (Systolic murmur) Abdomen: Normal Bowel Sounds, Soft, No Tenderness, No Hepatosplenomegaly, No Masses Extremities: No Clubbing, No Cyanosis, Normal Pulses, No Tenderness/Swelling, Other (Trace peripheral edema) Skin: No Rashes, No Breakdown, No Significant Lesion Neuro: Normal Speech, Normal Tone, Sensation Intact Psych/Mental Status: Mental Status NL, Mood NL Results Lab Laboratory Tests 05/17/23 03:43 05/17/23 03:53 A/P-Cardiology Admission Diagnosis Shortness of breath Acute exacerbation of COPD Congestive heart failure Tobaccoism Assessment/Plan Shortness of breath, acute respiratory insufficiency, improving Combination of exacerbation of COPD and congestive heart failure, left ventricular diastolic dysfunction Responding well to aggressive diuresis Receiving antibiotics and managed by primary care team Congestive heart failure, acute on chronic left ventricular diastolic dysfunction, echocardiogram in October 2022 reported ejection fraction 60% with pulmonary hypertension PA pressure 50 mmHg Hypertension, monitor blood pressure Continue current medication Peripheral edema, improving Responding to diuretics Increased risk for coronary artery disease with multiple risk factors, will cons ider stress test as an outpatient when clinically more stable Heavy tobaccoism, educated on smoking cessation BPH. Okay to transfer to telemetry GEORGE MARCELINO MD May 17, 2023 08:14
[2023-05-17] MEDS: ENOXAPARIN 40 MG/0.4 ML SYRINGE SC SCH (08:28)
[2023-05-17] MEDS: FAMOTIDINE 20 MG TABLET PO SCH ×2 (08:28→20:33)
[2023-05-17] MEDS: dilTIAZem ER 240 MG CAPSULE PO SCH (08:28)
[2023-05-17] MEDS: meTOprolol TARTRATE (IR) 25 MG TABLET PO SCH ×2 (08:28→20:33)
[2023-05-17] MEDS: MONTELUKAST 10 MG TABLET PO SCH (08:28)
[2023-05-17] MEDS: amLODIPine 10 MG TABLET PO SCH ×2 (08:28→20:33)
[2023-05-17] MEDS: DOCUSATE SODIUM 100 MG CAPSULE PO SCH ×2 (08:29→19:31)
[2023-05-17] MEDS: buPROPion 100 MG TABLET PO SCH ×2 (08:29→20:33)
[2023-05-17] MEDS: SENNOSIDES 8.6 MG TABLET PO SCH ×2 (08:29→19:31)
[2023-05-17] MEDS: CITALOPRAM 20 MG TABLET PO SCH (08:29)
[2023-05-17] MEDS: dexAMETHasone INJ 4 MG/ML SDV IV SCH (08:29)
--- NOTE | 2023-05-17 09:42 | Diagnostic Imaging Report ---
INDICATION: Shortness of breath. Frontal chest obtained at 3:29 a.m. and compared with 05/16/2023. FINDINGS: There is cardiomegaly. Central vascular congestion with interstitial edema perhaps mildly improved compared to the prior study. Abnormal density overlying the right perihilar region may represent loculated fluid versus artifact. There is no pneumothorax or pleural fluid. There is an old left-sided clavicle fracture. IMPRESSION: Cardiomegaly and central vascular congestive changes with some improvement in edema compared to the prior study. No new consolidation or pneumothorax or pleural fluid. Atypical density overlying the right hilum may represent loculated fluid versus artifact. Dictated by: Dictated on workstation # [id number]
--- NOTE | 2023-05-17 10:20 | Progress Note - Hospitalist ---
SOTO ROGERS 05/17/23 1020: Subjective HPI/CC On Admission Date Seen by Provider: May 17, 2023 Time Seen by Provider: 09:20 Chief complaint: Shortness of breath HPI: This is a 72-year-old male who is a current smoker and known history of COPD who presented to the ER with shortness of breath. Patient required BiPAP. Echocardiogram performed. Cardiology consulted. Subjective/Events-last exam Pt reports that he is feeling better than yesterday and ready to leave. Pt denies any SOB or troubles with breathing. He was on BIPAP overnight. He was started on room air around 0800 this morning and reports no problems. Review of Systems General: No Chills, No Fatigue HEENT: No Head Aches, No Visual Changes, No Eye Pain, No Ear Pain Pulmonary: No Cough Cardiovascular: No: Chest Pain, Palpitations Gastrointestinal: No: Nausea, Vomiting, Abdominal Pain Neurological: No: Weakness, Numbness, Incoordination, Change in speech, Confusion Focused Exam Lactate Level 05/15/23 17:25: Lactic Acid Level 1.15 Objective Exam Vital Signs Vital Signs Date Time Temp Pulse Resp B/P (MAP) Pulse Ox O2 Delivery O2 Flow Rate FiO2 05/17/23 11:49 37.1 05/17/23 11:41 94 Nasal Cannula 2.00 05/17/23 11:00 84 23 05/17/23 04:23 40 Capillary Refill : Less Than 3 Seconds General Appearance: No Apparent Distress HEENT: PERRL/EOMI; No Photophobia, No Scleral Icterus (L), No Scleral Icterus (R) Neck: Normal Inspection, Non Tender Respiratory: Chest Non Tender, No Accessory Muscle Use, No Respiratory Distress; No Crackles, No Rales, No Rhonci; Wheezing (end expiratory) Cardiovascular: Regular Rate, Rhythm, No JVD, No Murmur, Normal Peripheral Pulses Gastrointestinal: Normal Bowel Sounds, Non Tender, Soft Back: No CVA Tenderness Extremity: Normal Capillary Refill Neurologic/Psychiatric: Alert, Oriented x3, No Motor/Sensory Deficits, Normal Mood/Affect, medicaid plan compliance director II-XII Norm as Tested Results/Procedures Lab Laboratory Tests 05/17/23 03:43 05/17/23 03:53 Patient resulted labs reviewed. Assessment/Plan Assessment and Plan Assess & Plan/Chief Complaint Assessment: Respiratory Failure COPD HTN H/o DVT Tobacco User Plan: Respiratory Failure -continue nasal O2 -pt will be transferred to 4th floor -therapy will be consulted to get pt moving around COPD -continue nasal oxygen and monitoring status HTN -continue current tx H/o DVT -US of b/l LEs ordered Tobacco User Clinical Quality Measures DVT/VTE Risk/Contraindication: Contraindications-Mechi: Other *list below* Other: poss dvt DOLORES KING DO 05/18/23 0434: Subjective Subjective/Events-last exam Patient doing a lot better Breathing better Will move down to fourth floor Objective Exam General Appearance: No Apparent Distress, WD/WN, Chronically ill Respiratory: Wheezing (end expiratory) Cardiovascular: Regular Rate, Rhythm Neurologic/Psychiatric: Alert, Oriented x3 Assessment/Plan Assessment and Plan Assess & Plan/Chief Complaint Assessment: Moved down to fourth floor Continue medication Supervisory-Addendum Brief Verification & Attestation Participated in pt care: history, MDM, physical Personally performed: exam, history, MDM, supervision of care Care discussed with: Medical Student Procedures: n/a Results interpretation: Verified all documentation Verification and Attestation of Medical Student E/M Service A medical student performed and documented this service in my presence. I reviewed and verified all information documented by the medical student and made modifications to such information, when appropriate. I personally performed the physical exam and medical decision making. Dolores King, May 18, 2023,04:33 SOTO ROGERS May 17, 2023 10:20 DOLORES KING DO May 18, 2023 04:34
[2023-05-17] MEDS: FLUTICASONE/VILANTEROL 200/25 MCG (14 DOSES) IH SCH (10:24)
[2023-05-17] MEDS: TIOTROPIUM INH 4 GM (SPIRIVA Respimat) IH SCH (10:25)
--- NOTE | 2023-05-17 10:26 | Tele-ICU Progress Note ---
Subjective Date Seen by a Provider: May 17, 2023 Time Seen by a Provider: 10:24 Subjective/Events-last exam (Tele-ICU Physician , Progress Note ) Service provided via interactive audio and video telecommunications E-CARE system to a patient admitted to ICU bed in [facility]. Patient is seen today due to persistent need of ICU care Available chart/ vitals / labs / Images reviewed Video assessment done using teleICU camera, rest of exam as per RN Discussed with RN Events overnight : Afebrile hemodynamically stable Respiratory - 3L I/O = neg 7-- Drips: Pressors- no Hospital course: (05.15) Admitted a 72 y/o respiratory failure. Sepsis pulm (PNA, COPD, CHF) BiPap 05/16 - off bipap , 3L nc A/P Acute resp failure - off bipap , on # l nc - CTA NEG for pe or pna ( neg US for dvt ) Acute on chronic HF exacerbation -HFpEF with TTE 2022 showing EF 60% and PAP of 50mmhg -diuresis with Lasix- OFF NOW -Cardiology consulted - small effusions - to follow after diuresis HTN: Stable Restart home meds UTI - on cefepime COPD: Stable, no audible wheezes, restart home inhalers -Cont to wean O2 - on IV steroids - ? to d/c/decrease - PER PCP Pulm HTB PAP in ECHO of 50mmhg calcified pleural plaques in the left posterior chest. - ? exposure to asbestosis Lines : periph , (Central Line Necessity Reviewed) Garcia: Nutrition: HH diet VTE Prophylaxis: estiven Stress Ulcer Prophylaxis:na Plans in collaboration with bedside consultants and IM MDs. Discussed with RN to reach out if any questions or concerns Case and care daily discussed on multidisciplinary rounds ( RN, PharmD, Car Framer , Respiratory Therapy, latex foam worker ) A total of 20 minutes of critical care time was devoted to this patient today, required to treat and/or prevent further deterioration of critical care condition ( as above ) . I am remotely monitoring this patient from another state. I am unable to do the bedside exam, and history/physical and pertinent information is taken from other notes in the computer and bedside staff. Sepsis Event Evaluation Height, Weight, BMI Height: '" Weight: lbs. oz. kg; 26.50 BMI Method: Focused Exam Lactate Level 05/15/23 17:25: Lactic Acid Level 1.15 Exam Exam Patient acknowledged, consented, and participated in this virtual visit which was conducted using real time audio/video Vital Signs Date Time Temp Pulse Resp B/P (MAP) Pulse Ox O2 Delivery O2 Flow Rate FiO2 05/17/23 10:00 87 11 140/78 (98) 90 Nasal Cannula 3.00 05/17/23 09:00 93 24 117/89 (98) 93 Nasal Cannula 3.00 05/17/23 08:47 91 Room Air 05/17/23 08:40 Nasal Cannula 2.00 05/17/23 08:00 105 23 138/74 (95) 96 Nasal Cannula 3.00 05/17/23 07:55 36.7 05/17/23 07:11 95 High Flow N/C 3.00 05/17/23 07:00 88 05/17/23 07:00 88 20 148/77 (100) 96 Nasal Cannula 3.00 05/17/23 06:30 82 20 137/70 (92) 97 Nasal Cannula 3.00 05/17/23 06:00 85 21 153/78 (107) 97 Nasal Cannula 3.00 05/17/23 05:30 86 16 150/82 (107) 99 NIV Bilevel 40.00 05/17/23 05:00 87 20 153/93 (116) 99 NIV Bilevel 40.00 05/17/23 04:30 89 18 150/76 (107) 99 NIV Bilevel 40.00 05/17/23 04:30 36.4 05/17/23 04:23 94 NIV Bilevel 40 05/17/23 04:00 93 21 148/76 (108) 98 NIV Bilevel 40.00 05/17/23 03:30 85 25 136/70 (98) 97 NIV Bilevel 40.00 05/17/23 03:00 85 19 134/72 (92) 97 NIV Bilevel 40.00 05/17/23 02:30 92 17 150/79 (109) 92 NIV Bilevel 40.00 05/17/23 02:18 86 25 40.00 05/17/23 02:00 101 7 144/79 (99) 96 NIV Bilevel 40.00 05/17/23 01:30 92 21 141/74 (100) 100 NIV Bilevel 40.00 05/17/23 01:00 84 05/17/23 01:00 85 23 134/71 (96) 98 NIV Bilevel 40.00 05/17/23 00:30 86 21 136/68 (94) 98 NIV Bilevel 40.00 05/17/23 00:00 89 25 131/65 (90) 98 NIV Bilevel 40.00 05/16/23 23:48 93 NIV Bilevel 40 05/16/23 23:30 36.4 90 15 149/76 (103) 98 NIV Bilevel 40.00 05/16/23 23:00 93 22 142/72 (101) 98 High Flow N/C 3.00 05/16/23 22:30 101 16 170/103 (140) 99 High Flow N/C 3.00 05/16/23 22:27 101 20 40.00 05/16/23 22:00 97 22 154/75 (109) 94 High Flow N/C 3.00 05/16/23 21:45 87 25 96 High Flow N/C 3.00 05/16/23 21:30 89 21 140/75 (96) High Flow N/C 3.00 05/16/23 21:15 90 23 96 High Flow N/C 3.00 05/16/23 21:00 90 24 139/69 (94) 94 High Flow N/C 3.00 05/16/23 20:45 92 26 96 High Flow N/C 3.00 05/16/23 20:30 98 23 141/82 (102) 94 High Flow N/C 3.00 05/16/23 20:10 94 Nasal Cannula 3.00 05/16/23 20:00 37.3 96 24 132/76 (98) 94 High Flow N/C 3.00 05/16/23 19:30 98 25 148/74 (97) 94 High Flow N/C 3.00 05/16/23 19:15 98 25 143/70 (104) 87 High Flow N/C 3.00 05/16/23 19:00 96 05/16/23 19:00 97 10 145/74 (103) 93 High Flow N/C 3.00 05/16/23 18:58 93 High Flow N/C 3.00 05/16/23 18:00 97 17 138/88 (105) 95 High Flow N/C 3.00 05/16/23 17:16 High Flow N/C 3.00 05/16/23 17:00 90 22 151/78 (102) 96 High Flow N/C 4.00 05/16/23 16:44 37.6 05/16/23 16:00 Nasal Cannula 3.00 05/16/23 16:00 102 29 145/76 (99) 95 High Flow N/C 4.00 05/16/23 15:00 89 24 133/69 (90) 95 High Flow N/C 4.00 05/16/23 14:58 High Flow N/C 4.00 05/16/23 14:15 97 Nasal Cannula 8.00 05/16/23 14:00 96 32 138/75 (96) 92 High Flow N/C 5.00 05/16/23 13:00 89 24 135/73 (93) 96 High Flow N/C 5.00 05/16/23 12:04 110 05/16/23 12:00 100 21 169/85 (113) 95 High Flow N/C 8.00 05/16/23 12:00 Nasal Cannula 8.00 05/16/23 12:00 37.3 05/16/23 11:00 92 28 138/71 (93) 95 High Flow N/C 8.00 I & O 05/17/23 06:59 Intake Total 2000 ml Output Total 2225 ml Balance -225 ml Height & Weight Height: '" Weight: lbs. oz. kg; 26.50 BMI Method: General Appearance: No Apparent Distress HEENT: PERRL/EOMI; No Photophobia, No Scleral Icterus (L), No Scleral Icterus (R) Neck: Normal Inspection, Non Tender Respiratory: Chest Non Tender, No Accessory Muscle Use, No Respiratory Distress; No Crackles, No Rales, No Rhonci; Wheezing (end expiratory) Cardiovascular: Regular Rate, Rhythm, No JVD, No Murmur, Normal Peripheral Pulses Capillary Refill: Less Than 3 Seconds Extremity: Normal Capillary Refill Neurologic/Psychiatric: Alert, Oriented x3, No Motor/Sensory Deficits, Normal Mood/Affect, health care aide II-XII Norm as Tested Skin: Normal Color, Warm/Dry Lymphatic: No Adenopathy Results Lab Laboratory Tests 05/15/23 17:25 05/16/23 03:52 05/17/23 03:43 05/17/23 03:53 Assessment/Plan Assessment/Plan 1 ERIS CARPIO MD May 17, 2023 10:26
--- NOTE | 2023-05-17 13:57 | Physical Therapy Evaluation ---
PT Evaluation-General Medical Diagnosis Admission Date May 15, 2023 at 22:19 Medical Diagnosis: COPD, SOB, HTN Onset Date: May 16, 2023 Therapy Diagnosis Therapy Diagnosis: Gait deficit, strength deficit Precautions Precautions/Isolations: Fall Prevention, Standard Precautions Weight Bear Status Right Lower Extremity: Right Full Weight Bearing Left Lower Extremity: Left Full Weight Bearing Referral Physician: Dr. Lee Reason for Referral: Evaluation/Treatment Medical History Pertinent Medical History: COPD, Heart Failure, HTN, Smoking Social History Home: Single Level Current Living Status: Other Family Entry Into Home: Ramp Prior Prior Level of Function SCALE: Activities may be completed with or without assistive devices. 7-Umsfpadzkn-qlqoioe completes the activity by him/herself with no assistance from a helper. 5-Set-up or Clean-up Assistance-helper sets up or cleans up; patient completes activity. [place] assists only prior to or following the activity. 4-Supervision or Touching Assistance-helper provides verbal cues and/or touching/steadying and/or contact guard assistance as patient completes activity. Assistance may be provided throughout the activity or intermittently. 3-Partial/Moderate Assistance-helper does LESS THAN HALF the effort. [place] lifts, holds or supports trunk or limbs, but provides less than half the effort. 2-Substantial/Maximal Assistance-helper does MORE THAN HALF the effort. [place] lifts or holds trunk or limbs and provides more than half the effort. 7-Hnhtghggj-nqqkek does ALL the effort. Patient does none of the effort to complete the activity. Or, the assistance of 2 or more helpers is required for the patient to complete the activity. If activity was not attempted, code reason: 7-Patient Refused. 9-Not Applicable-not attempted and the patient did not perform the activity before the current illness, exacerbation or injury. 10-Not Attempted due to Environmental Limitations-(lack of equipment, weather restraints, etc.). 88-Not Attempted due to Medical Conditions or Safety Concerns. Bed Mobility: 6 Transfers (B,C,W/C): 6 Gait: 6 Stairs: 6 Indoor Mobility (Ambulation): Independent Stairs: Independent Prior Devices Use: Walker Prior Device Use: Cane PT Evaluation-Current Subjective Patient sitting in chair upon PT arrival, agreeable to treatment. Patient rates pain at 0/10 currently. Objective Patient Orientation: Person, Place, Time, Situation Attachments: Oxygen ROM/Strength ROM Lower Extremities WFLs BLEs all planes Strength Lower Extremities 3+/5 BLEs all planes Sensory Vision: Wears Glasses Hearing: Functional Sensation Right Lower Extremit: Intact Sensation Left Lower Extremity: Intact Transfers Sit to Stand (QC): 4 Chair/Tri-sh-Wwcfb Xfer(QC): 4 Gait Does the Patient Walk?: Yes Mode of Locomotion: Walk Anticipated Mode of Locomotion: Walk Walk 10 feet (QC): 4 Walk 50 ft with 2 Turns(QC): 4 Distance: 50' Gait Assistive Device: FWW Balance Sitting Static: Normal Sitting Dynamic: Normal Standing Static: Fair Standing Dynamic: Fair Assessment/Needs Patient performs all observed transfers with CGA. Patient ambulates 50 feet with FWW, with CGA and verbal cues for safety, progression, posture and balance. Patient in chair post treatment with all needs met, nursing notified, call lig ht in hand. Rehab Potential: Good PT Breaker Operator Goals Nursing Home Goals PT Nursing Home Goals Time Frame: Jun 18, 2023 Roll Left & Right (QC): 6 Sit to Lying (QC): 6 Lying-Sitting on Side/Bed(QC): 6 Sit to Stand (QC): 6 Chair/Wtn-ou-Wsamg Xfer(QC): 6 Toilet Transfer (QC): 6 Does the Patient Walk: Yes Walk 10 feet (QC): 6 Walk 50ft with 2 Turns (QC): 6 Walk 150 ft (QC): 6 PT Plan Problem List Problem List: Activity Tolerance, Functional Strength, Safety, Balance, Gait, Transfer, Bed Mobility, ROM Treatment/Plan Treatment Plan: Continue Plan of Care Treatment Plan: Bed Mobility, Education, Functional Activity Merle, Functional Strength, Group Therapy, Gait, Safety, Therapeutic Exercise, Transfers Treatment Duration: Jun 18, 2023 Frequency: 6 times per week Estimated Hrs Per Day: .25 hour per day Patient and/or Family Agrees t: Yes Safety Risks/Education Patient Education: Gait Training, Transfer Techniques Teaching Recipient: Patient Teaching Methods: Demonstration, Discussion Response to Teaching: Verbalize Understanding, Return Demonstration Time Time In: 1330 Time Out: 1345 DATE: May 17, 2023 Total Billed Treatment Time: 15 Total Billed Treatment Visit, ZEESHAN CASTILLO PT May 17, 2023 13:57
[2023-05-17 16:30] VITALS: BP 141/66
[2023-05-17 19:27] VITALS: BP 135/70
[2023-05-17] MEDS ORDERED: TAMSULOSIN 0.4 MG (FLOMAX) CAP PO SCH (21:00)
[2023-05-17 23:44] VITALS: BP 147/74
[2023-05-18] MEDS: RT-Ipratropium/Albuterol NEB 3 ML VIAL INH SCH ×3 (02:39→10:17)
[2023-05-18 03:16] VITALS: BP 142/73
[2023-05-18 04:45] LABS: BASOPHILS % (AUTO) 0 % (0-10); EOSINOPHILS % (AUTO) 0 % (0-10); HEMATOCRIT 28 % (40-54); HEMOGLOBIN 9.1 g/dL (13.3-17.7); LYMPHOCYTES # (AUTO) 1.3 10^3/uL (1.0-4.0); LYMPHOCYTES % (AUTO) 15 % (12-44); MEAN CORPUSCULAR HEMOGLOBIN 28 pg (25-34); MEAN CORPUSCULAR HGB CONC 32 g/dL (32-36); MEAN CORPUSCULAR VOLUME 88 fL (80-99); MONOCYTES # (AUTO) 0.8 10^3/uL (0.0-1.0); MONOCYTES % (AUTO) 9 % (0-12); NEUTROPHILS # (AUTO) 6.8 10^3/uL (1.8-7.8); NEUTROPHILS % (AUTO) 76 % (42-75); PLATELET COUNT 249 10^3/uL (130-400)
[2023-05-18 05:20] LABS: ALBUMIN 2.9 GM/DL (3.2-4.5); BILIRUBIN,TOTAL 0.4 MG/DL (0.1-1.0); CALCIUM 8.1 MG/DL (8.5-10.1); CREATININE SERUM 1.16 MG/DL (0.60-1.30); MAGNESIUM 2.1 MG/DL (1.6-2.4); POTASSIUM 4.6 MMOL/L (3.6-5.0); TOTAL PROTEIN 6.1 GM/DL (6.4-8.2)
[2023-05-18] MEDS: MAGNESIUM 1 GM/100 ML IVPB 100 ML IV SCH (05:22)
[2023-05-18] MEDS: POTASSIUM CL 10MEQ/50ML IVPB 50 ML IV SCH (05:22)
[2023-05-18] MEDS: POTASSIUM CHLORIDE 20 MEQ TABLET PO SCH (05:23)
[2023-05-18] MEDS: THERAPEUTIC MULTIVITAMIN W/MINERALS TABLET PO SCH (05:29)
[2023-05-18] MEDS: CEFEPIME INJECTION 1,000 MG in NS (IVPB) 50 ML 50 ML IV SCH ×3 (05:29→16:39)
[2023-05-18] MEDS: CYANOCOBALAMIN 1,000 MCG TABLET PO SCH (05:31)
[2023-05-18 07:30] VITALS: BP 139/64
[2023-05-18] MEDS: CITALOPRAM 20 MG TABLET PO SCH (08:59)
[2023-05-18] MEDS: MONTELUKAST 10 MG TABLET PO SCH (08:59)
[2023-05-18] MEDS: dexAMETHasone INJ 4 MG/ML SDV IV SCH (08:59)
[2023-05-18] MEDS: amLODIPine 10 MG TABLET PO SCH (08:59)
[2023-05-18] MEDS: ENOXAPARIN 40 MG/0.4 ML SYRINGE SC SCH (08:59)
[2023-05-18] MEDS: dilTIAZem ER 240 MG CAPSULE PO SCH (08:59)
[2023-05-18] MEDS: FAMOTIDINE 20 MG TABLET PO SCH (08:59)
[2023-05-18] MEDS: buPROPion 100 MG TABLET PO SCH (09:00)
[2023-05-18] MEDS: SENNOSIDES 8.6 MG TABLET PO SCH (09:00)
[2023-05-18] MEDS: DOCUSATE SODIUM 100 MG CAPSULE PO SCH (09:00)
[2023-05-18] MEDS: meTOprolol TARTRATE (IR) 25 MG TABLET PO SCH (09:00)
--- NOTE | 2023-05-18 09:44 | Cardiology Progress Note ---
Subjective Date Seen by Provider: May 18, 2023 Time Seen by Provider: 08:55 Subjective/Events-last exam Patient is sitting up in bed, c/o ongoing dyspnea. Denies any chest pain Focused Exam Lactate Level 05/15/23 17:25: Lactic Acid Level 1.15 Objective-Cardiology Exam Last Set of Vital Signs Vital Signs 05/17/23 05/18/23 04:23 11:15 Temp 37.0 Pulse 60 Resp 18 B/P (MAP) 128/54 (78) Pulse Ox 94 O2 Delivery High Flow N/C O2 Flow Rate 3.00 FiO2 40 I&O Intake and Output 05/17/23 23:59 Intake Total 2340 ml Output Total 1625 ml Balance 715 ml Intake Oral 2240 ml IV Total 100 ml Output Urine Total 1625 ml # Bowel Movements 2 General: Alert, Oriented X3, Cooperative HEENT: Atraumatic, PERRLA Neck: Supple, No JVD, No Thyromegaly Lungs: Clear to Auscultation, Normal Air Movement Heart: Regular Rate, Normal S1, Normal S2, Other (Systolic murmur) Abdomen: Normal Bowel Sounds, Soft, No Tenderness, No Hepatosplenomegaly, No Masses Extremities: No Clubbing, No Cyanosis, Normal Pulses, No Tenderness/Swelling, Other (Trace peripheral edema) Skin: No Rashes, No Breakdown, No Significant Lesion Neuro: Normal Speech, Normal Tone, Sensation Intact Psych/Mental Status: Mental Status NL, Mood NL Results Lab Laboratory Tests 05/18/23 04:00 A/P-Cardiology Admission Diagnosis Shortness of breath Acute exacerbation of COPD Congestive heart failure Tobaccoism Assessment/Plan Shortness of breath, acute respiratory insufficiency, improving Combination of exacerbation of COPD and congestive heart failure, left ventricular diastolic dysfunction Responding well to aggressive diuresis Receiving antibiotics and managed by primary care team Congestive heart failure, acute on chronic left ventricular diastolic dysfunction, echocardiogram in October 2022 reported ejection fraction 60% with pulmonary hypertension PA pressure 50 mmHg Hypertension, monitor blood pressure Peripheral edema, improving Responding to diuretics Increased risk for coronary artery disease with multiple risk factors, will consider stress test as an outpatient when clinically more stable Heavy tobaccoism, educated on smoking cessation BPH. Supervisory-Addendum Brief Supervisory Addendum Participated in pt care: history, MDM, physical Personally performed: exam, history, MDM Care discussed with: PA Results interpretation: Verified all documentation Notes: Patient was seen and evaluated with Bettina, examination performed, management plan was discussed, agree with the current scribed note, I made few changes to the note using Italic font Patient was seen at bedside, sitting comfortably, feeling better Breathing better, responding well to diuretics Continue to monitor renal function and blood pressure BETTINA EAGLE PA-C May 18, 2023 09:44 GEORGE MARCELINO MD May 18, 2023 15:23
[2023-05-18] MEDS: FLUTICASONE/VILANTEROL 200/25 MCG (14 DOSES) IH SCH (10:17)
[2023-05-18] MEDS: TIOTROPIUM INH 4 GM (SPIRIVA Respimat) IH SCH (10:18)
--- NOTE | 2023-05-18 11:10 | Physical Therapy Daily Note ---
PT Daily Note-Current Subjective Patient lying supine in bed upon PT arrival, agreeable to treatment. Patient rates pain at 0/10 currently. Pain Section J - Health Conditions 1. Rarely or not at all 2. Occasionally 3. Frequently 4. Almost constantly 8. Unable to answer Pain Effect on Sleep: 1 Pain Interference with Therapy: 1 Pain Interference w/Day-to-Day: 1 Transfers SCALE: Activities may be completed with or without assistive devices. 6-Pyizbiiwdw-wuhzrzy completes the activity by him/herself with no assistance from a helper. 5-Set-up or Clean-up Assistance-helper sets up or cleans up; patient completes activity. [place] assists only prior to or following the activity. 4-Supervision or Touching Assistance-helper provides verbal cues and/or touching/steadying and/or contact guard assistance as patient completes activity. Assistance may be provided throughout the activity or intermittently. 3-Partial/Moderate Assistance-helper does LESS THAN HALF the effort. [place] lif ts, holds or supports trunk or limbs, but provides less than half the effort. 2-Substantial/Maximal Assistance-helper does MORE THAN HALF the effort. [place] lifts or holds trunk or limbs and provides more than half the effort. 7-Cbnitriuv-etgzvn does ALL the effort. Patient does none of the effort to complete the activity. Or, the assistance of 2 or more helpers is required for the patient to complete the activity. If activity was not attempted, code reason: 7-Patient Refused. 9-Not Applicable-not attempted and the patient did not perform the activity before the current illness, exacerbation or injury. 10-Not Attempted due to Environmental Limitations-(lack of equipment, weather restraints, etc.). 88-Not Attempted due to Medical Conditions or Safety Concerns. Roll Left & Right (QC): 4 Sit to Lying (QC): 4 Lying to Sitting/Side of Bed(Q: 4 Sit to Stand (QC): 4 Chair/Mni-rm-Rofkm Xfer(QC): 4 Weight Bearing Right Lower Extremity: Right Full Weight Bearing Left Lower Extremity: Left Full Weight Bearing Gait Training Does the Patient Walk?: Yes Distance: 150' Walk 10 feet (QC): 4 Walk 50 ft with 2 Turns(QC): 4 Walk 150 ft (QC): 4 Gait Persons Needed: 1 Gait Assistive Device: Cane Large Base Quad Assessment Current Status: Fair Progress Patient tolerated treatment fair. Patient performs all bed mobility and transfers with SBA. Patient ambulates 150' with FWW, with CGA and verbal cues for safety, progression, balance and posture. Patient in chair post treatment with all needs met, nursing notified call light in hand. PT Personal Security Specialist Goals Half-Way Goals PT Half-Way Goals Time Frame: Jun 18, 2023 Roll Left & Right (QC): 6 Sit to Lying (QC): 6 Lying-Sitting on Side/Bed(QC): 6 Sit to Stand (QC): 6 Chair/Miu-mj-Gadwg Xfer(QC): 6 Toilet Transfer (QC): 6 Does the Patient Walk: Yes Walk 10 feet (QC): 6 Walk 50ft with 2 Turns (QC): 6 Walk 150 ft (QC): 6 PT Plan Treatment/Plan Treatment Plan: Continue Plan of Care Treatment Plan: Bed Mobility, Education, Functional Activity Merle, Functional Strength, Group Therapy, Gait, Safety, Therapeutic Exercise, Transfers Treatment Duration: Jun 18, 2023 Frequency: 6 times per week Estimated Hrs Per Day: .25 hour per day Patient and/or Family Agrees t: Yes Safety Risks/Education Patient Education: Gait Training, Transfer Techniques Teaching Recipient: Patient Teaching Methods: Demonstration, Discussion Response to Teaching: Verbalize Understanding, Return Demonstration Time Time In: 1053 Time Out: 1103 DATE: May 18, 2023 Total Billed Treatment Time: 10 Total Billed Treatment Visit, ZEESHAN ARGUETA PT May 18, 2023 11:10
[2023-05-18 11:15] VITALS: BP 128/54
[2023-05-18] MEDS ORDERED: CEFD300C3 PO (14:22)
[2023-05-18] MEDS ORDERED: MONT-40 PO (14:22)
[2023-05-18] MEDS ORDERED: PRED10TA22 PO (14:22)
--- NOTE | 2023-05-18 14:25 | Discharge Summary ---
Discharge Summary Hospital Course Was the Problem List Reviewed?: Yes Problems/Dx: (1) Respiratory failure Status: Acute (2) Pneumonia (3) Hypoxic Status: Acute (4) Pulmonary edema Status: Acute Hospital Course Date of Admission: May 15, 2023 at 22:19 Admission Diagnosis : Family Physician/Provider: Anahy Reyes MD Date of Discharge: 05/18/23 Discharge Diagnosis: [ ] Hospital Course: Uneventful hospital course he was admitted and placed in the ICU for acute hypoxic respiratory failure requiring BiPAP. IV steroids and IV antibiotics initiated along with Lasix. Patient did recover and remained on more oxygen than his home dosing. Overall he did well and he was discharged in improved condition medical poor prognosis considering his age and end-stage COPD. Labs and Pending Lab Test: Laboratory Tests 05/18/23 04:00: White Blood Count 9.0, Red Blood Count 3.22L, Hemoglobin 9.1L, Hematocrit 28L, Mean Corpuscular Volume 88, Mean Corpuscular Hemoglobin 28, Mean Corpuscular Hemoglobin Concent 32, Red Cell Distribution Width 15.1H, Platelet Count 249, Mean Platelet Volume 12.0, Immature Granulocyte % (Auto) 0, Neutrophils (%) (Auto) 76H, Lymphocytes (%) (Auto) 15, Monocytes (%) (Auto) 9, Eosinophils (%) (Auto) 0, Basophils (%) (Auto) 0, Neutrophils # (Auto) 6.8, Lymphocytes # (Auto) 1.3, Monocytes # (Auto) 0.8, Eosinophils # (Auto) 0.0, Basophils # (Auto) 0.0, Immature Granulocyte # (Auto) 0.0, Sodium Level 135, Potassium Level 4.6, Chloride Level 108H, Carbon Dioxide Level 18L, Anion Gap 9, Blood Urea Nitrogen 32H, Creatinine 1.16, Estimat Glomerular Filtration Rate 66, BUN/Creatinine Ratio 28, Glucose Level 96, Calcium Level 8.1L, Corrected Calcium 9.0, Magnesium Level 2.1, Total Bilirubin 0.4, Aspartate Amino Transf (AST/SGOT) 24, Alanine Aminotransferase (ALT/SGPT) 23, Alkaline Phosphatase 149H, Total Protein 6.1L, Albumin 2.9L Microbiology 05/15/23 MRSA Screen - Final, Complete MRSA not isolated 05/15/23 Urine Culture - Preliminary, Resulted Gram Negative Jay Mixed Bacterial Gavi 05/15/23 Blood Culture - Preliminary, Resulted Home Meds Active Cefdinir 300 Mg Capsule 300 Mg PO BID Prednisone 10 Mg Tab.ds.pk 10 Mg PO DAILY Take 6 tabs(60mg)daily,decrease by 1 tab(10mg)every other day. Montelukast Sodium 10 Mg Tablet 10 Mg PO DAILY@0900 Reported Ventolin Hfa (Albuterol Sulfate) 1 Puff Puff 2 Puff INH Q4H PRN Pravastatin Sodium 40 Mg Tablet 20 Mg PO HS Amlodipine Besylate 5 Mg Tablet 10 Mg PO BID TAKES 2 (5MG) TABS Flomax (Tamsulosin HCl) 0.4 Mg Cap 0.8 Mg PO HS TAKES 2 (0.4MG) CAPS Vitamin B-12 (Cyanocobalamin (Vitamin B-12)) 2,000 Mcg Tablet 2,000 Mcg PO DAILY Trelegy Ellipta 100-62.5-25 (Fluticasone/Umeclidin/Vilanter) 100-62.5 Blst.w.dev 1 Puff INH DAILY Albuterol Sulfate 2.5 Mg/3 Ml (0.083 %) Vial.neb 2.5 Mg INH Q4H PRN Lisinopril 20 Mg Tablet 20 Mg PO DAILY Multivitamin 1 Each Tablet 1 Each PO DAILY Citalopram HBr (Citalopram Hydrobromide) 40 Mg Tablet 20 Mg PO DAILY TAKES OF A 40MG TAB Diltiazem ER (Diltiazem HCl) 120 Mg Capsule.er 240 Mg PO DAILY TAKES 2 (120MG) CAPS Famotidine 20 Mg Tablet 20 Mg PO BID Metoprolol Tartrate 50 Mg Tablet 25 Mg PO BID TAKES OF A 50MG TAB Bupropion HCl 100 Mg Tablet 200 Mg PO BID TAKES 2 (100MG) TABS Assessment/Pt Instructions PCP in 1 week Discharge Planning: <30 minutes discharge planning Discharge Physical Examination Vital Signs Vital Signs Date Time Temp Pulse Resp B/P (MAP) Pulse Ox O2 Delivery O2 Flow Rate FiO2 05/18/23 11:15 37.0 60 18 128/54 (78) 94 High Flow N/C 3.00 05/17/23 04:23 40 General Appearance: No Apparent Distress, WD/WN Respiratory: Lungs Clear, Normal Breath Sounds, Decreased Breath Sounds Allergies: Coded Allergies: Sulfa (Sulfonamide Antibiotics) (Verified Allergy, Unknown, 08/02/19) Discharge Summary Date of Admission May 15, 2023 at 22:19 Date of Discharge Discharge Date: May 18, 2023 Admission Diagnosis Assessment: Acute on chronic respiratory failure Exacerbation of COPD Elevated D-dimer but no PE on CT no DVT on ultrasound so decrease dosing of Lovenox hypertension Hyperlipidemia BPH Depression Plan: ICU BiPAP IV steroids ICS Echo Cardiology consult Home meds Discharge Diagnosis Assessment: Moved down to fourth floor Continue medication Clinical Quality Measures DVT/VTE Risk/Contraindication: Contraindications-Mechi: Other *list below* Other: poss dvt YONATHAN KING DO May 18, 2023 14:24
--- NOTE | 2023-05-18 14:48 | Progress Note - Hospitalist ---
LEONARDO LINDSAY 05/18/23 1448: Subjective HPI/CC On Admission Date Seen by Provider: May 18, 2023 Time Seen by Provider: 11:00 Chief complaint: Shortness of breath HPI: This is a 72-year-old male who is a current smoker and known history of COPD who presented to the ER with shortness of breath. Patient required BiPAP. Echocardiogram performed. Cardiology consulted. Subjective/Events-last exam 72 yo M with a PMH of COPD, current 2 PPD smoking use, HTN, pulmonary HTN, HLD, and previous DVT who presented to the ED on 05/15 with a cc of worsening shortness of breath and peripheral edema. At the ED he was found to have hypoxia requiring BiPAP machine, elevated D-dimer, cardiomegaly and interstitial edema of CXR and UA consistent with infection. CT was negative for PE and lower extrem ity US as negative for DVT. He was admitted to the ICU for acute hypoxic respiratory failure well as UTI. He was initiated on Cefipime and has been maintained on supplemental oxygen via BiPAP or nasula canula since. This morning, the patient reports improvement in breathing and productive cough. He denies chest pain or pleuritic pain. Review of Systems General: No Chills, No Fatigue Pulmonary: Dyspnea, Cough Cardiovascular: No: Chest Pain Focused Exam Lactate Level 05/15/23 17:25: Lactic Acid Level 1.15 Objective Exam Vital Signs Vital Signs Date Time Temp Pulse Resp B/P (MAP) Pulse Ox O2 Delivery O2 Flow Rate FiO2 05/18/23 11:15 37.0 60 18 128/54 (78) 94 High Flow N/C 3.00 05/17/23 04:23 40 Capillary Refill : Less Than 3 Seconds General Appearance: No Apparent Distress Respiratory: Chest Non Tender, No Accessory Muscle Use, No Respiratory Distress, Decreased Breath Sounds (throughout ) Cardiovascular: Regular Rate, Rhythm Gastrointestinal: Normal Bowel Sounds Extremity: Pedal Edema (trace pretibial pitting edema) Neurologic/Psychiatric: Alert, Oriented x3 Skin: Normal Color, Warm/Dry Results/Procedures Lab Laboratory Tests 05/18/23 04:00 Patient resulted labs reviewed. Assessment/Plan Assessment and Plan Assess & Plan/Chief Complaint Acute respiratory failure - improving COPD exacerbation Tobacco dependence - Patient requiring 3L of supplemental oxygen by nasal canula - Patient not oxygen dependent at home - Continue Decadron IV (EOT 05/21) - Continue inhalers - Wean oxygen Pulmonary edema - improving Diastolic CHF Pulmonary HTN - Echo on 05/16 with normal EF, concentric hypertrophy, PA pressure of 65-75 - Lasix from 05/15 - 05/16 - 05/17 CXR showing improved edema Complicated UTI - Continue Cefipime Elevated D-dimer - CT in ED negative for PE - US in ED negative for DVT Chronic: Hypertension - lisinopril, hydralazine Hyperlipidemia - atorvostatin Depression - citalopram Chronic pain - hydromorphone Clinical Quality Measures DVT/VTE Risk/Contraindication: Contraindications-Mechi: Other *list below* Other: poss dvt DOLORES KING DO 05/19/23 0446: Supervisory-Addendum Brief Verification & Attestation Participated in pt care: history, MDM, physical Personally performed: exam, history, MDM, supervision of care Care discussed with: Medical Student Procedures: n/a Results interpretation: Verified all documentation Verification and Attestation of Medical Student E/M Service A medical student performed and documented this service in my presence. I reviewed and verified all information documented by the medical student and made modifications to such information, when appropriate. I personally performed the physical exam and medical decision making. Dolores King May 19, 2023,04:46 LEONARDO LINDSAY May 18, 2023 14:48 DOLORES KING DO May 19, 2023 04:46
[2023-05-18 16:16] VITALS: BP 128/68
[2023-05-18 16:24] VITALS: BP 128/68
--- NOTE | 2023-05-18 21:20 | Physician Query-Final Dx ---
FELIPA MCCLURE 05/18/230: Final Diagnosis Give Final Diagnosis Please give Final Diagnosis The medical record reflects the following clinical scenario: The patient, in the setting of History/Risk factors, Hx: Former smoker, COPD, chronic edema swelling, hypertension Clinical Findings Admission BNP BNP 898, Bilateral Lower Extremity non pitting edema, Chest Xray: "Worsening central vascular congestion....with diffuse interstitial edema...may represent alveolar edema or pneumonia" Per Dr. Hao Garcia "Congestive heart failure, acute on chronic left ventricular diastolic dysfunction" and "Acute on chronic HF exacerbation -HFpEF" Dr. Ceci Mehtaper Treatment Cardiology consult, I and O, Lasix IV Question: Do you agree with the impression Acute on chronic HF exacerbation- HFpEF of per Dr. Beto Garcia and Dr. Ceci Mehta? Yes; will document Acute on chronic HF exacerbation-HFpEF in the Progress Notes, present on admission No; will continue current documentation in the Progress Notes Other; will document explanation of clinical findings Clinically undetermined; no explanation for clinical findings Please clarify and document your clinical opinion in the Progress Notes and Discharge Summary including the definitive and/or presumptive diagnosis, (suspected or probable), related to the above clinical findings. Please include clinical findings supporting your diagnosis. In responding to this query, please exercise your independent professional judgment. The purpose of this communication is to more accurately reflect the complexity of your patients condition. The fact that a question is asked does not imply that any particular answer is desired or expected. Thank you for timely response to this clarification. Felipa Mcclure, MSN, RN Clinical Still Operator [phone] [email or web address] YONATHAN KING DO 05/19/23 0454: Final Diagnosis Give Final Diagnosis Yes; will document Acute on chronic HF exacerbation-HFpEF in the Progress Notes, present on admission FELIPA MCCLURE May 18, 2023 21:20 YONATHAN KING DO May 19, 2023 04:54
--- NOTE | 2023-05-18 21:32 | Physician Query-Final Dx ---
FELIPA RAHMAN 05/18/23 2132: Final Diagnosis Give Final Diagnosis Please give Final Diagnosis Clinical Validation Clarification Dr Iam Lee Sepsis has been documented in the medical record. After study, has Sepsis been ruled out? If it has been ruled out, please document Sepsis ruled out" in the progress notes and/or discharge summary. Yes/Agreed, Sepsis ruled out/is not clinically valid Not agreed, Sepsis has not been ruled out/is clinically valid* *Please document the clinical evidence supportive of this diagnosis (even if now resolved) in the Progress Notes and Discharge Summary Other, with explanation of the clinical findings Clinically undetermined, no explanation for the clinical findings Additional information: Admission: History of COPD ...current 2 ppd smoker presented to the ED on 05/15 at 1700H for SOB. Admitted with Vital Signs: HR 76, RR 24, BP 153/85, SpO2 100% sat on 100% O2 T 37.1, WBC 11.0, Lactic acid 1.15, Documentation of UTI, and Chest CT: "COPD. Bilateral pleural effusions. Bibasilar atelectasis" ER Treatment: Normal saline 500 mL, , cefepime IV, ipratropium/albuterol, dexamethasone, In responding to this query, please exercise your independent professional judgment. The purpose of this communication is to more accurately reflect the complexity of your patients condition. The fact that a question is asked does not imply that any particular answer is desired or expected. Thank you for your timely response to this clarification. Felipa Rahman MSN, RN Clinical Cutter Head Sharpener YONATHAN LEE DO 05/19/23 0454: Final Diagnosis Give Final Diagnosis Yes/Agreed, Sepsis ruled out/is not clinically valid FELIPA RAHMAN May 18, 2023 21:32 YONAHTAN LEE DO May 19, 2023 04:54
== END 2023-05-18 17:45 | disposition home or self-care (01) | DRG 189 ==
LOC: EDUNIT# 17:16 → ER 17:17 → ICU 22:19 → 4TH 05-17 14:53
PROVIDERS: ADMIT Internal Medicine; ATTEND Internal Medicine
PROC: 5A09357 Assistance with Respiratory Ventilation, Less than 24 Consecutive Hours, Continuous Positive Airway Pressure (ICD-10-PCS; principal; 2023-05-15)
PROC: 5A0935A Assistance with Respiratory Ventilation, Less than 24 Consecutive Hours, High Flow/Velocity Cannula (ICD-10-PCS; 2023-05-16)
DX: J96.21 Acute and chronic respiratory failure with hypoxia (principal); I50.33 Acute on chronic diastolic (congestive) heart failure; J18.9 Pneumonia, unspecified organism; J44.1 Chronic obstructive pulmonary disease with (acute) exacerbation; N39.0 Urinary tract infection, site not specified; J44.0 Chronic obstructive pulmonary disease with (acute) lower respiratory infection; I11.0 Hypertensive heart disease with heart failure; I27.20 Pulmonary hypertension, unspecified; E78.00 Pure hypercholesterolemia, unspecified; I48.91 Unspecified atrial fibrillation; N40.0 Benign prostatic hyperplasia without lower urinary tract symptoms; F17.210 Nicotine dependence, cigarettes, uncomplicated; F17.220 Nicotine dependence, chewing tobacco, uncomplicated; F17.290 Nicotine dependence, other tobacco product, uncomplicated; F32.A Depression, unspecified; G89.29 Other chronic pain; K21.9 Gastro-esophageal reflux disease without esophagitis; Z86.718 Personal history of other venous thrombosis and embolism; Z23 Encounter for immunization; M19.90 Unspecified osteoarthritis, unspecified site; H54.3 Unqualified visual loss, both eyes; H91.90 Unspecified hearing loss, unspecified ear; Z88.2 Allergy status to sulfonamides; Z79.899 Other long term (current) drug therapy
CPT/HCPCS: 36415; 36600; 71045; 71275; 80053; 81000; 82805; 83605; 83735; 83880; 84100; 84484; 85007; 85025; 85027; 85379; 85610; 85730; 87040; 87081; 87088; 87636; 90662; 93005; 93306; 93970; 94640; 94660; 94761